=== PATIENT | female | born 1955 | race Caucasian/White ===

== ENCOUNTER 2016-11-21 07:07 | Day surgery (SDC) | payer BC ==
--- NOTE | 2016-11-18 23:05 | HP ---
ADMISSION HISTORY AND PHYSICAL: DATE OF ADMISSION: 11/21/16 ATTENDING SURGEON: Dr. Davi Friedman (dictated by BREA Zheng) CHIEF COMPLAINT: Left breast cancer. HISTORY OF PRESENT ILLNESS: This is a 60-year-old female who does not have regular medical care who noticed new lump in her left breast while in the shower around July 2016. She notes that in succeeding months, it has increased in size. It has been associated with some tenderness. She has not had any skin changes or nipple discharge. She has had a preexisting lump in the right breast since she was in her teens that has remained unchanged for the past 40 years or so. Her last mammogram was approximately 7 to 8 years ago. She was sent for mammogram and ultrasound on 10/31/16. These studies confirmed the presence of a lesion in the right breast at the 1 to 3 o'clock position with associated dense calcifications felt to be consistent with a fibroadenoma. On the left side between the 10 and 11 o'clock positions was noted to be a solid mass felt to be consistent with a carcinoma measuring up to 19 mm and located 3 cm from the nipple. The patient has not had any prior breast biopsies. Her family history is positive for breast cancer and a paternal aunt who was diagnosed in her 80s. She was seen in our office by Dr. Friedman on 11/08. Examination at that time revealed a smooth rounded mass at the upper edge of the areola of the right breast measuring just less than a centimeter in size and felt to be consistent with fibroadenoma. In the left breast, there was a visible swelling under the skin between the 10 and 11 o'clock position that was hard and suspicious for neoplasm. He estimated the measurement to be about 2 x 2.5 cm. There is no palpable lymphadenopathy bilaterally and no other dominant masses. There are no skin or nipple changes. He subsequently performed a fine- needle aspiration and core biopsy, which was positive for invasive ductal carcinoma, which was negative for both estrogen and progesterone receptors as well as HER-2 cyn receptor. Her case was presented at tumor board. Dr. Friedman has relayed these findings and recommendations to the patient. She understands the indications for surgery. The risks, benefits, and alternatives, the potential need for additional surgery and the potential need for adjuvant chemo and/or radiation therapy. She would like to proceed as scheduled with wide excision of left breast cancer with central lymph node biopsy; placement of PowerPort. PAST MEDICAL HISTORY: She is an active smoker and would qualify for substance use disorder regarding her alcohol intake (see below). She denies any known history of active cardiovascular disease, respiratory problems, diabetes, or other prior history of cancer. PAST SURGICAL HISTORY: Her previous surgeries include total hysterectomy with bilateral salpingo-oophorectomy in 2002 for benign disease. She is also status post ectopic and appendectomy. No report of surgical or anesthesia problems. CURRENT MEDICATIONS: None (occasional Aleve p.r.n.) DRUG ALLERGIES: PENICILLIN (facial swelling). (She has taken Keflex in the past without any problem.) LATEX (?; she had a local reaction at an IV site from what sounds like Tegaderm). FAMILY HISTORY: Negative for anesthesia problems, bleeding, or clotting disorders. SOCIAL HISTORY: The patient is . 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 She is a 1 pack per day smoker and was encouraged to quit. She drinks between 4 and 6 alcoholic drinks per day and was advised to reduce her alcohol intake. She denies any other substance use. REVIEW OF SYSTEMS: General: No recent constitutional symptoms or acute illnesses. Her weight has been stable. Cardiovascular: No chest pain, palpitations, history of hypertension. She has had a past history of a heart murmur. Respiratory: Smoking history as noted. No shortness of breath or chronic cough. GI: No problems reported. She did undergo colonoscopy twice most recently being 2 to 3 years ago, which she states was a normal report. : No problems reported. CLINIC LPN: See above for breast. She no longer has Pap smears done as she is status post hysterectomy. Endocrine: No diabetes or thyroid dysfunction. PHYSICAL EXAMINATION GENERAL: Well-nourished, well-developed female, in no acute distress. VITAL SIGNS: Height 5 feet 2 inches, weight 137 pounds. Other vital signs per nursing. SKIN: Warm and dry. No suspicious rashes or lesions noted. HEENT: Pupils are equal and round, reactive. EOMs intact. No conjunctival pallor. Oropharynx: Teeth in fair repair. No intraoral lesions. NECK: No lymphadenopathy, thyromegaly, or masses. LUNGS: Clear to auscultation. No wheezes. HEART: Regular rate and rhythm. No murmur appreciated. BREAST: Not reexamined. See above per Dr. Friedman's exam. ABDOMEN: Soft, nontender to palpation. No palpable masses or organomegaly. Well- healed surgical scars. GENITALIA and RECTAL: Not done. BACK: No spinous process or CVA tenderness. EXTREMITIES: No edema. NEUROLOGICAL: Grossly intact. IMPRESSION: Left breast cancer. PLAN: Wide excision, left breast cancer with sentinel lymph node biopsy; PowerPort placement. BREA CHAVEZ CC: [facility] * [id number] #: [id number] MTDD
[~2016-11-21 07:07] MED LIST: Buffered Lidocaine 1% SYR 3ML* 3 ML/SYR SYRINGE INTRADERM ONE; Lidocaine 2.5%/Prilocain 2.5%* 5 GM TUBE ONE; NS 0.9% 1000 ML* 1,000 ML IV SCH; ceFAZolin 2 GM PREMIX (*) 2 GM/50 ML BAG IVPB ONE
--- NOTE | 2016-11-21 09:09 | RAD ---
HISTORY: Breast cancer. Lymphoscintigraphy of the breast for the purposes of sentinel node identification. COMPARISONS: Mammogram dated October 31, 2016 TECHNIQUE: Previous imaging was reviewed. The procedure was explained to the patient who indicated that she understood. Written and verbal informed consent was obtained, with an opportunity to ask and answer questions. The breast was marked. A timeout was performed. The patient was prepped and draped in the usual sterile fashion. Technetium 99m sulfur colloid was administered in a subdermal fashion in 4 divided aliquots in a 180 degree arc along the areolar margin of the left breast, centered on the position of the primary breast lesion. Cine and planar imaging was performed. The first appearing axillary node was identified with the overlying skin marked. DOSE: Technetium 99m sulfur colloid, 0.302 millicuries, injected at 8:33 AM on November 21, 2016 FINDINGS: Uptake is noted within a left axillary lymph node. The site of uptake is marked on the overlying skin. OTHER: None IMPRESSION: TECHNICALLY SUCCESSFUL, UNCOMPLICATED, LYMPHOSCINTIGRAPHY OF THE LEFT BREAST FOR THE PURPOSES OF SENTINEL NODE LOCALIZATION.
[2016-11-21] MEDS ORDERED: Famotidine IV* 10 MG/ML 2 ML (20 mg) ONE (11:33)
[2016-11-21] MEDS ORDERED: Midazolam* 1 MG/ML 2 ML VIAL (2 MG) ONE ×2 (11:33→12:41)
[2016-11-21] MEDS ORDERED: fentaNYL* 50 MCG/ML 2 ML VIAL (100 MCG VIAL) ONE ×2 (11:33→13:01)
[2016-11-21] MEDS ORDERED: Ketorolac INJ* 30 MG/ML 1 ML VIAL ONE (12:41)
[2016-11-21] MEDS ORDERED: Propofol* 10 MG/ML 20 ML BTL IV PUSH ONE ×2 (12:41→13:16)
[2016-11-21] MEDS ORDERED: Lidocaine 2% PF * 5 ML VIAL ONE (12:41)
[2016-11-21] MEDS ORDERED: Ondansetron INJ* 2 MG/ML VIAL ONE (12:41)
[2016-11-21] MEDS ORDERED: Dexamethasone IV* 4 MG/ML 1 ML (4 MG) ONE (12:41)
[2016-11-21] MEDS ORDERED: HYDROmorphone INJ* 1 MG/ML CARPUJECT SYRINGE IV PRN (13:22)
[2016-11-21] MEDS ORDERED: HYDROcodone/ACETAMIN 5-325 MG* 1 TAB PO PRN (13:22)
[2016-11-21] MEDS ORDERED: DiMENhydriNATE IV* 50 MG/ML VIAL IV PUSH PRN (13:22)
[2016-11-21] MEDS ORDERED: fentaNYL* 50 MCG/ML 2 ML VIAL (100 MCG VIAL) IV PRN (13:22)
[2016-11-21] MEDS ORDERED: PROCHLORPERAZINE INJ 5 MG/ML 2 ML VIAL IV PRN (13:22)
[2016-11-21] MEDS ORDERED: Acetaminophen TAB* 325 MG PO PRN (13:22)
[2016-11-21] MEDS ORDERED: Ondansetron INJ* 2 MG/ML VIAL IV PRN (13:22)
[2016-11-21] MEDS ORDERED: HYDROmorphone INJ* 1 MG/ML CARPUJECT SYRINGE ONE (13:26)
--- NOTE | 2016-11-21 13:51 | RAD ---
CPT II Codes: 6045F. Indication: PowerPort insertion. Fluoroscopic services provided for referring physician. 6.9 seconds of fluoroscopy time was used. Single spot image demonstrates placement of a central catheter in the right atrium. IMPRESSION: Fluoroscopic services provided for referring physician for PowerPort placement.
[2016-11-21 15:04] VITALS: BP 125/83
--- NOTE | 2016-11-21 15:07 | RAD ---
HISTORY: Chest port placement COMPARISONS: None relevant VIEWS:1: Single frontal portable view of the chest at 2:49 PM FINDINGS: LINES AND TUBES: A right-sided chest port is noted from a subclavian approach with the tip overlying the superior vena cava CARDIOMEDIASTINAL SILHOUETTE: The cardiomediastinal silhouette is normal for portable technique. PLEURA: The costophrenic angles are sharp. No pleural abnormalities are noted. There is no appreciable pneumothorax. LUNG PARENCHYMA: The lungs are clear. ABDOMEN: The upper abdomen is clear. There is no subphrenic gas. BONES AND SOFT TISSUES: No bone or soft tissue abnormalities are noted. IMPRESSION: LINES AND TUBES ABOVE. NO ACTIVE CARDIOPULMONARY DISEASE.
--- NOTE | 2016-11-22 01:02 | OP ---
DATE OF OPERATION: 11/21/16 [facility] DATE OF : 59 SURGEON: Davi Friedman MD DELIVERY STOCK CLERK: BREA Hinojosa ANESTHESIOLOGIST: Dr. Cruz. ANESTHESIA: General anesthetic, local infiltration. PRE-OP DIAGNOSIS: Left breast cancer. POST-OP DIAGNOSIS: Left breast cancer. OPERATIVE PROCEDURE: Placement of right subclavian PowerPort and wide local excision, left breast cancer with left axillary sentinel node excision. DESCRIPTION OF PROCEDURE: The patient was supine on the operative table. After adequate general anesthetic, compression stockings, Neo Hugger warmer and intravenous antibiotics, the right chest, neck, left chest and axilla were prepped with antiseptic, draped in a sterile fashion. Local anesthetic was administered and the right subclavian port site was marked out, anesthetized. A 3-cm incision was created. Inferior pocket was created. Subclavian venipuncture carried out without difficulty. Guidewire passed under fluoroscopic guidance. Catheter passed through the peel-away introducer, measured and cut at 22 cm and placed into the distal SVC. It was attached to the port, which was sutured to the pocket with 2-0 Prolene. Pocket was closed with 3-0 and 5-0 Polysorb followed by Steri-Strips. The port has good blood return and flushed with saline and heparinized solution. Attention was then turned to the left side, where wide excision was carried out of the left upper inner quadrant mass. An elliptical incision approximately 4 x 8 cm was created and this tissue was carried down to the subfascial plane and a piece of tissue approximately 5 x 10 x 4 cm was removed, marked with the usual marking sutures and sent fresh to pathology. The adipose was mobilized somewhat and closure accomplished using 3-0 and 5-0 Polysorb followed by Steri- Strips. In the left axilla, local anesthetic was administered and approximately 3 cm incision was created and a solitary sentinel node with a count of 257 was identified and dissected out. Afterwards, the basin count was about 2 and no additional sentinel nodes could be identified. Closure was accomplished with 3-0 and 5-0 Polysorb followed by Steri-Strips. She tolerated the procedure well and was brought to recovery in good condition. There are no complications. No drains. Pathologic specimens as above. Sponge and instrument counts correct. Estimated blood loss 30 mL. CC: [facility] * [id number]/CPS #: [id number] MTDD
== END 2016-11-21 15:05 | disposition home or self-care (01) ==
LOC: OR 07:07
PROVIDERS: ATTEND Surgery
DX: C50.212 Malignant neoplasm of upper-inner quadrant of left female breast (principal); Z88.0 Allergy status to penicillin; F17.210 Nicotine dependence, cigarettes, uncomplicated; F19.10 Other psychoactive substance abuse, uncomplicated; Z72.89 Other problems related to lifestyle
CPT/HCPCS: 71010; 78195; 88307; 88341; 88342; A9270-GY; A9541; C1788; J0690; J1100; J1170; J1642; J1885; J2250; J2405; J2704; J3010

== ENCOUNTER 2019-02-25 05:30 | Inpatient (IN) | payer BC ==
[~2019-02-25 05:30] MED LIST changes: -Buffered Lidocaine 1% SYR 3ML* 3 ML/SYR SYRINGE INTRADERM ONE; +Buffered Lidocaine 1% SYRIN* 1 ML/SYRINGE INTRADERM ONE; -Lidocaine 2.5%/Prilocain 2.5%* 5 GM TUBE ONE; -NS 0.9% 1000 ML* 1,000 ML IV SCH; +NS 0.9% IVPB SCH; +VANCOMYCIN IVPB SCH; +Vancomycin(*) 1,000 MG in NS 0.9% 250 ML* 250 ML IVPB SCH; -ceFAZolin 2 GM PREMIX (*) 2 GM/50 ML BAG IVPB ONE
--- OUTSIDE RECORDS SUMMARY | 2019-02-25 05:34 | XMS REPORT | Continuity of Care Document ---
:1955 External Reference #:[id number] Author Name Smiley Richmond Care Team Providers Name Role Phone Patient's Choice Primary Care Physician Unavailable Payers Date Identification Numbers Payment Provider Subscriber Policy Number: [id number] BS Facets Maggy Erazo PayID: [id number] [address] [address] [place] [address] Family History Date Family Member(s) Observation Comments Father Prostate Cancer Father due to Prostate Cancer () Mother due to childbirth () difficulties Siblings 4 two brothers and two sisters Social History Type Date Description Comments Sex Unknown Marital Status Lives With 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 Max 1 smoker, smokes every ppd. Began age 16 day Recreational Drug Use Never Used Drugs Smoking Status Reviewed: 02/23/19 Patient is a current 3/4 ppd now. Max 1 smoker, smokes every ppd. Began age 16 day Exercise Type/Frequency Does not exercise Allergies, Adverse Reactions, Alerts Active Allergies Reaction Severity Comments Date Penicillin 11/05/2016 Latex Rash 02/19/2019 Medications Active Medications SIG Qnty Indications Ordering Provider Date Dexamethasone 3 tabs by mouth Unknown 4mg Tablets daily History Medications No Active Medications Unknown 11/29/2016 - 11/29/2016 Hydrocodone-Acetamino 1 or 2 tablets by 20tabs Mary Jo Grewal, 2016 - phen mouth every 4-6 MD Unknown 5-325mg Tablets hours as needed for moderately severe pain No Active Medications Davi Friedman, 11/05/2016 - Reji 11/18/2016 Aleve as needed Unknown - 220mg Tablets 02/18/2019 Vital Signs Date Vital Result Comment 02/23/2019 9:16am Height 62 inches 5'2" Weight 137.00 lb Heart Rate 88 /min BP Systolic Sitting 135 mmHg BP Diastolic Sitting 81 mmHg O2 % BldC Oximetry 95 % BMI (Body Mass Index) 25.1 kg/m2 02/19/2019 2:24pm Height 62 inches 5'2" Weight 136.00 lb BP Systolic 141 mmHg BP Diastolic 71 mmHg Respiratory Rate 16 /min Body Temperature 98.3 F Pain Level 10 BMI (Body Mass Index) 24.9 kg/m2 12/31/2017 8:29am Heart Rate 76 /min BP Systolic 126 mmHg BP Diastolic 80 mmHg Respiratory Rate 16 /min Body Temperature 98.5 F 11/29/2016 11:32am Heart Rate 88 /min Respiratory Rate 16 /min Body Temperature 98.9 F 11/18/2016 12:59pm Height 62 inches 5'2" Weight 137.00 lb Heart Rate 84 /min BP Systolic 148 mmHg BP Diastolic 64 mmHg Respiratory Rate 18 /min Body Temperature 98.8 F BMI (Body Mass Index) 25.1 kg/m2 11/08/2016 9:14am Height 62 inches 5'2" Weight 137.00 lb Heart Rate 72 /min BP Systolic 134 mmHg BP Diastolic 74 mmHg Respiratory Rate 16 /min Body Temperature 98.1 F BMI (Body Mass Index) 25.1 kg/m2 Results Test Date Facility Test Result H/L Range Note CBC Auto Diff 02/23/2019 [facility] White Blood 14.5 10^3/uL High 3.5-10.[address] [place] [address] [phone] Red Blood Count 4.52 10^6/uL N 3.70-4.87 Hemoglobin 13.9 g/dL N 12.0-16.0 Hematocrit 41 % N 35-47 Mean Corpuscular Volume 91 fL N 80-97 Mean Corpuscular Hemoglobin 31 pg N 27-31 Mean Corpuscular HGB Conc 34 g/dL N 31-36 Red Cell Distribution Width 13 % N 10-15 Platelet Count 352 10^3/uL N 150-450 Mean Platelet Volume 7.7 fL N 7.4-10.4 Abs Neutrophils 12.5 10^3/uL High 1.5-7.7 Abs Lymphocytes 1.1 10^3/uL N 1.0-4.8 Abs Monocytes 0.9 10^3/uL High 0-0.8 Abs Eosinophils 0.0 10^3/uL N 0-0.6 Abs Basophils 0.0 10^3/uL N 0-0.2 Abs Nucleated RBC 0.0 10^3/uL Granulocyte % 86.2 % Lymphocyte % 7.5 % Monocyte % 6.0 % Eosinophil % 0.0 % Basophil % 0.3 % Nucleated Red Blood Cells % 0.0 Comp Metabolic Panel 02/23/2019 [facility] Sodium 136 mmol/L N 135-[address] [place] [address] [phone] Potassium 4.5 mmol/L N 3.5-5.0 Chloride 101 mmol/L N 101-111 Co2 Carbon Dioxide 27 mmol/L N 22-32 Anion Gap 8 mmol/L N 2-11 Glucose 95 mg/dL N 70-100 Blood Urea Nitrogen 31 mg/dL High 6-24 Creatinine 0.88 mg/dL N 0.51-0.95 BUN/Creatinine Ratio 35.2 High 8-20 Calcium 10.2 mg/dL N 8.6-10.3 Total Protein 7.1 g/dL N 6.4-8.9 Albumin 4.2 g/dL N 3.2-5.2 Globulin 2.9 g/dL N 2-4 Albumin/Globulin Ratio 1.4 N 1-3 Total Bilirubin 0.50 mg/dL N 0.2-1.0 Alkaline Phosphatase 57 U/L N 34-104 Alt 31 U/L N 7-52 Ast 27 U/L N 13-39 Egfr Non- 65.3 >60 Egfr 79.0 >60 1 Urinalysis Profile 02/23/2019 [facility] Urine Color Yellow [address] [place] [address] [phone] Urine Appearance Cloudy Urine Specific [place] 1.020 N 1.010-1.030 Urine pH 5.0 N 5-9 Urine Urobilinogen Negative Negative Urine Ketones Negative Negative Urine Protein Negative Negative Urine Leukocytes Negative Negative Urine Blood Negative Negative Urine Nitrite Negative Negative Urine Bilirubin Negative Negative Urine Glucose Negative Negative Inr/Protime 02/23/2019 [facility] Inr 0.85 N 0.82-1.[address] [place] [address] [phone] Laboratory test 02/23/2019 [facility] Partial 25.6 Low 26.0- 38.[address] [place] [address] PTT [phone] Laboratory test 11/21/2016 [facility] Surgical SEE RESULT [address] Pathology BELOW [place], [place] [id number] [phone] Laboratory test 11/08/2016 [facility] Surgical SEE RESULT [address] Pathology BELOW [place], [place] [id number] [phone] Cytology Non-Packing And Wrapping Supervisor SEE RESULT BELOW 5 1 Because ethnic data is not always readily available, this report includes an eGFR for both -Americans and non- Americans. The National Kidney Disease Education Program (NKDEP) does not endorse the use of the MDRD equation for patients that are not between the ages of 18 and 70, are , have extremes of body size, muscle mass, or nutritional status, or are non- or non-. According to the National Kidney Foundation, irrespective of diagnosis, the stage of the disease is based on the level of kidney function: Stage Description GFR(mL/min/1.73 m(2)) 1 Kidney damage with normal or decreased GFR 90 2 Kidney damage with mild decrease in GFR 60-89 3 Moderate decrease in GFR 30-59 4 Severe decrease in GFR 15-29 5 Kidney failure <15 (or dialysis) 2 Standard intensity warfarin therapeutic range: 2.0-3.0 High intensity warfarin therapeutic range: 2.5-3.5 3 SEE RESULT BELOW Name: MAGGY ERAZO : [address]: Davi Friedman MD Acct: [id number] Unit: [id number] AGE: 60 Location: OR Re11/21/16 SEX: F Status: [facility] SPEC: [id number] JOANNA: 11/21/[address]: Davi Friedman MD REQ: [id number] RECD: 11/21/16 STATUS: SOUT _ ORDERED: KERATIN STAIN, LEVEL V/2, KSS-ADD FINAL DIAGNOSIS 1. Breast, left, lumpectomy: -- Invasive ductal adenocarcinoma of breast, with: Size: 23 mm. Overall Candi grade: 3 of 3. Tubule formation: 3. Nuclear grade: 3. Mitotic count: 3. Margins: All margins are negative by greater than 6 mm. Lymphovascular invasion: Not identified. Skin: Not involved. Chest-wall / pectoralis involvement: Not applicable. Ductal carcinoma in situ (DCIS): Present. Size: 6 mm. Extent and distribution: Adjacent to invasive carcinoma. Architectural pattern: Solid and clinging types. Nuclear grade: High. Necrosis: Focally present. Margins: Negative by greater than 6 mm. ER, SC, Her2/antoinette by immunohistochemistry with appropriate controls: ER: Per , negative (0%). SC: Per , negative (0%). Her2/antoinette: Per , negative (1+). Microcalcifications: Not identified. Other findings: None. pTNM histopathologic stage: pT2 N0 M N/A. 2. [place] lymph node #1, excision: -- One lymph node negative for metastatic carcinoma (0/1). COMMENT: Per [place] lymph node protocol, pankeratin immunostains were CONTINUED ON NEXT PAGE * ML=Testing performed at Main Lab DEPARTMENT OF PATHOLOGY, [address] [place] [address] Luis Gipson M.D. Director [facility] # [id number] RUN DATE: 11/22/16 [facility] LAB LIVE PAGE 2 Patient: MAGGY ERAZO [id number] (Continued) SPECIMEN COMMENTS (Continued) performed on sections cut from blocks 2A and 2B and are negative, supporting the diagnosis. Dr. Gipson reviewed this case in intradepartmental consultation and agrees with the diagnosis. PRE-OPERATIVE DIAGNOSIS Left breast cancer; suture gutierrez: long lateral, medium medial, short superior GROSS DESCRIPTION 1. The specimen is received fresh in one properly labeled container with the patient's name and accession number designated "Left Breast Excision" and consists of an oriented 8.5 x 7.0 x 4.0 cm of breast tissue with attached 4.5 x 1.8 cm ellipse of caro- white skin. Three orienting sutures are present including a long stitch designating lateral, a short stitch designating superior, and a medium stitch designating medial. The specimen is inked as follows: Superior anterior equals blue, inferior anterior equals green, and posterior (deep) equals black. The specimen is serially sectioned from lateral to medial to reveal a 2.3 x 2.1 x 2.0 cm well-circumscribed caro-white mass in the central portion of the specimen located 0.6 cm from the deep margin, 1.1 cm from the anterior superior margin , and 1.5 cm from the anterior inferior margin. Stitchdown Thread Laster sections as follows: A- skin, B-adjacent uninvolved, A-S-pwqdbvflpzuogw mass. 2. The specimen is received in formalin labeled, [place] Node #1 Count 257 , and consists of a 2.2 x 1.8 x 0.7 cm aggregate of yellow lobulated adipose tissue with a central 1.2 x 0.8 x 0.5 cm caro-pink rubbery tissue fragment, which is serially sectioned and entirely submitted in two cassettes. Signed (signature on file) Ester Costa MD 1627 END OF REPORT * ML=Testing performed at Main Lab DEPARTMENT OF PATHOLOGY, [address] [place] [address] Luis Gipson M.D. Director [facility] # [id number] 4 SEE RESULT BELOW Name: GWYNALYSSA TAYLORIE : [address]: Davi Friedman MD Acct: [id number] Unit: [id number] AGE: 60 Location: [facility] Re11/08/16 SEX: F Status: REG REF SPEC: [id number] JOANNA: 11/08/16-0954 [facility] DR: Davi Friedman MD REQ: [id number] RECD: 11/08/16 STATUS: BERE CABALLREO DR: Maine Horn MD _ ORDERED: ESTRO REC ST, LEVEL IV, [id number], PRAS-ADD COMMENTS: No tracking Addendum: The following immunohistochemical stains were performed with appropriate controls. ER negative SC negative HER-2 negative (1+) Addendum Signed (signature on file) Luis Gipson MD 0935 FINAL DIAGNOSIS Breast, left, core biopsy: -- Invasive ductal adenocarcinoma of breast, with: Size: 4 mm maximal span. Tumor extent and distribution: 1 single tumor focus noted.. Estimated Candi grade: Estimated tubule formation: 2. Estimated nuclear grade: 2. Estimated mitotic count: 2. Combined [place] histologic grade: 2/3. (6/9 points). Lymphovascular invasion: Not seen. Ductal Carcinoma in situ (DCIS): Not present. ER, SC, and Her2/Antoinette by immunohistochemistry with appropriate controls: ER: Pending; results will be reported in an addendum. SC: Pending; results will be reported in an addendum. Her2/Antoinette: Pending; results will be reported in an addendum. Microcalcifications: Not seen. Other findings: None. Predicted pTNM histopathologic stage: at least pT 1A. CONTINUED ON NEXT PAGE * ML=Testing performed at Main Lab DEPARTMENT OF PATHOLOGY, [address] [place] [address] Luis Gipson M.D. Director [facility] # [id number] RUN DATE: 11/13/16 [facility] LAB LIVE PAGE 2 Patient: MAGGY ERAZO [id number] (Continued) FINAL DIAGNOSIS (Continued) Comment: Dr. Costa has reviewed this case and concurs. PRE-OPERATIVE DIAGNOSIS Left breast lump GROSS DESCRIPTION The specimen is received in formalin labeled, Left Breast Lump Core Biopsy, and consists of two yellow-white irregular fibrofatty soft tissue cores measuring 1.5 x 0.2 cm and 2.0 x 0.2 cm, which are submitted entirely in one cassette. Signed (signature on file) Luis Gipson MD 1141 END OF REPORT * ML=Testing performed at Main Lab DEPARTMENT OF PATHOLOGY, [address] [place] [address] Luis Gipson M.D. Director [facility] # [id number] 5 SEE RESULT BELOW Name: MAGGY ERAZO : [address]: Davi Friedman MD Acct: [id number] Unit: [id number] AGE: 60 Location: [facility] Re11/08/16 SEX: F Status: REG REF SPEC: [id number] JOANNA: 11/08/16-0954 [facility] DR: Davi Friedman MD REQ: [id number] RECD: 11/08/16 STATUS: BERE CABALLERO DR: [facility] _ ORDERED: FN ASP SUPERFIC COMMENTS: NO TRACKING FINAL DIAGNOSIS Breast, left, fine needle aspiration: --Malignant- well to moderately differentiated ductal carcinoma. See comment. Comment: Specimen demonstrates cohesive and discohesive epithelial fragments demonstrating mild to moderate nuclear pleomorphism, architectural disorder, mild nuclear contour irregularities and visible nucleoli. Some fragments demonstrates associated bare bipolar nuclei while others do not. Numerous strips epithelial nuclei are seen in the background as are bare bipolar nuclei. This aspirate definitively demonstrates a neoplastic process. The abundance of bare bipolar nuclei and associated myoepithelial elements with some groups suggests a significant in situ component. Radiographic correlation and additional studies may be considered as clinically warranted. BREAST LEFT - LEFT BREAST FINE NEEDLE ASPIRATION CLINICAL HISTORY Left breast lump. GROSS DESCRIPTION 4 Alcohol fixed slide(s) received from clinician. Signed (signature on file) Luis Gipson MD 1439 END OF REPORT * ML=Testing performed at Main Lab DEPARTMENT OF PATHOLOGY, [address] [place] [address] Luis Gipson M.D. Director [facility] # [id number] Procedures Date Code Description Status 12/31/2017 72051 Removal Tunneled Central Venous Access Dev W/Sub Completed Port/Pump 12/30/2016 93790 ECHO Transthoracic, Real-Time 2D With Doppler And Color Completed Flow 11/21/2016 76346 Fluoroscopic Guidance For Cent Completed 11/21/2016 97176 Biopsy/Excision Deep Axillary Node(S) Completed 11/21/2016 70348 Insertion Tunneled Cent Venous Cathr W Subcut Port 5 Completed Yrs Or Oldr 11/21/2016 96078 Insertion Tunneled Cent Venous Cathr W Subcut Port 5 Completed Yrs Or Oldr 11/21/2016 15512 Mastectomy Partial Completed 11/21/2016 14580 Mastectomy Partial Completed 11/08/2016 63826 Biopsy Breast Needle Core Completed 10/31/2016 [id number] Mammogram Completed Encounters Type Date Location Provider Dx Diagnosis Office Visit [facility] Davi Friedman, N63 Unspecified lump in 9:15a Of Felicia Mendoza breast Plan of Treatment Future Appointment(s):05/28/2019 10:00 am - Jonathan Cardenas MD at [facility]03/29/2019 1:00 pm - Jonathan Cardenas MD at [facility]03/05/2019 9:00 am - Jonathan Cardenas MD at [facility]02/25/2019 7:30 am - BREA Buenrostro at [facility]02/25/2019 7:30 am - Jonathan Cardenas MD at [facility]02/23/2019 - Skyler San M.D.Z01.810 Encounter for preprocedural cardiovascular examinationNew Orders:EKG, Ordered: 02/23/19Comments:No past cardiovascular problems or sx. (+) smoker with daily smoker's cough, but no other resp sx.CT scan of chest and abd done yesterday; will review results when available. (+) hx excessive dailyalcohol intake, stable at 6 beer per day per pt. Pre-op abs ordered. EKG okD43.0 Neoplasm of uncertain behavior of brain, supratentorialComments:New R frontal brain lesion; surgical Rx pending. ? new primary cancer vs metastatic breast cancer.Pt on steroid Rx with some heartburn sx noted. Daily OTC Pepcid suggested with her prn xxubvekkH42.3 Personal history of malignant neoplasm of breastComments: Follows with heme/onc. Mammograms have been stable so farF17.210 Nicotine dependence, cigarettes, uncomplicatedComments:Chronic daily smoker with daily cough sx. No other resp sx. Pt advised to reduce smoking as much as she can in anticipation of the ushfvblX41.10 Alcohol abuse, uncomplicatedComments:Pt advised to reduce intake to no more than 2-3 today and none tomorrow
--- OUTSIDE RECORDS SUMMARY | 2019-02-25 05:34 | XMS REPORT | Continuity of Care Document ---
:1955 External Reference #:[id number] Author Name Kerrie Davis Care Team Providers Name Role Phone Patient's Choice Primary Care Physician Unavailable Payers Date Identification Numbers Payment Provider Subscriber Policy Number: [id number] BS Facets Maggy Erazo PayID: [id number] [address] [address] [place] [address] Family History Date Family Member(s) Observation Comments Father Prostate Cancer Father due to Prostate Cancer () Mother due to childbirth () difficulties Siblings 4 two brothers and two sisters Social History Type Date Description Comments Sex Unknown Marital Status Lives With 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 ETOH Use Drinks 6 Alcoholic Beverages Per Day Tobacco Use Start: Unknown Patient is a current smoker, smokes every day Recreational Drug Use Never Used Drugs Smoking Status Reviewed: 02/19/19 Patient is a current smoker, smokes every day Exercise Type/Frequency Does not exercise Allergies, Adverse Reactions, Alerts Active Allergies Reaction Severity Comments Date Penicillin 11/05/2016 Latex Rash 02/19/2019 Medications Active Medications SIG Qnty Indications Ordering Provider Date Dexamethasone 1 tab by mouth Unknown 4mg Tablets daily for 5 days History Medications No Active Medications Unknown 11/29/2016 - 11/29/2016 Hydrocodone-Acetamino 1 or 2 tablets by 20tabs Mary Jo Grewal, 2016 - phen mouth every 4-6 MD Unknown 5-325mg Tablets hours as needed for moderately severe pain No Active Medications Davi Friedman, 11/05/2016 - M.Caryn 11/18/2016 Aleve as needed Unknown - 220mg Tablets 02/18/2019 Vital Signs Date Vital Result Comment 02/19/2019 2:24pm Height 62 inches 5'2" Weight [...] Date Facility Test Result H/L Range Note Laboratory test 11/21/2016 [facility] Surgical SEE RESULT [address] [place] [address] [phone] Laboratory test 11/08/2016 [facility] Surgical SEE RESULT [address] [place] [address] [phone] Cytology Non-Dance Hall Hostess SEE RESULT BELOW 3 1 SEE RESULT BELOW Name: MAGGY ERAZO : [address]: Davi Friedman MD Acct: [id number] Unit: [id number] AGE: 60 Location: OR Re11/21/16 SEX: F Status: [place] [facility] [place] SPEC: [id number] JOANNA: 11/21/[address]: Davi Friedman MD REQ: [id number] RECD: 11/21/16 STATUS: SOUT _ ORDERED: KERATIN [...] histopathologic stage: pT2 N0 M N/A. 2. [place] lymph node #1, excision: -- One lymph node negative for metastatic carcinoma (0/1). COMMENT: Per [place] lymph node protocol, pankeratin immunostains were CONTINUED ON NEXT PAGE * ML=Testing performed at Main Lab DEPARTMENT OF PATHOLOGY, [address] [place] [address] Luis Gipson M.D. Director [facility] # [id number] RUN DATE: 11/22/16 [facility] LAB LIVE PAGE 2 Patient: MAGGY ERAZO [id number] (Continued) SPECIMEN COMMENTS (Continued) performed on sections [...] 1.5 cm from the anterior inferior margin. Second Rigger sections as follows: A- skin, B-adjacent uninvolved, F-P-wepvrlclnswmcq mass. 2. The specimen is received in formalin labeled, [place] Node #1 Count 257 , and consists [...] performed at Main Lab DEPARTMENT OF PATHOLOGY, [address] [place] [address] Luis Gipson M.D. Director [facility] # [id number] 2 SEE RESULT BELOW Name: MAGGY ERAZO : [address]: Davi Friedman MD Acct: [id number] Unit: [id number] AGE: 60 Location: [facility] Re11/08/16 SEX: F Status: REG REF SPEC: [id number] JOANNA: 11/08/16-095[address] [facility] [address]: Davi Friedman MD REQ: [id number] RECD: 11/08/16 STATUS: BERE CABALLERO DR: Maine Horn MD _ ORDERED: ESTRO REC ST, LEVEL IV, [id number], PRAS-ADD COMMENTS: No tracking Addendum: The following [...] grade: 2. Estimated mitotic count: 2. Combined Cand[place] histologic grade: 2/3. (6/9 points). Lymphovascular invasion: [...] performed at Main Lab DEPARTMENT OF PATHOLOGY, [address] [place] [address] Luis Gipson M.D. Director [facility] # [id number] RUN DATE: 11/13/16 [facility] LAB LIVE PAGE 2 Patient: MAGGY ERAZO [id number] (Continued) FINAL DIAGNOSIS (Continued) Comment: Dr. Costa [...] performed at Main Lab DEPARTMENT OF PATHOLOGY, [address] [place] [address] Luis Gipson M.D. Director [facility] # [id number] 3 SEE RESULT BELOW Name: MAGGY ERAZO : [address]: Davi Friedman MD Acct: [id number] Unit: [id number] AGE: 60 Location: [facility] Re11/08/16 SEX: F Status: REG REF SPEC: [id number] JOANNA: 11/08/[address] [facility] [address]: Davi Friedman MD REQ: [id number] RECD: 11/08/166 STATUS: BERE CABALLERO DR: [facility] _ [...] performed at Main Lab DEPARTMENT OF PATHOLOGY, [address] [place] [address] Luis Gipson M.D. Director [facility] # [id number] Procedures Date Code Description Status 12/31/2017 64341 Removal Tunneled Central Venous Access Dev W/Sub Completed Port/Pump 12/30/2016 02808 ECHO Transthoracic, Real-Time 2D With Doppler And Color Completed Flow 11/21/2016 38932 Fluoroscopic Guidance For Cent Completed 11/21/2016 37549 Biopsy/Excision Deep Axillary Node(S) Completed 11/21/2016 29724 Insertion Tunneled Cent Venous Cathr W Subcut Port 5 Completed Yrs Or Oldr 11/21/2016 83887 Insertion Tunneled Cent Venous Cathr W Subcut Port 5 Completed Yrs Or Oldr 11/21/2016 57077 Mastectomy Partial Completed 11/21/2016 59173 Mastectomy Partial Completed 11/08/2016 51696 Biopsy Breast Needle Core Completed 10/31/2016 [id number] Mammogram Completed Encounters Type Date Location Provider Dx Diagnosis Office Visit 11/[facility]/2016 [facility] Davi Friedman, N63 Unspecified lump in 9:15a Of Felicia Mendoza breast
[2019-02-25] MEDS ORDERED: Lactated Ringers 1000 ML Bag* 1,000 ML IV SCH (06:00)
[2019-02-25] MEDS ORDERED: Famotidine IV* 10 MG/ML 2 ML (20 mg) IV ONE (06:00)
[2019-02-25] MEDS ORDERED: Famotidine IV* 10 MG/ML 2 ML (20 mg) ONE (06:06)
[2019-02-25] MEDS ORDERED: Buffered Lidocaine 1% SYRIN* 1 ML/SYRINGE INTRADERM ONE (06:06)
[2019-02-25] MEDS ORDERED: Lidocaine 1% MPF wEPI 200,000* 30 ML SDV ONE (06:28)
[2019-02-25] MEDS ORDERED: Thrombin 5,000 UNITS* 1 APPLIC KIT - topical use - TOPICAL ONE (06:29)
[2019-02-25] MEDS ORDERED: Bacitracin INJECTION* 50,000 UNITS ONE ×2 (06:29→10:08)
[2019-02-25] MEDS ORDERED: Bacitracin OINTMENT* 0.5% 0.5 oz TUBE ONE (06:29)
[2019-02-25] MEDS ORDERED: Artificial Tear OPHTH.OINT* 3.5 GM ONE (06:56)
[2019-02-25] MEDS ORDERED: Mannitol 25% (12.5 GM) 50 ML* 12.5 GM/50 ML VIAL ONE (06:59)
[2019-02-25] MEDS ORDERED: Cisatracurium* 2 MG/ML MDV 5 ML ONE (07:16)
[2019-02-25] MEDS ORDERED: Propofol* 10 MG/ML 20 ML BTL ONE (07:16)
[2019-02-25] MEDS ORDERED: Phenylephrine 10 MG/ML VIAL* 1 ML VIAL ONE (07:16)
[2019-02-25] MEDS ORDERED: Ondansetron INJ* 2 MG/ML VIAL ONE (07:16)
[2019-02-25] MEDS ORDERED: EPHEDrine (Pressors)* 50 MG/ML VIAL ONE (07:16)
[2019-02-25] MEDS ORDERED: Midazolam* 1 MG/ML 10 ML VIAL (10 MG) ONE ×2 (07:16→10:16)
[2019-02-25] MEDS ORDERED: Dexamethasone IV* 4 MG/ML 1 ML (4 MG) ONE ×2 (07:16→09:01)
[2019-02-25] MEDS ORDERED: Lidocaine 2% PF * 5 ML VIAL ONE ×2 (07:16→07:17)
[2019-02-25] MEDS ORDERED: Remifentanil* 2 MG VIAL ONE ×4 (07:16→12:15)
[2019-02-25] MEDS ORDERED: Propofol* 500 MG/50 ML BTL ONE ×2 (07:16→07:17)
[2019-02-25] MEDS ORDERED: fentaNYL* 50 MCG/ML 2 ML VIAL (100 MCG VIAL) ONE ×4 (07:16→14:14)
[2019-02-25] MEDS ORDERED: Sodium Chloride 0.9%* 10 ML ONE ×2 (07:17→12:16)
[2019-02-25] MEDS ORDERED: levETIRAcetam IV* 500 MG/5 ML VIAL ONE (07:40)
[2019-02-25] MEDS ORDERED: Propofol* 1,000 MG/100 ML BTL ONE (09:12)
[2019-02-25] MEDS ORDERED: Acetaminophen IV 1GM/100ML * 100 ML ONE (11:39)
[2019-02-25] MEDS ORDERED: Labetalol IV* 5 MG/ML 20 ML VIAL ONE ×2 (12:01→14:20)
[2019-02-25] MEDS ORDERED: Ondansetron INJ* 2 MG/ML VIAL IV PRN (12:04)
[2019-02-25] MEDS ORDERED: Levalbuterol 0.63MG/3ML NEB* UNIT OF USE INH PRN (12:04)
[2019-02-25] MEDS ORDERED: Naloxone* 0.4 MG/ML 1 ML VIAL IV PRN (12:04)
[2019-02-25] MEDS: fentaNYL* 50 MCG/ML 2 ML VIAL (100 MCG VIAL) IV PRN ×2 (14:15→14:27)
[2019-02-25] MEDS ORDERED: Magnesium Hydroxide LIQ* 30 ML UDC PO PRN (14:18)
[2019-02-25] MEDS: Lactated Ringers 1000 ML Bag* 1,000 ML IV SCH (15:54)
[2019-02-25] MEDS: HYDROcodone/ACETAMIN 5-325 MG* 1 TAB PO PRN ×2 (16:07→21:59)
[2019-02-25] MEDS: Acetaminophen TAB* 325 MG PO PRN (16:53)
[2019-02-25] MEDS ORDERED: niCARdipine 0.1MG/ML IVPREMIX* 20 MG/200 ML BAG IV SCH ×2 (17:00)
[2019-02-25] MEDS: levETIRAcetam 500 MG IVPREMIX* 500 MG/100 ML BAG IV SCH (18:03)
[2019-02-25] MEDS: Dexamethasone TAB* 4 MG PO SCH ×2 (18:03→23:39)
--- NOTE | 2019-02-25 18:16 | CONS ---
CONSULTATION REPORT: DATE OF CONSULT: 02/25/19 PRIMARY CARE PROVIDER: Dr. Skyler San. ONCOLOGIST: Dr. Mitul Doty. NEUROSURGEON: Dr. Jonathan Cardenas. REQUESTING PHYSICIAN IN CONSULTATION: Dr. Jonathan Cardenas. ATTENDING PHYSICIAN: Dr. Ton Sanchez (dictated by BREA Mondragon). REASON FOR CONSULTATION: Co-medical management. HISTORY OF PRESENT ILLNESS/HOSPITAL COURSE: I refer you to Dr. Cardenas' operative note for complete details, but in short, Ms. Erazo is a 63-year-old female with a past medical history of breast cancer who presented to the hospital today for a craniotomy, right frontal lobe tumor removal. She is seen in the ICU postoperatively. She notes she is having a headache over the right eye. She also notes that she is hungry. She denies headache elsewhere. She denies chest pain, shortness of breath, fever, chills, or cough. She denies abdominal pain. She denies nausea or vomiting. She denies pain or weakness in the extremities. PAST MEDICAL HISTORY: 1. Breast cancer. 2. Right frontal lobe tumor. 3. Alcohol use. 4. Tobacco abuse. PAST SURGICAL HISTORY: In October 2016, lumpectomy. Appendectomy. Total hysterectomy. Tubal. HOME MEDICATIONS: Dexamethasone 4 mg p.o. t.i.d. ALLERGIES: PENICILLIN, swelling; LATEX, rash. FAMILY HISTORY: Positive for prostate cancer, breast cancer. Negative for CVA , diabetes mellitus, or heart disease. SOCIAL HISTORY: The patient has smoked 1 pack per day for approximately 40 years. She currently smokes approximately 3 quarters of pack per day now. She uses alcohol daily, drinking 5 to 6 beers per day. She uses no other recreational drugs. 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 She lives at home with her . In the event that she is unable to make her own medical decision, she has appointed her , Davi Chery to be her surrogate decision maker. REVIEW OF SYSTEMS: A 10-point review of systems was performed, all the pertinent positives and negatives are in the HPI. All other systems are negative. PHYSICAL EXAM: General: Ms. Erazo is a well-developed, well-nourished, middle - aged white woman, who is of normal weight. She is cooperative, appropriate. She is sitting up in bed. Vital Signs: Temperature 96.9 temporal, heart rate 60, respiratory rate 17, oxygen saturation 100% on 4 L, blood pressure 136/53. HEENT: PERRL. EOMI. Nonicteric sclerae. Hearing grossly intact. Oral mucous membranes are moist. There are no lesions. Head is normocephalic. Hair is shaved. The patient has a ROBERT drain in place on the right frontal area of the head. Clean, dry, and intact dressing is in place over the drain. Neck: Trachea midline. Cardiovascular: Regular rate and rhythm. S1, S2 present. No murmurs, rubs, or gallops. There is no JVD. Respiratory: Symmetrical chest expansion. No use of accessory muscles. Lungs: Clear to auscultation anteriorly. No rhonchi, wheezes, or rubs. Abdomen: Bowel sounds noted in all quadrants. The abdomen is flat. There is no tenderness to palpation. Extremities: Skin is warm and smooth bilaterally without clubbing, cyanosis, or edema. Radial and pedal pulses are palpable. Neuro: The patient is awake. She is alert and oriented x3. Her cranial nerves are grossly intact. She is able to move all of her extremities with a motor strength of 5/5 in bilateral upper and lower extremities. ASSESSMENT AND PLAN: Ms. Erazo is a 63-year-old female with a past medical history of breast cancer, who presents to [facility] today for a right frontal lobe craniotomy and was admitted to the ICU. The patient is admitted for: 1. Right frontal lobe craniotomy. Management per Neurosurgery. Continue Keppra, Decadron. Keep blood pressure less than 140 systolic. 2. Hypertension. The patient has no past medical history of hypertension. Neurosurgery would like to keep blood pressure less than 140 systolic postoperatively. Currently, the patient is in the 130s without medication. We will continue to monitor blood pressure if this elevates. Antihypertensive agent such as nicardipine will be added if blood pressure increases. 3. History of alcohol abuse. The patient admits to 5 to 6 beers per day. Last drink was last night. She is in the ICU which negates the need for a WAM protocol. She will be started on multivitamin, thiamine and folic acid. We will monitor the need for benzodiazepine during her stay. 4. Code status. Full code. 5. DVT prophylaxis. Per Neurosurgery, the patient is placed on SCDs. TIME SPENT: Approximately 35 minutes were spent on this consultation, greater than half of that time was spent with the patient obtaining history, performing physical, and reviewing the plan of care. The case has been reviewed with Dr. Sanchez, who is in agreement with the plan of care. BREA OLIVARES [id number]/[facility] #: [id number] SYLVIA
[2019-02-25] MEDS ORDERED: Calcium Carbonate CHEW TAB* 500 MG (TUMS) PO PRN (20:30)
--- NOTE | 2019-02-25 21:09 | OP ---
DATE OF OPERATION: 02/25/19 - ROOM #ICU-10 DATE OF : 59 SURGEON: Jonathan Cardenas MD CO-SURGEON: Dr. Gary Becker HELICOPTER REPAIRER: Alfredo Lehman PA-C. The case was done with the assistance of a second attending and surgical PA because of the complexity of the case. ANESTHESIA: General. PRE-OP DIAGNOSIS: Right posterior frontal lobe tumor. POST-OP DIAGNOSIS: Right posterior frontal lobe tumor. OPERATIVE PROCEDURE: The patient underwent right frontal temporal parietal craniotomy for resection of right posterior frontal tumor with intraoperative navigation and intraoperative monitoring with subcortical stimulation. ESTIMATED BLOOD LOSS: 50 cc. COMPLICATIONS: None. SUMMARY: The patient is a very pleasant 63-year-old female with history of breast cancer who presented with headaches and difficulty with her train of thoughts. She had an MRI of the brain revealing a large right frontal enhancing lesion. She underwent metastatic workup by Dr. Doty and after reviewing imaging, the patient was offered the option of surgical resection. We discussed with the patient and her regarding indications, contraindications, expectations, limitations, possible complications of the procedure, with the complications including, but not limited to bleeding, infection, risk of injury to adjacent structures, paralysis, , need for additional procedures, anesthesia risks, stroke, blindness, cancer, spinal fluid leak, loss of function, paralysis, loss of function of the limbs, seizures , pulmonary embolism, deep venous thrombosis, need for prolonged ICU stay, prolonged hospitalization, need for additional procedures, inability to resect the tumor, recurrence of the tumor, inability to obtain diagnosis. The patient was agreeable to proceed with surgery and informed consent was obtained. The patient understood that her condition may not improve and in fact may get worse after surgery and that she may need to have additional procedures in the future. She also understood that she may require additional resection in the future and she may undergo additional treatment. She was also offered the option of a second opinion as well as a referral to a tertiary center. The patient elected to proceed with surgical intervention in [facility]. The patient understood that the operative plan may be modified according to intraoperative findings and conditions and that the procedure may be abandoned or done in more than one stage. DESCRIPTION OF PROCEDURE: The patient was brought to the operating room and was placed under general anesthesia by the anesthesia team. She was carefully positioned supine and the right shoulder was elevated, all bony prominences were meticulously padded. Her head was secured in a 3-point Plummer fixation system and the patient's hair was removed with surgical clipper. The patient head was registered with the Slyce navigation system and the projection of the tumor was marked on the skin. Reverse question zachary incision was marked on the skin and the skin was prepped and draped in a standard fashion. After appropriate surgical pause and patient identification, the skin incision site was infiltrated with local anesthetic and #10 surgical blade was used to incise the skin to confirm hemostasis. Temporalis muscle was gently divided with monopolar cautery and the musculocutaneous flap was gently elevated anteriorly and secured with Doswell hooks after being rolled gently over a wet sponge. Again, the navigation probe was brought to the field and the position of the tumor was then again marked and several luzma holes were fashioned with a high-speed drill and side craniotomy cutter was used to connect the luzma holes to create a craniotomy. The cranial flap was gently elevated with use of Hassell #3 and periosteal elevators. High-speed drill was used to perform dural tack suture holes and 4-0 Nurolon suture were used to tack the dura in the periphery of the craniotomy. Meticulous hemostasis was confirmed and the dura was incised in a semi-curvilinear fashion with the use of #15 surgical blade and Metzenbaum scissors. The dural flap was then reflected anteriorly and secured in place. The Sylvian fissure was then readily visible as well as the anterior pole of temporal lobe and superior temporal gyrus as well as the right frontal operculum, which was distorted as expected by the tumor. The tumor was found to be coming to the surface as expected from preoperative MRI. Then cortical mapping was performed with paddle electrode to achieve phase reversal. Motor cortex was then confirmed with monopolar stimulation and the paddle electrode was positioned at the area of the motor cortex in order to achieve subcortical stimulation monitoring while tumor was resected. The gale was then gently divided with bipolar cautery and # 15 surgical blade at the base of the tumor and the margins between the tumor and the normal brain are gently developed with the use of gentle retraction, bipolar cautery in circumferential fashion. Gradually, the separation was deepened and the tumor was gradually from the periphery with the use of bipolar cautery. Attention was placed not to perform any traction into the normal brain. After achieving circumferential dissection of the tumor, the tumor was removed in its entirety. All visible tumor was removed and during the dissection, subcortical stimulation was used, which provided confirmation that the resection was anteriorly off the cortical spinal tract as expected from the preoperative MRI. The tumor bed was then carefully inspected and after copious irrigation, meticulous hemostasis and meticulous inspection, the tumor bed was then covered with a thin layer of Surgicel. Valsalva maneuver confirmed excellent hemostasis and then the dura was approximated with multiple 4-0 Nurolon sutures, while the small dural defects were covered with DuraGen. A central tack-up suture was placed and suture holes were made with high-speed drill in the center of the bone flap. The bone flap was then repositioned and was secured in place with titanium cranial plate and titanium screws. The wound was then closed by layers with 2-0 interrupted Vicryl sutures to approximate the temporalis muscle and fascia while a Aung drain was placed under temporalis fascia and tunneled through a separate stab wound incision. A 2-0 inverted interrupted Vicryl suture was used to approximate the subcutaneous tissue while the skin was covered with Steri sponges and sterile dressings. At the end of the procedure, all counts were reported to be correct. The patient remained hemodynamically stable throughout the case while the electrophysiological monitoring was excellent. It did not reveal any signs of irritation throughout the case. The patient was then extubated, was transferred to Recovery in excellent condition. Neurologically intact. The case was done with the assistance of a second surgeon and surgical PA because of the complexity of the case. [id number]/[facility] #: [id number] SYLVIA
[2019-02-26] MEDS: Lactated Ringers 1000 ML Bag* 1,000 ML IV SCH (02:17)
[2019-02-26] MEDS: HYDROcodone/ACETAMIN 5-325 MG* 1 TAB PO PRN ×3 (03:20→19:35)
[2019-02-26] MEDS: levETIRAcetam 500 MG IVPREMIX* 500 MG/100 ML BAG IV SCH ×2 (04:57→17:30)
[2019-02-26] MEDS: Dexamethasone TAB* 4 MG PO SCH ×3 (04:57→17:40)
[2019-02-26] MEDS: Acetaminophen TAB* 325 MG PO PRN ×2 (07:43→20:27)
[2019-02-26] MEDS: Nicotine PATCH 21 MG/24 HR* PATCH TRANSDERM SCH (07:43)
[2019-02-26 08:52] LABS: ABS Lymphocytes 0.5 10^3/ul (1.0-4.8); ABS Monocytes 0.6 10^3/ul (0-0.8); ABS Neutrophils 15.3 10^3/ul (1.5-7.7); Hematocrit 34 % (35-47); Hemoglobin 11.3 g/dL (12.0-16.0); Mean Corpuscular HGB Conc 33 g/dL (31-36); Mean Corpuscular Hemoglobin 30 pg (27-31); Mean Corpuscular Volume 91 fL (80-97); Mean Platelet Volume 7.5 fL (7.4-10.4); Platelet Count 267 10^3/uL (150-450); Red Blood Count 3.74 10^6 /uL (3.70-4.87); Red Cell Distribution Width 13 % (10-15); White Blood Count 16.4 10^3/uL (3.5-10.8)
--- NOTE | 2019-02-26 09:30 | PN ---
Hospitalist Progress Note Date of Service: 02/26/19 No acute events overnight, afebile Nicardipine gtt repeat CTH with tiny SAH, 3mm left midline shift no ativan for WAM
--- NOTE | 2019-02-26 09:35 | PN ---
Subjective Date of Service: 02/26/19 Interval History: No acute events overnight, afebile Nicardipine gtt off at 8pm repeat CTH with tiny SAH, 3mm left midline shift no ativan for ZAKIYA Ladd out, Patel out 9:30am today. tolerating clear liquid, hungry. No regular diet slight SÁNCHEZ above right eye. slight dizzy getting out of bed. Objective Active Medications: Acetaminophen (Tylenol Tab*) 650 mg PO Q6H PRN PRN Reason: HEADACHE Last Admin: 02/26/19 07:43 Dose: 650 mg Hydrocodone Bitart/Acetaminophen (Burgess 5-325 Tab*) 1 tab PO Q4H PRN PRN Reason: PAIN Last Admin: 02/26/19 03:20 Dose: 1 tab Calcium Carbonate (Tums*) 500 mg PO Q4H PRN PRN Reason: HEARTBURN Last Admin: 02/25/19 21:57 Dose: 500 mg Dexamethasone (Decadron Tab*) 4 mg PO Q6HR WILY Last Admin: 02/26/19 04:57 Dose: 4 mg Folic Acid (Folvite Tab*) 1 mg PO DAILY [facility] Lactated Ringer's (Lactated Ringers 1000 Ml Bag*) 1,000 mls @ 75 mls/hr IV .per rate [facility] Last Admin: 02/26/19 02:17 Dose: 75 mls/hr Levetiracetam (Keppra Iv Premix*) 500 mg in 100 mls @ 400 mls/hr IV Q12H [facility] Stop: 03/04/19 17:00 Last Admin: 02/26/19 04:57 Dose: 400 mls/hr Nicardipine/Sodium Chloride (Cardene 0.1mg/Ml Ivpremix*) 20 mg in 200 mls @ 50 mls/hr IV PER RATE [facility]; Protocol Last Admin: 02/25/19 18:03 Dose: 50 mls/hr Magnesium Hydroxide (Milk Of Magnesia Liq*) 30 ml PO DAILY PRN PRN Reason: CONSTIPATION Multivitamins/Minerals (Theragran/Minerals Tab*) 1 tab PO DAILY [facility] Nicotine (Nicotine Patch 21 Mg/24 Hr*) 1 patch TRANSDERM DAILY@0800 [facility] Last Admin: 02/26/19 07:43 Dose: 1 patch Pharmacy Profile Note (Nicotine Patch Removal Note*) 1 note PATCH OFF 2100 [facility] Thiamine HCl (Vitamin B-1 Tab*) 100 mg PO DAILY [facility] Vital Signs - 8 hr 02/26/19 02/26/19 02/26/19 01:52 01:58 02:00 Temperature Pulse Rate 59 60 Respiratory 9 16 16 Rate Blood Pressure 142/92 173/78 (mmHg) O2 Sat by Pulse 99 99 Oximetry 02/26/19 02/26/19 02/26/19 02:11 02:30 02:48 Temperature Pulse Rate 60 59 Respiratory 15 15 15 Rate Blood Pressure 161/74 (mmHg) O2 Sat by Pulse 99 99 Oximetry 02/26/19 02/26/19 02/26/19 03:00 03:17 03:30 Temperature 97.9 F Pulse Rate 54 58 Respiratory 16 10 Rate Blood Pressure (mmHg) O2 Sat by Pulse 100 99 Oximetry 02/26/19 02/26/19 02/26/19 03:51 04:00 04:30 Temperature Pulse Rate 58 56 Respiratory 12 6 15 Rate Blood Pressure (mmHg) O2 Sat by Pulse 98 99 Oximetry 02/26/19 02/26/19 02/26/19 05:00 05:30 05:41 Temperature Pulse Rate 73 63 Respiratory 18 17 14 Rate Blood Pressure (mmHg) O2 Sat by Pulse 99 98 Oximetry 02/26/19 02/26/19 02/26/19 06:00 06:31 07:00 Temperature Pulse Rate 59 65 58 Respiratory 13 16 15 Rate Blood Pressure (mmHg) O2 Sat by Pulse 99 99 99 Oximetry 02/26/19 02/26/19 07:30 08:00 Temperature 97.5 F Pulse Rate 58 68 Respiratory 15 18 Rate Blood Pressure (mmHg) O2 Sat by Pulse 100 100 Oximetry Oxygen Devices in Use Now: Nasal Cannula Appearance: NAD Eyes: No Scleral Icterus Ears/Nose/Mouth/Throat: NL Teeth, Lips, Gums Neck: NL Appearance and Movements; NL JVP Respiratory: Symmetrical Chest Expansion and Respiratory Effort, Clear to Auscultation Cardiovascular: NL Sounds; No Murmurs; No JVD, RRR Abdominal: NL Sounds; No Tenderness; No Distention, No Hepatosplenomegaly Extremities: No Edema Skin: No Rash or Ulcers, - - ROBERT drain Neurological: Alert and Oriented x 3, NL Muscle Strength and Tone, - - CN intact Lines/Tubes/Other Access: Clean, Dry and Intact Other Access - ROBERT drain Nutrition: Taking PO's Result Diagrams: 02/26/19 08:32 Additional Lab and Data: Laboratory Results - last 24 hr 02/26/19 08:32 WBC 16.4 H RBC 3.74 Hgb 11.3 L Hct 34 L MCV 91 MCH 30 MCHC 33 RDW 13 Plt Count 267 MPV 7.5 Neut % (Auto) 92.9 Lymph % (Auto) 3.0 Sawyer % (Auto) 3.9 Eos % (Auto) 0.0 Baso % (Auto) 0.2 Absolute Neuts (auto) 15.3 H Absolute Lymphs (auto) 0.5 L Absolute Monos (auto) 0.6 Absolute Eos (auto) 0.0 Absolute Basos (auto) 0.0 Absolute Nucleated RBC 0.0 Nucleated RBC % 0.0 Microbiology and Other Data: Microbiology 02/25/19 16:54 Nasal Screen MRSA (PCR) - Final Nasal Mrsa Not Detected Assess/Plan/Problems-Billing Assessment: 63 yo female PMH breast cancer s/p lumpectomy, radiation, chemotherapy 2016 p/w 3.3cm right frontal brain mass s/p resection 02/[address] Naqvi. Smoker, daily 6 beer drinker on WAM (not scoring). - Patient Problems (1) Brain mass Current Visit: Yes Status: Acute Code(s): G93.9 - DISORDER OF BRAIN, UNSPECIFIED SNOMED Code(s): 796748684 Comment: s/p resection CTH with Tiny SAH bp control (goal SBP <140) s/p nicardipine gtt. will add hydralazine prn. f/u pathology repeat MRI Brain this AM managment per Neurosurgery - on keppra and dexamethasone. - diet now advanced. (2) Smoker Current Visit: Yes Status: Acute Code(s): F17.200 - NICOTINE DEPENDENCE, UNSPECIFIED, UNCOMPLICATED SNOMED Code(s): 98708466 Comment: nicotine patch (3) Heavy drinker of alcohol Current Visit: Yes Status: Acute Code(s): Z78.9 - OTHER SPECIFIED HEALTH STATUS SNOMED Code(s): 73872047 Comment: [facility] protocol, not scoring could contribute to HTN if starts to withdraw. folic acid, thiamine, multivitamin. (4) Breast cancer, left breast Current Visit: No Status: Acute Code(s): C50.912 - MALIGNANT NEOPLASM OF UNSPECIFIED SITE OF LEFT FEMALE BREAST SNOMED Code(s): 665789171 Comment: appreciate heme/onc recs. Status and Disposition: Neurosurgery primary. medicine consulted.
[2019-02-26] MEDS ORDERED: hydrALAZINE IV* 20 MG/ML VIAL IV SLOW PU PRN (09:47)
--- NOTE | 2019-02-26 10:45 | PN ---
Progress Note - Progress Note Date of Service: 02/26/19 SOAP: Subjective: 63 y/o female post resection of right frontal lobe tumor POD # 1. No acute changes over night, patient reports mild headaches improved with Dexamethasone. She nausea or vomiting, she has been on bed rest overnight and has been on NPO until completing head CT. Patient is very hungry and would like to eat. Her ROBERT drain put out 100 over night, Her vitals have been stable and blood pressure well controlled. Objective: General: Patient laying in bed on side comfortable, NAD. Neuro: GCS 15 A&O x 4, CN II - XII grossly intact, negative Romberg, UPE Motor strenght 5/5 bilaterally, LE motor strength 5/5 bilaterally. Derm:wound intact, no drainage observed, C/D/I Assessment: 63 y/o female post right frontal lobe tumor resection POD # 1, recovering well after surgery, post OP CT scan completed, no signs of bleeding or mass effect. Plan: Resume regular diet D/C fried D/C Arterial line Up out of bed to chair Continue monitoring drain out If possible keep patient in ICU while drain is in Pain management as indicated. Walk with PT/OT
[2019-02-26] MEDS ORDERED: Gadoteridol* (CONTRAST) 279.3 MG/ML 10 ML IV ONE (11:14)
[2019-02-26] MEDS: Thiamine TAB* 100 MG TAB PO SCH (12:00)
[2019-02-26] MEDS: Multivitamins/Minerals TAB PO SCH (12:00)
[2019-02-26] MEDS: Folic Acid TAB* 1 MG PO SCH (12:00)
[2019-02-26] MEDS ORDERED: Nicotine Patch Removal NOTE PATCH OFF SCH (21:00)
[2019-02-27] MEDS: Acetaminophen TAB* 325 MG PO PRN ×3 (00:26→13:21)
[2019-02-27] MEDS: Dexamethasone TAB* 4 MG PO SCH ×3 (00:26→13:22)
[2019-02-27] MEDS: levETIRAcetam 500 MG IVPREMIX* 500 MG/100 ML BAG IV SCH (05:02)
[2019-02-27 07:01] LABS: Calcium 8.4 mg/dL (8.6-10.3); EGFR African American 167.1 (>60); EGFR Non-African American 138.1 (>60); Potassium 3.8 mmol/L (3.5-5.0)
[2019-02-27] MEDS: Folic Acid TAB* 1 MG PO SCH (08:42)
[2019-02-27] MEDS: Multivitamins/Minerals TAB PO SCH (08:43)
[2019-02-27] MEDS: Thiamine TAB* 100 MG TAB PO SCH (08:43)
[2019-02-27] MEDS: Nicotine PATCH 21 MG/24 HR* PATCH TRANSDERM SCH (08:44)
--- NOTE | 2019-02-27 10:03 | PN ---
Progress Note - Progress Note Date of Service: 02/27/19 SOAP: Subjective: 63 y/o female post right frontal lobe tumor resection POD # 2, was transferred from ICU to [facility] last night. There were no acute changes over night, patient is doing well. Still has ROBERT drain that put out 20 ml overnight. She reports some mild headache pain quickly relieved with medication, denies nausea or vomiting. She has been ambulating with assistance, eating and drinking with out issue. Patient feels she is ready to go home. Objective: Vital Signs - 12 hr Temp Pulse Resp BP Pulse Ox 02/27/19 08:00 97.8 F 73 16 126/65 100 02/27/19 03:40 98.7 F 69 16 114/52 95 02/26/19 23:52 98.3 F 57 18 114/47 97 02/26/19 22:33 98.0 F 71 16 116/58 98 General: patient sitting at the edge bed, comfortable waiting for breakfast Neuro: GCS 15 A&O x 3 CN II - XII grossly intact. UPE motor strength 5/5 bilaterally, LE 5/5 bilaterally, sensation intact. Derm: scalp wound C/D/I, sutures and drain intact Assessment: 63 y/o female s/p resection of right frontal lobe tumor POD#2, she has completed post op CT and MRI, which have been reviewed with Dr. Cardenas, at this time patient will possible be discharged home. Plan: D/C drain Discuss with medicine discharge planning.
--- NOTE | 2019-02-27 10:14 | PN ---
Subjective Date of Service: 02/27/19 Interval History: No acute events overnight. Afebrile. SBP 120s. 20 cc in ROBERT drain overnight. No vision changes, slight SÁNCHEZ quickly resolved. got tylenol 0845. eating well, no abdominal pain, n,v,d,c. eager for going home to sleep in her own bed. Objective Active Medications: Acetaminophen (Tylenol Tab*) 650 mg PO Q4H PRN PRN Reason: HEADACHE Last Admin: 02/27/19 08:43 Dose: 650 mg Hydrocodone Bitart/Acetaminophen ([place] 5-325 Tab*) 1 tab PO Q4H PRN PRN Reason: PAIN Last Admin: 02/26/19 19:35 Dose: 1 tab Calcium Carbonate (Tums*) 500 mg PO Q4H PRN PRN Reason: HEARTBURN Last Admin: 02/25/19 21:57 Dose: 500 mg Dexamethasone (Decadron Tab*) 4 mg PO Q6HR [facility] Last Admin: 02/27/19 05:03 Dose: 4 mg Folic Acid (Folvite Tab*) 1 mg PO DAILY [facility] Last Admin: 02/27/19 08:42 Dose: 1 mg Hydralazine HCl (Apresoline Iv*) 10 mg IV SLOW PU Q2H PRN PRN Reason: SYSTOLIC BP GREATER THAN: Last Admin: 02/26/19 12:00 Dose: 10 mg Levetiracetam (Keppra Iv Premix*) 500 mg in 100 mls @ 400 mls/hr IV Q12H [facility] Stop: 03/04/19 17:00 Last Admin: 02/27/19 05:02 Dose: 400 mls/hr Magnesium Hydroxide (Milk Of Magnesia Liq*) 30 ml PO DAILY PRN PRN Reason: CONSTIPATION Multivitamins/Minerals (Theragran/Minerals Tab*) 1 tab PO DAILY [facility] Last Admin: 02/27/19 08:43 Dose: 1 tab Nicotine (Nicotine Patch 21 Mg/24 Hr*) 1 patch TRANSDERM DAILY@0800 [facility] Last Admin: 02/27/19 08:44 Dose: 1 patch Pharmacy Profile Note (Nicotine Patch Removal Note*) 1 note PATCH OFF 2100 [facility] Last Admin: 02/26/19 20:25 Dose: 1 note Thiamine HCl (Vitamin B-1 Tab*) 100 mg PO DAILY [facility] Last Admin: 02/27/19 08:43 Dose: 100 mg Vital Signs - 8 hr 02/27/19 02/27/19 03:40 08:00 Temperature 98.7 F 97.8 F Pulse Rate 69 73 Respiratory 16 16 Rate Blood Pressure 114/52 126/65 (mmHg) O2 Sat by Pulse 95 100 Oximetry Oxygen Devices in Use Now: None Appearance: NAD Eyes: No Scleral Icterus Ears/Nose/Mouth/Throat: NL Teeth, Lips, Gums Neck: NL Appearance and Movements; NL JVP, Trachea Midline Respiratory: Symmetrical Chest Expansion and Respiratory Effort, Clear to Auscultation Cardiovascular: NL Sounds; No Murmurs; No JVD, RRR Abdominal: NL Sounds; No Tenderness; No Distention, No Hepatosplenomegaly Extremities: No Edema Skin: No Rash or Ulcers Neurological: Alert and Oriented x 3, NL Sensation, NL Muscle Strength and Tone Lines/Tubes/Other Access: Clean, Dry and Intact Other Access - ROBERT drain Nutrition: Taking PO's Result Diagrams: 02/26/19 08:32 02/27/19 06:28 Additional Lab and Data: Laboratory Results - last 24 hr 02/27/19 06:28 Sodium 137 Potassium 3.8 Chloride 105 Carbon Dioxide 28 Anion Gap 4 BUN 17 Creatinine 0.46 L Est GFR ( Amer) 167.1 Est GFR (Non-Af Amer) 138.1 BUN/Creatinine Ratio 37.0 H Glucose 127 H Calcium 8.4 L Magnesium 2.0 Microbiology and Other Data: Microbiology 02/25/19 16:54 Nasal Nasal Screen MRSA (PCR) - Final Mrsa Not Detected Assess/Plan/Problems-Billing Assessment: 63 yo female H breast cancer s/p lumpectomy, radiation, chemotherapy 2016 p/w 3.3cm right frontal brain mass s/p resection 02/[address] Naqvi. Smoker, daily 6 beer drinker on WAM (not scoring). - Patient Problems (1) Brain mass Current Visit: Yes Status: Acute Code(s): G93.9 - DISORDER OF BRAIN, UNSPECIFIED SNOMED Code(s): 445190436 Comment: s/p resection CTH with Tiny SAH bp control (goal SBP <140) s/p nicardipine gtt (briefly in ICU). not neading hydralazine prn. pathology consistent with metastatic carcinoma. repeat MRI Brain this AM managment per Neurosurgery - on keppra and dexamethasone. - regular diet tolerating - still has ROBERT drain currently with 20 cc out overnight. (2) Smoker Current Visit: Yes Status: Acute Code(s): F17.200 - NICOTINE DEPENDENCE, UNSPECIFIED, UNCOMPLICATED SNOMED Code(s): 74069542 Comment: nicotine patch (3) Heavy drinker of alcohol Current Visit: Yes Status: Acute Code(s): Z78.9 - OTHER SPECIFIED HEALTH STATUS SNOMED Code(s): 11563231 Comment: WAM protocol, not scoring could contribute to HTN if starts to withdraw. folic acid, thiamine, multivitamin. (4) Breast cancer, left breast Current Visit: No Status: Acute Code(s): C50.912 - MALIGNANT NEOPLASM OF UNSPECIFIED SITE OF LEFT FEMALE BREAST SNOMED Code(s): 140353915 Comment: appreciate heme/onc recs. Status and Disposition: Neurosurgery primary. medicine consulted.
[2019-02-27 11:40] VITALS: BP 110/50
--- NOTE | 2019-03-01 12:14 | DS ---
DISCHARGE SUMMARY: DATE OF ADMISSION: 02/25/19 DATE OF DISCHARGE: 02/27/19 ATTENDING PROVIDER: Dr. Cardenas * (DICTATED BY BREA MEDLEY) DIAGNOSIS ON DISCHARGE: Right posterior frontal lobe tumor. DISPOSITION ON DISCHARGE: Good. PLACE OF DISCHARGE: Home. HOSPITAL COURSE: This is a very pleasant 63-year-old female with history of breast cancer who presented with headaches and difficulty with her train of thoughts. She had an MRI of the brain revealing a large right frontal enhancing lesion. She underwent metastatic workup by Dr. Doty and after reviewing imaging, the patient was offered the option of surgical resection. We discussed with the patient and her regarding indications, contraindications, expectations, limitations, possible complications of the procedure including, but not limited to bleeding, infection, risk of injury to adjacent structure, paralysis, , and need for additional procedures, anesthesia risk, stroke, blindness, cancer, spinal fluid leak, loss of function , loss of limbs or seizures, and pulmonary embolism. After understanding the risks and complications of the procedure, the patient was consented for resection of the right frontal tumor. She tolerated the procedure very well, was transferred to ICU for observation, had drain in place for excessive fluid collection. The patient had repeat imaging the next day, which did not show any other more enhancing lesions or bleeding. The next day, the patient was transferred to stepdown unit to short stay unit. At that time, the patient had drain removed. She was doing very well. She was able to ambulate, tolerate fluids and liquids orally with no issues. The patient was ambulating, voiding also with no issue, and stated that she felt stable enough to go home. The patient was discussed with Medicine to see if there were any restrictions or possibly anything that would prohibit her from being discharged. The patient did well and was discharged on 02/27/19 with the following instructions of no lifting or bending, no driving. The patient is to follow up with primary care in 1 week, also follow up with hematology and follow up with neurosurgery clinic in 1 week. The patient was given pain medications as needed to manage her headache symptoms. It has been a pleasure taking care of this patient. BREA MEDLEY [id number]/[facility] #: [id number] SYLVIA
== END 2019-02-27 13:48 | disposition home or self-care (01) | DRG 21 ==
LOC: AA 05:30 → ICU 15:51 → SSU 02-26 22:47
PROVIDERS: ADMIT Neurological Surgery; ATTEND Neurological Surgery
PROC: 4A1004G Monitoring of Central Nervous Electrical Activity, Intraoperative, Open Approach (ICD-10-PCS; 2019-02-25)
PROC: 8E09XBZ Computer Assisted Procedure of Head and Neck Region (ICD-10-PCS; 2019-02-25)
PROC: 00B70ZZ Excision of Cerebral Hemisphere, Open Approach (ICD-10-PCS; principal; 2019-02-25 07:30)
DX: C79.31 Secondary malignant neoplasm of brain (principal); I60.9 Nontraumatic subarachnoid hemorrhage, unspecified; G62.9 Polyneuropathy, unspecified; R12 Heartburn; R26.9 Unspecified abnormalities of gait and mobility; F17.210 Nicotine dependence, cigarettes, uncomplicated; C50.912 Malignant neoplasm of unspecified site of left female breast; F10.10 Alcohol abuse, uncomplicated; Z92.21 Personal history of antineoplastic chemotherapy; Z92.3 Personal history of irradiation; Z90.710 Acquired absence of both cervix and uterus; Z88.0 Allergy status to penicillin; Z91.040 Latex allergy status; Z80.3 Family history of malignant neoplasm of breast
CPT/HCPCS: 36415; 70450; 70553; 80048; 82803; 83735; 85025; 87641; 88307; 88341; 88342; A9270-GY; A9579; C1713; C1776; J0360; J1100; J2001; J2150; J2250; J2405; J2704; J3010; J3370; J8540

== ENCOUNTER 2019-04-12 08:02 | Day surgery (SDC) | payer BC ==
[~2019-04-12 08:02] MED LIST changes: +Lactated Ringers 1000 ML Bag* 1,000 ML IV SCH; -NS 0.9% IVPB SCH; -VANCOMYCIN IVPB SCH; -Vancomycin(*) 1,000 MG in NS 0.9% 250 ML* 250 ML IVPB SCH
[2019-04-12] MEDS ORDERED: fentaNYL* 50 MCG/ML 2 ML VIAL (100 MCG VIAL) ONE (09:16)
[2019-04-12] MEDS ORDERED: Midazolam* 1 MG/ML 2 ML VIAL (2 MG) ONE (09:17)
[2019-04-12] MEDS ORDERED: Bupivacaine 0.25% SDV PF* 10 ML VIAL INJ ONE (09:53)
[2019-04-12] MEDS ORDERED: Famotidine IV* 10 MG/ML 2 ML (20 mg) ONE (10:01)
[2019-04-12] MEDS ORDERED: Levalbuterol 0.63MG/3ML NEB* UNIT OF USE INH PRN (10:08)
[2019-04-12] MEDS ORDERED: Naloxone* 0.4 MG/ML 1 ML VIAL IV PRN (10:08)
[2019-04-12] MEDS ORDERED: HYDROcodone/ACETAMIN 5-325 MG* 1 TAB PO PRN ×2 (10:08)
[2019-04-12] MEDS ORDERED: Ondansetron INJ* 2 MG/ML VIAL IV PRN (10:08)
[2019-04-12] MEDS ORDERED: DiMENhydriNATE IV* 50 MG/ML VIAL IV PUSH PRN (10:08)
[2019-04-12] MEDS ORDERED: Propofol* 10 MG/ML 20 ML BTL ONE (10:16)
[2019-04-12] MEDS ORDERED: Lidocaine 2% PF * 5 ML VIAL ONE (10:16)
[2019-04-12] MEDS ORDERED: Dexamethasone IV* 4 MG/ML 1 ML (4 MG) ONE (10:16)
[2019-04-12] MEDS ORDERED: ceFAZolin 2 GM in NS PREMIX(*) 2 GM/100 ML BAG IVPB ONE (10:34)
[2019-04-12 11:23] VITALS: BP 148/83
--- NOTE | 2019-04-12 13:23 | OP ---
DATE OF OPERATION: 04/12/19 - [facility] DATE OF : 59 SURGEON: Tam Gambino MD PRE-OP DIAGNOSIS: Breast cancer. POST-OP DIAGNOSIS: Breast cancer. OPERATIVE PROCEDURE: Placement of left subclavian approach PowerPort. INDICATION FOR PROCEDURE: Requiring PowerPort for treatment of breast cancer. Risks included but not limited to bleeding, infection, pneumothorax explained to the patient, who seemed to understand and agreed to the procedure and all questions were answered. DESCRIPTION OF PROCEDURE: The patient was taken to the operating room and placed supine. Preoperative antibiotics were given. After the induction of sedation, the upper chest was prepped and draped in sterile fashion. Time-out was performed, correct patient, correct procedure. The patient was placed in the slight Trendelenburg position. A needle was placed in the left subclavian vein after the skin was anesthetized, and using Seldinger technique, a wire was passed through the needle towards the vena cava and identified on fluoroscopy. The needle was removed. The tract was dilated. The split sheath was placed over the wire and the wire was removed. The catheter was advanced through the split sheath and the split sheath was removed. The placement of the catheter was identified on fluoroscopy. The catheter was then tunneled under to the skin to a subcutaneous pocket just below the entry site and connected to the port, which was aspirated easily of blood and flushed with heparinized saline. The pocket was closed in layers using Monocryl and glue on top of the skin. She tolerated the procedure well. She was taken to recovery where chest x-ray was ordered. [id number]/[facility] #: [id number] MTDD
== END 2019-04-12 11:54 | disposition home or self-care (01) ==
LOC: OR 08:02
PROVIDERS: ATTEND Surgery
DX: C50.912 Malignant neoplasm of unspecified site of left female breast (principal); Z88.0 Allergy status to penicillin; F17.210 Nicotine dependence, cigarettes, uncomplicated
CPT/HCPCS: 71045; 76000; J0690; J1100; J1642; J2250; J2704; J3010; J3490

== ENCOUNTER 2019-06-30 14:46 | Emergency (ER) | payer BC ==
--- OUTSIDE RECORDS SUMMARY | 2019-06-30 15:11 | XMS REPORT | Continuity of Care Document ---
:1955 External Reference #:[id number] Author Name Jonathan Cardenas MD (transmitted by agent of provider Kerrie Davis ) Address [address] [place] [address] Care Team Providers Name Role Phone Patient's Choice Care Team Information Hall Porter Unavailable Problems Description No Information Available Social History Type Date Description Comments Sex Unknown ETOH Use Drinks 6 Alcoholic to 20 Beverages Per Day Tobacco Use Start: Unknown Patient is a current 3/4 ppd now. Max 1 smoker, smokes every ppd. Began age 16 day Recreational Drug Use Never Used Drugs Smoking Status Reviewed: 06/30/19 Patient is a current 3/4 ppd now. Max 1 smoker, smokes every ppd. Began age 16 day Exercise Type/Frequency Does not exercise Allergies, Adverse Reactions, Alerts Active Allergies Reaction Severity Comments Date Penicillin swelling 11/05/2016 Latex Rash 02/19/2019 Medications Active Medications SIG Qnty Indications Ordering Provider Date Aleve 1 tab twice a day Jonathan 06/29/2019 220mg Tablets as needed MD Ronald Chantix Starting Take as Directed Unknown Month Pedro 0.5mg X 11 & 1 mg X 42 Tablets Tylenol 2 tablets every 4 Unknown 325mg Capsules hours as needed for pain Immunizations Description No Information Available Vital Signs Date Vital Result Comment 06/30/2019 1:15pm Height 62 inches 5'2" Weight 141.00 lb Heart Rate 84 /min BP Systolic Sitting 122 mmHg BP Diastolic Sitting 70 mmHg Pain Level 4 BMI (Body Mass Index) 25.8 kg/m2 04/19/2019 12:40pm Height 62 inches 5'2" Weight 135.00 lb Heart Rate 90 /min BP Systolic 140 mmHg BP Diastolic 80 mmHg Body Temperature 96.3 F O2 % BldC Oximetry 97 % BMI (Body Mass Index) 24.7 kg/m2 Results Test Acquired Date Facility Test Result H/L Range Note CBC Auto 04/01/2019 [facility] White Blood 8.6 10^3/uL Normal 3.5-10.[address] [place] [address] [phone] Red Blood Count 3.60 10^6/uL Low 3.70-4.87 Hemoglobin 11.4 g/dL Low 12.0-16.0 Hematocrit 34 % Low 35-47 Mean Corpuscular Volume 94 fL Normal 80-97 Mean Corpuscular Hemoglobin 32 pg High 27-31 Mean Corpuscular HGB Conc 34 g/dL Normal 31-36 Red Cell Distribution Width 16 % High 10-15 Platelet Count 211 10^3/uL Normal 150-450 Mean Platelet Volume 6.8 fL Low 7.4-10.4 Abs Neutrophils 7.4 10^3/uL Normal 1.5-7.7 Abs Lymphocytes 0.7 10^3/uL Low 1.0-4.8 Abs Monocytes 0.5 10^3/uL Normal 0-0.8 Abs Eosinophils 0.0 10^3/uL Normal 0-0.6 Abs Basophils 0.1 10^3/uL Normal 0-0.2 Abs Nucleated RBC 0.0 10^3/uL Granulocyte % 85.9 % Lymphocyte % 7.8 % Monocyte % 5.3 % Eosinophil % 0.3 % Basophil % 0.7 % Nucleated Red Blood Cells % 0.0 Comp Metabolic 04/01/2019 [facility] Sodium 137 mmol/L Normal 135-[address] [place] [address] [phone] Potassium 4.3 mmol/L Normal 3.5-5.0 Chloride 104 mmol/L Normal 101-111 Co2 Carbon Dioxide 24 mmol/L Normal 22-32 Anion Gap 9 mmol/L Normal 2-11 Calcium 9.0 mg/dL Normal 8.6-10.3 Albumin 3.7 g/dL Normal 3.2-5.2 Total Bilirubin 0.60 mg/dL Normal 0.2-1.0 Glucose 103 mg/dL High 70-100 Blood Urea Nitrogen 17 mg/dL Normal 6-24 Creatinine 0.63 mg/dL Normal 0.51-0.95 BUN/Creatinine Ratio 27.0 High 8-20 Total Protein 6.1 g/dL Low 6.4-8.9 Globulin 2.4 g/dL Normal 2-4 Albumin/Globulin Ratio 1.5 Normal 1-3 Alkaline Phosphatase 45 U/L Normal 34-104 Alt 40 U/L Normal 7-52 Ast 29 U/L Normal 13-39 Egfr Non- 96.1 >60 Egfr 116.2 >60 1 Laboratory test 03/17/2019 [facility] Point of 88 mg/dL Normal 70-100 [address] [place] [address] [phone] CBC Auto Diff 02/23/2019 [facility] White Blood 14.5 High 3.5- 10.[address] Count 10^3/[place] [address] [phone] Red Blood Count 4.52 10^6/uL Normal 3.70-4.87 Hemoglobin 13.9 g/dL Normal 12.0-16.0 Hematocrit 41 % Normal 35-47 Mean Corpuscular Volume 91 fL Normal 80-97 Mean Corpuscular Hemoglobin 31 pg Normal 27-31 Mean Corpuscular HGB Conc 34 g/dL Normal 31-36 Red Cell Distribution Width 13 % Normal 10-15 Platelet Count 352 10^3/uL Normal 150-450 Mean Platelet Volume 7.7 fL Normal 7.4-10.4 Abs Neutrophils 12.5 10^3/uL High 1.5-7.7 Abs Lymphocytes 1.1 10^3/uL Normal 1.0-4.8 Abs Monocytes 0.9 10^3/uL High 0-0.8 Abs Eosinophils 0.0 10^3/uL Normal 0-0.6 Abs Basophils 0.0 10^3/uL Normal 0-0.2 Abs Nucleated RBC 0.0 10^3/uL Granulocyte % 86.2 % Lymphocyte % 7.5 % Monocyte % 6.0 % Eosinophil % 0.0 % Basophil % 0.3 % Nucleated Red Blood Cells % 0.0 Comp Metabolic 02/23/2019 [facility] Sodium 136 mmol/L Normal 135-[address] [place] [address] [phone] Potassium 4.5 mmol/L Normal 3.5-5.0 Chloride 101 mmol/L Normal 101-111 Co2 Carbon Dioxide 27 mmol/L Normal 22-32 Anion Gap 8 mmol/L Normal 2-11 Glucose 95 mg/dL Normal 70-100 Blood Urea Nitrogen 31 mg/dL High 6-24 Creatinine 0.88 mg/dL Normal 0.51-0.95 BUN/Creatinine Ratio 35.2 High 8-20 Calcium 10.2 mg/dL Normal 8.6-10.3 Total Protein 7.1 g/dL Normal 6.4-8.9 Albumin 4.2 g/dL Normal 3.2-5.2 Globulin 2.9 g/dL Normal 2-4 Albumin/Globulin Ratio 1.4 Normal 1-3 Total Bilirubin 0.50 mg/dL Normal 0.2-1.0 Alkaline Phosphatase 57 U/L Normal 34-104 Alt 31 U/L Normal 7-52 Ast 27 U/L Normal 13-39 Egfr Non- 65.3 >60 Egfr 79.0 >60 3 Urinalysis Profile 02/23/2019 [facility] Urine Color Yellow [address] [place] [address] [phone] Urine Appearance Cloudy Urine Specific [place] 1.020 Normal 1.010-1.030 Urine pH 5.0 Normal 5-9 Urine Urobilinogen Negative Negative Urine Ketones Negative Negative Urine Protein Negative Negative Urine Leukocytes Negative Negative Urine Blood Negative Negative Urine Nitrite Negative Negative Urine Bilirubin Negative Negative Urine Glucose Negative Negative Inr/Protime 02/23/2019 [facility] Inr 0.85 Normal 0.82-1.[address] [place] [address] [phone] Laboratory test 02/23/2019 [facility] Partial 25.6 Low 26.0- 38.[address] [place] [address] Time PTT [phone] Type & Screen 02/23/2019 [facility] Patient A Positive [address] [place] [address] [phone] Antibody Screen NEGATIVE 1 Because ethnic data is not always [...] 5 Kidney failure <15 (or dialysis) 2 Supervisor [employer] Processing: [id number] 3 Because ethnic data is not always readily [...] 15-29 5 Kidney failure <15 (or dialysis) 4 Standard intensity warfarin therapeutic range: 2.0-3.0 High intensity warfarin therapeutic range: 2.5-3.5 Procedures Date Code Description Status 04/12/2019 82969 Fluoroscopic Guidance For Cent Completed 04/12/2019 60806 Insertion Tunneled Cent Venous Cathr W Subcut Port 5 Completed Yrs Or Oldr 02/25/2019 85604 Stereotactic CAD Proc Cranial,Intradural Add On Code Completed 02/25/2019 12275 Craniectomy Trephination, Bone Flap For Exc Brain Tumor Completed 02/25/2019 32963 Craniectomy Trephination, Bone Flap For Exc Brain Tumor Completed 10/31/2016 [id number] Mammogram Completed Medical Devices Description No Information Available Encounters Type Date Location Provider Dx Diagnosis Office Visit 06/03/2019 [facility] Srikanth Garcia, B35.3 Tinea pedis 2:30p Office Visit 04/08/2019 [facility]. 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 C50.912 Malignant neoplasm of unspecified site of left female breast F17.200 Nicotine dependence, unspecified, uncomplicated F10.10 Alcohol abuse, uncomplicated Office Visit 02/26/2019 10:05a [facility] Mukesh Nayak, G93.9 Disorder of brain, Assdamian hansen MD unspecified Hospitalists F17.200 Nicotine dependence, unspecified, uncomplicated F10.10 Alcohol abuse, uncomplicated C50.912 Malignant neoplasm of unspecified site of left female breast Office Visit 02/25/2019 [facility] D43.0 Neoplasm of 10:04a damian Solano PA uncertain behavior Hospitalists of brain, supratentorial I10 Essential (primary) hypertension F10.21 Alcohol dependence, in remission Office Visit 02/23/2019 9:20a [facility] Internal Skyler Valencia Z01.818 Encounter for other Medicine - Reji San preprocedural Ccmob examination D43.0 Neoplasm of uncertain behavior of brain, supratentorial Z85.3 Personal history of malignant neoplasm of breast F17.210 Nicotine dependence, cigarettes, uncomplicated F10.10 Alcohol abuse, uncomplicated Office Visit 02/19/2019 [facility] Z85.3 Personal 2:00p Services Of Felicia Cardenas MD history of malignant neoplasm of breast D49.6 Neoplasm of unspecified behavior of brain Assessments Date Code Description Provider 06/30/2019 D49.6 Neoplasm of unspecified behavior of brain Jonathan Cardenas MD 06/03/2019 B35.3 Rafy Garcia MD 04/19/2019 Z48.3 Aftercare following surgery for neoplasm BREA Buenrostro 04/12/2019 C50.912 Malignant neoplasm of unspecified site of Tam Gambino MD left female breast 04/08/2019 C50.912 Malignant neoplasm of unspecified site of Tam Gambino MD left female breast 03/29/2019 Z48.3 Aftercare following surgery for neoplasm Jonathan Cardenas MD 03/29/2019 D49.6 Neoplasm of unspecified behavior of brain Jonathan Cardenas MD 03/16/2019 Z48.3 Aftercare following surgery for neoplasm BREA Buenrostro 03/16/2019 C79.31 Secondary malignant neoplasm of brain BREA Buenrostro 03/05/2019 Z48.3 Aftercare following surgery for neoplasm Jonathan Cardenas, 03/05/2019 C79.31 Secondary malignant neoplasm of brain Jonathan Cardenas MD 02/27/2019 Z48.3 Aftercare following surgery for neoplasm Jonathan Cardenas, 02/27/2019 C79.31 Secondary malignant neoplasm of brain Mukesh Nayak MD 02/27/2019 C79.31 Secondary malignant neoplasm of brain Jonathan Cardenas MD 02/27/2019 C50.912 Malignant neoplasm of unspecified site of Mukesh Nayak MD left female breast 02/27/2019 F17.200 Nicotine dependence, unspecified, Mukesh Nayak MD uncomplicated 02/27/2019 F10.10 Alcohol abuse, uncomplicated Mukesh Nayak MD 02/26/2019 G93.9 Disorder of brain, unspecified Mukesh Nayak MD 02/26/2019 F17.200 Nicotine dependence, unspecified, Mukesh Nayak MD uncomplicated 02/26/2019 F10.10 Alcohol abuse, uncomplicated Mukesh Nayak MD 02/26/2019 C50.912 Malignant neoplasm of unspecified site of Mukesh Nayak MD left female breast 02/25/2019 C79.31 Secondary malignant neoplasm of brain BREA Buenrostro 02/25/2019 C79.31 Secondary malignant neoplasm of brain Jonathan Cardenas MD 02/25/2019 D43.0 Neoplasm of uncertain behavior of brain, BREA Mondragon supratentorial 02/25/2019 I10 Essential (primary) hypertension BREA Mondragon 02/25/2019 F10.21 Alcohol dependence, in remission BREA Mondragon 02/23/2019 Z01.818 Encounter for other preprocedural Skyler San M.D. examination 02/23/2019 D43.0 Neoplasm of uncertain behavior of brain, Skyler San M.D. supratentorial 02/23/2019 Z85.3 Personal history of malignant neoplasm of Skyler San M.D. breast 02/23/2019 F17.210 Nicotine dependence, cigarettes, Skyler San M.D. uncomplicated 02/23/2019 F10.10 Alcohol abuse, uncomplicated Skyler San M.D. 02/22/2019 Z85.3 Personal history of malignant neoplasm of Jonathan Cardenas MD breast 02/22/2019 D43.0 Neoplasm of uncertain behavior of brain, Jonathan Cardenas MD supratentorial 02/19/2019 Z85.3 Personal history of malignant neoplasm of Jonathan Cardenas MD breast 02/19/2019 D49.6 Neoplasm of unspecified behavior of brain Jonathan Cardenas MD Plan of Treatment Future Appointment(s):10/01/2019 9:00 am - Jonathan Cardenas MD at [facility]06/30/2019 - Jonathan Cardenas, MDD49.6 Neoplasm of unspecified behavior of brainNew Xrays:MRI Brain W/Wo, Ordered: Follow up:RV in 3 months for MRI brain. RV in 1 week for wound check. Functional Status Description No Information Available Mental Status Description No Information Available Referrals Description No Information Available
[2019-06-30 18:16] LABS: ABS Basophils 0.1 10^3/ul (0-0.2); ABS Eosinophils 0.3 10^3/ul (0-0.6); ABS Lymphocytes 1.7 10^3/ul (1.0-4.8); ABS Monocytes 0.5 10^3/ul (0-0.8); ABS Neutrophils 2.4 10^3/ul (1.5-7.7); Eosinophil % 6.7 %; Hematocrit 37 % (35-47); Hemoglobin 12.4 g/dL (12.0-16.0); Lymphocyte % 33.9 %; Mean Corpuscular HGB Conc 33 g/dL (31-36); Mean Corpuscular Hemoglobin 32 pg (27-31); Mean Corpuscular Volume 95 fL (80-97); Mean Platelet Volume 7.3 fL (7.4-10.4); Platelet Count 279 10^3/uL (150-450); Red Blood Count 3.93 10^6 /uL (3.70-4.87); Red Cell Distribution Width 14 % (10-15); White Blood Count 5.1 10^3/uL (3.5-10.8)
[2019-06-30 18:32] LABS: Albumin 3.8 g/dL (3.2-5.2); Albumin/Globulin Ratio 1.4 (1-3); BUN/Creatinine Ratio 16.9 (8-20); Calcium 9.4 mg/dL (8.6-10.3); EGFR African American 112.1 (>60); EGFR Non-African American 92.7 (>60); Globulin 2.7 g/dL (2-4); Potassium 3.6 mmol/L (3.5-5.0); Total Bilirubin 0.4 mg/dL (0.2-1.0); Total Protein 6.5 g/dL (6.4-8.9)
--- NOTE | 2019-06-30 19:21 | ED ---
Skin Complaint - HPI Summary HPI Summary: Pt is a 63 y/o F with a history of metastatic breast cancer status post craniotomy in March presenting to the ED with a chief skin complaint. After, she noticed some discharge from the wound (approx. 4 months ago as of today), she was briefly placed on Keflex. Patient noticed mild continued drainage, called Dr. Lara who advised come to ED for further workup. Patient denies fevers. Pt is still in chemotherapy once a month and last had a chemo tx 3wks ago. She denies any new symptoms, and reports chronic headaches. - History of Current Complaint Chief Complaint: EDGeneral Time Seen by Provider: 06/30/19 17:20 Stated Complaint: POSS INFECTION TO SURGICAL SITE PER PT Hx Obtained From: Patient Onset/Duration: Started Weeks Ago, Still Present Skin Exposure Onset/Duration: Weeks Ago Timing: Constant, Lasting Weeks Onset Severity: Mild Current Severity: Mild Pain Intensity: 2 Pain Scale Used: 0-10 Numeric Skin Location: Other: - head Aggravating Symptom(s): Nothing Alleviating Symptom(s): Nothing Associated Signs & Symptoms: Drainage - Additional Pertinent History Primary Care Physician: VIVIANA - Allergy/Home Medications Allergies/Adverse Reactions: Allergies Allergy/AdvReac Type Severity Reaction Status Date / Time Penicillins Allergy Severe See Comment Verified 05/10/19 13:04 Home Medications: Home Medications Varenicline (NF) [Chantix 1 MG TAB (NF)] 1 mg PO BID 06/30/19 [History Confirmed 06/30/19] traZODone TAB* [Desyrel TAB*] 50 - 100 mg PO BEDTIME PRN 06/30/19 [History Confirmed 06/30/19] PMH/Surg Hx/FS Hx/Imm Hx Previously Healthy: Yes Endocrine/Hematology History: Denies: Hx Diabetes Cardiovascular History: Denies: Hx Hypertension, Hx Pacemaker/ICD History: Denies: Hx Renal Disease Musculoskeletal History: Reports: Hx Arthritis - HANDS, Other Musculoskeletal History - AGE RELATED ACHES AND PAINS PER PATIENT Sensory History: Reports: Hx Contacts or Glasses Denies: Hx Hearing Aid Opthamlomology History: Reports: Hx Contacts or Glasses Neurological History: Reports: Hx Headaches - DUE TO TUMOR, 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 BRAIN METS Hx Chemotherapy: Yes Hx Radiation Therapy: Yes - left breast 2017 - Surgical History Surgery Procedure, Year, and Place: 1979-APPENDECTOMY. 2001-ECTOPIC . 2002-HYSTERECTOMY. 10/2016 LEFT BREAST LUMPECTOMY. right frontal temporal parietal crani 02/25/19 [facility] [place]. powerport placement and removal Hx Anesthesia Reactions: No Infectious Disease History: No Infectious Disease History: Denies: Hx Clostridium Difficile, Hx Hepatitis, Hx Human Immunodeficiency Virus (HIV), Hx of Known/Suspected MRSA, Hx Shingles, Hx Tuberculosis, History Other Infectious Disease, Traveled Outside the US in Last 30 Days - Family History Known Family History: Negative: Diabetes - Social History Alcohol Use: Daily Alcohol Amount: 5-6 drinks per day Hx Substance Use: No Substance Use Type: Reports: None Hx Tobacco Use: Yes Smoking Status (MU): Heavy Every Day Tobacco Smoker Type: Cigarettes Amount Used/How Often: 1ppd- using chantix Have You Smoked in the Last Year: Yes Review of Systems Negative: Fever Positive: Other - discharge from scar on head Positive: Headache All Other Systems Reviewed And Are Negative: Yes Physical Exam - Summary Physical Exam Summary: Constitutional: Well-developed, Well-nourished, Alert. (-) Distressed Skin: Warm, Dry HENT: Atraumatic. S/P R craniotomy. 2cm area of the parietal scalp w/ scabbing. No surrounding erythema, scant drainage expressed. Eyes: Conjunctiva normal Neck: Musculoskeletal ROM normal neck. (-) JVD, (-) Stridor, (-) Nuchal rigidity Cardio: Rhythm regular, rate normal, Heart sounds normal; Intact distal pulses; Radial pulses are 2+ and symmetric. (-) Murmur Pulmonary/Chest wall: Chest port. Effort normal. (-) Respiratory distress, (-) Wheezes, (-) Rales Abd: Soft, (-) tenderness, (-) Distension, (-) Guarding, (-) Rebound Musculoskeletal: (-) Edema Lymph: (-) Cervical adenopathy Neuro: Alert, Oriented x3 Psych: Mood and affect Normal Triage Information Reviewed: Yes Vital Signs On Initial Exam: Initial Vitals Temp Pulse Resp BP Pulse Ox 98.5 F 73 16 154/77 100 06/30/19 14:56 06/30/19 14:56 06/30/19 14:56 06/30/19 14:56 06/30/19 14:56 Vital Signs Reviewed: Yes Procedures - Sedation Patient Received Moderate/Deep Sedation with Procedure: No Diagnostics - Vital Signs Vital Signs Temp Pulse Resp BP Pulse Ox 06/30/19 14:56 98.5 F 73 16 154/77 100 - Laboratory Lab Results: Lab Results 06/30/19 06/30/19 Range/Units 17:54 17:54 WBC 5.1 (3.5-10.8) 10^3/uL RBC 3.93 (3.70-4.87) 10^6 /uL Hgb 12.4 (12.0-16.0) g/dL Hct 37 (35-47) % MCV 95 (80-97) fL MCH 32 H (27-31) pg MCHC 33 (31-36) g/dL RDW 14 (10-15) % Plt Count 279 (150-450) 10^3/uL MPV 7.3 L (7.4-10.4) fL Neut % (Auto) 47.0 % Lymph % (Auto) 33.9 % Marin % (Auto) 10.5 % Eos % (Auto) 6.7 % Baso % (Auto) 1.9 % Absolute Neuts (auto) 2.4 (1.5-7.7) 10^3/ul Absolute Lymphs (auto) 1.7 (1.0-4.8) 10^3/ul Absolute Monos (auto) 0.5 (0-0.8) 10^3/ul Absolute Eos (auto) 0.3 (0-0.6) 10^3/ul Absolute Basos (auto) 0.1 (0-0.2) 10^3/ul Absolute Nucleated RBC 0.0 10^3/ul Nucleated RBC % 0.0 Sodium 139 (135-145) mmol/L Potassium 3.6 (3.5-5.0) mmol/L Chloride 106 (101-111) mmol/L Carbon Dioxide 26 (22-32) mmol/L Anion Gap 7 (2-11) mmol/L BUN 11 (6-24) mg/dL Creatinine 0.65 (0.51-0.95) mg/dL Est GFR ( Amer) 112.1 (>60) Est GFR (Non-Af Amer) 92.7 (>60) BUN/Creatinine Ratio 16.9 (8-20) Glucose 93 (70-100) mg/dL Calcium 9.4 (8.6-10.3) mg/dL Total Bilirubin 0.40 (0.2-1.0) mg/dL AST 22 (13-39) U/L ALT 16 (7-52) U/L Alkaline Phosphatase 57 (34-104) U/L Total Protein 6.5 (6.4-8.9) g/dL Albumin 3.8 (3.2-5.2) g/dL Globulin 2.7 (2-4) g/dL Albumin/Globulin Ratio 1.4 (1-3) Result Diagrams: 06/30/19 17:54 06/30/19 17:54 Lab Statement: Any lab studies that have been ordered have been reviewed, and results considered in the medical decision making process. - CT Brain CT CT Interpretation Completed By: Radiologist Summary of CT Findings: 1. Patient is status post resection of a neoplasm located in the right frontal lobe. Current CT study shows a resection cavity with some surrounding white matter gliosis. The amount of vasogenic edema seen on the prior CT study of. 02/26/2019 has decreased. No mass or mass effect is seen. No new lesion is observed. 2. Patient is status post right frontal temporal craniotomy with a small subdural fluid collection underneath the craniotomy flap. No significant mass effect. ED physician has reviewed this report. Re-Evaluation - Re-Evaluation First Eval Re-Evaluation Time: 20:40 Change: Improved - CT neg. Labs w/o leukocytosis. Given bactrim to cover MRSA. Course/Dx - Course Course Of Treatment: 63 y/o F w hx of metastatic breast cancer, craniotomy in March p/w drainage from the wound. - scant drainage noted, well appearing. Hx of keflex use in past. Will check labs, CT at request of Dr. Naqvi. - Diagnoses Provider Diagnoses: Postoperative wound infection, Cellulitis Discharge ED - Sign-Out/Discharge Documenting (check all that apply): Patient Departure - Discharge Plan Condition: Stable Disposition: HOME Prescriptions: Sulfamethox/Trimethoprim DS* [Bactrim DS 800/160 TAB*] 1 tab PO BID 7 Days #13 tab Patient Education Materials: Cellulitis (ED) Referrals: [facility] [Outside] Additional Instructions: You were seen in the emergency department for a wound on her head. Your brain CT did not show any new abnormalities. Labs were unremarkable. Please take Bactrim twice a day If any studies were not completed at the time of discharge you will be called with the relevant results. Please follow up with your primary care doctor in next 2-3 days and return to emergency department for worsening or concerning symptoms. It was a pleasure taking care of you today. - Billing Disposition and Condition Condition: STABLE Disposition: Home - Attestation Statements Document Initiated by Felisa: Yes Documenting Scribe: Perla Lopez Provider For Whom Felisa is Documenting (Include Credential): Maday Villafuerte MD. Scribe Attestation: IPerla, scribed for Maday Villafuerte MD. on 06/30/19 at 2048. Scribe Documentation Reviewed: Yes Provider Attestation: The documentation as recorded by the evelinaibPerla fernandez accurately reflects the service I personally performed and the decisions made by me, Maday Villafuerte MD. Status of Scribe Document: Viewed
[2019-06-30] MEDS ORDERED: Sulfamethox/Trimethoprim DS 800/160* TAB PO ONE (20:41)
[2019-06-30 21:04] VITALS: BP 109/60
--- NOTE | 2019-06-30 21:47 | PN ---
Progress Note - Progress Note Date of Service: 06/30/19 Note: Patient was discharged from ED this pm by Dr Villafuerte earlier. WBC WNL, CT head showed decreased edema. No abscess. Discussed with Dr Villafuerte in ED. Patient had no signs of infection in wound, No drainage. Patient was prescribed Baktrim because of report of drainage, chemotherapy, malignancy. Called patient to discuss results. Patient feels fine. No drainage from wound. No fever. No SÁNCHEZ. No other symptoms. Discussed the possibility of delayed wound infection and need for surgical intervention. Patient understands that wound exploration may be the only way to have a definitive answer and was offered the option of surgical intervention for wound exploration. Patient feels very well and would like to wait for now, understanding the risks associated with possible infection. She knows to call our office or come to the ED if she has any symptoms or changes. Patient will call our office for follow up the next few days and arrange for repeat MRI. Appreciate Dr Villafuerte's care. Annelise Cardenas MD
== END 2019-06-30 21:08 | disposition home or self-care (01) ==
LOC: ED 14:46
DX: T81.42XA Infection following a procedure, deep incisional surgical site, initial encounter (principal); L03.811 Cellulitis of head [any part, except face]; C50.912 Malignant neoplasm of unspecified site of left female breast; C79.31 Secondary malignant neoplasm of brain; F17.210 Nicotine dependence, cigarettes, uncomplicated; Z90.710 Acquired absence of both cervix and uterus; Z79.899 Other long term (current) drug therapy; Z88.0 Allergy status to penicillin
CPT/HCPCS: 36415; 70450; 80053; 85025; 96374; 99283; A9270-GY; J1642

== ENCOUNTER 2019-07-14 16:33 | Inpatient (IN) | payer BC ==
--- OUTSIDE RECORDS SUMMARY | 2019-07-14 17:09 | XMS REPORT | Continuity of Care Document ---
:1955 External Reference #:[id number] Author Name Jonathan Cardenas MD (transmitted by agent of provider Kerrie Davis ) Address [address] [place] [address] Care Team Providers Name Role Phone Patient's Choice Care Team Information Front Attendant Unavailable Problems Description No Information Available Social [...] 06/29/2019 220mg Tablets as needed MD Ronald Trazodone HCL 2 tabs by mouth At Unknown 05/02/2019 50mg hs For Sleep Tablets Chantix Starting Take as Directed Unknown Month [...] Result H/L Range Note CBC Auto 04/01/2019 [facility] White Blood 8.6 10^3/uL Normal 3.5-10.[address] [place] [address] [phone] Red Blood Count 3.60 10^6/uL Low 3.70-4.87 [...] Blood Cells % 0.0 Comp Metabolic 04/01/2019 [facility] Sodium 137 mmol/L Normal 135-[address] [place] [address] [phone] Potassium 4.3 mmol/L Normal 3.5-5.0 Chloride 104 [...] Egfr 116.2 >60 1 Laboratory test 03/17/2019 [facility] Point of 88 mg/dL Normal 70-100 [address] [address] [phone] CBC Auto Diff 02/23/2019 [facility] White Blood 14.5 High 3.5- 10.[address] Count 10^3/[place] [address] [phone] Red Blood Count 4.52 10^6/uL Normal 3.70-4.87 [...] Blood Cells % 0.0 Comp Metabolic 02/23/2019 [facility] Sodium 136 mmol/L Normal 135-[address] [place] [address] [phone] Potassium 4.5 mmol/L Normal 3.5-5.0 Chloride 101 [...] Egfr 79.0 >60 3 Urinalysis Profile 02/23/2019 [facility] Urine Color Yellow [address] [place] [address] [phone] Urine Appearance Cloudy Urine Specific Underwood 1.020 Normal 1.010-1.030 Urine pH 5.0 Normal 5-9 Urine Urobilinogen Negative Negative Urine Ketones Negative Negative Urine Protein Negative Negative Urine Leukocytes Negative Negative Urine Blood Negative Negative Urine Nitrite Negative Negative Urine Bilirubin Negative Negative Urine Glucose Negative Negative Inr/Protime 02/23/2019 [facility] Inr 0.85 Normal 0.82-1.[address] [place] [address] [phone] Laboratory test 02/23/2019 [facility] Partial 25.6 Low 26.0- 38.[address] [place] [address] Time PTT [phone] Type & Screen 02/23/2019 [facility] Patient A Positive [address] [place] [address] [phone] Antibody Screen NEGATIVE 1 Because ethnic data [...] 5 Kidney failure <15 (or dialysis) 2 Fern Picker: [id number] 3 Because ethnic data is not always [...] 2.5-3.5 Procedures Date Code Description Status 04/12/2019 40014 Fluoroscopic Guidance For Cent Completed 04/12/2019 24679 Insertion Tunneled Cent Venous Cathr W Subcut Port 5 Completed Yrs Or Oldr 02/25/2019 48744 Stereotactic CAD Proc Cranial,Intradural Add On Code Completed 02/25/2019 64343 Craniectomy Trephination, Bone Flap For Exc Brain Tumor Completed 02/25/2019 81274 Craniectomy Trephination, Bone Flap For Exc Brain Tumor Completed 10/31/2016 91365325 Mammogram Completed Medical Devices Description No Information Available Encounters Type Date Location Provider Dx Diagnosis Office Visit 06/03/2019 [facility] Srikanth Garcia, B35.3 Tinea pedis 2:30p MD Office Visit 04/08/2019 [facility] Tam Lacy C50.912 Malignant neoplasm 1:30p Of Felicia Gambino MD of unspecified site of left female breast Office Visit 02/27/2019 [facility] Mukesh Nayak MD 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,pc malignant neoplasm Hospitalists of brain C50.912 Malignant neoplasm of unspecified site of left female breast F17.200 Nicotine dependence, unspecified, uncomplicated F10.10 Alcohol abuse, uncomplicated Office Visit 02/26/2019 10:05a [facility] Mukseh Nayak, G93.9 Disorder of brain, Assoc unspecified Hospitalists F17.200 Nicotine dependence, unspecified, uncomplicated F10.10 Alcohol abuse, uncomplicated C50.912 Malignant neoplasm of unspecified site of left female breast Office Visit 02/25/2019 [facility] Arlene D43.0 Neoplasm of 10:04a Assoc, BREA Smith uncertain behavior Hospitalists of brain, supratentorial I10 Essential (primary) hypertension F10.21 Alcohol dependence, in remission Office Visit 02/23/2019 9:20a [facility] Internal Skyler Valencia Z01.818 Encounter for other [...] of brain Assessments Date Code Description Provider 07/07/2019 D49.6 Neoplasm of unspecified behavior of brain Jonathan Cardenas MD 06/30/2019 D49.6 Neoplasm of unspecified behavior of brain Jonathan Cardenas MD 06/03/2019 B35.3 Rafy Garcia MD 04/19/2019 Z48.3 Aftercare following surgery for neoplasm BREA Buenrostro 04/12/2019 C50.912 Malignant neoplasm of unspecified site of Tam Gambino MD left female breast 04/08/2019 C50.912 Malignant neoplasm of unspecified site of Tam Gambino MD left female breast 03/29/2019 Z48.3 Aftercare following surgery for neoplasm Jonathan Cardenas, 03/29/2019 D49.6 Neoplasm of unspecified behavior of brain Jonathan Cardenas MD 03/16/2019 Z48.3 Aftercare following surgery for neoplasm BREA Buenrostro 03/16/2019 C79.31 Secondary malignant neoplasm of brain BREA Buenrostro 03/05/2019 Z48.3 Aftercare following surgery for neoplasm Vassilios Ronald, 03/05/2019 C79.31 Secondary malignant neoplasm of brain Jonathan Cardenas , 02/27/2019 Z48.3 Aftercare following surgery for neoplasm [...] 02/23/2019 Z01.818 Encounter for other preprocedural Skyler E. Mena, M.D. examination 02/23/2019 D43.0 Neoplasm of uncertain [...] Jonathan Cardenas MD at [facility]07/07/2019 - Jonathan Cardenas MDD49.6 Neoplasm of unspecified behavior of brainFollow up:RV after imaging Functional Status Description No Information Available Mental Status Description No Information Available Referrals Description No Information Available
--- NOTE | 2019-07-14 17:57 | ED ---
Skin Complaint - HPI Summary HPI Summary: 63 year old F presenting to [facility] from Dr. Cardenas's office complains of discharge draining from surgical wound from craniotomy 5 months ago. The patient rates the pain 0/10 in severity. Symptoms aggravated by nothing. Symptoms alleviated by nothing. Patient is s/p craniotomy 5 months ago for malignancy after which she subsequently followed up with radiation oncology. Patient initially tolerated radiation therapy but eventually started developing discharge from her surgical wound. Patient had multiple images and blood work done which were fine, and she started improving. Today 07/14 though, patient was seen in the clinic where they noticed a small area of discharge from the surgical wound. Dr. Cardenas referred patient to the ED for debridement to see if there is an abscess. He has already contacted Dr. Simon. He requested basic labs and screening, coagulation, and admission to hospitalist. Patient is complaining about headache. - History of Current Complaint Chief Complaint: EDGeneral Time Seen by Provider: 07/14/19 17:37 Stated Complaint: POSS INFECTION IN BRAIN PER PT Hx Obtained From: Patient, Other: - Dr. Cardenas Onset/Duration: Started Hours Ago, Still Present Timing: Constant Aggravating Symptom(s): Nothing Alleviating Symptom(s): Nothing - Additional Pertinent History Primary Care Physician: [id number] - Allergy/Home Medications Allergies/Adverse Reactions: Allergies Allergy/AdvReac Type Severity Reaction Status Date / Time Penicillins Allergy Severe See Comment Verified 05/10/19 13:04 PMH/Surg Hx/FS Hx/Imm Hx Endocrine/Hematology History: Denies: Hx Diabetes Cardiovascular History: Denies: Hx Hypertension, Hx Pacemaker/ICD History: Denies: Hx Renal Disease Musculoskeletal History: Reports: Hx Arthritis - HANDS, Other Musculoskeletal History - AGE RELATED ACHES AND PAINS PER PATIENT Sensory History: Reports: Hx Contacts or Glasses Denies: Hx Hearing Aid Opthamlomology History: Reports: Hx Contacts or Glasses Neurological History: Reports: Hx Headaches - DUE TO TUMOR, 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 BRAIN METS Hx Chemotherapy: Yes Hx Radiation Therapy: Yes - left breast 2017 - Surgical History Surgery Procedure, Year, and Place: 1979-APPENDECTOMY. 2001-ECTOPIC . 2002-HYSTERECTOMY. 10/2016 LEFT BREAST LUMPECTOMY. right frontal temporal parietal crani 02/25/19 [facility]. powerport placement and removal Hx Anesthesia Reactions: No Infectious Disease History: No Infectious Disease History: Denies: Hx Clostridium Difficile, Hx Hepatitis, Hx Human Immunodeficiency Virus (HIV), Hx of Known/Suspected MRSA, Hx Shingles, Hx Tuberculosis, History Other Infectious Disease, Traveled Outside the [place] in Last 30 Days - Family History Known Family History: Negative: Diabetes - Social History Alcohol Use: Daily Alcohol Amount: 5-6 drinks per day Hx Substance Use: No Substance Use Type: Reports: None Hx Tobacco Use: Yes Smoking Status (MU): Heavy Every Day Tobacco Smoker Type: Cigarettes Amount Used/How Often: 1ppd- using chantix Have You Smoked in the Last Year: Yes Review of Systems Positive: Other - discharge draining from craniotomy surgical wound Positive: Headache All Other Systems Reviewed And Are Negative: Yes Physical Exam - Summary Physical Exam Summary: Constitutional: Well-developed, Well-nourished, Alert. (-) Distressed Skin: Warm, Dry HENT: Normocephalic; Atraumatic; There is an incision over the scalp on the frontal parietal cortex on the right with no current discharge Eyes: Conjunctiva normal Neck: Musculoskeletal ROM normal neck. (-) JVD, (-) Stridor, (-) Tracheal deviation Cardio: Rhythm regular, rate normal, Heart sounds normal; Intact distal pulses; The pedal pulses are 2+ and symmetric. Radial pulses are 2+ and symmetric. (-) Murmur Pulmonary/Chest wall: Effort normal. (-) Respiratory distress, (-) Wheezes, (-) Rales Abd: Soft, (-) tenderness, (-) Distension, (-) Guarding, (-) Rebound Musculoskeletal: (-) Edema Lymph: (-) Cervical adenopathy Neuro: Alert, Oriented x3 Psych: Mood and affect Normal Triage Information Reviewed: Yes Vital Signs On Initial Exam: Initial Vitals Temp Pulse Resp BP Pulse Ox 99.5 F 105 19 133/81 100 07/14/19 16:35 07/14/19 16:35 07/14/19 16:35 07/14/19 16:35 07/14/19 16:35 Vital Signs Reviewed: Yes Procedures - Sedation Patient Received Moderate/Deep Sedation with Procedure: No Diagnostics - Vital Signs Vital Signs Temp Pulse Resp BP Pulse Ox 07/14/19 16:35 99.5 F 105 19 133/81 100 - Laboratory Result Diagrams: 07/14/19 20:05 07/14/19 20:05 Lab Statement: Any lab studies that have been ordered have been reviewed, and results considered in the medical decision making process. Course/Dx - Course Course Of Treatment: 63 [address] F [address] Dr[address] Cardenas's office complains of discharge draining from surgical wound from craniotomy 5 months ago. Hx radiation therapy which has caused discharge to come out of her surgical wound. Today, patient was seen by Dr. Cardenas who referred patient to ED for admission. Physical exam findings: There is an incision over the scalp on the frontal parietal cortex on the right with no current discharge. Bloodwork without any significant abnormalities except for MCH 32, MPV 7.1, absolute monos 0.9, APTT 45.7, BUN/creatinine 22.2, glucose 126. Spoke with Dr. Davila, hospitalist, who agrees to admit patient. The patient will be admitted. - Diagnoses Provider Diagnoses: Wound infection - Physician Notifications Discussed Care Of Patient With: Jacinta Davila Time Discussed With Above Provider: 19:00 Instructed by Provider To: Other - Dr. Davila, hospitalist, agrees to admit patient. Discharge ED - Sign-Out/Discharge Documenting (check all that apply): Patient Departure - Admit - Discharge Plan Condition: Stable Disposition: ADMITTED TO [facility] - Billing Disposition and Condition Condition: STABLE Disposition: Admitted to [facility] - Attestation Statements Document Initiated by Scribe: Yes Documenting Scribe: Nika Miranad Provider For Whom Felisa is Documenting (Include Credential): Marissa Espinosa MD Scribe Attestation: I, Nika Miranda, scribed for Marissa Reeves MD on 07/14/19 at 2213. Scribe Documentation Reviewed: Yes Provider Attestation: The documentation as recorded by the scribe, Nika Miranda accurately reflects the service I personally performed and the decisions made by me, Marissa Reeves MD Status of Scribe Document: Viewed
[2019-07-14 20:21] LABS: ABS Eosinophils 0.2 10^3/ul (0-0.6); ABS Lymphocytes 1.9 10^3/ul (1.0-4.8); ABS Monocytes 0.9 10^3/ul (0-0.8); ABS Neutrophils 5.6 10^3/ul (1.5-7.7); Eosinophil % 1.9 %; Hematocrit 37 % (35-47); Hemoglobin 12.5 g/dL (12.0-16.0); Lymphocyte % 22.5 %; Mean Corpuscular HGB Conc 34 g/dL (31-36); Mean Corpuscular Hemoglobin 32 pg (27-31); Mean Corpuscular Volume 93 fL (80-97); Mean Platelet Volume 7.1 fL (7.4-10.4); Platelet Count 335 10^3/uL (150-450); Red Blood Count 3.91 10^6 /uL (3.70-4.87); Red Cell Distribution Width 13 % (10-15); White Blood Count 8.5 10^3/uL (3.5-10.8)
[2019-07-14 20:39] LABS: Activated Partial Thrombo Time 45.7 seconds (26.0-38.0); INR 0.96 (0.82-1.09)
[2019-07-14 20:40] LABS: Albumin/Globulin Ratio 1.4 (1-3); BUN/Creatinine Ratio 22.2 (8-20); Calcium 9.5 mg/dL (8.6-10.3); EGFR African American 116.2 (>60); EGFR Non-African American 96.1 (>60); Globulin 2.8 g/dL (2-4); Potassium 3.5 mmol/L (3.5-5.0); Total Bilirubin 0.3 mg/dL (0.2-1.0); Total Protein 6.8 g/dL (6.4-8.9)
[2019-07-14] MEDS ORDERED: NS 0.9% 1000 ML** 1,000 ML IV ONE (20:46)
[2019-07-14] MEDS ORDERED: Ondansetron INJ* 2 MG/ML VIAL IV PRN (20:47)
[2019-07-14] MEDS ORDERED: traZODone TAB* 50 MG TAB PO PRN (20:54)
[2019-07-14] MEDS ORDERED: Acetaminophen TAB* 325 MG PO ONE (20:54)
[2019-07-14] MEDS ORDERED: Nicotine Lozenge* mini 2 MG LOZNG.MINI MT PRN (20:55)
[2019-07-14] MEDS ORDERED: LORazepam TAB(*) 1 MG PO SCH (21:00)
[2019-07-14] MEDS ORDERED: Heparin VIAL(*) 5000 UNITS/ML VIAL (FIVE THOUSAND) SUBCUT SCH (22:00)
--- NOTE | 2019-07-14 23:15 | HP ---
ADMISSION HISTORY AND PHYSICAL: DATE OF ADMISSION: 07/14/19 PRIMARY CARE PHYSICIAN: None. PROVIDER: Cammy Galindo NP. ATTENDING PHYSICIAN: Dr. Berg.* (DICTATED BY CAMMY GALINDO NP) OTHER PROVIDER: Dr. Cardenas. CHIEF COMPLAINT: Drainage to the right craniotomy surgical site. HISTORY OF PRESENT ILLNESS: This is a 63-year-old female with a past medical history of breast CA with mets to the brain, who came to the emergency room on 07/14/19 after having been seen by Dr. Cardenas in office for drainage from her previous craniotomy site. Originally, the patient underwent a right temporoparietal craniotomy on 04/12/19 for removal of her brain tumor. Recovery initially went well. About 2 months ago, while the patient was getting chemo, it was noted that she had a collection of pus underneath her incision that was assessed and treated by Maggie Manzo who put the patient on a course of Keflex, which temporarily resolved the minor oozing that had happened and then the patient came to the emergency room on 06/30/[address] Cardenas aware at that point and at that time, he had offered a washout and the patient declined opting to try oral antibiotics again. At that time, she was placed on Bactrim b.i.d. for 7 days, which she completed despite it making her nauseated though drainage has not resolved since then. She was seen in office today by Dr. Cardenas and was able to express a small amount of yellow drainage and so therefore the patient at that day accepted a wound washout and came to the emergency room to be admitted. She is concerned she was supposed to have started her next round of chemo on , 07/08/19. She states that she is to get it once a month for life and is concerned that all the imaging and the infection has been putting it off. Gets headaches daily and has been ever since her surgery though managed well with Tylenol. Currently, the patient reports a 6/10 headache, was sitting up in bed, mentating well, denied any chest pain, shortness of breath, fever, chills, nausea, vomiting. In the ED, the patient had her port to her left upper chest wall accessed with labs drawn and was given Tylenol for her headache. PAST MEDICAL HISTORY: 1. Left breast cancer with mets to the brain. 2. Headaches. 3. Arthritis. 4. 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 5. Ectopic . PAST SURGICAL HISTORY: 1. Temporoparietal craniotomy. 2. Appendectomy. 3. Total hysterectomy. 4. Left lumpectomy. 5. Port placement x2. ALLERGIES: To PENICILLIN and LATEX. FAMILY HISTORY: Father with prostate cancer. Mother due to child difficulties. SOCIAL HISTORY: He has been a pack a day smoker for 14 years though has been trying to quit on Chantix is down to 2 cigarettes a day, drinks 5 to 6 beers every day, denies any recreational substance use. 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 He is , has no children. REVIEW OF SYSTEMS: An 11-point system review was performed, which was positive for right facial edema, dry cough, slight generalized weakness, unsteady gait, headaches, but no chest pain, palpitations or shortness of breath. PHYSICAL EXAMINATION GENERAL: This is a well-developed female seen resting in bed, in no acute distress noted. VITAL SIGNS: Temperature 100.6, pulse 91, respirations 16, 100% oxygen on room air, and blood pressure 154/87. HEENT: Eyes: Conjunctivae pink and moist. PERRLA. EOMs intact. ENT: Mucous membranes are slightly dry. Oropharynx clear. NECK: Supple. RESPIRATORY: Lung sounds clear throughout bilaterally on room air. No accessory muscle use noted. CARDIAC: S1, S2 present. Heart rate regular. No murmurs, gallops, or rubs appreciated. No lower extremity edema. ABDOMEN: Soft, nontender, nondistended, with positive bowel sounds x4. MUSCULOSKELETAL: No clubbing or cyanosis noted. Soles of feet are bright pink , but blanching. Full range of motion of all extremities. SKIN: Scab to right scalp. No other rashes appreciated. NEUROLOGIC: Smile symmetrical. Tongue midline. Strength equal to all extremities. No focal deficits appreciated. PSYCH: Alert and oriented x4. Slightly anxious in appearance. DIAGNOSTIC STUDIES/LAB DATA: MCH 32, MPV 7.1, APTT 45.7, BUN/creatinine ratio 22.2, glucose 136, lactic acid 0.8. Brain CT on 06/30/19, it showed decreased amount of vasogenic edema as compared to a study on 02/26/19 and no mass or mass effect is seen. No new lesions observed. The patient is status post right frontotemporal craniotomy with a small subdural collection of fluid underneath craniotomy flap. No significant mass effect and then MRI on 07/08/19, it showed stable exam with no new worrisome features, continued attention on short-term followup. Imaging is recommended. No new nodular enhancement or organized fluid collection is identified. ASSESSMENT AND PLAN: My impression is that this is a 63-year-old female with a past medical history significant for breast cancer with brain mets, who was admitted on 07/14/19 for an infected right craniotomy flap due to go to surgery for a washout with Dr. Cardenas at some point tomorrow. 1. Craniotomy flap infection. Per Dr. Cardenas who has spoken with Dr. Simon, we are not to give any antibiotics prior to surgery and intraop wound culture. We will keep the patient hydrated until then a liter of fluid ordered for the ER who may continue on normal saline at 75 mL an hour with neuro checks q.4 hours. RCRI score of 0, METs are 4. Will obtain EKG in AM. The patient is optimized for surgery. Post surgery, recommend PT eval due to possible deconditioning and reports of unsteady gait. 2. Alcohol abuse. Due to the patient drinking 6 alcohol drinks a day, we will place the patient on WAM protocol with p.o. Ativan as needed. The patient has been seizure free during previous hospital stays though recommend putting the patient on precautionary seizure precautions. 3. Tobacco dependence. Continue the Chantix and offered nicotine lozenges. 4. DVT prophylaxis. Heparin tonight. We will hold for surgery in the a.m. and SCDs. 5. Code status is full code. CONDITION: Fair. DISPOSITION: Admit inpatient to short stay surgical. Case reviewed by my attending and they agree with the plan of care. CAMMY GALINDO, CONTINUITY DIRECTOR [id number]/CPS #: [id number] SYLVIA
[2019-07-14] MEDS: NS 0.9% 1000 ML** 1,000 ML IV SCH (23:20)
[2019-07-14] MEDS: CMCS:Varenicline (NF) 1 MG TAB PO SCH (23:29)
--- NOTE | 2019-07-15 00:29 | CONS ---
CONSULTATION REPORT: DATE OF CONSULT: 07/14/19 HISTORY OF PRESENT ILLNESS: The patient is a very pleasant 63-year-old female who is status post right frontal craniotomy for resection of right frontal metastases. The patient did extremely well postoperatively, had gross total resection of the lesion and she underwent radiation therapy and chemotherapy. The patient was reported to develop drainage in the wound a few months ago and treated postoperatively with antibiotics. She also developed infection of her toe and she received also antibiotics. The patient returned to our office a few weeks ago and because of history of drainage from the wound, she was directed to the emergency room, where she had CT scan of the brain, which was unremarkable as well as labs with negative inflammatory markers. The patient was given another course of p.o. antibiotics from the emergency room because of her history of drainage and she returned to our office to get an MRI of the brain with and without contrast, which was also unremarkable and stable in terms of her surgical site. This morning, she returned to our office for a followup and she was noted to have a small discharge from the wound. For this reason, she was offered the option of wound revision and possible removal of the bone flap. The patient reports that she had done excellent, she has no fevers. She has no recent drainage from the wound other than this morning to expression. She denies any weakness, numbness, or tingling of her extremities. She was able to ambulate without difficulty. She denies any seizure. She denies any new dizziness or speech difficulties. PAST MEDICAL HISTORY: The patient has a history of arthritis. The patient has history of breast CA with brain metastases. PAST SURGICAL HISTORY: Appendectomy, ectopic , hysterectomy, left breast lumpectomy, right frontotemporoparietal craniotomy on 02/25/19, PowerPort placement and removal. MEDICATIONS: The patient is off antibiotics and off steroids as of now. ALLERGIES: PENICILLIN. FAMILY HISTORY: Noncontributory. SOCIAL HISTORY: Tobacco, negative. Alcohol, daily 5 or 6 drinks per day. Recreational drug use, negative. PHYSICAL EXAMINATION: The patient is not in acute distress. Her wound is soft , clean, and dry. There is a small eschar in the frontal edge of the wound without obvious discharge. At this point, the patient has some very mild erythema around the frontal edge of the wound. The patient is awake, alert, and oriented x3. Her pupils are equal and reactive. Cranial nerves II through XII are grossly intact. Motor 4/5 in all extremities. No pronator drift. Sensory: Grossly intact to light touch. Deep tendon reflexes +1 bilaterally. No clonus. No Babinski. Alcala's negative. Straight leg test negative in sitting position, also negative in the supine position. DIAGNOSTIC STUDIES/LAB DATA: The patient had a recent MRI of the brain that reveals postoperative changes without change in the surgical tumor bed compared with the last MRI. There is no evidence of empyema or intracranial abscess. ASSESSMENT: This is a pleasant 63-year-old female who is status post craniotomy for resection of breast cancer metastasis with suspicion for a wound infection. PLAN: The patient at this point has been currently admitted by hospitalist team. We will recommend preoperative clearance and n.p.o. after midnight for surgical intervention for wound irrigation debridement, craniotomy revision and possible removal of the bone flap. We discussed with the patient in extent regarding risks and benefits of the procedure as well as alternative treatment options, expectations, limitations and possible complications of the procedure with complications including but not limited to bleeding, infection, injury to adjacent structures, coma, paralysis, , need for additional procedures, stroke, blindness, spinal fluid leak, deep venous thrombosis, pulmonary embolism , anesthesia risks. The patient understands that the operative plan may be modified according to intraoperative findings and conditions and that her condition may not improve and in fact may get worse after the surgery and that may require additional procedure in the future. We discussed about the possibility of cranioplasty after her infection has been cleared. We discussed with Dr. Simon earlier today who kindly recommended to hold off antibiotics for now and obtain several cultures during surgery and then tailor antibiotic coverage after the results of the cultures. We will be happy to use preoperative antibiotics as recommended by Dr. Simon and proceed with surgical intervention as above. The patient is in agreement to proceed with surgical intervention, same were discussed with her earlier in our office. Thank you for allowing us to participate in the care of this patient. Please do not hesitate to contact our office in case you have any further questions or concerns regarding the care of this patient. [id number]/CPS #: [id number] SYLVIA
[2019-07-15 05:56] LABS: ABS Basophils 0.1 10^3/ul (0-0.2); ABS Eosinophils 0.2 10^3/ul (0-0.6); ABS Lymphocytes 1.3 10^3/ul (1.0-4.8); ABS Monocytes 0.6 10^3/ul (0-0.8); ABS Neutrophils 2.7 10^3/ul (1.5-7.7); Eosinophil % 3.2 %; Hematocrit 34 % (35-47); Hemoglobin 11.5 g/dL (12.0-16.0); Lymphocyte % 26.8 %; Mean Corpuscular HGB Conc 34 g/dL (31-36); Mean Corpuscular Hemoglobin 32 pg (27-31); Mean Corpuscular Volume 93 fL (80-97); Mean Platelet Volume 6.9 fL (7.4-10.4); Nucleated Red Blood Cells % 0.1; Platelet Count 313 10^3/uL (150-450); Red Blood Count 3.59 10^6 /uL (3.70-4.87); Red Cell Distribution Width 13 % (10-15); White Blood Count 4.9 10^3/uL (3.5-10.8)
[2019-07-15 06:04] LABS: Activated Partial Thrombo Time 34.1 seconds (26.0-38.0); INR 0.93 (0.82-1.09)
[2019-07-15 06:12] LABS: BUN/Creatinine Ratio 20.4 (8-20); Calcium 8.7 mg/dL (8.6-10.3); EGFR African American 138.9 (>60); EGFR Non-African American 114.8 (>60); Potassium 3.4 mmol/L (3.5-5.0)
[2019-07-15 07:35] LABS: Magnesium 1.6 mg/dL (1.9-2.7)
[2019-07-15] MEDS ORDERED: Magnesium Sulfate 2 GM IV* 2 GM/50 ML BAG IVPB ONE (08:31)
[2019-07-15] MEDS ORDERED: Acetaminophen SUPP* 650 MG SUPP PR ONE (08:45)
--- NOTE | 2019-07-15 08:51 | PN ---
Subjective Date of Service: 07/15/19 Interval History: Patient seen resting in bed. Stated she woke up with a headaches, which is her usual. She felt that the swelling to her right confucianism/forehead is worse than yesterday, is tender now whereas it was not in the emergency room yesterday. Denies any fevers, chills, changes in vision, chest pain, shortness of breath, abdominal pain, nausea or vomiting. Family History: Unchanged from Admission Social History: Unchanged from Admission Past Medical History: Unchanged from Admission Objective Active Medications: Acetaminophen (Tylenol Tab*) 650 mg PO Q4H PRN PRN Reason: HEADACHE Acetaminophen (Tylenol Supp*) 650 mg SC ONCE ONE Stop: 07/15/19 08:46 Folic Acid (Folvite Tab*) 1 mg PO DAILY [facility] Sodium Chloride (Ns 0.9% 1000 Ml) 1,000 mls @ 75 mls/hr IV PER RATE [facility] Last Admin: 07/14/19 23:20 Dose: 75 mls/hr Magnesium Sulfate (Magnesium Sulfate 2 Gm Iv*) 2 gm in 50 mls @ 50 mls/hr IVPB ONCE ONE Stop: 07/15/19 09:30 Potassium Chloride (Potassium Chloride 20 Meq/100 Ml Ivpremix*) 20 meq in 100 mls @ 50 mls/hr IV Q2H [facility]ILY Stop: 07/15/19 12:59 Lorazepam (Ativan Tab(*)) 0 - 6 mg PO .PER [facility] PROTOCOL [facility]; Protocol Multivitamins/Minerals (Theragran/Minerals Tab*) 1 tab PO DAILY [facility] Nicotine Polacrilex (Nicotine Lozenge Mini) 2 mg MT Q2H PRN PRN Reason: CRAVING Last Admin: 07/14/19 23:30 Dose: 2 mg Ondansetron HCl (Zofran Inj*) 4 mg IV Q4H PRN PRN Reason: NAUSEA/VOMITING Thiamine HCl (Vitamin B-1 Tab*) 100 mg PO DAILY [facility] Trazodone HCl (Desyrel Tab*) 50 mg PO BEDTIME PRN PRN Reason: SLEEP Varenicline (Chantix (Nf)) 1 mg PO BID [facility]; Protocol Last Admin: 07/14/19 23:29 Dose: 1 mg Vital Signs - 8 hr 07/15/19 07/15/19 07/15/19 01:12 03:15 05:06 Temperature 97.9 F 98.1 F 98.1 F Pulse Rate 78 76 79 Respiratory 20 20 20 Rate Blood Pressure 135/56 132/57 133/63 (mmHg) O2 Sat by Pulse 97 99 100 Oximetry 07/15/19 07/15/19 07:38 07:46 Temperature 98.9 F Pulse Rate 84 Respiratory 17 17 Rate Blood Pressure 139/72 (mmHg) O2 Sat by Pulse 99 Oximetry Oxygen Devices in Use Now: None Appearance: Well developed woman seen resting in bed, no acute distress. Eyes: No Scleral Icterus, PERRLA Ears/Nose/Mouth/Throat: NL Teeth, Lips, Gums, Clear Oropharnyx, Mucous Membranes Moist Neck: NL Appearance and Movements; NL JVP, Trachea Midline Respiratory: Symmetrical Chest Expansion and Respiratory Effort, Clear to Auscultation Cardiovascular: NL Sounds; No Murmurs; No JVD, RRR, No Edema Abdominal: NL Sounds; No Tenderness; No Distention Lymphatic: No Cervical Adenopathy Extremities: No Edema, No Clubbing, Cyanosis Skin: No Nodules or Sclerosis, - - Scab to right anterior scalp Neurological: Alert and Oriented x 3 Lines/Tubes/Other Access: Clean, Dry and Intact Peripheral IV Result Diagrams: 07/15/19 05:20 07/15/19 05:20 Assess/Plan/Problems-Billing Assessment: This is a 63 year old female with a PMH of breast CA with mets to the brain with craniotomy 04/21/19 who was admitted 07/14/19 for infected craniotomy flap with washout planned later today. - Patient Problems (1) Infected craniotomy plate Current Visit: Yes Status: Acute Code(s): T84.7XXA - INFECT/INFLM REACT DUE TO OTH INT ORTH PROSTH DEV/GRFT, INIT; Z96.7 - PRESENCE OF OTHER BONE AND TENDON IMPLANTS SNOMED Code(s): 803338223 Comment: -Been treated twice for draiange since her surgery. First with keflex, then with bactrim with no resolution. -Dr. Ham will perform a wash out later today. RCRI score of 0, METS=4 -Q4H neurochecks. NPO for surgery with NS @ 75ml/hr. -Order PT eval due to gait instability. (2) Nicotine dependence Current Visit: Yes Status: Acute Code(s): F17.200 - NICOTINE DEPENDENCE, UNSPECIFIED, UNCOMPLICATED SNOMED Code(s): 29859118 Comment: -Down to 2 cigarettes a day from one PPD. Continue chantix. May have nicotine lozenge if needed. (3) Heavy drinker of alcohol Current Visit: No Status: Acute Code(s): Z78.9 - OTHER SPECIFIED HEALTH STATUS SNOMED Code(s): 88495266 Comment: -Drinks about 6 beers a day. Placed on WAM protocol with PO lorazepam. Ordered folic acid, thiamine and MVI. (4) Electrolyte abnormality Current Visit: Yes Status: Acute Code(s): E87.8 - OTH DISORDERS OF ELECTROLYTE AND FLUID BALANCE, NEC SNOMED Code(s): 963995369 Comment: -Potassium and magnesium levels low. Ordered 2gm IV magnesium nd 2 runs of IV potassium 20mEq. (5) DVT prophylaxis Current Visit: Yes Status: Acute Code(s): Z29.9 - ENCOUNTER FOR PROPHYLACTIC MEASURES, UNSPECIFIED SNOMED Code(s): 909071063 Comment: -SCD's. Received one dose of heparin last night. Held this AM due to surgery later. (6) Full code status Current Visit: Yes Status: Acute Code(s): Z78.9 - OTHER SPECIFIED HEALTH STATUS SNOMED Code(s): 658612939 Status and Disposition: Disposition: Inpatient, awaiting craniotomy wash out later today. Condition: Guarded Counseling and/or Coordination of Care Minutes: 40 Attending: Luann Porter
[2019-07-15] MEDS: Thiamine TAB* 100 MG TAB PO SCH (08:58)
[2019-07-15] MEDS: Acetaminophen TAB* 325 MG PO PRN ×3 (08:58→23:18)
[2019-07-15] MEDS: Folic Acid TAB* 1 MG PO SCH (08:58)
[2019-07-15] MEDS: CMCS:Varenicline (NF) 1 MG TAB PO SCH ×2 (09:00→19:32)
[2019-07-15] MEDS: Multivitamins/Minerals TAB PO SCH (09:00)
[2019-07-15] MEDS: KCL 20 MEQ/100 ML IVPREMIX* 20 MEQ/100 ML BAG IV SCH ×2 (09:57→12:29)
[2019-07-15] MEDS: NS 0.9% 1000 ML** 1,000 ML IV SCH (12:29)
--- NOTE | 2019-07-15 21:44 | PN ---
Progress Note - Progress Note Date of Service: 07/15/19 SOAP: Subjective: []Patient was seen earlier. No events ON. NPO Objective: [] VS afebrile Wound s,c,d AAOx3 HUI, CN II-XII grossly intact Motor 5/5 all extremities Sensory grossly intact to light touch. Patient reported new swelling and tenderness in craniotomy area. No obvious edema or redness on exam. Assessment: []63 yof sp remote craniotomy for metastasis resection, possible wound infection Plan: []Case was postponed today due to OR schedule Will plan for OR in am NPO after midnight Discussed in extend with patient and her . Appreciate IM care. Annelise Cardenas MD
[2019-07-16] MEDS ORDERED: NS 0.9% 1000 ML** 1,000 ML IV SCH
[2019-07-16] MEDS ORDERED: Buffered Lidocaine 1% SYRIN* 1 ML/SYRINGE INTRADERM ONE (06:00)
[2019-07-16] MEDS ORDERED: Acetaminophen TAB* 325 MG PO ONE (06:00)
[2019-07-16] MEDS ORDERED: Lactated Ringers 1000 ML Bag* 1,000 ML IV SCH ×2 (06:00→19:00)
[2019-07-16] MEDS: CMCS:Varenicline (NF) 1 MG TAB PO SCH ×2 (07:27→21:39)
[2019-07-16] MEDS: Thiamine TAB* 100 MG TAB PO SCH (07:27)
[2019-07-16] MEDS: Multivitamins/Minerals TAB PO SCH (07:27)
[2019-07-16] MEDS: Folic Acid TAB* 1 MG PO SCH (07:27)
--- NOTE | 2019-07-16 09:09 | PN ---
Subjective Date of Service: 07/16/19 Interval History: Sitting up in chair, no acute distress. Reports her usual headache that she typically wakes up with but is responding to tylenol. States she feels hungry but otherwise well. Denies fever, chills, chest pain, palpitations, lightheadedness, dizziness, shortness of breath, abdominal pain, nausea, vomiting, issues with bowel or bladder. Family History: Unchanged from Admission Social History: Unchanged from Admission Past Medical History: Unchanged from Admission Objective Active Medications: Acetaminophen (Tylenol Tab*) 650 mg PO Q4H PRN PRN Reason: HEADACHE Last Admin: 07/15/19 23:18 Dose: 650 mg Folic Acid (Folvite Tab*) 1 mg PO DAILY [facility] Last Admin: 07/16/19 07:27 Dose: Not Given Heparin Sodium (Porcine) (Heparin Flush Port (Ivad)) 5 ml FLUSH DAILY [facility]; Protocol Last Admin: 07/16/19 07:26 Dose: Not Given Lactated Ringer's (Lactated Ringers 1000 Ml Bag*) 1,000 mls @ 125 mls/hr IV PER RATE [facility] Last Admin: 07/16/19 07:42 Dose: 125 mls/hr Sodium Chloride (Ns 0.9% 1000 Ml) 1,000 mls @ 75 mls/hr IV PER RATE [facility] Last Admin: 07/16/19 00:07 Dose: 75 mls/hr Lorazepam (Ativan Tab(*)) 0 - 6 mg PO .PER [facility] PROTOCOL [facility]; Protocol Multivitamins/Minerals (Theragran/Minerals Tab*) 1 tab PO DAILY [facility] Last Admin: 07/16/19 07:27 Dose: Not Given Nicotine Polacrilex (Nicotine Lozenge Mini) 2 mg MT Q2H PRN PRN Reason: CRAVING Last Admin: 07/14/19 23:30 Dose: 2 mg Ondansetron HCl (Zofran Inj*) 4 mg IV Q4H PRN PRN Reason: NAUSEA/VOMITING Thiamine HCl (Vitamin B-1 Tab*) 100 mg PO DAILY [facility] Last Admin: 07/16/19 07:27 Dose: Not Given Trazodone HCl (Desyrel Tab*) 50 mg PO BEDTIME PRN PRN Reason: SLEEP Varenicline (Chantix (Nf)) 1 mg PO BID [facility]; Protocol Last Admin: 07/16/19 07:27 Dose: Not Given Vital Signs - 8 hr 07/16/19 07/16/19 07/16/19 01:34 03:34 03:35 Temperature 98.1 F 98.3 F Pulse Rate 84 70 Respiratory 16 17 17 Rate Blood Pressure 112/60 139/62 (mmHg) O2 Sat by Pulse 98 98 Oximetry 07/16/19 07/16/19 05:09 07:25 Temperature 98.3 F 98.4 F Pulse Rate 74 79 Respiratory 17 16 Rate Blood Pressure 143/73 145/56 (mmHg) O2 Sat by Pulse 99 98 Oximetry Oxygen Devices in Use Now: None Appearance: Well developed woman seen sitting up in chair, no acute distress. Eyes: No Scleral Icterus, PERRLA Ears/Nose/Mouth/Throat: NL Teeth, Lips, Gums, Clear Oropharnyx, Mucous Membranes Moist Neck: NL Appearance and Movements; NL JVP, Trachea Midline Respiratory: Symmetrical Chest Expansion and Respiratory Effort, Clear to Auscultation Cardiovascular: NL Sounds; No Murmurs; No JVD, RRR, No Edema Abdominal: NL Sounds; No Tenderness; No Distention Lymphatic: No Cervical Adenopathy Extremities: No Edema, No Clubbing, Cyanosis Skin: No Rash or Ulcers, No Nodules or Sclerosis Neurological: Alert and Oriented x 3 Lines/Tubes/Other Access: Clean, Dry and Intact Peripheral IV Result Diagrams: 07/15/19 05:20 07/15/19 05:20 Microbiology and Other Data: Microbiology 07/14/19 22:43 Aerobic Blood Culture - Preliminary Blood Venous No Growth Day 1 Anaerobic Blood Culture - Preliminary No Growth Day 1 07/14/19 20:05 Aerobic Blood Culture - Preliminary Blood Venous No Growth Day 1 Anaerobic Blood Culture - Preliminary No Growth Day 1 Assess/Plan/Problems-Billing Assessment: This is a 63 year old female with a PMH of breast CA with mets to the brain with craniotomy 04/21/19 who was admitted 07/14/19 for infected craniotomy flap with washout planned later today. - Patient Problems (1) Infected craniotomy plate Current Visit: Yes Status: Acute Code(s): T84.7XXA - INFECT/INFLM REACT DUE TO OTH INT ORTH PROSTH DEV/GRFT, INIT; Z96.7 - PRESENCE OF OTHER BONE AND TENDON IMPLANTS SNOMED Code(s): 965518287 Comment: -Been treated twice for drainage since her surgery. First with keflex, then with bactrim with no resolution. -Dr. Ham did not perform surgery yesterday, will perform a wash out today at noon. RCRI score of 0, METS=4 -Q4H neurochecks. NPO for surgery with NS @ 75ml/hr. (2) Nicotine dependence Current Visit: Yes Status: Acute Code(s): F17.200 - NICOTINE DEPENDENCE, UNSPECIFIED, UNCOMPLICATED SNOMED Code(s): 40827437 Comment: -Down to 2 cigarettes a day from one PPD. Continue chantix. May have nicotine lozenge if needed. (3) Heavy drinker of alcohol Current Visit: No Status: Acute Code(s): Z78.9 - OTHER SPECIFIED HEALTH STATUS SNOMED Code(s): 50415709 Comment: -Drinks about 6 beers a day. Placed on WAM protocol with PO lorazepam. Ordered folic acid, thiamine and MVI. -Has not been scoring. (4) Electrolyte abnormality Current Visit: Yes Status: Acute Code(s): E87.8 - OTH DISORDERS OF ELECTROLYTE AND FLUID BALANCE, NEC SNOMED Code(s): 662208940 Comment: -Corrected with IV potassium and mag. (5) DVT prophylaxis Current Visit: Yes Status: Acute Code(s): Z29.9 - ENCOUNTER FOR PROPHYLACTIC MEASURES, UNSPECIFIED SNOMED Code(s): 133634666 Comment: -SCD's. Heparin held for surgery, continue post op. (6) Full code status Current Visit: Yes Status: Acute Code(s): Z78.9 - OTHER SPECIFIED HEALTH STATUS SNOMED Code(s): 109129190 Status and Disposition: Disposition: Inpatient, awaiting craniotomy wash out later today. Condition: Guarded Attending: Luann Porter
[2019-07-16 11:05] LABS: BUN/Creatinine Ratio 12.5 (8-20); Calcium 9.2 mg/dL (8.6-10.3); EGFR African American 133.2 (>60); EGFR Non-African American 110.1 (>60); Potassium 3.9 mmol/L (3.5-5.0)
[2019-07-16] MEDS ORDERED: Midazolam* 1 MG/ML 2 ML VIAL (2 MG) ONE (11:30)
[2019-07-16] MEDS ORDERED: Lidocaine 2% PF* 10 ML AMP ONE (11:31)
[2019-07-16] MEDS ORDERED: fentaNYL* 50 MCG/ML 5 ML VIAL (250 MCG VIAL) ONE (11:31)
[2019-07-16] MEDS ORDERED: Propofol* 10 MG/ML 20 ML BTL ONE (11:31)
[2019-07-16] MEDS ORDERED: Rocuronium* 10 MG/ML VIAL ONE (11:32)
[2019-07-16] MEDS ORDERED: HYDROmorphone INJ1* 1 MG/ML SYRINGE ONE ×2 (11:56→17:39)
[2019-07-16] MEDS ORDERED: Bacitracin INJECTION* 50,000 UNITS ONE ×2 (12:24→15:40)
[2019-07-16] MEDS ORDERED: Thrombin 5,000 UNITS* 1 APPLIC KIT - topical use - TOPICAL ONE (12:24)
[2019-07-16] MEDS ORDERED: Bupivacaine 0.25% EPI 200,000* 30 ML SDV ONE (12:24)
[2019-07-16] MEDS ORDERED: ceFAZolin 2 GM in NS PREMIX(*) 2 GM/100 ML BAG IVPB ONE (13:03)
[2019-07-16] MEDS ORDERED: Ondansetron INJ* 2 MG/ML VIAL IV PRN (15:37)
[2019-07-16] MEDS ORDERED: oxyCODONE TAB* 5 MG TAB PO PRN (15:37)
[2019-07-16] MEDS ORDERED: PROCHLORPERAZINE INJ 5 MG/ML 2 ML VIAL IV PRN (15:37)
[2019-07-16] MEDS ORDERED: Naloxone* 0.4 MG/ML 1 ML VIAL IV PRN (15:37)
[2019-07-16] MEDS ORDERED: diPHENhydraMINE IV* 50 MG/ML 1 ml VIAL (BENADRYL) IV PRN (15:37)
[2019-07-16] MEDS ORDERED: Acetaminophen TAB* 325 MG PO PRN (15:37)
--- NOTE | 2019-07-16 17:10 | CONS ---
CONSULTATION REPORT: DATE OF CONSULT: 07/16/19 PRIMARY CARE PROVIDER: None. PROVIDER REQUESTING CONSULTATION: Dr. Jonathan Cardenas. CONSULTING SERVICE: Infectious Disease. PROVIDER: Martín Canales NP ATTENDING PROVIDER: Dr. Chi Simon * (Dictated by MARTÍN CANALES NP). REASON FOR CONSULT: Infected wound status post remote craniotomy. IMPRESSION: 1. Drainage from previous craniotomy site on the right frontotemporal region. There is currently no drainage. She had a culture in mid May that grew Staph aureus. She has been on a course of Keflex and a course of Bactrim. She is afebrile with no leukocytosis. There is no erythema at the site. She has been off antibiotics while in the hospital to attempt to get good cultures. She is going to undergo exploration of the area with possible removal of the bone flap with Dr. Cardenas today. 2. PENICILLIN allergy with history of facial swelling. The patient has tolerated Ancef and Keflex in the past without any difficulty. 3. Breast cancer with brain metastases. Has been receiving chemotherapy and radiation. RECOMMENDATIONS/PLAN: Recommend giving the patient Ancef preoperatively and then postoperatively. She has tolerated Ancef in the past in the setting of her PENICILLIN allergy. This should be continued for a couple days while we await her culture results. Further recommendations will be based on the surgical findings and if there is sinus tracking and a deeper infection versus a superficial infection and culture results. This will determined if the patient is transitioned to oral antibiotics or continued on a longer course of IV antibiotics. HISTORY OF PRESENT ILLNESS: Ms. Erazo is a 63-year-old female with past medical history significant for left breast cancer, status post lumpectomy, with brain mets; headaches; arthritis; neuropathy secondary to chemotherapy, who initially underwent left breast lumpectomy with chemotherapy for breast cancer in 2017. She was later found to have a right frontal lobe metastasis. She underwent a right temporoparietal craniotomy on 02/25/19 with resection of the right posterior frontal tumor. The patient did well at the time of her procedure, incision healed well and she was having no issues. She reports approximately 2 months ago she had noted some drainage from the wound. This was cultured and the culture grew Staph aureus. She was placed on a 1-week course of Keflex at that time. The patient followed up in Dr. Cardenas' office because of drainage from the wound and went to the emergency room for a CT scan which was unremarkable and her labs showed no elevation in inflammatory markers. She was placed on a course of Bactrim. She again returned to Dr. Cardenas' office to get an MRI of her brain, which was unremarkable and stable. She returned to Dr. Cardenas' office on 07/14/19 for a followup and was noted to have a small amount of drainage from her wound. Due to the continued drainage, she was offered the option of a wound revision and possible removal of the bone flap in the setting of a possible infected craniotomy site. The patient reports that she has been feeling well. Denies any fevers; chills ; nausea; vomiting; urinary symptoms, urgency, frequency, dysuria; rash. Other than a trip last month to [facility], she has not had any travel. She reports chronic discomfort in her shoulders, hips and back that is often worse in the morning and improves throughout the day once she has been up and moving. Other than this drainage which has stopped since she has been in the hospital, she is feeling well. It is to note that she has been getting monthly chemo, that she was last due to have on 07/08/19, but due to the wound in the possible setting of an infection, this has been put off. She gets daily headaches, but this has been going on since her craniotomy and is managed with Tylenol. While in the emergency room, she had labs that were mostly unremarkable and was referred to the hospitalist service for admission. While in the hospital, her labs have remained relatively unremarkable. She has no leukocytosis. She has been afebrile with the exception of 1 low-grade fever while in the emergency room which was 100.6. She has had no drainage from her wound. Dr. Cardenas plans to take her to the operating room today for surgery with possible revision. PAST MEDICAL HISTORY: 1. Left breast cancer, status post radiation and chemotherapy. 2. Headaches. 3. Arthritis. 4. Peripheral neuropathy secondary to chemotherapy. 5. Brain metastases, currently receiving chemotherapy and radiation. PAST SURGICAL HISTORY: 1. Status post right temporoparietal craniotomy with tumor resection on . 2. Status post appendectomy. 3. Status post hysterectomy. 4. Status post left breast lumpectomy. 5. Status post placement of a PowerPort, then removal and then replacement of the PowerPort. 6. Status post salpingectomy. MEDICATIONS: Home medications: 1. Trazodone 50 to 100 mg by mouth at bedtime daily as needed for sleep. 2. Chantix 1 mg by mouth twice daily. 3. Bactrim DS 800/160 one tablet by mouth twice daily. 4. Acetaminophen 650 mg by mouth every 6 hours. Hospital medications: 1. Acetaminophen 650 mg by mouth every 4 hours as needed for headache. 2. Folic acid 1 mg by mouth daily. 3. Heparin sodium 5 mL flush daily. 4. Lactated Ringer 125 mL an hour intravenously. 5. Lorazepam 0 to 6 mg by mouth per [facility] protocol. 6. Multivitamin 1 tablet by mouth daily. 7. Nicotine lozenge 2 mg by mouth every 2 hours as needed. 8. Zofran 4 mg IV every 4 hours as needed for nausea. 9. Sodium chloride 75 mL an hour intravenously. 10. Thiamine 100 mg by mouth daily. 11. Trazodone 50 mg by mouth at bedtime daily as needed for sleep. 12. Chantix 1 mg by mouth twice daily. ALLERGIES: PENICILLIN caused facial swelling. FAMILY HISTORY: The patient denies any family history of recurrent or resistant infections. Mother passed at a young age due to complications secondary to childbirth. No family history of coronary artery disease or diabetes. Father with a history of prostate cancer and an aunt with history of breast cancer. SOCIAL HISTORY: She currently drinks 5 to 6 alcoholic beverages daily. She is a current smoker with a 14-year 1 pack a day smoking history and she has been working on smoking cessation and has currently been smoking 2 cigarettes daily. She is not ready to fully quit smoking at this time. Recreational drugs, denies. REVIEW OF SYSTEMS: I performed a 14-point review of systems. All the pertinent positives and negatives are mentioned in the history of present illness. The remaining review of systems are negative. PHYSICAL EXAM: Vital Signs: Temperature 98.4, heart rate 79, respiratory rate 16, O2 sat 98% on room air, blood pressure 145/56. General Appearance: The patient is alert, appears to be in no acute distress, lying in bed. Head: Normocephalic, atraumatic. EENT: Extraocular movements are intact. The patient is noted to have some swelling at the right eyebrow and underneath her right eye. No subconjunctival hemorrhage. Moist mucous membranes. Neck: Supple. Neurological: Alert and oriented x4. Cranial nerves II through XII are grossly intact. She moves all extremities. Cardiovascular: Regular rate and rhythm. S1, S2 present. No murmurs, rubs, or gallops heard. Respiratory: The lungs are clear to auscultation bilaterally. There is no accessory muscle use. Abdomen: Bowel sounds present. Abdomen is soft, large, nontender, nondistended. Extremities: No lower extremity edema. DP and PT pulses are 2+ and symmetric. Musculoskeletal: No clubbing or cyanosis noted. Exhibits good strength in all extremities. Psychological: Calm and cooperative. Skin: She has no rashes or abnormalities seen. She has a mostly healed incision to the right frontal area of her scalp. There is some dry crusting noted in the incision line, but no active drainage, erythema. She is noted to have a small area of fluctuance in the right methodist area. DIAGNOSTIC STUDIES/LAB DATA: Sodium 140, potassium 3.4, chloride 110, CO2 of 24 , BUN 11, creatinine 0.4, glucose 94. White blood cell count 4.9, hemoglobin 11.5, hematocrit 34, platelet count 313. Blood cultures negative. Please see impression and recommendations outlined above. Recommendations have been discussed with Dr. Cardenas. Thank you for asking us to see Ms. Erazo in consultation. The case has been reviewed with the attending, Dr. Chi Simon, who agrees with the plan of care. Reviewed by ISABELLE KING 07/17/19 1832 [id number]/[facility] #: [id number] SYLVIA
[2019-07-16] MEDS ORDERED: Acetaminophen TAB* 325 MG ONE ×2 (17:21→17:22)
[2019-07-16] MEDS: HYDROmorphone INJ1* 1 MG/ML SYRINGE IV PRN ×4 (17:40→18:09)
[2019-07-16] MEDS ORDERED: Magnesium Hydroxide LIQ* 30 ML UDC PO PRN (18:05)
[2019-07-16] MEDS: oxyCODONE TAB* 5 MG TAB PO PRN (19:14)
[2019-07-16] MEDS: ceFAZolin VIAL(*) 2 GM in NS 0.9% 100 ML* 100 ML IVPB SCH (19:33)
[2019-07-17] MEDS: oxyCODONE TAB* 5 MG TAB PO PRN ×4 (00:28→16:23)
--- NOTE | 2019-07-17 02:41 | OP ---
OPERATIVE REPORT: DATE OF OPERATION: 07/16/19 DATE OF : 59 SURGEON: Dr. Jonathan Cardenas. CO-SURGEON: Dr. Davi Valenzuela, plastic surgeon. CREW DISPATCHER: LISA Alarcon. ANESTHESIA: General. PRE-OP DIAGNOSIS: Right frontotemporoparietal wound infection. POST-OP DIAGNOSIS: Right frontotemporoparietal wound infection. OPERATIVE PROCEDURE: The patient underwent a right frontotemporoparietal craniotomy revision with irrigation and debridement, resection of infected skin , and advancing of scalp flaps. ESTIMATED BLOOD LOSS: 100 cc. COMPLICATIONS: None. SUMMARY: The patient is a very pleasant 63-year-old female with history of breast CA who had undergone craniotomy for resection of right frontal metastases several months ago. The patient developed a small Eschar in her frontal part of the incision and initially was treated with radiation course with antibiotics. Because of persistent drainage, the patient had extensive workup and inflammatory markers were negative. While MRI and CT scan did not show any signs of infection, because of the presence of purulent discharge from the Eschar area, the patient was offered the option of revision of craniotomy, irrigation and debridement and possible removal of the bone flap. Because of the complexity of the case, I requested a consultation by Dr. Valenzuela, who kindly agreed to perform the surgery together. After explaining the expectations , limitations, possible complications of the procedure to the patient and her with complication included, but not limited to bleeding, infection, risk of injury to adjacent structures, coma, paralysis, , need for additional procedures, anesthesia risks, stroke, blindness, cancer, spinal fluid leak, need for additional procedures, anesthesia risks, need for prolonged ICU stay, need for tracheostomy and gastrostomy, need for cranioplasty in the future. The patient was agreeable to proceed with surgery. Informed consent was obtained. The patient understood that her condition may not improve and in fact may get worse after surgery and that she may need to have additional procedures in the future. The patient understood that the procedure may be abandoned or done in more than 1 stages and that she may require prolonged ICU stay or prolonged treatment with antibiotics. Dr. Simon was also consulted, who kindly recommended to start the patient on treatment with Ancef and follow the cultures. DESCRIPTION OF PROCEDURE: The patient was brought to the operating room and was placed under general anesthesia by the anesthesia team. She was positioned supine on the operating table and all bony prominences were meticulously padded. Her right shoulder was elevated and the head was placed on a donut head end desizing machine operator. The hair was removed with surgical clippers and the previous incision towards the right frontotemporoparietal flap was identified. The area of the frontal part of the incision had small area of dehiscence and granulation tissue, while there was an eschar which after removal minimal amount of purulent discharge was noted. The skin was prepped and draped in the standard fashion and the previous incision was marked on the skin as well as an area of ellipsoid skin resection at the area of dehiscence as well as the eschar in the frontal area and a small area of granulation tissue and eschar in the postauricular area. After surgical pause and patient identification, the skin was infiltrated with local anesthetic, and a #10 surgical blade was used to incise the skin in the premarked area. Of note, the incision was extended towards the hairline in the anterior end of the incision, in order to help with the advancement of the flaps. Incision was carried down to periosteum with Bovie cautery. Santi clips were used to secure hemostasis and the craniotomy flap was elevated in subperiosteal fashion. Significant undermining of the skin under the galea was performed in all directions, which allowed for mobilization of the skin as the patient had history of radiation. The excised skin with eschar and the granulation tissue was sent for pathology and cultures. Also, the cultures were obtained from all aspects of the wound. No obvious infection was identified and the wound was copiously irrigated and then the craniotomy plates were removed after removing the titanium screws. The flap was found to be healthy and very well healed without evidence of infection. A small area of granulation tissue on the right frontal area was identified at the craniotomy site and cultures and stat Gram stain were sent from that area all the way down to the epidural space. A high-speed drill was used to perform a luzma hole in that area and expose the dura. No evidence of infection or epidural collection was identified. After copious irrigation with meticulous hemostasis , Gram stain from the epidural space was negative and it was elected to leave the bone flap in place. A luzma hole cover was used to cover the luzma hole and 3 small plates were repositioned at the edges of the craniotomy. After copious irrigation, the wound was closed in layers over 2 Aung drains which were tunneled through separate stab wound incisions in the postauricular area. Advancement of the flaps was performed appropriately in order to approximate all the skin edges without tension. The skin was approximated with series of 2- 0 and 0 Vicryl sutures in inverted interrupted fashion while retention sutures with 0 Prolene were placed in the right postauricular area. The skin was approximated with damaso and 3-0 nylon sutures for the frontal area. At the end of procedures, all counts were reported to be correct. The patient remained hemodynamically stable. She was able to be extubated and was transferred to recovery in excellent condition. The case was done in conjunction with Dr. Valenzuela from Plastic Surgery because of the complexity of the case and with the assistance of an ACTIVATED SLUDGE OPERATOR because of the complexity of the case. [id number]/[facility] #: [id number] SYLVIA
[2019-07-17] MEDS: ceFAZolin VIAL(*) 2 GM in NS 0.9% 100 ML* 100 ML IVPB SCH ×3 (04:09→20:32)
[2019-07-17] MEDS: Acetaminophen TAB* 325 MG PO PRN ×4 (07:01→23:13)
[2019-07-17] MEDS: Folic Acid TAB* 1 MG PO SCH (08:35)
[2019-07-17] MEDS: CMCS:Varenicline (NF) 1 MG TAB PO SCH ×2 (08:35→20:32)
[2019-07-17] MEDS: Multivitamins/Minerals TAB PO SCH (08:35)
[2019-07-17] MEDS: Thiamine TAB* 100 MG TAB PO SCH (08:35)
--- NOTE | 2019-07-17 10:51 | PN ---
Progress Note - Progress Note SOAP: Patient seen and examined. Agree with above. Ambulates, Tolerates PO well, Voids. Wound s,c,d. Neuro intact. CT no hematomas. Continue Abx per ID, Follow cultures. Appreciate IM, ID care. Annelise Cardenas MD [] <Jonathan Cardenas - Last Filed: 07/17/19 15:05> - Progress Note Date of Service: 07/17/19 SOAP: Subjective: [] 63 y/o female post revision of right frontal craniotomy with irrigation POD#1. Patient is doing well has right orbital headache, but denies nausea, vomiting or visual changes. She has been stable overnight, has been ambulating to rest room. Her has 2 ROBERT drains in, #1 put out 20 ml overnight and #2 15ml overnight. She feels that the Tylenol has worked better for her headaches than oxycodone. Overall she is doing and did not have any acute issues over night. Objective: [] Vital Signs: Temp Pulse Resp BP Pulse Ox 100 F 86 18 141/79 95 07/17/19 08:37 07/17/19 09:00 07/17/19 09:00 07/17/19 09:00 07/17/19 09:00 General: patient sitting at the edge of the bed eating breakfast. NAD Neuro: A&O x3 CN II - XII grossly intact, EOM intact, no visual field deficits, no pronator drift Motor strength 5/5 through out Sensation intact through out Derm: drains intact dressings clean Assessment: [] 63 y/o female post right frontal craniotomy revision and irrigation neurological intact, doing well. Plan: [] 1) pain control as needed 2) possible transfer to regular floor 3) D/C drain 4) review CT scan <Alfredo Lehman - Last Filed: 07/18/19 09:30>
[2019-07-17 10:53] LABS: C Reactive Protein 19.1 mg/L (<8.01)
--- NOTE | 2019-07-17 13:25 | OP ---
CC: Dr. Cardenas * DATE OF OPERATION: 07/16/19 - ROOM #334 DATE OF : 59 SURGEON: Davi Valenzuela MD. CO-SURGEON: Jonathan Cardenas MD [employer]IONAL FLATBED TRUCK DRIVER: LISA Alarcon. ANESTHESIA: General. PRE-OP DIAGNOSIS: Nonhealing wound, right frontal scalp. POST-OP DIAGNOSIS: Nonhealing wound, right frontal scalp. OPERATIVE PROCEDURE: Excision of nonhealing wound, right frontal scalp and reconstruction with bilateral rotation advancement scalp flaps. Total area 20 x 17 cm. ESTIMATED BLOOD LOSS: 100 cc. SPECIMENS: Tissue and swab cultures. INDICATION FOR OPERATION: The patient is a 63-year-old female with a history of metastatic breast cancer, who underwent craniotomy for resection of right frontal metastasis several months ago. The patient developed nonhealing wound and intermittent purulent discharge on the right frontal scalp area. I was consulted by Dr. Cardenas to assist in evaluation as well as excision and flap closure of the nonhealing scalp wound. Other pertinent history is that the patient has received previous radiation and is a cigarette smoker. She has been trying to quit smoking, but was smoking approximately 2 cigarettes a day at the time of admission to the hospital. I discussed the treatment alternatives, possible benefits and material risks in detail with the patient and her and they agreed to proceed. DESCRIPTION OF PROCEDURE: The patient was brought to the operating room, and placed in the supine position. General anesthesia was induced by the anesthesia staff. The scalp hair was clipped and the area was prepped and draped sterilely. Together with Dr. Cardenas, the planned incision line to excise the nonhealing wound of the right frontal scalp and to re-elevate the right frontotemporal scalp flap was marked. In addition, a central and left frontal scalp rotation flap was marked by extending the incision across the central and left side of the frontal scalp hair line to recruit further scalp tissue to be able to close the defect under low tension. The incision was made and the nonhealing wound was excised and the scalp flaps were raised at the subperiosteal level and adequately mobilized to allow closure of the defect with low tension. The underlying bone flap appeared viable and vascularized with punctate bleeding noted from the surface. Multiple cultures were taken during the case including sending the excised wound for culture as well as multiple swab cultures. Once the scalp flaps have been adequately mobilized, the case was completed by Dr. Cardenas and wound closure achieved. [id number]/[facility] #: [id number] [facility]
--- NOTE | 2019-07-17 15:48 | PN ---
Subjective Date of Service: 07/17/19 Interval History: Patient seen and examined. No acute overnight events. Chart and labs reviewed in detail. Patient states she has 3/10 headache, no chills, no fever, no blurred vision. Does complain of some edema round the eyes Family History: Unchanged from Admission Social History: Unchanged from Admission Past Medical History: Unchanged from Admission Objective Active Medications: Acetaminophen (Tylenol Tab*) 650 mg PO Q4H PRN PRN Reason: HEADACHE Last Admin: 07/17/19 11:45 Dose: 650 mg Folic Acid (Folvite Tab*) 1 mg PO DAILY [facility] Last Admin: 07/17/19 08:35 Dose: 1 mg Heparin Sodium (Porcine) (Heparin Flush Port (Ivad)) 5 ml FLUSH DAILY [facility]; Protocol Last Admin: 07/17/19 07:09 Dose: Not Given Cefazolin Sodium 2 gm/ Sodium (Chloride) 100 mls @ 200 mls/hr IVPB Q8H [facility] Last Admin: 07/17/19 11:45 Dose: 200 mls/hr Lorazepam (Ativan Tab(*)) 0 - 6 mg PO .PER [place] PROTOCOL [facility]; Protocol Magnesium Hydroxide (Milk Of Magnesia Liq*) 30 ml PO DAILY PRN PRN Reason: CONSTIPATION Multivitamins/Minerals (Theragran/Minerals Tab*) 1 tab PO DAILY [facility] Last Admin: 07/17/19 08:35 Dose: 1 tab Nicotine Polacrilex (Nicotine Lozenge Mini) 2 mg MT Q2H PRN PRN Reason: CRAVING Last Admin: 07/14/19 23:30 Dose: 2 mg Ondansetron HCl (Zofran Inj*) 4 mg IV Q4H PRN PRN Reason: NAUSEA/VOMITING Oxycodone HCl (Roxycodone Tab*) 5 mg PO Q4H PRN PRN Reason: moderate pain Last Admin: 07/17/19 00:28 Dose: 5 mg Oxycodone HCl (Roxycodone Tab*) 10 mg PO Q4H PRN PRN Reason: PAIN - SEVERE Last Admin: 07/17/19 08:35 Dose: 10 mg Thiamine HCl (Vitamin B-1 Tab*) 100 mg PO DAILY [facility] Last Admin: 07/17/19 08:35 Dose: 100 mg Trazodone HCl (Desyrel Tab*) 50 mg PO BEDTIME PRN PRN Reason: SLEEP Varenicline (Chantix (Nf)) 1 mg PO BID [facility]; Protocol Last Admin: 07/17/19 08:35 Dose: 1 mg Vital Signs - 8 hr 07/17/19 07/17/19 07/17/19 07:56 08:00 08:37 Temperature 100 F Pulse Rate 93 Respiratory 20 18 Rate Blood Pressure 153/81 (mmHg) O2 Sat by Pulse 96 Oximetry 07/17/19 07/17/19 07/17/19 09:00 10:00 10:51 Temperature Pulse Rate 86 109 Respiratory 18 19 19 Rate Blood Pressure 141/79 127/70 (mmHg) O2 Sat by Pulse 95 98 Oximetry 07/17/19 07/17/19 07/17/19 11:00 12:00 13:00 Temperature 101.1 F Pulse Rate 107 103 91 Respiratory 20 25 22 Rate Blood Pressure 121/68 127/71 136/70 (mmHg) O2 Sat by Pulse 94 95 93 Oximetry 07/17/19 14:00 Temperature Pulse Rate 107 Respiratory 22 Rate Blood Pressure 122/77 (mmHg) O2 Sat by Pulse 91 Oximetry Oxygen Devices in Use Now: None Appearance: alert, NAD Eyes: No Scleral Icterus, PERRLA Ears/Nose/Mouth/Throat: NL Teeth, Lips, Gums, Mucous Membranes Moist Neck: NL Appearance and Movements; NL JVP Respiratory: Symmetrical Chest Expansion and Respiratory Effort, Clear to Auscultation Cardiovascular: NL Sounds; No Murmurs; No JVD, - - mild tachycardia, rate 106 Lymphatic: No Cervical Adenopathy Extremities: No Edema, No Clubbing, Cyanosis Skin: No Rash or Ulcers Neurological: Alert and Oriented x 3, NL Sensation, NL Gait, NL Muscle Strength and Tone Nutrition: Taking PO's Result Diagrams: 07/15/19 05:20 07/16/19 10:36 Microbiology and Other Data: Microbiology 07/14/19 22:43 Aerobic Blood Culture - Preliminary Blood Venous No Growth Day 1 Anaerobic Blood Culture - Preliminary No Growth Day 1 07/14/19 20:05 Aerobic Blood Culture - Preliminary Blood Venous No Growth Day 1 Anaerobic Blood Culture - Preliminary No Growth Day 1 Diagnostic Imaging: Patient Name: MATHIEU OSBORNE Medical Record#: [id number] Ordering Physician: Jonathan Cardenas MD Acct.#: [id number] : 1955 Age: 63 Sex: F [facility] Exam Date: 07/17/19 0700 ADM Status: ADM IN Order Information: CT BRAIN WO Accession Number: [id number] CPT: 94932 INDICATION: Craniotomy for tumor removal. COMPARISON: Most recent comparison CT of the brain is dated June 30, 2019 TECHNIQUE: Contiguous axial sections of the brain were obtained from the skull base to the vertex without contrast. FINDINGS: Unless otherwise specified comparisons below reference the CT of the brain dated June 30, 2019. At the right frontal lobe there is mostly subcortical hypoattenuation that extends to the cortex at the lateral frontal lobe. There is no large extra axial fluid collection or evidence of severe mass effect. The ventricles, cisterns and sulci is are normal in size and morphology and unchanged since the prior CT the brain. There is a stable 6 mm hypoattenuating focus at the right posterior limb of the internal capsule unchanged from the prior CT the brain. Surgical material related to a right frontal craniectomy includes superficial surgical clips as well as calvarial tacking devices. The visualized portion of the paranasal sinuses appear clear. The mastoid air cells are well aerated bilaterally. IMPRESSION: Postoperative changes involving the right frontal lobe and right frontal bone as described above. There has not been development of a large extra-axial collection or mass effect when compared to June 30, 2019 CT examination. 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 - Patient Problems (1) Infected craniotomy plate Code(s): T84.7XXA - INFECT/INFLM REACT DUE TO OTH INT ORTH PROSTH DEV/GRFT, INIT ; Z96.7 - PRESENCE OF OTHER BONE AND TENDON IMPLANTS SNOMED Code(s): 744935315 Comment: - Previously treated twice for drainage since her surgery. First with keflex, then with bactrim with no resolution. - POD1 washout and flap with Dimopoulos and Monacelli - POC per NS and plastics - Drains pulled today - Downgraded from ICU to surgical floor - Cultures +staph, continue ancef 2gm Q8h until tomorrow and discharge on keflex 500TID for 2 weeks (2) Brain mass Code(s): G93.9 - DISORDER OF BRAIN, UNSPECIFIED SNOMED Code(s): 510002133 Comment: - Resection last January for metastatic carcinoma (3) Breast cancer, left breast Code(s): C50.912 - MALIGNANT NEOPLASM OF UNSPECIFIED SITE OF LEFT FEMALE BREAST SNOMED Code(s): 414764400 Comment: - Stable, follow up outpatient with oncology (4) Heavy drinker of alcohol Code(s): Z78.9 - OTHER SPECIFIED HEALTH STATUS SNOMED Code(s): 98295144 Comment: - Drinks about 6 beers a day, last drink Friday - Continue WAM protocol with PO lorazepam, folic acid, thiamine and MVI. - Has not been scoring (5) Nicotine dependence Code(s): F17.200 - NICOTINE DEPENDENCE, UNSPECIFIED, UNCOMPLICATED SNOMED Code (s): 94633182 Comment: - Down to 2 cigarettes a day from one PPD. Continue chantix - May have nicotine lozenge if needed. (6) DVT prophylaxis Code(s): Z29.9 - ENCOUNTER FOR PROPHYLACTIC MEASURES, UNSPECIFIED SNOMED Code( s): 572383679 Comment: - SCDs and ambulate, restart HSQ when ok with surgery (7) Full code status Code(s): Z78.9 - OTHER SPECIFIED HEALTH STATUS SNOMED Code(s): 352763604 Status and Disposition: Inpatient, progressing. Anticipate DC home tomorrow if clear by NS.
[2019-07-18] MEDS: Acetaminophen TAB* 325 MG PO PRN ×2 (03:27→08:27)
[2019-07-18] MEDS: ceFAZolin VIAL(*) 2 GM in NS 0.9% 100 ML* 100 ML IVPB SCH ×2 (03:27→12:02)
[2019-07-18] MEDS: oxyCODONE TAB* 5 MG TAB PO PRN (04:19)
[2019-07-18 07:10] VITALS: BP 139/70
[2019-07-18 08:09] LABS: Hematocrit 34 % (35-47); Hemoglobin 11.7 g/dL (12.0-16.0); Mean Corpuscular HGB Conc 35 g/dL (31-36); Mean Corpuscular Hemoglobin 32 pg (27-31); Mean Corpuscular Volume 92 fL (80-97); Mean Platelet Volume 6.8 fL (7.4-10.4); Platelet Count 306 10^3/uL (150-450); Red Blood Count 3.65 10^6 /uL (3.70-4.87); Red Cell Distribution Width 13 % (10-15); White Blood Count 10.5 10^3/uL (3.5-10.8)
[2019-07-18 08:22] LABS: BUN/Creatinine Ratio 10.9 (8-20); Calcium 8.7 mg/dL (8.6-10.3); EGFR Non-African American 112.4 (>60); Potassium 3.4 mmol/L (3.5-5.0)
[2019-07-18] MEDS: Multivitamins/Minerals TAB PO SCH (08:26)
[2019-07-18] MEDS: Thiamine TAB* 100 MG TAB PO SCH (08:26)
[2019-07-18] MEDS: Folic Acid TAB* 1 MG PO SCH (08:27)
[2019-07-18] MEDS ORDERED: Potassium Chlor TAB* 20 MEQ TAB.ER PO ONE (08:32)
[2019-07-18] MEDS: CMCS:Varenicline (NF) 1 MG TAB PO SCH (09:46)
--- NOTE | 2019-07-18 10:51 | PN ---
Subjective Date of Service: 07/18/19 Interval History: Patient seen and examined, no acute overnight events. Patient is ambulatory, tolerating PO, pain well controlled, headaches rated 3/10 and being controlled with tylenol. Complaints of periorbital edema on the right, no fevers or chills. Family History: Unchanged from Admission Social History: Unchanged from Admission Past Medical History: Unchanged from Admission Objective Active Medications: Acetaminophen (Tylenol Tab*) 650 mg PO Q4H PRN PRN Reason: HEADACHE Last Admin: 07/18/19 08:27 Dose: 650 mg Folic Acid (Folvite Tab*) 1 mg PO DAILY [facility] Last Admin: 07/18/19 08:27 Dose: 1 mg Heparin Sodium (Porcine) (Heparin Flush Port (Ivad)) 5 ml FLUSH DAILY [facility]; Protocol Last Admin: 07/18/19 08:31 Dose: Not Given Cefazolin Sodium 2 gm/ Sodium (Chloride) 100 mls @ 200 mls/hr IVPB Q8H [facility] Last Admin: 07/18/19 03:27 Dose: 200 mls/hr Lorazepam (Ativan Tab(*)) 0 - 6 mg PO .PER [facility] PROTOCOL [facility]; Protocol Magnesium Hydroxide (Milk Of Magnesia Liq*) 30 ml PO DAILY PRN PRN Reason: CONSTIPATION Multivitamins/Minerals (Theragran/Minerals Tab*) 1 tab PO DAILY [facility] Last Admin: 07/18/19 08:26 Dose: 1 tab Nicotine Polacrilex (Nicotine Lozenge Mini) 2 mg MT Q2H PRN PRN Reason: CRAVING Last Admin: 07/14/19 23:30 Dose: 2 mg Ondansetron HCl (Zofran Inj*) 4 mg IV Q4H PRN PRN Reason: NAUSEA/VOMITING Oxycodone HCl (Roxycodone Tab*) 5 mg PO Q4H PRN PRN Reason: moderate pain Last Admin: 07/18/19 04:19 Dose: 5 mg Oxycodone HCl (Roxycodone Tab*) 10 mg PO Q4H PRN PRN Reason: PAIN - SEVERE Last Admin: 07/17/19 16:23 Dose: 10 mg Thiamine HCl (Vitamin B-1 Tab*) 100 mg PO DAILY [facility] Last Admin: 07/18/19 08:26 Dose: 100 mg Trazodone HCl (Desyrel Tab*) 50 mg PO BEDTIME PRN PRN Reason: SLEEP Varenicline (Chantix (Nf)) 1 mg PO BID [facility]; Protocol Last Admin: 07/18/19 09:46 Dose: 1 mg Vital Signs - 8 hr 07/18/19 07/18/19 07/18/19 04:19 04:22 06:26 Temperature 98.4 F Pulse Rate 92 Respiratory 17 17 16 Rate Blood Pressure 136/64 (mmHg) O2 Sat by Pulse 98 Oximetry 07/18/19 07/18/19 07:09 08:00 Temperature 98.7 F Pulse Rate 85 Respiratory 18 18 Rate Blood Pressure 139/70 (mmHg) O2 Sat by Pulse 94 94 Oximetry Oxygen Devices in Use Now: None Appearance: alert, NAD Eyes: - - right side facial and periorbital edema, non-tender, no erythema Ears/Nose/Mouth/Throat: Mucous Membranes Moist Neck: NL Appearance and Movements; NL JVP, Trachea Midline Respiratory: Symmetrical Chest Expansion and Respiratory Effort, Clear to Auscultation Cardiovascular: NL Sounds; No Murmurs; No JVD, RRR - mild tachycardia at times Abdominal: NL Sounds; No Tenderness; No Distention Extremities: No Edema, No Clubbing, Cyanosis Skin: No Rash or Ulcers, - - staple line approximated, no drainage or erythema noted, no fluctuance Neurological: Alert and Oriented x 3, NL Sensation, NL Gait Nutrition: Taking PO's Result Diagrams: 07/18/19 07:55 07/18/19 07:55 Microbiology and Other Data: Microbiology 07/14/19 22:43 Aerobic Blood Culture - Preliminary Blood Venous No Growth Day 1 Anaerobic Blood Culture - Preliminary No Growth Day 1 07/14/19 20:05 Aerobic Blood Culture - Preliminary Blood Venous No Growth Day 1 Anaerobic Blood Culture - Preliminary No Growth Day 1 Diagnostic Imaging: Patient Name: MATHIEU OSBORNE Medical Record#: [id number] Ordering Physician: Jonathan Cardenas MD Acct.#: [id number] : 1955 Age: 63 Sex: F Location: [facility] Exam Date: 07/17/19 07 ADM Status: ADM IN Order Information: CT BRAIN WO Accession Number: [id number] CPT: 08536 INDICATION: Craniotomy for tumor removal. COMPARISON: Most recent comparison CT of the brain is dated June 30, 2019 TECHNIQUE: Contiguous axial sections of the brain were obtained from the skull base to the vertex without contrast. FINDINGS: Unless otherwise specified comparisons below reference the CT of the brain dated June 30, 2019. At the right frontal lobe there is mostly subcortical hypoattenuation that extends to the cortex at the lateral frontal lobe. There is no large extra axial fluid collection or evidence of severe mass effect. The ventricles, cisterns and sulci is are normal in size and morphology and unchanged since the prior CT the brain. There is a stable 6 mm hypoattenuating focus at the right posterior limb of the internal capsule unchanged from the prior CT the brain. Surgical material related to a right frontal craniectomy includes superficial surgical clips as well as calvarial tacking devices. The visualized portion of the paranasal sinuses appear clear. The mastoid air cells are well aerated bilaterally. IMPRESSION: Postoperative changes involving the right frontal lobe and right frontal bone as described above. There has not been development of a large extra-axial collection or mass effect when compared to June 30, 2019 CT examination. 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 - Patient Problems (1) Infected craniotomy plate Code(s): T84.7XXA - INFECT/INFLM REACT DUE TO OTH INT ORTH PROSTH DEV/GRFT, INIT ; Z96.7 - PRESENCE OF OTHER BONE AND TENDON IMPLANTS SNOMED Code(s): 811771423 Comment: - Previously treated twice for drainage since her surgery. First with keflex, then with bactrim with no resolution. - POD2 washout and flap with Dimopoulos and Monacelli - POC per NS and plastics - Drains pulled today - Cultures +staph, continue ancef 2gm Q8h - Discharge on keflex today 500TID for 12 days as per ID recommendations (2) Brain mass Code(s): G93.9 - DISORDER OF BRAIN, UNSPECIFIED SNOMED Code(s): 471460706 Comment: - Resection last January for metastatic carcinoma (3) Breast cancer, left breast Code(s): C50.912 - MALIGNANT NEOPLASM OF UNSPECIFIED SITE OF LEFT FEMALE BREAST SNOMED Code(s): 864925876 Comment: - Stable, follow up outpatient with oncology (4) Heavy drinker of alcohol Code(s): Z78.9 - OTHER SPECIFIED HEALTH STATUS SNOMED Code(s): 67332216 Comment: - Drinks about 6 beers a day, last drink Friday - Continue WAM protocol with PO lorazepam, folic acid, thiamine and MVI. - Has not been scoring (5) Nicotine dependence Code(s): F17.200 - NICOTINE DEPENDENCE, UNSPECIFIED, UNCOMPLICATED SNOMED Code (s): 60258758 Comment: - Down to 2 cigarettes a day from one PPD. Continue chantix - May have nicotine lozenge if needed - Highly recommend complete cessation of smoking at discharge in light of recent infection and poor wound healing (6) DVT prophylaxis Code(s): Z29.9 - ENCOUNTER FOR PROPHYLACTIC MEASURES, UNSPECIFIED SNOMED Code( s): 712526959 Comment: - SCDs and ambulate, restart HSQ when ok with surgery (7) Full code status Code(s): Z78.9 - OTHER SPECIFIED HEALTH STATUS SNOMED Code(s): 573517924 Status and Disposition: Inpatient, improved. Cleared by neurosurgery for discharge to home today. Status : stable.
--- NOTE | 2019-07-18 11:12 | PN ---
Progress Note - Progress Note Date of Service: 07/18/19 SOAP: Subjective: [] 63 y/o female post right frontal craniotomy revision and irrigation POD # 2. Patient had ROBERT drains discontinued yesterday and was transferred to [facility]. She did well over night had one episode of low grade fever, but otherwise was stable overnight. Her headaches have improved since yesterday with Tylenol. Currently she complains of mild swelling around the right eye, but denies having any blurred or double vision. Final cultures came back and are positive for staph aureus. Patient is feeling well and would like to go home today. Objective: [] Initial Vitals Temp Pulse Resp BP Pulse Ox 99.5 F 105 19 133/81 100 07/14/19 16:35 07/14/19 16:35 07/14/19 16:35 07/14/19 16:35 07/14/19 16:35 General: patient sitting at the edge of the bed eating breakfast. NAD mild swelling noted around the right eye. Neuro: A&O x3 CN II - XII grossly intact, EOM intact, no visual field deficits, no pronator drift Motor strength 5/5 through out Sensation intact through out Derm: wound C/D/I damaso and retention sutures intact Assessment: [] 63 y/o female post right frontal craniotomy revision and irrigation POD # 2 wound cultures positive forstaph aureus. She has mild swelling around right eye , but does not have visual impairment, headaches are better controlled, patient has been stable over night Plan: [] 1)Patient needs to follow up with ID in on week, per ID will be discharged on Keflex 500 mg T.I.D x 14 days. 2) follow up with NSX in week for wound check 3) discharge pending medical clearance.
== END 2019-07-18 13:15 | disposition home or self-care (01) | DRG 711 ==
LOC: ED 16:33 → SSU 20:47 → ICU 07-16 16:20 → SSU 07-17 16:15
PROVIDERS: ADMIT Student in an Organized Health Care Education/Training Program; ATTEND Internal Medicine
PROC: 0NU Head and Facial Bones, Supplement (ICD-10-PCS; 2019-07-16)
PROC: 0NW Head and Facial Bones, Revision (ICD-10-PCS; principal; 2019-07-16 11:45)
DX: T85.79XA Infection and inflammatory reaction due to other internal prosthetic devices, implants and grafts, initial encounter (principal); C79.31 Secondary malignant neoplasm of brain; C50.919 Malignant neoplasm of unspecified site of unspecified female breast; F17.210 Nicotine dependence, cigarettes, uncomplicated; R51 Headache; G62.0 Drug-induced polyneuropathy; T45.1X5A Adverse effect of antineoplastic and immunosuppressive drugs, initial encounter; F10.10 Alcohol abuse, uncomplicated; M19.042 Primary osteoarthritis, left hand; M19.041 Primary osteoarthritis, right hand; B95.61 Methicillin susceptible Staphylococcus aureus infection as the cause of diseases classified elsewhere; Z90.710 Acquired absence of both cervix and uterus; Z88.0 Allergy status to penicillin; Z92.21 Personal history of antineoplastic chemotherapy; Z92.3 Personal history of irradiation; Z85.3 Personal history of malignant neoplasm of breast; Y92.9 Unspecified place or not applicable; Z91.040 Latex allergy status
CPT/HCPCS: 36415; 70450; 80048; 80053; 83605; 83735; 85025; 85027; 85610; 85730; 86140; 86850; 86900; 86901; 87040; 87070; 87073; 87076; 87077; 87186; 87205; 87640; 87641; 88300; 88305; 93005; 99284; A9270-GY; C1713; C1776; G8978-GP-CH; G8979-GP-CH; G8980-GP-CH; J0690; J0780; J1170; J1642; J1644; J2001; J2250; J2704; J3010; J3475; J3480

== ENCOUNTER 2019-07-21 21:06 | Inpatient (IN) | payer BC ==
[2019-07-21] MEDS ORDERED: NS 0.9% 1000 ML** 1,000 ML IV ONE (21:34)
[2019-07-21] MEDS ORDERED: LORazepam INJ* 2 MG/ML 1 ML VIAL IV PUSH ONE (21:35)
[2019-07-21] MEDS ORDERED: Lorazepam PYXIS KEY PRN (21:35)
[2019-07-21] MEDS ORDERED: levETIRAcetam 1000MG IVPREMIX* 1,000 MG/100 ML BAG IVPB ONE (21:35)
--- NOTE | 2019-07-21 21:38 | ED ---
Neurological HPI - HPI Summary HPI Summary: 63 year old F brought in by EMS [place] [facility] accompanied by and sister-in- law complains of witnessed seizures, each lasting about 3 minutes, starting at 20:00 today. states patient was fine all day today 07/21. states he left around 19:00 today to help family member, came back home, saw convulsing in bed, called EMS. Patient had stopped convulsing and was confused prior to EMS then started convulsing again. When EMS arrived, patient was no longer convulsing. EMS states patient had another seizure en route and was given Versed 5 mg. No hx seizures. Hx breast cancer with metastasis to the brain , s/p craniotomy. Was admitted here recently for infection in her head, was d/c Wednesday 07/18. The patient rates the pain 5/10 in severity. Symptoms aggravated by nothing. Symptoms alleviated by nothing. - History of Current Complaint Chief Complaint: EDSeizure Stated Complaint: SEIZURE PER EMS Time Seen by Provider: 07/21/19 21:25 Hx Obtained From: Patient, Family/Disaster Recovery Coordinator - , EMS Onset/Duration: Started hours ago, Resolved Timing: Intermittent Episodes Lasting: - 3 minutes Current Severity: Moderate - 5/10 Number of Seizures: 3 Pain Intensity: 5 Pain Scale Used: 0-10 Numeric Aggravating: Nothing Alleviating: Nothing - Additional Pertinent History Primary Care Physician: [id number] - Allergy/Home Medications Allergies/Adverse Reactions: Allergies Allergy/AdvReac Type Severity Reaction Status Date / Time Penicillins Allergy Severe See Comment Verified 05/10/19 13:04 PMH/Surg Hx/FS Hx/Imm Hx Endocrine/Hematology History: Denies: Hx Diabetes Cardiovascular History: Denies: Hx Hypertension, Hx Pacemaker/ICD Respiratory History: Reports: Hx Lung Cancer - Breast CA with Mets GI History: Reports: Hx Gastroesophageal Reflux Disease - Takes Zantac as needed History: Denies: Hx Renal Disease Musculoskeletal History: Reports: Hx Arthritis - HANDS, Other Musculoskeletal History - AGE RELATED ACHES AND PAINS PER PATIENT Sensory History: Reports: Hx Contacts or Glasses Denies: Hx Hearing Aid Opthamlomology History: Reports: Hx Contacts or Glasses Neurological History: Reports: Hx Headaches - DUE TO TUMOR, Hx Nerve 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 BRAIN METS Hx Chemotherapy: Yes - June 2019 Hx Radiation Therapy: Yes - left breast 2017 - Surgical History Surgery Procedure, Year, and Place: 1979-APPENDECTOMY. 2001-ECTOPIC . 2002-HYSTERECTOMY. 10/2016 LEFT BREAST LUMPECTOMY. right frontal temporal parietal crani 02/25/19 [facility] [place]. craniotomy 07/16/19. powerport placement and removal Hx Anesthesia Reactions: No Infectious Disease History: Unable to Obtain/Confirm Infectious Disease History: Denies: Hx Clostridium Difficile, Hx Hepatitis, Hx Human Immunodeficiency Virus (HIV), Hx of Known/Suspected MRSA, Hx Shingles, Hx Tuberculosis, History Other Infectious Disease, Traveled Outside the [place] in Last 30 Days - Family History Known Family History: Negative: Diabetes - Social History Alcohol Use: Daily Alcohol Amount: 5-6 drinks per day Hx Substance Use: No Substance Use Type: Reports: None Hx Tobacco Use: Yes Smoking Status (MU): Light Every Day Tobacco Smoker Type: Cigarettes Amount Used/How Often: 2 cigarettes a day Have You Smoked in the Last Year: Yes Review of Systems Negative: Fever Neurological: Other - seizures All Other Systems Reviewed And Are Negative: Yes Physical Exam - Summary Physical Exam Summary: Appearance: Somewhat restless female lying in bed comfortably in no acute distress. She has dressing on right side of scalp which is clean and dry Skin: Warm, dry, no obvious rash Eyes: sclera anicteric, no conjunctival pallor ENT: mucous membranes moist, pharynx appears normal Neck: Supple, nontender Respiratory: Clear to auscultation, no signs of respiratory distress Cardiovascular: Normal S1, S2. No murmurs. Normal distal pulses in tibial and radial bilaterally. Abdomen: Soft, nontender, normal active bowel sounds present Musculoskeletal: Normal, Strength/ROM Intact Neurological: A&Ox3, awake and alert, mentation is normal, speech is fluent and appropriate Psychiatric: affect is normal, does not appear anxious or depressed GCS: 15 Triage Information Reviewed: Yes Vital Signs On Initial Exam: Initial Vitals Temp Pulse Resp BP Pulse Ox 98.6 F 143 18 123/85 96 07/21/19 21:08 07/21/19 21:08 07/21/19 21:08 07/21/19 21:08 07/21/19 21:08 Vital Signs Reviewed: Yes Procedures - Sedation Patient Received Moderate/Deep Sedation with Procedure: No Diagnostics - Vital Signs Vital Signs Temp Pulse Resp BP Pulse Ox 07/21/19 21:08 98.6 F 143 18 123/85 96 - Laboratory Result Diagrams: 07/25/19 05:46 07/25/19 11:36 Lab Statement: Any lab studies that have been ordered have been reviewed, and results considered in the medical decision making process. - CT Brain CT Interpretation Completed By: Radiologist Summary of CT Findings: No acute intracranial abnormality. Post operative changes in the right frontal lobe. ED physician has reviewed this report. - EKG 2152 Cardiac Rate: Tachycardia - 114 BPM EKG Rhythm: Sinus Tachycardia Summary of EKG Findings: Sinus tachycardia at 114 BPM, P waves, QRS complex, and T waves are within normal limits, T waves and intervals are normal, no ischemic changes. This is a normal EKG. Re-Evaluation - Re-Evaluation First Eval Re-Evaluation Time: 22:45 Change: Improved - hasn't had any seizure activity while in ED Course/Dx - Course Course Of Treatment: 63 year old F brought in by EMS complains of 3 witnessed seizures, each lasting about 3 minutes, starting at 20:00 today. Patient received Versed 5 mg from EMS. No hx seizures. Hx breast cancer with metastasis to the brain, s/p craniotomy. Was admitted here recently for infection in her head, was d/c Wednesday 07/18. Upon exam, the patient is a somewhat restless female lying in bed comfortably in no acute distress. She has dressing on right side of scalp which is clean and dry. Bloodwork results with no significant abnormalities except for WBC 12.3, RBC 3.55, Hgb 11.1, Hct 33, MPV 6.7, absolute neuts 10.2, absolute lymphs 0.8, potassium 3.4, CO2 18, anion gap 14, gluocse 128. Urinalysis results with no significant abnormalities except for protein 1+, blood 2+, squamous epithelial cells, hyaline casts. Toxicology results with no significant abnormalities. An EKG shows sinus tachycardia at 114 BPM, P waves, QRS complex, and T waves are within normal limits, T waves and intervals are normal, no ischemic changes. This is an otherwise normal EKG. CT Brain shows, per radiologist: No acute intracranial abnormality. Post operative changes in the right frontal lobe. In the ED course, the patient was given normal saline fluids 1 L IV, Ativan 1 mg IV, and Keppra. Patient has not had any seizure activity in the ED. Her seizure sx this evening are new. No hx seizures. Spoke with Dr. Berg, hospitalist, who agrees to admit patient. - Diagnoses Provider Diagnoses: New onset seizure - Physician Notifications Discussed Care Of Patient With: Jaida Berg Time Discussed With Above Provider: 22:55 Instructed by Provider To: Admit As Inpatient Discharge ED - Sign-Out/Discharge Documenting (check all that apply): Patient Departure - Admit - Discharge Plan Condition: Stable Disposition: ADMITTED TO [facility] - Billing Disposition and Condition Condition: STABLE Disposition: Admitted to [facility] - Attestation Statements Document Initiated by Felisa: Yes Documenting Scribe: Nika Miranda Provider For Whom Felisa is Documenting (Include Credential): Robin Krueger MD Scribe Attestation: Nika Zhong, scribed for Robin Krueger MD on 07/25/19 at 2342. Scribe Documentation Reviewed: Yes Provider Attestation: The documentation as recorded by the Nika perales accurately reflects the service I personally performed and the decisions made by me, Robin Krueger MD Status of Scribe Document: Viewed
[2019-07-21] MEDS ORDERED: Lorazepam PYXIS KEY ONE (21:40)
[2019-07-21 21:58] LABS: ABS Basophils 0.1 10^3/ul (0-0.2); ABS Eosinophils 0.4 10^3/ul (0-0.6); ABS Lymphocytes 0.8 10^3/ul (1.0-4.8); ABS Monocytes 0.7 10^3/ul (0-0.8); ABS Neutrophils 10.2 10^3/ul (1.5-7.7); Eosinophil % 3.2 %; Hematocrit 33 % (35-47); Hemoglobin 11.1 g/dL (12.0-16.0); Lymphocyte % 6.8 %; Mean Corpuscular HGB Conc 34 g/dL (31-36); Mean Corpuscular Hemoglobin 31 pg (27-31); Mean Corpuscular Volume 93 fL (80-97); Mean Platelet Volume 6.7 fL (7.4-10.4); Platelet Count 440 10^3/uL (150-450); Red Blood Count 3.55 10^6 /uL (3.70-4.87); Red Cell Distribution Width 14 % (10-15); White Blood Count 12.3 10^3/uL (3.5-10.8)
[2019-07-21 22:13] LABS: ALT 22 U/L (7-52); AST 22 U/L (13-39); Albumin 3.7 g/dL (3.2-5.2); Albumin/Globulin Ratio 1.1 (1-3); Alkaline Phosphatase 75 U/L (34-104); Anion Gap 14 mmol/L (2-11); BUN/Creatinine Ratio 10.6 (8-20); Blood Urea Nitrogen 7 mg/dL (6-24); CO2 Carbon Dioxide 18 mmol/L (22-32); Calcium 9.5 mg/dL (8.6-10.3); Chloride 103 mmol/L (101-111); EGFR African American 110.2 (>60); Globulin 3.3 g/dL (2-4); Glucose 128 mg/dL (70-100); Potassium 3.4 mmol/L (3.5-5.0); Sodium 135 mmol/L (135-145)
[2019-07-21 22:25] LABS: Alcohol < 10 mg/dL (<10)
[2019-07-21 23:02] LABS: Urine Appearance Cloudy; Urine Bilirubin Negative (Negative); Urine Blood 2+ (Negative); Urine Color Yellow; Urine Glucose Negative (Negative); Urine Ketones Negative (Negative); Urine Nitrite Negative (Negative); Urine Protein 1+(30 mg/dL) (Negative); Urine Specific Gravity 1.014 (1.010-1.030); Urine Urobilinogen Negative (Negative)
[2019-07-21 23:12] LABS: Urine Bacteria Absent (Absent); Urine Red Blood Cell Trace(0-2/hpf) (Absent); Urine Squamous Epithelial Cell Present (Absent); Urine White Blood Cell Trace(0-5/hpf) (Absent)
[2019-07-21] MEDS ORDERED: oxyCODONE TAB* 5 MG TAB PO PRN (23:15)
[2019-07-21] MEDS ORDERED: Docusate CAP* 100 MG PO PRN (23:15)
[2019-07-21] MEDS ORDERED: traZODone TAB* 50 MG TAB PO PRN (23:15)
[2019-07-21] MEDS: Acetaminophen TAB* 325 MG PO PRN (23:51)
[2019-07-21] MEDS: Cephalexin CAP* 500 MG PO SCH (23:51)
--- NOTE | 2019-07-22 00:12 | HP ---
History of Present Illness - History of Present Illness Reason for Visit: seizures History of Present Illness: 63 yo female here with new onset seizures. She has a past medical hx of breast cancer with mets to brain s/p resection in january 2019, recently admitted for revision of right frontal/parietal craniotomy flap infection last week. Procedure was uncomplicated and she was discharged on Keflex. Prior to the wound revision last week, she had MRI of the brain on 07/08 that showed post- operative changes related to her craniotomy from january, but no lesions. She presents tonight with new onset seizures. Her first 1 was unwitnessed, she remembered feeling off with her eye twitching and decided to lay in bed. The other 3 seizures were witnessed, they were tonic clonic. Last one was in the ambulance. She got to the ER and received Ativan and 1G of Keppra. Post-seizure , she feels drowsy but she is alert and oriented and neurologically intact. No fevers. Her initial lab values are benign. I spoke with oncology, neurosurgery and neurology. Patient will be admitted to oncology service and neurology and neurosurg will follow in the morning. - Past Medical History Heme/Onc: Cancer Review of Systems - Measurements Intake and Output: Intake and Output Last 24 Hours 07/19/19 07/20/19 07/21/19 07/22/19 06:59 06:59 06:59 06:59 Intake Total 400 Balance 400 Weight 135 lb Intake: IV Fluids 400 - Review of Systems Constitutional Symptoms: Negative: Weight Gain, Weight Loss, Weakness, Fatigue, Fever, Night Sweats, Unexplained Falls, Other Dermatology: Negative: Normal, Rash, Skin Lesions, Cancer, Skin Lumps, Other HEENT: Negative: Normal, Change in Hearing, Vertigo, Dental Problems, Tinnitus, Sinus Problem, Other Eyes: Negative: Normal, Change in Vision, Double Vision, Eye Pain, Glaucoma, Cataract, Contacts or Glasses, Other Thyroid: Negative: Normal, Goiter, Thyroid Nodule, Cold Intolerance, Heat Intolerance , Sweatiness, Tremor, Frequent Defecation, Constipation, Palpitations, Primary Hypothyroidism, Primary Hyperthyroidism, Weight Loss, Weight Gain, Change in Skin/Hair, Change in Menstruation, Radiation Exposure, Other Pulmonary: Negative: Normal, Cough, Sputum, Hemoptysis, Wheezing, Respiratory Distress, Shortness of Breath, COPD, Asthma, Exercise Intolerance, Home Oxygen, Other Cardiology: Negative: Normal, Chest Pain, Shortness of Breath, Palpitations, Swelling of Ankles, Peripheral Vascular Dis, Edema, Faintness, Syncope, Claudication, Proximal NocturnalDyspnea, Orthopnoea, Other Gastroenterology: Negative: Normal, Abdominal Pain, Nausea, Vomiting, Anorexia, Indigestion, Difficulty Swallowing, Heartburn, Constipation, Diarrhea, Blood in Stools, Change in Bowel Habits, Haematemesis, Melena, Other Musculoskeletal: Positive: Low Back Pain Negative: Joint Pain, Joint Stiffness, Arthritis, Osteoporosis, Sciatica, Joint Deformities, Kyphoscoliosis, Other Hematologic/Lymphatic: Negative: Anemia, Easy Bruising, Hx Leukemia, Hx Lymphoma, Use of Anticoagulant, Use of Antiplatelet Drugs, Other Neurology: Positive: Headache, Migraines Psychiatry: Negative: Normal, Depression, Anxiety, Depressed Mood, Anhedonia, Sexual Dysfunction, Weight Change, Guilt Feelings, Tearfulness, Unusual Fatigue, Unusual Anxiety, Suicidal Ideation, Hypomania, Eating Disorders, Other Objective Active Medications: Acetaminophen (Tylenol Tab*) 650 mg PO Q6H PRN PRN Reason: HEADACHE Last Admin: 07/21/19 23:51 Dose: 650 mg Cephalexin HCl (Keflex Cap*) 500 mg PO TID WILY Last Admin: 07/21/19 23:51 Dose: 500 mg Docusate Sodium (Colace Cap*) 100 mg PO BID PRN PRN Reason: CONSTIPATION Heparin Sodium (Porcine) (Heparin Vial(*)) 5,000 units SUBCUT Q8HR [facility] Sodium Chloride (Ns 0.9% 1000 Ml) 1,000 mls @ 125 mls/hr IV Q8H [facility] Levetiracetam (Keppra Iv Premix*) 500 mg in 100 mls @ 400 mls/hr IV Q12H [facility] Miscellaneous (Ativan Pyxis Sutton) 1 ea N/A .ATIVAN IV SUTTON PRN PRN Reason: PYXIS S[place]TON Oxycodone HCl (Roxycodone Tab*) 5 mg PO Q4H PRN PRN Reason: PAIN - MODERATE Thiamine HCl (Vitamin B-1 Tab*) 100 mg PO DAILY [facility] Trazodone HCl (Desyrel Tab*) 50 mg PO BEDTIME PRN PRN Reason: SLEEP Vital Signs - 8 hr 07/21/19 07/21/19 21:08 21:50 Temperature 98.6 F Pulse Rate 143 Respiratory 18 18 Rate Blood Pressure 123/85 (mmHg) O2 Sat by Pulse 96 Oximetry Oxygen Devices in Use Now: None Appearance: drowsy, answers questions appropriately Eyes: No Scleral Icterus, PERRLA Ears/Nose/Mouth/Throat: Clear Oropharnyx, Mucous Membranes Moist Neck: NL Appearance and Movements; NL JVP, Trachea Midline Respiratory: Symmetrical Chest Expansion and Respiratory Effort, Clear to Auscultation, Clear to Percussion Cardiovascular: NL Sounds; No Murmurs; No JVD, No Edema Abdominal: NL Sounds; No Tenderness; No Distention Skin: No Rash or Ulcers, No Nodules or Sclerosis Neurological: Alert and Oriented x 3, NL Sensation, NL Muscle Strength and Tone Result Diagrams: 07/21/19 21:48 07/21/19 21:48 Assess/Plan/Problems-Billing Assessment: - Patient Problems (1) New onset seizure Current Visit: Yes Status: Acute Code(s): R56.9 - UNSPECIFIED CONVULSIONS SNOMED Code(s): 06337063 Comment: new onset seizures, etiology unknown. Spoke with oncology, neurology and neurosurgery. she was loaded iwth keppra in the ED, cont keppra 500 BID. sed rate, mag levels Oncology considering an LP given recent surgery neurosurgery would like an MRI to be reviewed in the morning Patient is neurologically intact at this time, a bit drowsy. (2) Infected craniotomy plate Current Visit: No Status: Acute Code(s): T84.7XXA - INFECT/INFLM REACT DUE TO OTH INT ORTH PROSTH DEV/GRFT, INIT; Z96.7 - PRESENCE OF OTHER BONE AND TENDON IMPLANTS SNOMED Code(s): 744667998 Comment: - Previously treated twice for drainage since her surgery. First with keflex, then with bactrim with no resolution. Had a washout with Dimopoulos and Monacelli last week and discharged on keflex Cultures had grown staph (3) Breast cancer, left breast Current Visit: No Status: Acute Code(s): C50.912 - MALIGNANT NEOPLASM OF UNSPECIFIED SITE OF LEFT FEMALE BREAST SNOMED Code(s): 804127962 Comment: - Stable, follow up outpatient with oncology (4) DVT prophylaxis Current Visit: No Status: Acute Code(s): Z29.9 - ENCOUNTER FOR PROPHYLACTIC MEASURES, UNSPECIFIED SNOMED Code(s): 442502898 Comment: heparin scc (5) Full code status Current Visit: No Status: Acute Code(s): Z78.9 - OTHER SPECIFIED HEALTH STATUS SNOMED Code(s): 946453503
[2019-07-22 00:18] LABS: Magnesium 1.6 mg/dL (1.9-2.7)
[2019-07-22 01:15] LABS: Erythrocyte Sed Rate 88 mm/Hr (0-29)
[2019-07-22] MEDS: NS 0.9% 1000 ML** 1,000 ML IV SCH ×2 (01:47→13:30)
[2019-07-22] MEDS ORDERED: Heparin VIAL(*) 5000 UNITS/ML VIAL (FIVE THOUSAND) SUBCUT SCH (06:00)
[2019-07-22 06:39] LABS: Albumin 3.1 g/dL (3.2-5.2); CO2 Carbon Dioxide 19 mmol/L (22-32); Calcium 8.9 mg/dL (8.6-10.3); Chloride 109 mmol/L (101-111); Sodium 137 mmol/L (135-145)
[2019-07-22 06:45] LABS: ALT 16 U/L (7-52); Alkaline Phosphatase 74 U/L (34-104); BUN/Creatinine Ratio 13.7 (8-20); Blood Urea Nitrogen 7 mg/dL (6-24); C Reactive Protein 39.31 mg/L (<8.01); EGFR African American 148.3 (>60); EGFR Non-African American 122.6 (>60); Globulin 3.1 g/dL (2-4); Glucose 89 mg/dL (70-100); Total Protein 6.2 g/dL (6.4-8.9)
[2019-07-22 06:46] LABS: Anion Gap 9 mmol/L (2-11)
[2019-07-22] MEDS: Thiamine TAB* 100 MG TAB PO SCH (08:08)
[2019-07-22] MEDS: Cephalexin CAP* 500 MG PO SCH (08:08)
[2019-07-22] MEDS: Acetaminophen TAB* 325 MG PO PRN ×2 (08:11→18:59)
--- NOTE | 2019-07-22 11:12 | PN ---
Progress Note - Progress Note Date of Service: 07/22/19 SOAP: Subjective: [Admitted overnight with new onset seizure. She was loaded with Keppra and has had no additional seizure activity overnight. This morning denies SÁNCHEZ, light sensitivity, weakness, numbness or severe lethargy. She reports that she discharged following her flap revision Sun 07/18 and has been taking Keflex as directed. She reports she has been feeling well since discharge. Mild SÁNCHEZ, that has been controlled with APAP, and taking oxycodone at night to ensure she gets adequate sleep. Denies fevers, chills, neck stiffness. ] Objective: [ Vital Signs: Temp Pulse Resp BP Pulse Ox 98 F 95 16 136/55 99 07/22/19 07:50 07/22/19 07:50 07/22/19 07:50 07/22/19 07:50 07/22/19 07:50 Acetaminophen (Tylenol Tab*) 650 mg PO Q6H PRN PRN Reason: HEADACHE Last Admin: 07/22/19 08:11 Dose: 650 mg Cephalexin HCl (Keflex Cap*) 500 mg PO TID [facility] Last Admin: 07/22/19 08:08 Dose: 500 mg Docusate Sodium (Colace Cap*) 100 mg PO BID PRN PRN Reason: CONSTIPATION Heparin Sodium (Porcine) (Heparin Vial(*)) 5,000 units SUBCUT Q8HR [facility] Sodium Chloride (Ns 0.9% 1000 Ml) 1,000 mls @ 125 mls/hr IV Q8H [facility] Last Admin: 07/22/19 01:47 Dose: 125 mls/hr Levetiracetam (Keppra Iv Premix*) 500 mg in 100 mls @ 400 mls/hr IV Q12H [facility] Miscellaneous (Ativan Pyxis Muir) 1 ea N/A .ATIVAN IV MUIR PRN PRN Reason: PYXIS MUIR Oxycodone HCl (Roxycodone Tab*) 5 mg PO Q4H PRN PRN Reason: PAIN - MODERATE Thiamine HCl (Vitamin B-1 Tab*) 100 mg PO DAILY [facility] Last Admin: 07/22/19 08:08 Dose: 100 mg Trazodone HCl (Desyrel Tab*) 50 mg PO BEDTIME PRN PRN Reason: SLEEP Laboratory Results - last 24 hr 11/07/21/19 07/21/19 21:48 21:48 22:55 WBC 12.3 H RBC 3.55 L Hgb 11.1 L Hct 33 L MCV 93 MCH 31 MCHC 34 RDW 14 Plt Count 440 MPV 6.7 L Neut % (Auto) 83.3 Lymph % (Auto) 6.8 [place] % (Auto) 5.6 Eos % (Auto) 3.2 Baso % (Auto) 1.1 Absolute Neuts (auto) 10.2 H Absolute Lymphs (auto) 0.8 L Absolute Monos (auto) 0.7 Absolute Eos (auto) 0.4 Absolute Basos (auto) 0.1 Absolute Nucleated RBC 0.0 Nucleated RBC % 0.0 ESR 88 H Sodium 135 Potassium 3.4 L Chloride 103 Carbon Dioxide 18 L Anion Gap 14 H BUN 7 Creatinine 0.66 Est GFR ( Amer) 110.2 Est GFR (Non-Af Amer) 91.0 BUN/Creatinine Ratio 10.6 Glucose 128 H Calcium 9.5 Magnesium 1.6 L Total Bilirubin 0.20 AST 22 ALT 22 Alkaline Phosphatase 75 C-Reactive Protein Total Protein 7.0 Albumin 3.7 Globulin 3.3 Albumin/Globulin Ratio 1.1 Urine Color Yellow Urine Appearance Cloudy Urine pH 5.0 Ur Specific [place] 1.014 Urine Protein 1+(30 mg/dl) A Urine Ketones Negative Urine Blood 2+ A Urine Nitrate Negative Urine Bilirubin Negative Urine Urobilinogen Negative Ur Leukocyte Esterase Negative Urine WBC (Auto) Trace(0-5/hpf) Urine RBC (Auto) Trace(0-2/hpf) Ur Squamous Epith Cells Present A Urine Bacteria Absent Hyaline Casts Present A Urine Glucose Negative Serum Alcohol < 10 07/22/19 06:03 WBC RBC Hgb Hct MCV MCH MCHC RDW Plt Count MPV Neut % (Auto) Lymph % (Auto) [place] % (Auto) Eos % (Auto) Baso % (Auto) Absolute Neuts (auto) Absolute Lymphs (auto) Absolute Monos (auto) Absolute Eos (auto) Absolute Basos (auto) Absolute Nucleated RBC Nucleated RBC % ESR Sodium 137 Potassium TNP Chloride 109 Carbon Dioxide 19 L Anion Gap 9 BUN 7 Creatinine 0.51 Est GFR ( Amer) 148.3 Est GFR (Non-Af Amer) 122.6 BUN/Creatinine Ratio 13.7 Glucose 89 Calcium 8.9 Magnesium Total Bilirubin 0.30 AST TNP ALT 16 Alkaline Phosphatase 74 C-Reactive Protein 39.31 H Total Protein 6.2 L Albumin 3.1 L Globulin 3.1 Albumin/Globulin Ratio 1.0 Urine Color Urine Appearance Urine pH Ur Specific [place] Urine Protein Urine Ketones Urine Blood Urine Nitrate Urine Bilirubin Urine Urobilinogen Ur Leukocyte Esterase Urine WBC (Auto) Urine RBC (Auto) Ur Squamous Epith Cells Urine Bacteria Hyaline Casts Urine Glucose Serum Alcohol Exam: Gen: Relatively well appearing 63 yo female in NAD Head: partially shaved, large dressing in place which is clean and intact HEENT: MMM, obvious trauma of the anterior tongue with scant blood and edema CV: RRR, no m/r/g Resp: CTA, no w/c/r Abd: soft, nonTTP Ext: no edema] Assessment: [This is a 63 yo with recurrent, now metastatic breast CA with known [employer] metastases s/p craniotomy and resection 01/[address] Mcnamara c/b a non- healing cranial skin flap now s/p revision and washout ~1 week ago who presented with new onset seizure. She had an MRI 07/08/19 which was negative for new metastatic disease or obvious osteomyelitis of the calvarium.] Plan: [1. Seizure - ddx. [employer] metastatic disease including leptomeningeal carcinomatosis, encephalitis, meningitis - requested consult from neurology, pedro Tee for now - repeat MRI brain with and without contrast to eval for new [employer] disease including leptomeningeal carcinomatosis or obvious osteomyelitis - both of these options are less likely given recently normal imaging - LP is needed for cytology and cell count with gram stain and infection - Dr Cardenas is aware of her admission and saw the patient this morning, message has been left with him to directly communicate whether he believes the recent procedure is related to this recent seizure - hold on empiric high dose dexamethasone with a nl head CT as this may interfere with healing of her recent skin flap - Dr Evans has recommended an EEG, but this will technically be difficult due to recent cranial skin flap and dressing in place, will clarify with Dr Cardenas as to whether the dressing can be removed for an EEG 2. Metastatic breast cancer - treated by Dr Doty, receiving doxil, last infusion 06/10 (C3D1) - hold on additional chemotherapy until skin flap healing is well established] 3. Infected R cranial skin flap - s/p revision and wash out - cont Keflex 4. FULL CODE 5. DVT prophylaxis - hold heparin until after LP Dispo: cont inpatient stay pending further evaluation
[2019-07-22] MEDS ORDERED: Gadoteridol* (CONTRAST) 279.3 MG/ML 10 ML IV ONE (11:22)
[2019-07-22] MEDS: levETIRAcetam 500 MG IVPREMIX* 500 MG/100 ML BAG IV SCH (12:23)
[2019-07-22 12:38] LABS: Activated Partial Thrombo Time 28.5 seconds (26.0-38.0); INR 1.03 (0.82-1.09)
[2019-07-22] MEDS ORDERED: Vancomycin(*) 1,000 MG in NS 0.9% 250 ML* 250 ML IVPB ONE (12:41)
[2019-07-22] MEDS ORDERED: Vancomycin per Pharmacy* NOTE FOLLOW UP SCH (13:00)
[2019-07-22 13:47] LABS: Potassium Redraw 4.1 mmol/L (3.5-5.0)
[2019-07-22 14:15] LABS: Body Fluid Source Cerebral Spinal
[2019-07-22 14:26] LABS: ABS Basophils 0.1 10^3/ul (0-0.2); ABS Eosinophils 0.4 10^3/ul (0-0.6); ABS Lymphocytes 1.2 10^3/ul (1.0-4.8); ABS Monocytes 0.8 10^3/ul (0-0.8); ABS Neutrophils 5.3 10^3/ul (1.5-7.7); Eosinophil % 5.2 %; Hematocrit 32 % (35-47); Hemoglobin 10.8 g/dL (12.0-16.0); Lymphocyte % 15.8 %; Mean Corpuscular HGB Conc 34 g/dL (31-36); Mean Corpuscular Hemoglobin 32 pg (27-31); Mean Corpuscular Volume 93 fL (80-97); Mean Platelet Volume 7.4 fL (7.4-10.4); Platelet Count 433 10^3/uL (150-450); Red Cell Distribution Width 14 % (10-15); White Blood Count 7.8 10^3/uL (3.5-10.8)
[2019-07-22 14:30] LABS: CSF Glucose 57 mg/dL (40-70)
[2019-07-22 15:17] LABS: Body Fluid Mono 40 %
--- NOTE | 2019-07-22 17:19 | CONS ---
CONSULTATION REPORT: DATE OF CONSULT: 07/22/19 PATIENT OF: BREA Roland and Dr. Cardenas. HISTORY OF PRESENT ILLNESS: This is a 63-year-old woman who I am asked to evaluate for new onset of seizures. Of note, she has had metastatic breast cancer to the brain resected in January of 2019 and was recently admitted for revision of right frontoparietal flap infection last week and was discharged on Keflex. She had Staph aureus grow from cultures of that area. She has had no prior staring spells, unusual smells or other aura and yesterday has had 4 seizures. The first she remembers is the sensation of feeling off and her left eye twitching. The other 3 involved abnormal posturing. I spoke to the who witnessed 2. Her left arm and right arm were held in tonic positions, but not in the symmetric way and each of the 2 that he witnessed lasted a couple of minutes. The last one was in the ambulance. She received Ativan and Keppra and has had no further seizures since last night. There is no family history for seizures. There is a history of migraines in the chart, but she says that she has not had recent migraines or headaches. PAST MEDICAL HISTORY: Significant for left breast cancer, status post radiation and chemotherapy; past history of headaches; arthritis; peripheral neuropathy secondary to chemotherapy; and brain mets, receiving chemotherapy and radiation therapy. PAST SURGICAL HISTORY: She has had her right temporoparietal craniotomy with tumor resection in January 2019, status post appendectomy, status post hysterectomy , status post left breast lumpectomy, status post salpingectomy. MEDICATIONS AT HOME: Have included: 1. Keflex. 2. Trazodone 50 to 100 as needed for sleep. 3. Lorazepam 0 to 6 mg by mouth per [facility] protocol. ALLERGIES: She has facial swelling with PENICILLIN. It is her only allergy. FAMILY HISTORY: There is no family history for seizures. SOCIAL HISTORY: She drinks 5 to 6 alcoholic beverages daily and is a smoker with a [id number] history. REVIEW OF SYSTEMS: Negative in all 14 spheres other than mild history of past depression. PHYSICAL EXAM: Temperature 98.7, pulse 102, respirations 18, blood pressure 95/ 54. She is alert and oriented with normal speech and comprehension. Cranial nerves II through XII were normal. Discs were sharp. Motor exam revealed normal tone, strength, although she did have a left pronator drift. Sensation intact to light touch. Reflexes were 1 and equal. Toes were downgoing. Chest : Clear. Cardiovascular: Regular rate and rhythm. Abdomen was soft with positive bowel sounds. DIAGNOSTIC STUDIES/LAB DATA: I reviewed her MRI scans and there is a right frontal area of encephalomalacia. At the old tumor site, there is some slight enhancement around the rim of this, but this has improved from prior study presurgical. The amount of edema has decreased there and the radiologist noted that this could be a post treatment effect, but it is possible that this could be related to cerebritis and I would agree with this. There is also an epidural collection of fluid in the area of the subgaleal collection and purulent component was not excluded by this MRI scan. Labs include a white count of 7.8, hematocrit of 32, platelets of 433. Normal INR and PTT. Chemistries were normal. Of note, C-reactive protein was 39. UA was negative. CSF was tapped. Total protein was 73 and total cell count is pending at this point. IMPRESSION AND PLAN: Maggy has had new onset of seizures, presumably focal. I discussed with her that although it is possible that she could have new seizures at the site of a prior brain surgery including her tumor, the concern here is that there may be an active inflammatory component from a wound infection that has triggered these seizures. However, even once this infection is deemed to be cleared, it is possible that the seizures could continue without medicine and I discussed anticonvulsants would help control seizures, but there is no guarantee that we will achieve full control even with anticonvulsants. We will have to adjust meds as needed. I discussed warning signs of further seizures and what to do in the event of seizures. I also discussed the side effects of Keppra including depression. For now, Keppra would be a reasonable medicine for her. It can be given both by mouth and by IV and it does not have major other side effects. It is possible that something like Vimpat would be useful which she will also be given IV and p.o. if she gets more depressed even though it would be hard to know whether the increase in depression would be from the Keppra or from her overall situation. Dr. Cardenas is planning on taking her back to surgery tonight with concern that her skull is infected. This is hard to be sure in this case if an infection extracranially in this area could cause a parameningeal inflammation, but obviously the infection could be epidural even causing a localized cerebritis and I defer to the neurosurgeon about the best neurosurgical management and treatment of this infection. In terms of her seizures, she will need levels in 3 weeks or so and I will see her back in the office following that. Please call if there are issues or concerns sooner. By the way, she cannot get an EEG given her wraps on her head at this point and I do not think it would be likely to change her care in a major way. Thank you for sharing her case. [id number]/[facility] #: [id number] SYLVIA
[2019-07-22] MEDS ORDERED: Buffered Lidocaine 1% SYRIN* 1 ML/SYRINGE INTRADERM ONE (17:39)
[2019-07-22] MEDS: cefTRIAXone(*) 2 GM in NS 0.9% 100 ML* 100 ML IVPB SCH (17:57)
[2019-07-22] MEDS ORDERED: Lactated Ringers 1000 ML Bag* 1,000 ML IV SCH (18:00)
[2019-07-22] MEDS ORDERED: DiMENhydriNATE IV* 50 MG/ML VIAL IV PUSH PRN (21:14)
[2019-07-22] MEDS ORDERED: Naloxone* 0.4 MG/ML 1 ML VIAL IV PRN (21:14)
--- NOTE | 2019-07-22 21:23 | PN ---
Progress Note - Progress Note Date of Service: 07/22/19 Note: Patient seen and examined. Please see dictation for consultation. Discussed MRI results with Dr Galindo. Possible epidural/ subdural infection. Discussed in extend with patient and her . Will plan for craniotomy revision, possible craniectomy and exploration of epidural, subdural space. Expectations, limitations and possible complications were discussed in extend with patient and her . Patient and her understand and are agreeable with plan. IC obtained. patient understands that operative plan may be modified according to intraoperative findings and conditions and that her condition may not improve, and in fact may get worse after surgery. Appreciate IM, Oncology, Neurology, ID care. Annelise Cardenas MD
[2019-07-22 22:21] LABS: Albumin/Globulin Ratio 1.2 (1-3); BUN/Creatinine Ratio 16.1 (8-20); Calcium 8.3 mg/dL (8.6-10.3); EGFR African American 133.2 (>60); EGFR Non-African American 110.1 (>60); Globulin 2.6 g/dL (2-4); Magnesium 1.5 mg/dL (1.9-2.7); Potassium 3.4 mmol/L (3.5-5.0); Total Bilirubin 0.2 mg/dL (0.2-1.0); Total Protein 5.6 g/dL (6.4-8.9)
[2019-07-22] MEDS ORDERED: Bacitracin INJECTION* 50,000 UNITS ONE ×2 (22:38→23:10)
--- NOTE | 2019-07-22 22:55 | CONS ---
CONSULTATION REPORT: DATE OF CONSULT: 07/22/19 HISTORY OF PRESENT ILLNESS: The patient is a very pleasant 63-year-old female who has a history of breast cancer and metastatic disease to the brain, status post resection of right frontal metastasis in January 2019. The patient had complete resection and received radiation and chemotherapy. She did very well. She developed drainage from her wound and was given Keflex for a short course by Radiation Oncology. The patient had persistent drainage and after extensive workup she was offered the option of wound revision. The patient underwent revision of her wound and resection of area of superficial abscess with the assistance of Dr. Valenzuela last week. The patient tolerated the procedure well and she did extremely well and was discharged home on Keflex after the recommendations of Dr. Simon. The patient returned with episodes of seizures. The patient denies any injury. Denies any neck pain, any back pain. Denies any weakness, numbness, or tingling of lower extremities. She denies any drainage from the wound. She denies any fevers. Ambulates without difficulty. patient denies urinary or GI incontinence. The patient was kindly admitted by the Oncology service and was placed on vancomycin. This morning, she underwent an MRI of her brain and a spinal tap. PAST MEDICAL HISTORY: Breast cancer, GERD, arthritis. PAST SURGICAL HISTORY: Appendectomy, ectopic , hysterectomy, left breast lumpectomy, right fronto-temporoparietal craniotomy on 02/25/19, and revision of craniotomy on 07/16/19, PowerPort placement and removal. MEDICATIONS: The patient was on Keflex at home. ALLERGIES: PENICILLIN. FAMILY HISTORY: Noncontributory. SOCIAL HISTORY: Tobacco: Positive. Smoking cessation counseling was provided to the patient. Alcohol: 5 or 6 drinks per day. Recreational drug use: Negative. PHYSICAL EXAM: The patient is not in acute distress. Her wound is soft, clean , and dry, healing very well. She is awake, alert, and oriented x3. Her pupils are equal and reactive. Cranial nerve II through XII are grossly intact. Motor 4-5/5 in all extremities. No pronator drift. Sensory: Grossly intact to light touch. Deep tendon reflexes +1 bilaterally. No clonus. No Babinski. Trupti's negative. Straight leg test negative in the sitting position. Patient has no tenderness to palpation of cervical, thoracic or lumbar spine. Free ROM cervical spine. No neck rigidity. DIAGNOSTIC STUDIES/LAB DATA: The patient had a CT scan of brain revealing postoperative changes. The patient had an MRI of the brain revealing postoperative changes with suspicion for subgaleal and epidural abscess and stable intracranial findings, although the presence of intracranial abscess cannot be excluded. We reviewed the imaging in detail with Dr. Galindo. WBC 12.3, ESR 88, CRP 39.51. CSF gram-stain negative for organism, negative for neutrophils. The patient had previous cultures positive for staph and parvimonas from the previous surgical specimens. ASSESSMENT: This is a very pleasant 63-year-old female with history of breast carcinoma and metastatic disease of the brain, status post craniotomy for resection of right frontal metastasis and wound revision for superficial abscess , now presented with seizures. PLAN: The patient at this point appears to be doing extremely well. Has tolerated the previous surgeries very well. Because of the presence of seizures as well as the MRI findings suspicious for subgaleal, epidural and possible intradural abscess, the patient was offered the option of surgical intervention in the form of revision craniotomy, possible craniectomy and possible exploration of the subdural space with evacuation of possible abscess or resection/biopsy of possible tumor. Discussed in extent with the patient and her regarding the expectations, limitations and possible complications of the procedure with complications including but not limited to bleeding, infection, risk of injury to adjacent structures, coma, paralysis, , need for additional procedures, anesthesia risks, stroke, blindness, cancer, spinal fluid leak, DVT, pulmonary embolism, need for tracheostomy or gastrostomy, need for additional procedures in the future, and need for cranioplasty. The patient understood that her condition may not improve and in fact may get worse after the surgery and that she may need further additional procedure in the future. She understood that the procedure may be abandoned or done in more than 1 stages and that she may require prolonged ICU stay, prolonged rehabilitation, prolonged hospitalization, prolonged course of antibiotics. The patient was cleared medically from internal medicine team. Discussed with Yolanda Canales regarding further recommendations for antibiotic treatment. The patient was placed on vancomycin at admission and it was recommended by Dr. Simon to add Rocephin until the culture results. The patient was kindly evaluated by Dr. Evans for the new onset of seizures and the patient was placed on Keppra. We also discussed with Dr. Valenzuela regarding the surgical intervention and he will kindly be available if needed during the surgical intervention. Thank you for allowing us to participate in the care of this patient. Please do not hesitate to contact our office in case you have any further questions or concerns regarding the care of this patient. [id number]/[facility] #: [id number] SYLVIA
[2019-07-22] MEDS ORDERED: Magnesium Sulfate 2 GM IV (Premix) IVPB ONE (23:00)
[2019-07-23] MEDS ORDERED: fentaNYL* 50 MCG/ML 2 ML VIAL (100 MCG VIAL) ONE (02:06)
[2019-07-23] MEDS: fentaNYL* 50 MCG/ML 2 ML VIAL (100 MCG VIAL) IV PRN ×4 (02:10→02:36)
[2019-07-23] MEDS ORDERED: Ondansetron INJ* 2 MG/ML VIAL IV PRN (02:23)
[2019-07-23] MEDS ORDERED: HYDROcodone/ACETAMIN 5-325 MG* 1 TAB PO PRN (02:23)
[2019-07-23] MEDS ORDERED: Morphine INJ* 2 MG/ML 1 ML SYRINGE (TWO MG - NEW SYRINGE VERSION) IV PRN (02:31)
[2019-07-23] MEDS ORDERED: oxyCODONE TAB* 5 MG TAB ONE (02:40)
[2019-07-23] MEDS: oxyCODONE TAB* 5 MG TAB PO PRN ×2 (02:43→02:47)
[2019-07-23] MEDS ORDERED: Lactated Ringers 1000 ML Bag* 1,000 ML IV SCH (03:00)
[2019-07-23] MEDS: levETIRAcetam 500 MG IVPREMIX* 500 MG/100 ML BAG IV SCH ×3 (04:06→23:10)
[2019-07-23] MEDS: Vancomycin(*) 1,000 MG in NS 0.9% 250 ML* 250 ML IV SCH ×3 (04:06→13:36)
[2019-07-23] MEDS: NS 0.9% 1000 ML** 1,000 ML IV SCH (04:07)
[2019-07-23] MEDS: cefTRIAXone(*) 2 GM in NS 0.9% 100 ML* 100 ML IVPB SCH ×2 (06:09→17:50)
[2019-07-23] MEDS ORDERED: Heparin VIAL(*) 5000 UNITS/ML VIAL (FIVE THOUSAND) SUBCUT SCH (09:00)
[2019-07-23] MEDS ORDERED: Magnesium Sulfate IV* 3 GM in NS 0.9% 100 ML* 100 ML IVPB ONE (09:23)
[2019-07-23] MEDS: Acetaminophen TAB* 325 MG PO PRN ×2 (11:18→17:50)
[2019-07-23] MEDS: Thiamine TAB* 100 MG TAB PO SCH (11:18)
--- NOTE | 2019-07-23 12:03 | PN ---
Progress Note - Progress Note Date of Service: 07/23/19 SOAP: Subjective: []Patient seen in ICU. No events ON. Tolerated procedure well yesterday. Patel. NPO. Patient feels hungry, would like to eat. Objective: [] VSS, Afebrile. Wound s,c,d Drains output noted. AAOx3. HUI, CN II-XII grossly intact. Motor 5/5 all extremities. No pronator drift. Sensory grossly intact to light touch. Assessment: []63 yof POD#1 revision of Rt FTP craniotomy with I and D, craniectomy and excisional biopsy of Rt frontal lesion. Plan: [] Monitor VS, Neurochecks. CT head reveals postop changes. No hematoma. Small amount of increased signal in tumor cavity bed, possibly related to surgicel. Advance diet as tolerated. OOB in a chair with assistance. Fall precautions. SZ precautions. Monitor drains output. Follow cultures. Abx per Dr Esquivel's recommendations. Follow pathology results. MRI of brain for postop evaluation. May need dental care due to poor dentition. Appreciate Oncology, Neurology, ICU care. Annelise Cardenas MD
[2019-07-23] MEDS ORDERED: Vancomycin Trough Check NOTE FOLLOW UP ONE (12:30)
[2019-07-23 12:41] LABS: ABS Lymphocytes 1.1 10^3/ul (1.0-4.8); ABS Monocytes 0.6 10^3/ul (0-0.8); ABS Neutrophils 7.4 10^3/ul (1.5-7.7); Eosinophil % 0.1 %; Hematocrit 31 % (35-47); Hemoglobin 10.6 g/dL (12.0-16.0); Lymphocyte % 12.5 %; Mean Corpuscular HGB Conc 34 g/dL (31-36); Mean Corpuscular Hemoglobin 32 pg (27-31); Mean Corpuscular Volume 93 fL (80-97); Mean Platelet Volume 6.9 fL (7.4-10.4); Platelet Count 479 10^3/uL (150-450); Red Blood Count 3.38 10^6 /uL (3.70-4.87); Red Cell Distribution Width 14 % (10-15); White Blood Count 9.1 10^3/uL (3.5-10.8)
--- NOTE | 2019-07-23 12:47 | OP ---
OPERATIVE REPORT: DATE OF OPERATION: 07/23/19 DATE OF : 59 SURGEON: Dr. Jonathan Cardenas. 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 ANESTHESIA: General. PRE-OP DIAGNOSES: Right frontal subgaleal empyema, epidural empyema, and subdural empyema, possible abscess. POST-OP DIAGNOSES: Right frontal subgaleal empyema, epidural empyema, and subdural empyema, possible abscess. OPERATIVE PROCEDURE: The patient underwent a revision of right frontotemporoparietal craniotomy with craniectomy, evacuation of subgaleal empyema, epidural empyema, and subdural empyema with excisional biopsy of right frontal lesion. ESTIMATED BLOOD LOSS: 200 cc. COMPLICATIONS: None. SUMMARY: The patient is a very pleasant 63-year-old female with history of breast CA with right frontal metastatic disease. The patient underwent right frontal craniotomy for resection of the tumor. The patient developed superficial wound infection and she underwent a revision of her wound with irrigation and debridement, and advancement of cranial flaps approximately 1 week prior to her presentation to the emergency room with seizures. The patient had MRI finding consistent with possible subgaleal empyema, epidural empyema, and possible subdural empyema with suspicion of brain abscess. She was offered the option of surgical intervention. After explaining the expectations, limitations, and possible complications of the procedure to the patient and her with complications including, but not limited to bleeding, infection, risk of injury to adjacent structures, coma, paralysis, , need for additional procedures, anesthesia risks, stroke, blindness, cancer, need for prolonged ICU stay, prolonged hospitalization, prolonged rehabilitation, need for tracheostomy and gastrostomy, deep venous thrombosis, pulmonary embolism, the patient was agreeable to proceed with surgery. The patient understood that her condition may not improve and in fact may get worse after surgery. She understood that operative plan may be modified according to intraoperative findings and conditions and the patient understood that the procedure may be abandoned or done in more than 1 stages and that she may require additional procedure in the future. DESCRIPTION OF PROCEDURE: The patient was brought to the operating room and was placed under general anesthesia by the anesthesia team. She was carefully positioned supine on the operating table and all bony prominences were meticulously padded. Her right shoulder was elevated with a shoulder roll and the patient's head was gently placed on donut gel inspector and adjuster golf club head. Hair was removed with surgical clippers and sutures and damaso from the previous surgical intervention were gently removed after cleansing the wound very carefully with local antiseptic. The skin was prepped and draped in the standard fashion and after appropriate surgical pause and patient identification, the previous craniotomy incision was opened with the use of Metzenbaum scissors. The skin flap was gently elevated and significant amount of purulent material was identified. Cultures were sent and after meticulous irrigation, it was elected to proceed with removal of the bone flap and exploration of epidural space. A high-speed drill was used to perform luzma holes and side cutting drill was used to connect them with occasional use of the previous craniotomy edges. The bone flap was then gently elevated and epidural phlegmon with purulent material was also identified. This was also cultured and after copious irrigation and evacuation of the phlegmon, the bony edges of the previous craniotomy were removed and the complete craniectomy was fashioned. It was elected to perform a craniectomy because of the presence of the purulent material and bone fragments from the bone flap were sent for cultures and microbiological examination. Small openings of the dura were identified giving the suspicion of extension of the infection into subdural space. The dura was then gently opened with #11 surgical blade and Metzenbaum scissors across the line of the previous durotomy. A small amount of purulent material was identified and after meticulous irrigation, the previous tumor resection cavity was identified. A thick granulomatous material was identified at the tumor resection cavity with some necrotic material in the center, suspicious for an abscess. After gentle coagulation of the pial margins, the plance between the normal appearing brain and the granulomatous tissue was developed and an excisional biopsy was performed. These were sent for pathology examination and as expected from preoperative MRI,a second small cavity at the superior edge of the dissection cavity was identified. Under the microscope pathological tissue appearance as identified. This was also biopsied and all grossly abnormal tissue was gently removed. After confirmation of meticulous hemostasis and copious irrigation, the prior tumor resection cavity was lined with Surgicel and a Aung drain was positioned into the subdural space and tunneled through separate stab wound incision. The dura was then gently approximated with 4-0 nylon suture. A small piece of DuraGen was used to reinforce the durotomy site. A second Aung drain was then placed in the epidural space while a third Aung drain was placed on the subgaleal space at the superior edge of the craniotomy flap and tunneled through separate stab wound incisions. The musculocutaneous flap was then gently positioned and the wound was closed in layers with interrupted 2-0 Vicryl sutures to approximate the galea and subcutaneous tissue while the skin was approximated with damaso and running 3-0 nylon for the anterior part of incision. The skin was covered with sterile dressings. At the end of the procedure, all counts were reported to be correct prior to time of the closure. The patient was then extubated and was transferred to Recovery in excellent condition. The patient remained hemodynamically stable throughout the case. [id number]/[facility] #: [id number] SYLVIA
[2019-07-23 13:07] LABS: BUN/Creatinine Ratio 11.3 (8-20); Calcium 8.6 mg/dL (8.6-10.3); EGFR African American 141.9 (>60); EGFR Non-African American 117.3 (>60)
[2019-07-23] MEDS ORDERED: Vancomycin(*) 750 MG in NS 0.9% 250 ML* 250 ML IV SCH ×2 (14:36→21:00)
[2019-07-23] MEDS ORDERED: Gadoteridol* (CONTRAST) 279.3 MG/ML 10 ML IV ONE (16:39)
--- NOTE | 2019-07-23 17:57 | PN ---
Progress Note - Progress Note Date of Service: 07/23/19 SOAP: Subjective: []Feels well this am. No additional seizures. Has SÁNCHEZ, no new focal neurological symptoms. No fevers or chills. Not in pain. She is eating Seen notes from NSG and neurology for recent events. Intra operatively found to have puss in subgaleal fluid collection, dural opening. In epidural space there was thick fluid, granulation tissue and areas of necrosis, no overt infection. Flap removed and drains placed. Acetaminophen (Tylenol Tab*) 650 mg PO Q6H PRN PRN Reason: HEADACHE Last Admin: 07/23/19 17:50 Dose: 650 mg Hydrocodone Bitart/Acetaminophen (Gonzales 5-325 Tab*) 1 tab PO Q4H PRN PRN Reason: moderate pain Hydrocodone Bitart/Acetaminophen (Gonzales 5-325 Tab*) 2 tab PO Q4H PRN PRN Reason: PAIN - SEVERE Docusate Sodium (Colace Cap*) 100 mg PO BID PRN PRN Reason: CONSTIPATION Levetiracetam (Keppra Iv Premix*) 500 mg in 100 mls @ 400 mls/hr IV Q12H [facility] Last Admin: 07/23/19 10:23 Dose: 400 mls/hr Ceftriaxone Sodium 2 gm/ (Sodium Chloride) 100 mls @ 200 mls/hr IVPB Q12H [facility] Last Admin: 07/23/19 17:50 Dose: 200 mls/hr Lactated Ringer's (Lactated Ringers 1000 Ml Bag*) 1,000 mls @ 50 mls/hr IV .per rate [facility] Vancomycin HCl 750 mg/ Sodium (Chloride) 250 mls @ 166.667 mls/hr IVPB Q8H [facility] Miscellaneous (Ativan Pyxis Sutton) 1 ea N/A .ATIVAN IV SUTTON PRN PRN Reason: PYXIS SUTTON Morphine Sulfate (Morphine Inj (Syringe))*) 2 mg IV Q2H PRN PRN Reason: PAIN - SEVERE Ondansetron HCl (Zofran Inj*) 4 mg IV Q6H PRN PRN Reason: NAUSEA/VOMITING Pharmacy Consult (Vancomycin Per Pharmacy*) 1 note FOLLOW UP .VANC PER PHARMACY WILY; Protocol Pharmacy Profile Note (Vancomycin Trough Check) 1 note FOLLOW UP 0600 ONE Stop: 07/25/19 06:01 Thiamine HCl (Vitamin B-1 Tab*) 100 mg PO DAILY WILY Last Admin: 07/23/19 11:18 Dose: 100 mg Trazodone HCl (Desyrel Tab*) 50 mg PO BEDTIME PRN PRN Reason: SLEEP Objective: [] Vital Signs Temp Pulse Resp BP Pulse Ox 97.3 F 91 24 108/68 97 07/23/19 16:00 07/23/19 17:12 07/23/19 17:12 07/23/19 17:12 07/23/19 17:12 HEENT: drains in place, incision bandaged OM moist CTA RRR S1S2 +BS NT ND Ext tr edema Neuro AAOx3, grossly NF but did not do full exam. Assessment: []63 year old s/p seizure and infection of recent craniotomy and flap reconstruction. Plan: []1. Will continue Ceftriaxone and Vancomycin. 2. Regular diet toda 3. ICU to floor per NSG 4. Breast cancer therapy on hold 5. Replete Mg
[2019-07-23] MEDS: HYDROcodone/ACETAMIN 5-325 MG* 1 TAB PO PRN (21:00)
--- NOTE | 2019-07-23 21:29 | CONS ---
CONSULTATION REPORT: DATE OF CONSULT: 07/23/19 PRIMARY CARE PROVIDER: None. PROVIDER REQUESTING CONSULTATION: Jonathan Cardenas MD CONSULTING SERVICE: Infectious Disease. PROVIDER: Martín Canales NP ATTENDING PROVIDER: Chi Simon MD * (DICTATED BY MARTÍN CANALES, AIR CARRIER INSPECTOR-C) REASON FOR CONSULTATION: Infected craniotomy site with possible deeper infection. IMPRESSION: 1. Infected right frontotemporoparietal craniotomy. S/P evacuation of subgaleal empyema, epidural empyema, subdural empyema with excisional biopsy of a right frontal lesion. Previous cultures with staph aureus, staph lugdenensis , and Parvimonas micra. Cultures obtained in the OR with initial culture with tissue culture showing PCR positive for Staph aureus, MRSA negative. She has been afebrile. Had leukocytosis upon presentation with a white blood cell count of 12.3, elevated ESR 88, CRP elevated at 39.31. The patient is currently on IV antibiotics. 2. Penicillin allergy with history of facial swelling. The patient has tolerated Ancef and Keflex in the past without difficulty. 3. Breast cancer with brain metastasis. Has recently been receiving chemotherapy and radiation. RECOMMENDATIONS/PLAN: Recommend continuing vancomycin and ceftriaxone, while we await final cultures. Due to the depth involved in this infection, the patient will likely need a few weeks of IV antibiotics. We will continue to follow along and further recommendations will be based on the patient's clinical course and culture results. HISTORY OF PRESENT ILLNESS: Ms. Erazo is a 63-year-old female with past medical history significant for left breast cancer status post lumpectomy with brain metastasis, currently receiving chemo and radiation; headaches; arthritis ; and neuropathy secondary to chemotherapy. She initially underwent a left breast lumpectomy with chemotherapy for breast cancer in 2017 and was later found to have a right frontal lobe metastasis. She underwent a right temporoparietal craniotomy on 02/25/19 with resection of a right posterior frontal tumor. She did well at the time of procedure with no complications. Approximately 2 months ago, she had noticed some drainage from her healed incision site. This was cultured by her Oncologist's office. At that time, she was placed on a 1-week course of Keflex. She followed up with Dr. Cardenas due to the drainage from the wound and he referred her to the emergency room for a CT scan that was unremarkable and her labs showed no elevation in inflammatory markers. She was then placed on a course of Bactrim. She continued to follow with Dr. Cardenas outpatient having an MRI. It was unremarkable and stable. On 07/14/19, at a followup with Dr. Cardenas, she was noted to have a small amount of drainage from her wound and she was offered revision of the craniotomy flap. She presented to the hospital that same day for surgery and underwent excision of a nonhealing wound of the right frontal scalp and reconstruction of bilateral rotation advancement scalp flap with Dr. Valenzuela and a right temporoparietal craniotomy revision with irrigation and debridement with Dr. Cardenas. She received IV antibiotics and had drains placed over the course of a weekend. She was on Ancef due to the cultures showing Staph aureus. She was doing well and there were no concerns for deeper infection at that time, so the patient was discharged home on a course of Keflex. Final cultures from the OR with staph aureus, staph lugdenensis, and Parvimonas micra. She reports that she was doing well when she had new onset of seizures on 07/21/19. She states that in total, she had 4 seizures; the first one was unwitnessed and the other 3 were witnessed tonic-clonic seizures with the last one occurring in the ambulance on her way to the emergency room. While in the emergency room, she received Ativan and Keppra. Otherwise, was feeling well. Denied any fevers, chills, nausea, vomiting, diarrhea. She reports headache, but this is baseline for her. She is admitted to the hospital. She had a brain MRI showing a recent scalp flap reconstruction of the right frontal craniotomy site with a new subgaleal collection approximately 0.7 cm thick and an epidural collection 0.3 thick. She was taken back to the operating room overnight with Dr. Cardenas and underwent a revision of the right frontotemporoparietal craniotomy with craniectomy, evacuation of a subgaleal empyema, epidural empyema, subdural empyema with excisional biopsy of a right frontal lesion. She had multiple cultures and biopsy obtained during the procedure including bone and soft tissue. Preliminary cultures are still pending, gram stain and the tissue culture is PCR positive for Staph aureus, MRSA negative. She has been on vanco and ceftriaxone. She states she is feeling well other than a headache and feeling drowsy. She denies fevers, chills, nausea, vomiting, diarrhea. She is thirsty and requesting water at this time. PAST MEDICAL HISTORY: 1. Left breast cancer status post radiation and chemotherapy. 2. Headache. 3. Arthritis. 4. Peripheral neuropathy secondary to chemotherapy. 5. Brain metastasis, currently receiving chemotherapy radiation. PAST SURGICAL HISTORY: 1. Status post right temporoparietal craniotomy with tumor resection on . 2. Status post appendectomy. 3. Status post hysterectomy. 4. Status post left breast lumpectomy. 5. Status post placement of PowerPort removal and then replacement of PowerPort. 6. Status post salpingectomy. 7. Status post right frontotemporoparietal craniotomy revision with irrigation , debridement, resection of infected skin. 8. Excision of nonhealing wound, right frontal scalp and reconstruction with bilateral rotation advancement skin flaps with Dr. Valenzuela and Dr. Cardenas on 07/16/19. MEDICATIONS: Home medications: 1. Trazodone 50 to 100 mg by mouth daily at bedtime as needed. 2. Chantix 1 mg by mouth twice daily. 3. Vitamin B1 100 mg by mouth daily. 4. Oxycodone 5 mg by mouth every 4 hours as needed for pain. 5. Multivitamin 1 tablet by mouth daily. 6. Folic acid 1 mg by mouth daily. 7. Colace 100 mg by mouth twice daily as needed for constipation. 8. Keflex 500 mg by mouth 3 times daily. 9. Acetaminophen 650 mg by mouth every 6 hours as needed for pain. Hospital Medications: 1. Acetaminophen 650 mg by mouth every 6 hours as needed for headache. 2. Ceftriaxone 2 g IV every 12 hours. 3. Colace 100 mg by mouth twice daily as needed for constipation. 4. [place] 5/325 one to two tablets by mouth every 4 hours as needed for pain. 5. Lactated Ringer's 50 mL/h intravenously. 6. Keppra 500 mg IV every 12 hours. 7. Morphine sulfate 2 mg IV every 2 hours as needed for pain. 8. Zofran 4 mg IV every 6 hours as needed for nausea. 9. Thiamine 100 mg by mouth daily. 10. Trazodone 50 mg by mouth daily at bedtime as needed for sleep. 11. Vancomycin 750 mg IV every 8 hours. ALLERGIES: PENICILLIN caused facial swelling. FAMILY HISTORY: Denies any family history of recurrent or resistant infection. Mother passed at a young age due to complications secondary to childbirth. No family history of coronary artery disease, diabetes. Father with a history of prostate cancer and an aunt with a history of breast cancer. SOCIAL HISTORY: She currently had been drinking 5 to 6 alcoholic beverages daily and a current smoker with a 14-year 1 pack a day smoking history and she has been working on smoking, recently been down to 2 cigarettes daily and the patient states she is not ready to quit smoking at this time. Denies any recreational drug use. REVIEW OF SYSTEMS: I performed a 10-point review of systems. All the pertinent positives and negatives are mentioned in the history of present illness. The remaining review of systems are negative. PHYSICAL EXAMINATION: Vital Signs: Temperature 97.9, heart rate 85, respiratory rate 18, O2 sat 100% on 2 L via nasal cannula, blood pressure 98/ 59. General Appearance: The patient is alert, appears to be in no acute distress, lying in bed. Head is normocephalic and atraumatic. She does have surgical bandages on her head. EENT: Extraocular movements are intact. No subconjunctival hemorrhage. Moist mucous membranes. Neck: Supple. Neurological: She is alert and oriented x4. Cranial nerves II through XII are grossly intact. She moves all extremities. Cardiovascular: Regular rate and rhythm. S1, S2 present. No murmurs, rubs, or gallops heard. Respiratory: No accessory muscle use. Lungs are clear to auscultation, bilateral. Abdomen: Bowel sounds present. Abdomen large, soft, nontender, nondistended. Extremities: No lower extremity edema. DP and PT pulses are 2+ and symmetric. Musculoskeletal: No clubbing or cyanosis noted. She exhibits good strength in all extremities. Psychological: Calm and cooperative. Skin: No rashes or abnormalities seen. She has a surgical dressing to her right frontal and parietal scalp with drains draining serosanguineous drainage. DIAGNOSTIC STUDIES/LABORATORY DATA: Sodium 140, potassium 3.4, chloride 110, CO2 23, BUN 9, creatinine 0.56, glucose 95. White blood cell count 7.8, hemoglobin 10.8, hematocrit 32, platelet count 433. CRP on admission 39.31. Please see impression and recommendations outlined above. Recommendations will be discussed with Dr. Cardenas and BREA Roland. Thank you for asking us to see Ms. Erazo in consultation. The case has been reviewed with the attending, Dr. Simon, who agrees with the plan of care. Reviewed by ISABELLE KING 07/26/19 1806 [id number]/[facility] #: [id number] MTDD
[2019-07-23] MEDS: Vancomycin(*) 750 MG in NS 0.9% 250 ML* 250 ML IVPB SCH (23:10)
[2019-07-24] MEDS: Acetaminophen TAB* 325 MG PO PRN ×4 (04:16→22:15)
[2019-07-24 04:48] LABS: EGFR African American 125.4 (>60); EGFR Non-African American 103.6 (>60)
[2019-07-24 05:10] LABS: Vancomycin Trough 21.7 mcg/mL
[2019-07-24] MEDS: Vancomycin(*) 750 MG in NS 0.9% 250 ML* 250 ML IVPB SCH ×2 (05:45→12:30)
[2019-07-24] MEDS: cefTRIAXone(*) 2 GM in NS 0.9% 100 ML* 100 ML IVPB SCH ×2 (06:09→17:30)
--- NOTE | 2019-07-24 09:18 | PN ---
Progress Note - Progress Note Date of Service: 07/24/19 SOAP: Subjective: []She is doing well today. No additional seizures. She is not in pain. Eating well. Still has drains but told they would come out today. Has had ID consultation, no change in antibiotics today. Acetaminophen (Tylenol Tab*) 650 mg PO Q6H PRN PRN Reason: HEADACHE Last Admin: 07/24/19 04:16 Dose: 650 mg Hydrocodone Bitart/Acetaminophen ([place] 5-325 Tab*) 1 tab PO Q4H PRN PRN Reason: moderate pain Last Admin: 07/23/19 21:00 Dose: 1 tab Hydrocodone Bitart/Acetaminophen ([place] 5-325 Tab*) 2 tab PO Q4H PRN PRN Reason: PAIN - SEVERE Docusate Sodium (Colace Cap*) 100 mg PO BID PRN PRN Reason: CONSTIPATION Levetiracetam (Keppra Iv Premix*) 500 mg in 100 mls @ 400 mls/hr IV Q12H [facility] Last Admin: 07/23/19 23:10 Dose: 400 mls/hr Ceftriaxone Sodium 2 gm/ (Sodium Chloride) 100 mls @ 200 mls/hr IVPB Q12H [facility] Last Admin: 07/24/19 06:09 Dose: 200 mls/hr Lactated Ringer's (Lactated Ringers 1000 Ml Bag*) 1,000 mls @ 50 mls/hr IV .per rate [facility] Vancomycin HCl 750 mg/ Sodium (Chloride) 250 mls @ 166.667 mls/hr IVPB Q8H [facility] Last Admin: 07/24/19 05:45 Dose: Not Given Miscellaneous (Ativan Pyxis [place]) 1 ea N/A .ATIVAN IV SUTTON PRN PRN Reason: PYXIS SUTTON Morphine Sulfate (Morphine Inj (Syringe))*) 2 mg IV Q2H PRN PRN Reason: PAIN - SEVERE Ondansetron HCl (Zofran Inj*) 4 mg IV Q6H PRN PRN Reason: NAUSEA/VOMITING Pharmacy Consult (Vancomycin Per Pharmacy*) 1 note FOLLOW UP .VANC PER PHARMACY [facility]; Protocol Pharmacy Profile Note (Vancomycin Trough Check) 1 note FOLLOW UP 0600 ONE Stop: 07/25/19 06:01 Thiamine HCl (Vitamin B-1 Tab*) 100 mg PO DAILY [facility] Last Admin: 07/23/19 11:18 Dose: 100 mg Trazodone HCl (Desyrel Tab*) 50 mg PO BEDTIME PRN PRN Reason: SLEEP Objective: [] Vital Signs Temp Pulse Resp BP Pulse Ox 99.9 F 73 20 95/52 94 07/24/19 08:05 07/24/19 08:00 07/24/19 08:00 07/24/19 08:00 07/24/19 08:00 HEENT: drains in place, incision bandaged OM moist CTA RRR S1S2 +BS NT ND Ext tr edema Neuro AAOx3, conversational, grossly NF but did not do full exam. Assessment: []63 year old with history of MBC with solitary CHIEF LOCK TENDER OPERATOR lesion and pulmonary nodule. She has had resection of CHIEF LOCK TENDER OPERATOR disease followed by gamma knife and has been on Doxil chemotherapy for systemic disease (4 cycles). She has been responding systemically but course complicated by infection of skull flap after cranial resection. Presented with seizure, CHIEF LOCK TENDER OPERATOR imaging with fluid collection under flap and epidural enhancement. Area of puss evacuated surgically and epidural biopsy performed, no nohemy epidural infection. Plan: []1. ID input appreciated. Will continue Ceftriaxone and Vancomycin for extended period. Will narrow coverage based on final sensitivities. 2. Possible trains out today and transfer to floor tomorrow.= 3. Electrolytes stable today 4. Blood counts stable and > 20 days from last chemotherapy. 5. Breast cancer in good control. Ok to pause chemotherapy. 6. No additional seizures, change keppra to 500 mg po bid. 7. Medical coverage tomorrow am through intensive care medicine, then to Oncology service when transfers to floor.
[2019-07-24] MEDS: Thiamine TAB* 100 MG TAB PO SCH (09:25)
--- NOTE | 2019-07-24 12:56 | PN ---
Date of Service: 07/24/19 Critical Care Services: No events overnight. no complaints. Vital Signs: Temp Pulse Resp BP SpO2 FiO2 37.2 C 89 21 101/60 99 07/24/19 11:11 07/24/19 12:00 07/24/19 12:00 07/24/19 11:08 07/24/19 12:00 Physical Exam: Gen: NAD. Appears non-toxic, quite jovial in great spirits. HEENT: right head dressed, [address], defect concave. Lungs: clear Cardiac: S1S2 regular Abdomen: benign Extremities: no edema Neuro: grossly non-focal Fluid Balance (Past 24 Hours): I= O= Net Intake & Output 07/22/19 07/23/19 07/24/19 07/25/19 06:59 06:59 06:59 06:59 Intake Total 1676 5411 2371 200 Output Total 1135 2136 1825 Balance 1676 4276 235 -1625 Weight 65.589 kg 65.439 kg 73.6 kg Intake: IV Fluids 1676 5011 900 ABX - VANCOMYCIN 300 LR 2150 500 Magnesium 100 NS (0.9%) 276 721 NS 250ML, Vancomycin 2140 1000MG IVPB 250 511 ABX - VANCOMYCIN 250 285 Keppra 112 Magnesium 114 Oral 0 150 960 200 Output: ROBERT #1 10 9 ROBERT #2 20 10 ROBERT #3 5 17 Urine 600 1200 1825 Patel 500 900 Other: Estimated Void Small # Voids 1 Labs: Laboratory Results - last 24 hr 07/22/19 07/23/19 07/23/19 13:50 12:30 12:30 Sodium 137 Potassium 4.0 Chloride 106 Carbon Dioxide 22 Anion Gap 9 BUN 6 Creatinine 0.53 Est GFR ( Amer) 141.9 Est GFR (Non-Af Amer) 117.3 BUN/Creatinine Ratio 11.3 Glucose 104 H Calcium 8.6 Magnesium 4.0 H Fluid Cell Count Rvw By Vancomycin Trough 16.4 07/24/19 04:15 Sodium Potassium Chloride Carbon Dioxide Anion Gap BUN 6 Creatinine 0.59 Est GFR ( Amer) 125.4 Est GFR (Non-Af Amer) 103.6 BUN/Creatinine Ratio Glucose Calcium Magnesium Fluid Cell Count Rvw By Vancomycin Trough 21.7 Nutrition: Taking PO well Impression: 63 y/o female metastatic breast s/p cranial resection complicated by late flap infection and seizures. Now POD #3, grossly neurologically intact without complaint and sense of humor fully intact. No recurrent seizures since presentation. Plan: Flap infection - s/p craniectomy, all cultures including CSF thus far negative, broad ACADEMIC AFFAIRS SPECIALIST targeted Abx remain on per ID recommendations. She remains afebrile and clinically aseptic with WBC of 9. Continue Abx and follow cultures. Drains per NS management. Seizures - secondary to focal ACADEMIC AFFAIRS SPECIALIST infection, have abated since presentation, remains on Keppra, dose adjusted down. Electrolyte abnormalities - treated and corrected. Will recheck in AM. Metastatic Breast Cancer - Oncologic prescription per primary Oncologist, Dr. Doty. Doing very well overall, D/W pt and family at bedside in detail who voiced understanding and appreciation for the care.
--- NOTE | 2019-07-24 14:08 | PN ---
Progress Note - Progress Note Date of Service: 07/24/19 SOAP: Subjective: []Patient seen in ICU. No events ON. Tolerates PO well. Voids, Ambulates well. Has chronic SÁNCHEZ responding well to Tylenol. Objective: []VSS, Afebrile. Wound s,c,d Drains output noted. Minimal drainage. Subdural and Epidural drains were removed. Catheters appeared to be intact. No complications. Patient tolerated procedure well AAOx3. HUI, CN II-XII grossly intact. Motor 5/5 all extremities. No pronator drift. Sensory grossly intact to light touch. Assessment: []63 yof POD#2 revision of Rt FTP craniotomy with I and D, craniectomy and excisional biopsy of Rt frontal lesion. Plan: []Monitor VS, Neurochecks. MRI head revealed postop changes. No hematoma. No obvious residual enhancing lesion. Overall improved c/w preop. Encourage ambulation. Fall precautions. SZ precautions. ETOH withdrawl protocol. Monitor drain output. Follow cultures. Abx per Dr Esquivel's recommendations. Follow pathology results. Maintain Na >135, Mg> 2 May need dental care due to poor dentition. Consider transfer to floor in am. Appreciate Oncology, Neurology, ICU care. Annelise Cardenas MD
[2019-07-24] MEDS: HYDROcodone/ACETAMIN 5-325 MG* 1 TAB PO PRN (19:54)
[2019-07-24] MEDS: levETIRAcetam TAB* 500 MG PO SCH (21:10)
[2019-07-25] MEDS: Vancomycin(*) 750 MG in NS 0.9% 250 ML* 250 ML IVPB SCH ×3 (00:03→20:14)
[2019-07-25] MEDS: Acetaminophen TAB* 325 MG PO PRN ×2 (04:44→12:49)
[2019-07-25] MEDS: cefTRIAXone(*) 2 GM in NS 0.9% 100 ML* 100 ML IVPB SCH ×2 (05:58→18:12)
[2019-07-25 06:16] LABS: Hematocrit 26 % (35-47); Hemoglobin 9.1 g/dL (12.0-16.0); Mean Corpuscular HGB Conc 35 g/dL (31-36); Mean Corpuscular Hemoglobin 32 pg (27-31); Mean Corpuscular Volume 93 fL (80-97); Platelet Count 471 10^3/uL (150-450); Red Blood Count 2.83 10^6 /uL (3.70-4.87); Red Cell Distribution Width 14 % (10-15); White Blood Count 6.5 10^3/uL (3.5-10.8)
[2019-07-25 06:25] LABS: Calcium 8.4 mg/dL (8.6-10.3); Magnesium 1.5 mg/dL (1.9-2.7); Potassium 3.6 mmol/L (3.5-5.0)
[2019-07-25 06:30] LABS: BUN/Creatinine Ratio 7.7 (8-20); EGFR African American 145.1 (>60); EGFR Non-African American 119.9 (>60); Phosphorus 3.4 mg/dL (2.5-5.0)
[2019-07-25] MEDS: Thiamine TAB* 100 MG TAB PO SCH (08:56)
[2019-07-25] MEDS: levETIRAcetam TAB* 500 MG PO SCH ×2 (08:56→20:13)
[2019-07-25] MEDS ORDERED: Magnesium Sulfate 2 GM IV* 2 GM/50 ML BAG IVPB ONE (09:21)
[2019-07-25] MEDS ORDERED: Vancomycin Trough Check NOTE FOLLOW UP ONE (11:30)
[2019-07-25 12:00] LABS: EGFR African American 148.3 (>60); EGFR Non-African American 122.6 (>60)
[2019-07-25 12:14] LABS: Vancomycin Trough 6.5 mcg/mL
--- NOTE | 2019-07-25 13:08 | PN ---
Date of Service: 07/25/19 Critical Care Services: No new events. 1 drain out yesterday, 2nd one likely today. Vital Signs: Temp Pulse Resp BP SpO2 FiO2 36.8 C 78 17 125/79 99 07/25/19 11:40 07/25/19 12:00 07/25/19 12:00 07/25/19 11:00 07/25/19 12:00 Physical Exam: Gen: NAD, well-appearing HEENT: dressings in place, 1 drain remains, PERRL Lungs: clear Cardiac: S1S2 regular Abdomen: benign Extremities: no edema Neuro: A&O, grossly non-focal, ambulatory for hundreds of feet Fluid Balance (Past 24 Hours): I= O= Net Intake & Output 07/23/19 07/24/19 07/25/19 07/26/19 06:59 06:59 06:59 06:59 Intake Total 5411 2371 2188 360 Output Total 1135 2136 3625 700 Balance 4276 235 -1237 -340 Weight 65.439 kg 73.6 kg 70.6 kg Intake: IV Fluids 5011 900 938 ABX - VANCOMYCIN 300 274 LR 2150 500 369 Magnesium 100 NS (0.9%) 721 295 NS 250ML, Vancomycin 2140 1000MG IVPB 250 511 ABX - VANCOMYCIN 250 285 Keppra 112 Magnesium 114 Oral 332 443 5640 360 Output: ROBERT #1 10 9 ROBERT #2 20 10 ROBERT #3 5 17 Urine 600 1200 3625 700 Patel 500 900 Other: Estimated Void Small Date of Last Bowel 07/25/19 Movement # Bowel Movements 1 Estimated Stool Amount Medium Small # Voids 1 Labs: Laboratory Results - last 24 hr 07/25/19 07/25/19 07/25/19 05:46 05:46 11:36 WBC 6.5 RBC 2.83 L Hgb 9.1 L Hct 26 L MCV 93 MCH 32 H MCHC 35 RDW 14 Plt Count 471 H MPV 7.0 L Sodium 143 Potassium 3.6 Chloride 112 H Carbon Dioxide 27 Anion Gap 4 BUN 4 L 5 L Creatinine 0.52 0.51 Est GFR ( Amer) 145.1 148.3 Est GFR (Non-Af Amer) 119.9 122.6 BUN/Creatinine Ratio 7.7 L Glucose 95 Calcium 8.4 L Phosphorus 3.4 Magnesium 1.5 L Vancomycin Trough 6.5 Nutrition: Eating well. Impression: 63 y/o female metastatic breast CA s/p cranial resection complicated by late flap infection and now craniectomy with MSSA identified on appropriate ABx and doing well. Plan: MSSA craniotomy flap infection - on appropriate ABx, could likely be narrowed now that bug is identified and PCR is MRSA negative. Will defer to ID. Doing well s/p craniectomy and ambulating well. 2nd of 2 drains remains anticipation of removal today and transfer to floor. Seizures - secondary to above. On keppra at low dose. No recurrence since presentation. Metastatic Breat CA - management per Oncology. Hypomagnesemia - repleted. Supportive care - eating well with adequate glycemic control. Ambulating and has SCDs while in bed. Ok for pharmacologic prophylaxis from my perspective if it was needed but ultimately up to NS. Plans D/W pt and family in detail at bedside. Likely to floor today on Oncology service per Dr. Zhou's note from 07/24 if cleared by NS.
--- NOTE | 2019-07-25 13:45 | PN ---
Progress Note - Progress Note Date of Service: 07/25/19 SOAP: Subjective: []Patient seen in ICU. No events ON. Tolerates PO well. Voids, Ambulates well. Objective: []]VSS, Afebrile. Wound s,c,d Drain output reported to be minimal. Subgaleal drain was removed. Catheter appeared to be intact. No complications. Patient tolerated procedure well AAOx3. HUI, CN II-XII grossly intact. Motor 5/5 all extremities. No pronator drift. Sensory grossly intact to light touch. Assessment: []63 yof POD#3 revision of Rt FTP craniotomy with I and D, craniectomy and excisional biopsy of Rt frontal lesion. Plan: [] Monitor VS, Neurochecks. Encourage ambulation. Fall precautions. SZ precautions. ETOH withdrawl protocol.. Follow cultures. So far MSSA. Abx per Dr Esquivel's recommendations. Follow pathology results. Maintain Na >135, Mg> 2 May need dental care due to poor dentition. Consider transfer to floor later today, DC in am. Ok to start sq heparin in am. Full instructions were given to the patient. No lifting, No bending, No driving. Fall precautions, SZ precautions. Avoid activity that may put patient at risk of injury in case of a SZ. Keep incisions dry. May shower. No baths, Pools, hot tubs etc. Avoid any pressure at craniectomy site at the right side of head. SZ prophylaxis per Neurology. Abx per ID recommendations. Appreciate Oncology, Neurology, ICU care. Annelise Cardenas MD
[2019-07-25] MEDS: HYDROcodone/ACETAMIN 5-325 MG* 1 TAB PO PRN (21:08)
[2019-07-26] MEDS: Acetaminophen TAB* 325 MG PO PRN ×3 (01:37→18:19)
[2019-07-26] MEDS: Vancomycin(*) 750 MG in NS 0.9% 250 ML* 250 ML IVPB SCH ×3 (03:52→19:41)
[2019-07-26] MEDS: cefTRIAXone(*) 2 GM in NS 0.9% 100 ML* 100 ML IVPB SCH ×2 (05:44→18:19)
[2019-07-26 06:23] LABS: Calcium 8.5 mg/dL (8.6-10.3); Magnesium 1.7 mg/dL (1.9-2.7); Potassium 3.5 mmol/L (3.5-5.0)
[2019-07-26 06:29] LABS: BUN/Creatinine Ratio 8.6 (8-20); EGFR African American 127.9 (>60); EGFR Non-African American 105.7 (>60); Phosphorus 4.4 mg/dL (2.5-5.0)
[2019-07-26] MEDS: Thiamine TAB* 100 MG TAB PO SCH (08:09)
[2019-07-26] MEDS: levETIRAcetam TAB* 500 MG PO SCH ×2 (08:09→19:42)
--- NOTE | 2019-07-26 09:29 | PN ---
Progress Note - Progress Note Date of Service: 07/26/19 SOAP: Subjective: [Feeling well this morning. No additional seizures. Drains out and transferred from ICU. HAs are well controlled with APAP only. She feels that she is tolerating the Keppra well. Objective: [ Vital Signs: Temp Pulse Resp BP Pulse Ox 98.2 F 75 18 117/64 98 07/26/19 08:00 07/26/19 08:00 07/26/19 08:17 07/26/19 08:00 07/26/19 08:00 Acetaminophen (Tylenol Tab*) 650 mg PO Q6H PRN PRN Reason: HEADACHE Last Admin: 07/26/19 01:37 Dose: 650 mg Hydrocodone Bitart/Acetaminophen (Driscoll 5-325 Tab*) 1 tab PO Q4H PRN PRN Reason: moderate pain Last Admin: 07/25/19 21:08 Dose: 1 tab Hydrocodone Bitart/Acetaminophen (Driscoll 5-325 Tab*) 2 tab PO Q4H PRN PRN Reason: PAIN - SEVERE Docusate Sodium (Colace Cap*) 100 mg PO BID PRN PRN Reason: CONSTIPATION Ceftriaxone Sodium 2 gm/ (Sodium Chloride) 100 mls @ 200 mls/hr IVPB Q12H [facility] Last Admin: 07/26/19 05:44 Dose: 200 mls/hr Vancomycin HCl 750 mg/ Sodium (Chloride) 250 mls @ 166.667 mls/hr IVPB Q8H [facility] Last Admin: 07/26/19 03:52 Dose: 166.667 mls/hr Levetiracetam (Keppra Tab*) 500 mg PO BID [facility] Last Admin: 07/26/19 08:09 Dose: 500 mg Miscellaneous (Ativan Pyxis Sutton) 1 ea N/A .ATIVAN IV SUTTON PRN PRN Reason: PYXIS SUTTON Morphine Sulfate (Morphine Inj (Syringe))*) 2 mg IV Q2H PRN PRN Reason: PAIN - SEVERE Ondansetron HCl (Zofran Inj*) 4 mg IV Q6H PRN PRN Reason: NAUSEA/VOMITING Pharmacy Consult (Vancomycin Per Pharmacy*) 1 note FOLLOW UP .VANC PER PHARMACY [facility]; Protocol Pharmacy Profile Note (Vancomycin Trough Check) 1 note FOLLOW UP ONCE ONE Stop: 07/26/19 11:31 Thiamine HCl (Vitamin B-1 Tab*) 100 mg PO DAILY [facility] Last Admin: 07/26/19 08:09 Dose: 100 mg Trazodone HCl (Desyrel Tab*) 50 mg PO BEDTIME PRN PRN Reason: SLEEP Laboratory Results - last 24 hr 07/25/19 07/26/19 11:36 05:39 Sodium 142 Potassium 3.5 Chloride 111 Carbon Dioxide 25 Anion Gap 6 BUN 5 L 5 L Creatinine 0.51 0.58 Est GFR ( Amer) 148.3 127.9 Est GFR (Non-Af Amer) 122.6 105.7 BUN/Creatinine Ratio 8.6 Glucose 94 Calcium 8.5 L Phosphorus 4.4 Magnesium 1.7 L Vancomycin Trough 6.5 Exam Gen: relatively well appearing 63 yo female in NAD, up reading in bed HEENT: R scalp dressing in place, clean, no drainage or surrounding erythema. 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 She returned to the hospital after sustaining a seizure at home. There was a fluid collection noted on MRI and she was taken back the OR for repeat craniotomy and washout. One culture is now growing MSSA and she has had no further seizures. ] Plan: [1. Craniotomy flap infection - abx per ID, plan for a couple of weeks of IV abx (likely vancomycin) - final recommendations pending - drains out, appears to be doing well postoperatively 2. Seizure - tolerating Keppra well, cont 500 mg bid - recommendations from neurology is to continue antiepileptic therapy indefinitely 3. Metastatic breast CA - s/p 3 cycles of doxil with good systemic control - hold further chemotherapy until completion of abx and flap is well healed Dispo: anticipate dc tomorrow with IV abx, CM involved in dc planning process]
[2019-07-26] MEDS ORDERED: Magnesium Sulfate 2 GM IV* 2 GM/50 ML BAG IVPB ONE (09:38)
[2019-07-26] MEDS ORDERED: Vancomycin Trough Check NOTE FOLLOW UP ONE (11:30)
--- NOTE | 2019-07-26 13:26 | PN ---
Progress Note - Progress Note Date of Service: 07/26/19 SOAP: Subjective: CC: Infected craniotomy site HPI: Ms. Erazo is a 63 yo female with PMH significant for left breast cancer s/p lumpectomy, chemo, and radiation; brain metastasis; headaches; arthritis; and peripheral neuropathy. Presented to the hospital after seizures at home, was taken to the OR for evacuation of subgaleal empyema, epidural empyema, and subdural empyema last week. Denies fever, chills, nausea, vomiting, or diarrhea. Reports continued headaches, but tolerable. Drains were removed yesterday. Objective: Vital Signs - 8 hr 07/26/19 07/26/19 07/26/19 08:00 08:17 11:46 Temperature 98.2 F 97.5 F Pulse Rate 75 80 Respiratory 16 18 16 Rate Blood Pressure 117/64 115/64 (mmHg) O2 Sat by Pulse 98 95 Oximetry Physical Exam: General: NAD, sitting up on the side of the bed Neurological: Alert and Oriented x4 HEENT: Moist MM, no thrush Cardiovascular: Heart rate regular, no murmur Respiratory: Lung sounds clear Abdominal: Bowel sounds present; ABD soft, non tender and non distended Skin: No rash. DSG to right side of scalp clean, dry and intact; no surrounding erythema Laboratory Results - last 24 hr 07/26/19 07/26/19 05:39 11:27 Sodium 142 Potassium 3.5 Chloride 111 Carbon Dioxide 25 Anion Gap 6 BUN 5 L Creatinine 0.58 Est GFR ( Amer) 127.9 Est GFR (Non-Af Amer) 105.7 BUN/Creatinine Ratio 8.6 Glucose 94 Calcium 8.5 L Phosphorus 4.4 Magnesium 1.7 L Vancomycin Trough 15.3 Microbiology 07/22/19 22:40 Gram Stain - Final Misc Source (See Comment) - Other Wound Culture - Preliminary No Growth Day 3 07/22/19 22:40 Gram Stain - Final Misc Source (See Comment) - Other Wound Culture - Preliminary No Growth Day 3 07/22/19 22:40 Gram Stain - Final Misc Source (See Comment) - Other Wound Culture - Preliminary No Growth Day 3 07/22/19 22:40 Gram Stain - Final Misc Source (See Comment) - Other Wound Culture - Preliminary No Growth Day 3 07/22/19 22:40 Anaerobic Culture - Preliminary Misc Source (See Comment) - Other No Growth Day 3 07/22/19 22:40 Anaerobic Culture - Preliminary Misc Source (See Comment) - Other No Growth Day 3 07/22/19 22:40 Anaerobic Culture - Preliminary Misc Source (See Comment) - Other No Growth Day 3 07/22/19 22:40 Anaerobic Culture - Preliminary Misc Source (See Comment) - Other No Growth Day 3 07/22/19 23:55 Wound Gram Stain - Final Tissue - Other Tissue Culture - Preliminary Staphylococcus Auricularis 07/22/19 22:40 Wound Gram Stain - Final Tissue - Other Tissue Culture - Preliminary Staphylococcus Aureus Skin and Soft Tissue MRSA/MSSA (PCR - Final Mrsa Negative S.aureus Positive 07/22/19 23:30 Wound Gram Stain - Final Tissue - Other Tissue Culture - Preliminary No Growth Day 3 07/22/19 13:50 CSF Gram Stain (Tube 3) - Final Cerebral Spinal Fluid CSF Culture - Final No Growth Day 4 07/21/19 22:55 Urine Culture - Final Urine No Growth (<1,000 CFU/mL) Assessment: 1. Infected right frontotemporoparietal craniotomy. S/P excision of nonhealing wound, right frontal scalp and reconstruction with bilateral rotation advancement skin flaps with Dr. Valenzuela and Dr. Cardenas on 07/16/19. Previous cultures with staph aureus, staph lugdenensis, and Parvimonas micra.S/ P evacuation subgaleal empyema, epidural empyema, subdural empyema with excision bx of right frontal lesion, POD #4. ESR and CRP elevated on admission. Cultures with staph aureus and staphylococcis auricularis. Afebrile and leukocytosis has resolved. 2. PCN allergy, caused facial swelling in the past. 3. Breast cancer with metastasis. Plan: Continue vancomycin and ceftriaxone for now. Will ask Dr. Dewayne Carvajal if he can do PCN skin testing while the patient is in the hospital (would like to place her on Oxicillin if she is no longer PCN allergic). Will need an extended course of IV ABX (likely 6 weeks), she already has a power port.
--- NOTE | 2019-07-26 14:28 | PN ---
Subjective Date of Service: 07/26/19 Length of Stay: 5 Days Neurology is following for seizures. I was contacted by Ramon Landaverde to make further recommendations regarding the anti-seizure medications. Interval History: She is sitting comfortably and is feeding herself. She is in no distress. She denied any headaches. She has not had any seizures since the initial clusters the day of her hospitalization. Review of Systems: Denied CP, SOB, or palpitations. Objective Active Medications: Acetaminophen (Tylenol Tab*) 650 mg PO Q6H PRN PRN Reason: HEADACHE Last Admin: 07/26/19 09:54 Dose: 650 mg Hydrocodone Bitart/Acetaminophen (Marion 5-325 Tab*) 1 tab PO Q4H PRN PRN Reason: moderate pain Last Admin: 07/25/19 21:08 Dose: 1 tab Hydrocodone Bitart/Acetaminophen (Marion 5-325 Tab*) 2 tab PO Q4H PRN PRN Reason: PAIN - SEVERE Docusate Sodium (Colace Cap*) 100 mg PO BID PRN PRN Reason: CONSTIPATION Ceftriaxone Sodium 2 gm/ (Sodium Chloride) 100 mls @ 200 mls/hr IVPB Q12H [facility] Last Admin: 07/26/19 05:44 Dose: 200 mls/hr Vancomycin HCl 750 mg/ Sodium (Chloride) 250 mls @ 166.667 mls/hr IVPB Q8H [facility] Last Admin: 07/26/19 13:01 Dose: 166.667 mls/hr Levetiracetam (Keppra Tab*) 500 mg PO BID [facility] Last Admin: 07/26/19 08:09 Dose: 500 mg Miscellaneous (Ativan Pyxis Muir) 1 ea N/A .ATIVAN IV MUIR PRN PRN Reason: PYXIS MUIR Morphine Sulfate (Morphine Inj (Syringe))*) 2 mg IV Q2H PRN PRN Reason: PAIN - SEVERE Ondansetron HCl (Zofran Inj*) 4 mg IV Q6H PRN PRN Reason: NAUSEA/VOMITING Pharmacy Consult (Vancomycin Per Pharmacy*) 1 note FOLLOW UP .VANC PER PHARMACY [facility]; Protocol Thiamine HCl (Vitamin B-1 Tab*) 100 mg PO DAILY [facility] Last Admin: 07/26/19 08:09 Dose: 100 mg Trazodone HCl (Desyrel Tab*) 50 mg PO BEDTIME PRN PRN Reason: SLEEP Vital Signs 07/25/19 07/25/19 07/25/19 15:00 15:34 17:20 Temperature 99.0 F 98.4 F Pulse Rate 80 84 Respiratory 22 16 Rate Blood Pressure 107/64 124/58 (mmHg) O2 Sat by Pulse 94 96 Oximetry 07/25/19 07/25/19 07/25/19 17:35 19:30 19:36 Temperature 97.4 F Pulse Rate 81 Respiratory 18 18 17 Rate Blood Pressure 122/63 (mmHg) O2 Sat by Pulse 99 Oximetry 07/25/19 07/25/19 07/25/19 21:08 23:10 23:57 Temperature 98.1 F Pulse Rate 82 Respiratory 17 16 16 Rate Blood Pressure 117/52 (mmHg) O2 Sat by Pulse 95 Oximetry 07/26/19 07/26/19 07/26/19 00:00 04:00 08:00 Temperature 98.7 F 98 F 98.2 F Pulse Rate 74 81 75 Respiratory 16 16 16 Rate Blood Pressure 112/55 123/63 117/64 (mmHg) O2 Sat by Pulse 95 99 98 Oximetry 07/26/19 07/26/19 08:17 11:46 Temperature 97.5 F Pulse Rate 80 Respiratory 18 16 Rate Blood Pressure 115/64 (mmHg) O2 Sat by Pulse 95 Oximetry Intake and Output Last 24 Hours 07/24/19 07/25/19 07/26/19 07/27/19 06:59 06:59 06:59 06:59 Intake Total 2371 2188 2273 320 Output Total 2136 3625 2700 1100 Balance 873 -2765 -362 -780 Weight 162 lb 4.163 oz 155 lb 10.342 oz Intake: IV Fluids 900 938 130 15 ABX - VANCOMYCIN 300 274 LR 500 369 130 Magnesium 100 NS (0.9%) 295 15 IVPB 511 603 65 ABX - CEFTRIAXONE 100 ABX - VANCOMYCIN 285 442 Keppra 112 Magnesium 114 61 65 Oral 960 1250 1540 240 Output: ROBERT #1 9 ROBERT #2 10 ROBERT #3 17 Urine 1200 3625 2700 1100 Patel 900 Other: Estimated Void Small Medium Date of Last Bowel 07/25/19 Movement # Bowel Movements 1 Estimated Stool Amount Medium Small # Voids 2 Oxygen Devices in Use Now: None Neurology Exam: General: Well nourished, well developed, and in no acute distress HEENT: s/p craniectomy of right frontal lesion Neck: Supple Extremities: No clubbing, cyanosis, or edema Neurological Findings: Awake, alert, and oriented to person, place, and time. Speech: fluent without dysarthria, repetition intact Cranial Nerve: PERRL, EOM intact, VFF, no nystagmus, face symmetric bilaterally , facial sensation intact, hearing intact to finger rub bilaterally, palate elevates symmetrically, tongue midline, SCM and Trapezius s/s. Motor: s/s throughout, proximal and distal extremities x4 tone/bulk normal Sensation: intact to LT/PP bilaterally upper and lower extremities Deep Tendon Reflex: 2+ symmetric in the upper/lower extremities, Babinski - down going Finger to nose, rapid alternating movements intact without tremor, no dysdiadochokinesia Gait: intact with good arm swing and stride Result Diagrams: 07/25/19 05:46 07/26/19 05:39 Microbiology and Other Data: Microbiology 07/22/19 22:40 Gram Stain - Final Misc Source (See Comment) - Other Wound Culture - Preliminary No Growth Day 3 07/22/19 22:40 Gram Stain - Final Misc Source (See Comment) - Other Wound Culture - Preliminary No Growth Day 3 07/22/19 22:40 Gram Stain - Final Misc Source (See Comment) - Other Wound Culture - Preliminary No Growth Day 3 07/22/19 22:40 Gram Stain - Final Misc Source (See Comment) - Other Wound Culture - Preliminary No Growth Day 3 07/22/19 22:40 Anaerobic Culture - Preliminary Misc Source (See Comment) - Other No Growth Day 3 07/22/19 22:40 Anaerobic Culture - Preliminary Misc Source (See Comment) - Other No Growth Day 3 07/22/19 22:40 Anaerobic Culture - Preliminary Misc Source (See Comment) - Other No Growth Day 3 07/22/19 22:40 Anaerobic Culture - Preliminary Misc Source (See Comment) - Other No Growth Day 3 07/22/19 23:55 Wound Gram Stain - Final Tissue - Other Tissue Culture - Preliminary Staphylococcus Auricularis 07/22/19 22:40 Wound Gram Stain - Final Tissue - Other Tissue Culture - Preliminary Staphylococcus Aureus Skin and Soft Tissue MRSA/MSSA (PCR - Final Mrsa Negative S.aureus Positive 07/22/19 23:30 Wound Gram Stain - Final Tissue - Other Tissue Culture - Preliminary No Growth Day 3 07/22/19 13:50 CSF Gram Stain (Tube 3) - Final Cerebral Spinal Fluid CSF Culture - Final No Growth Day 4 07/21/19 22:55 Urine Culture - Final Urine No Growth (<1,000 CFU/mL) Assessment/Plan Ms. Erazo is a 63-year-old female who is status post revision of right frontal temporal craniotomy with I and D, craneictomy and excisional biopsy of right frontal lesion who had developed recurrent seizures on 07/21/2019. The seizures were prior to the revision surgery. She has not had any seizures. 1. 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 Evans's consultation and recommendations from 07/22/2019. - Continue levetiracetam, for which she is tolerating very well, 500 mg by mouth twice daily. Re-evaluate the need for levetiracetam as an outpatient. Since she now has had multiple seizures and has a focus in the brain that can be triggering them, she may require long-term anti seizure medication. - Discussed seizure precautions. Follow-up with Dr. Evans in 3-4 weeks. We will arrange a follow-up appointment.
--- NOTE | 2019-07-26 20:50 | PN ---
Progress Note - Progress Note Date of Service: 07/26/19 SOAP: Subjective: []On regular Floor. No events ON. Tolerates PO well. Voids, Ambulates well. Objective: [] VSS, Afebrile. Wound s,c,d AAOx3. HUI, CN II-XII grossly intact. Motor 5/5 all extremities. No pronator drift. Sensory grossly intact to light touch. Assessment: []63 yof POD#4 revision of Rt FTP craniotomy with I and D, craniectomy and excisional biopsy of Rt frontal lesion. Plan: [] Monitor VS, Neurochecks. Encourage ambulation. Fall precautions. SZ precautions. ETOH withdrawl protocol. Follow cultures. MSSA. Abx per Dr Esquivel's recommendations. PCN allergy test pending for final choice of ABX Follow pathology results. Maintain Na >135, Mg> 2 May need dental care due to poor dentition. Full instructions were given again to the patient. No lifting, No bending, No driving. Fall precautions, SZ precautions. Avoid activity that may put patient at risk of injury in case of a SZ. Keep incisions dry. May shower. No baths, Pools, hot tubs etc. Avoid any pressure at craniectomy site at the right side of head. SZ prophylaxis per Neurology, Appreciate Dr Ott's recommendations. Abx per ID recommendations. Appreciate Oncology, Neurology, ICU care. Annelise Cardenas MD
[2019-07-26 22:52] LABS: C Reactive Protein 13.61 mg/L (<8.01)
[2019-07-27] MEDS: Vancomycin(*) 750 MG in NS 0.9% 250 ML* 250 ML IVPB SCH ×3 (03:57→19:47)
[2019-07-27] MEDS: Acetaminophen TAB* 325 MG PO PRN ×2 (04:43→15:13)
[2019-07-27] MEDS: cefTRIAXone(*) 2 GM in NS 0.9% 100 ML* 100 ML IVPB SCH (05:42)
[2019-07-27] MEDS: levETIRAcetam TAB* 500 MG PO SCH ×2 (08:05→19:55)
[2019-07-27] MEDS: Thiamine TAB* 100 MG TAB PO SCH (08:05)
--- NOTE | 2019-07-27 09:47 | PN ---
Progress Note - Progress Note Date of Service: 07/27/19 SOAP: Subjective: CC: Infected craniotomy site HPI: Ms. Erazo is a 63 yo female with PMH significant for left breast cancer s/p lumpectomy, chemo, and radiation; brain metastasis; headaches; arthritis; and peripheral neuropathy. Presented to the hospital after seizures at home, was taken to the OR for evacuation of subgaleal empyema, epidural empyema, and subdural empyema last week. Denies fever, chills, nausea, vomiting, or diarrhea. Reports continued headaches, but tolerable. Objective: Vital Signs - 8 hr 07/27/19 07/27/19 07/27/19 03:45 07:34 08:08 Temperature 98.9 F 98.6 F Pulse Rate 81 78 Respiratory 16 16 16 Rate Blood Pressure 114/61 119/57 (mmHg) O2 Sat by Pulse 94 97 Oximetry Physical Exam: General: NAD, sitting up on the side of the bed Neurological: Alert and Oriented x4 HEENT: Moist MM, no thrush Cardiovascular: Heart rate regular Respiratory: Lung sounds clear Abdominal: Bowel sounds present; ABD soft, non tender and non distended Skin: No rash. DSG to right frontal and parietal scalp clean, dry and intact Laboratory Results - last 24 hr 07/26/19 07/26/19 05:39 11:27 Sodium 142 Potassium 3.5 Chloride 111 Carbon Dioxide 25 Anion Gap 6 BUN 5 L Creatinine 0.58 Est GFR ( Amer) 127.9 Est GFR (Non-Af Amer) 105.7 BUN/Creatinine Ratio 8.6 Glucose 94 Calcium 8.5 L Phosphorus 4.4 Magnesium 1.7 L C-Reactive Protein 13.61 H Vancomycin Trough 15.3 Microbiology 07/22/19 22:40 Gram Stain - Final Misc Source (See Comment) - Other Wound Culture - Final No Growth Day 4 07/22/19 22:40 Gram Stain - Final Misc Source (See Comment) - Other Wound Culture - Final No Growth Day 4 07/22/19 22:40 Gram Stain - Final Misc Source (See Comment) - Other Wound Culture - Final No Growth Day 4 07/22/19 22:40 Gram Stain - Final Misc Source (See Comment) - Other Wound Culture - Final No Growth Day 4 07/22/19 22:40 Anaerobic Culture - Final Misc Source (See Comment) - Other No Growth Day 4 07/22/19 22:40 Anaerobic Culture - Final Misc Source (See Comment) - Other No Growth Day 4 07/22/19 22:40 Anaerobic Culture - Final Misc Source (See Comment) - Other No Growth Day 4 07/22/19 22:40 Anaerobic Culture - Final Misc Source (See Comment) - Other No Growth Day 4 07/22/19 23:55 Wound Gram Stain - Final Tissue - Other Tissue Culture - Final Staphylococcus Auricularis 07/22/19 22:40 Wound Gram Stain - Final Tissue - Other Tissue Culture - Final Staphylococcus Aureus Skin and Soft Tissue MRSA/MSSA (PCR - Final Mrsa Negative S.aureus Positive 07/22/19 23:30 Wound Gram Stain - Final Tissue - Other Tissue Culture - Final No Growth Day 4 07/22/19 13:50 CSF Gram Stain (Tube 3) - Final Cerebral Spinal Fluid CSF Culture - Final No Growth Day 4 07/21/19 22:55 Urine Culture - Final Urine No Growth (<1,000 CFU/mL) Assessment: 1. Infected right frontotemporoparietal craniotomy. S/P excision of nonhealing wound, right frontal scalp and reconstruction with bilateral rotation advancement skin flaps with Dr. Valenzuela and Dr. Cardenas on 07/16/19. Previous cultures with staph aureus, staph lugdenensis, and Parvimonas micra.S/ P evacuation subgaleal empyema, epidural empyema, subdural empyema with excision bx of right frontal lesion, POD #5. ESR and CRP elevated on admission, CRP remains slightly elevated but trending down. Cultures with staph aureus ( flap) and staphylococcis auricularis (second tumor cavity). Afebrile and leukocytosis has resolved. Due to staph aureus and CoNS will opt for Vancomycin for ABX choice. 2. PCN allergy, caused facial swelling in the past. Can consider outpatient PCN testing in the future. 3. Breast cancer with brain metastasis. Plan: Discontinue ceftriaxone. Continue vancomycin, trough goal 15-20. Will need an extended course of IV ABX, day . She already has a power port. Will need to have a vanco trough on Friday AM prior to dose of ABX. Followup in the ID office in 1-2 weeks. Weekly labs while on IV ABX: CBC, CMP. CRP and vanco trough. Floor time: Total time spent 35 minutes > 50% with patient, brother, and ; discussing extended course of IV ABX, need for close follow up, possible PCN skin testing in the future, when to call the office. She will call the office for fever, diarrhea, or rash.
--- NOTE | 2019-07-27 14:53 | PN ---
Progress Note - Progress Note Date of Service: 07/27/19 SOAP: Subjective: []No events ON. Tolerates PO well. Voids, Ambulates well. Walked around the hospital today. Wants to go home. Objective: []VSS, Afebrile. Wound s,c,d AAOx3. Face symmetric.EOM WNLs Motor 5/5 all extremities. Assessment: []63 yof POD#4 revision of Rt FTP craniotomy with I and D, craniectomy and excisional biopsy of Rt frontal lesion. Plan: []Monitor VS, Neurochecks. Encourage ambulation. Fall precautions. SZ precautions. ETOH withdrawl protocol. Follow cultures. MSSA. Abx per Dr Esquivel's recommendations. Follow pathology results. Maintain Na >135, Mg> 2 May need dental care due to poor dentition. SZ prophylaxis per Neurology, Appreciate Dr Ott's recommendations. Abx per ID recommendations. DC today. Patient will call our office for follow up appointment for wound check. Appreciate Oncology, Neurology, ICU care. Annelise Cardenas MD
[2019-07-27] MEDS ORDERED: Vancomycin(*) 1,500 MG in NS 0.9% 250 ML* 250 ML IVPB SCH (20:00)
[2019-07-27 23:38] VITALS: BP 109/55
== END 2019-07-27 22:00 | disposition home or self-care (01) | DRG 950 ==
LOC: ED 21:06 → MEDTELE 23:08 → ICU 07-23 03:18 → SSU 07-25 17:47
PROVIDERS: ADMIT Student in an Organized Health Care Education/Training Program; ATTEND Internal Medicine Hematology & Oncology
PROC: 00B70ZX Excision of Cerebral Hemisphere, Open Approach, Diagnostic (ICD-10-PCS; 2019-07-22)
PROC: 0NB10ZZ Excision of Frontal Bone, Open Approach (ICD-10-PCS; 2019-07-22)
PROC: 0NB50ZZ Excision of Right Temporal Bone, Open Approach (ICD-10-PCS; 2019-07-22)
PROC: 0NB Head and Facial Bones, Excision (ICD-10-PCS; 2019-07-22)
PROC: 009U3ZX Drainage of Spinal Canal, Percutaneous Approach, Diagnostic (ICD-10-PCS; 2019-07-22)
PROC: 00900ZZ Drainage of Brain, Open Approach (ICD-10-PCS; principal; 2019-07-22 15:00)
DX: T84.69XA Infection and inflammatory reaction due to internal fixation device of other site, initial encounter (principal); G06.0 Intracranial abscess and granuloma; C79.31 Secondary malignant neoplasm of brain; K21.9 Gastro-esophageal reflux disease without esophagitis; M19.042 Primary osteoarthritis, left hand; M19.041 Primary osteoarthritis, right hand; G62.0 Drug-induced polyneuropathy; T45.1X5A Adverse effect of antineoplastic and immunosuppressive drugs, initial encounter; F17.210 Nicotine dependence, cigarettes, uncomplicated; C50.912 Malignant neoplasm of unspecified site of left female breast; B95.61 Methicillin susceptible Staphylococcus aureus infection as the cause of diseases classified elsewhere; Z85.3 Personal history of malignant neoplasm of breast; Z85.841 Personal history of malignant neoplasm of brain; Z88.0 Allergy status to penicillin; Y92.9 Unspecified place or not applicable; Z92.21 Personal history of antineoplastic chemotherapy; Z92.3 Personal history of irradiation
CPT/HCPCS: 36415; 70450; 70553; 80048; 80053; 80202; 80320; 81003; 81015; 82565; 82945; 83735; 84100; 84157; 84520; 85025; 85027; 85610; 85652; 85730; 86140; 86850; 86900; 86901; 87070; 87073; 87077; 87086; 87186; 87205; 87640; 87641; 89051; 93005; 96365; 96375; 99232; 99233; 99282; A9270-GY; A9579; G0480; J0696; J1642; J1644; J1953; J2060; J3010; J3370; J3475

== ENCOUNTER 2019-10-31 21:48 | Emergency (ER) | payer BC, MEDICAID ==
--- OUTSIDE RECORDS SUMMARY | 2019-10-31 22:02 | XMS REPORT | Continuity of Care Document ---
:1955 External Reference #:[id number] Author Name Davi Evans MD (transmitted by agent of provider Shena Bowden) Address [address] [facility], [address] [place] [address] Problems Description No Information Available Social History Type Date Description Comments Sex Unknown ETOH Use Drinks 6 Alcoholic to 20 Beverages Per Day Recreational Drug Use Never Used Drugs Tobacco Use Start: Unknown End: Patient is a former quit 07/2019 Unknown smoker Smoking Status Reviewed: 09/17/19 Patient is a former quit 07/2019 smoker Exercise Type/Frequency Does not exercise Allergies, Adverse Reactions, Alerts Active Allergies Reaction Severity Comments Date Penicillin swelling 11/05/2016 Medications Active Medications SIG Qnty Indications Ordering Provider Date Keppra 1 by mouth twice 180tabs Vassilios 08/04/2019 500mg Tablets a day MD Ronald Trazodone HCL 2 tabs by mouth Unknown 05/02/2019 50mg At hs For Sleep Tablets Tylenol 2 tablets every Unknown 325mg Capsules 4 hours as needed for pain Thiamine HCL 1 by mouth every Unknown 100mg day Tablets Multivitamin Adult 1 by mouth every Unknown day Tablets Acidophilus 1 by mouth twice Unknown Capsules daily Tylenol Extra 1-2 tabs by Unknown Strength mouth every 6 500mg Tablets hours as needed Tramadol HCL Take One Tablet Unknown 50mg By Mouth Every 6 Tablets Hours as Needed Maximum Daily Dose 4 History Medications Doxycycline Hyclate 1 capsule by 28caps G06.0 Yolanda Rodriguez 09/02/2019 - mouth twice a BRADLY Canales 09/16/2019 100mg Capsules day Fluconazole Take one by 2tabs Yolanda Rodriguez 08/05/2019 - 150mg mouth once, december BRADLY Canales 09/16/2019 Tablets repeat in 3 days if needed Tylenol 8 Hour 1 by mouth 180tabs Vassilios 08/04/2019 - Arthritis Pain twice a day MD Ronald 08/24/2019 650mg Tablets ER Vancomycin HCL 750 mg iv every Unknown 07/22/2019 - 1gm 12 hrs x 6 wks 09/03/2019 Solution Rec at [facility] Aleve 1 tab twice a Vassilios 06/29/2019 - 220mg Tablets day as needed MD Ronald 08/18/2019 Immunizations Description No Information Available Vital Signs Date Vital Result Comment 09/17/2019 9:42am Height 62 inches 5'2" Weight 142.50 lb Heart Rate 80 /min BP Systolic Sitting 122 mmHg BP Diastolic Sitting 80 mmHg Respiratory Rate 16 /min BMI (Body Mass Index) 26.1 kg/m2 09/16/2019 9:04am Height 62 inches 5'2" Weight 140.00 lb Heart Rate 98 /min BP Systolic Sitting 130 mmHg BP Diastolic Sitting 64 mmHg Respiratory Rate 14 /min Body Temperature 97.7 F BMI (Body Mass Index) 25.6 kg/m2 Results Test Acquired Date Facility Test Result H/L Range Note CBC Auto 09/09/2019 [facility] White Blood 5.4 10^3/uL Normal 3.5-10.[address] [place] [address] [phone] Red Blood Count 3.90 10^6/uL Normal 3.70-4.87 Hemoglobin 11.8 g/dL Low 12.0-16.0 Hematocrit 35 % Normal 35-47 Mean Corpuscular Volume 90 fL Normal 80-97 Mean Corpuscular Hemoglobin 30 pg Normal 27-31 Mean Corpuscular HGB Conc 34 g/dL Normal 31-36 Red Cell Distribution Width 13 % Normal 10-15 Platelet Count 342 10^3/uL Normal 150-450 Mean Platelet Volume 7.5 fL Normal 7.4-10.4 Abs Neutrophils 3.3 10^3/uL Normal 1.5-7.7 Abs Lymphocytes 1.4 10^3/uL Normal 1.0-4.8 Abs Monocytes 0.5 10^3/uL Normal 0-0.8 Abs Eosinophils 0.2 10^3/uL Normal 0-0.6 Abs Basophils 0.1 10^3/uL Normal 0-0.2 Abs Nucleated RBC 0.0 10^3/uL Granulocyte % 60.9 % Lymphocyte % 25.6 % Monocyte % 8.4 % Eosinophil % 3.3 % Basophil % 1.8 % Nucleated Red Blood Cells % 0.1 Laboratory test 09/09/2019 [facility] C Reactive 2.39 mg/L Normal <8.[address] [place] [address] [phone] CBC Auto Diff 08/30/2019 [facility] White Blood 7.1 Normal 3.5 -10.[address] Count 10^3/[place] [address] [phone] Red Blood Count 3.56 10^6/uL Low 3.70-4.87 Hemoglobin 10.9 g/dL Low 12.0-16.0 Hematocrit 32 % Low 35-47 Mean Corpuscular Volume 90 fL Normal 80-97 Mean Corpuscular Hemoglobin 31 pg Normal 27-31 Mean Corpuscular HGB Conc 34 g/dL Normal 31-36 Red Cell Distribution Width 14 % Normal 10-15 Platelet Count 318 10^3/uL Normal 150-450 Mean Platelet Volume 7.2 fL Low 7.4-10.4 Abs Neutrophils 4.2 10^3/uL Normal 1.5-7.7 Abs Lymphocytes 1.8 10^3/uL Normal 1.0-4.8 Abs Monocytes 0.7 10^3/uL Normal 0-0.8 Abs Eosinophils 0.3 10^3/uL Normal 0-0.6 Abs Basophils 0.1 10^3/uL Normal 0-0.2 Abs Nucleated RBC 0.0 10^3/uL Granulocyte % 59.2 % Lymphocyte % 25.4 % Monocyte % 9.2 % Eosinophil % 4.4 % Basophil % 1.8 % Nucleated Red Blood Cells % 0.0 Comp Metabolic 08/30/2019 [facility] Sodium 139 mmol/L Normal 135-[address] [place] [address] [phone] Potassium 3.9 mmol/L Normal 3.5-5.0 Chloride 106 mmol/L Normal 101-111 Co2 Carbon Dioxide 26 mmol/L Normal 22-32 Anion Gap 7 mmol/L Normal 2-11 Glucose 95 mg/dL Normal 70-100 Blood Urea Nitrogen 11 mg/dL Normal 6-24 Creatinine 0.85 mg/dL Normal 0.51-0.95 BUN/Creatinine Ratio 12.9 Normal 8-20 Calcium 9.5 mg/dL Normal 8.6-10.3 Total Protein 6.8 g/dL Normal 6.4-8.9 Albumin 4.1 g/dL Normal 3.2-5.2 Globulin 2.7 g/dL Normal 2-4 Albumin/Globulin Ratio 1.5 Normal 1-3 Total Bilirubin 0.40 mg/dL Normal 0.2-1.0 Alkaline Phosphatase 97 U/L Normal 34-104 Alt 31 U/L Normal 7-52 Ast 27 U/L Normal 13-39 Egfr Non- 68.0 >60 Egfr 82.3 >60 1 Laboratory test 08/30/2019 [facility] C Reactive 8.71 mg/L High <8.[address] [place] [address] [phone] Vancomycin Trough 20.7 g/mL 2 CBC Auto 08/23/2019 [facility] White Blood 6.6 10^3/uL Normal 3.5-10.[address] [place] [address] [phone] Red Blood Count 3.69 10^6/uL Low 3.70-4.87 Hemoglobin 11.2 g/dL Low 12.0-16.0 Hematocrit 33 % Low 35-47 Mean Corpuscular Volume 90 fL Normal 80-97 Mean Corpuscular Hemoglobin 30 pg Normal 27-31 Mean Corpuscular HGB Conc 34 g/dL Normal 31-36 Red Cell Distribution Width 14 % Normal 10-15 Platelet Count 302 10^3/uL Normal 150-450 Mean Platelet Volume 7.2 fL Low 7.4-10.4 Abs Neutrophils 4.2 10^3/uL Normal 1.5-7.7 Abs Lymphocytes 1.4 10^3/uL Normal 1.0-4.8 Abs Monocytes 0.5 10^3/uL Normal 0-0.8 Abs Eosinophils 0.3 10^3/uL Normal 0-0.6 Abs Basophils 0.1 10^3/uL Normal 0-0.2 Abs Nucleated RBC 0.0 10^3/uL Granulocyte % 64.1 % Lymphocyte % 21.7 % Monocyte % 8.0 % Eosinophil % 4.8 % Basophil % 1.4 % Nucleated Red Blood Cells % 0.0 Comp Metabolic 08/23/2019 [facility] Sodium 139 mmol/L Normal 135-[address] [place] [address] [phone] Potassium 4.2 mmol/L Normal 3.5-5.0 Chloride 106 mmol/L Normal 101-111 Co2 Carbon Dioxide 26 mmol/L Normal 22-32 Anion Gap 7 mmol/L Normal 2-11 Glucose 89 mg/dL Normal 70-100 Blood Urea Nitrogen 11 mg/dL Normal 6-24 Creatinine 0.84 mg/dL Normal 0.51-0.95 BUN/Creatinine Ratio 13.1 Normal 8-20 Calcium 9.6 mg/dL Normal 8.6-10.3 Total Protein 6.9 g/dL Normal 6.4-8.9 Albumin 4.2 g/dL Normal 3.2-5.2 Globulin 2.7 g/dL Normal 2-4 Albumin/Globulin Ratio 1.6 Normal 1-3 Total Bilirubin 0.40 mg/dL Normal 0.2-1.0 Alkaline Phosphatase 83 U/L Normal 34-104 Alt 30 U/L Normal 7-52 Ast 29 U/L Normal 13-39 Egfr Non- 68.9 >60 Egfr 83.4 >60 3 Laboratory test 08/23/2019 [facility] C Reactive 1.24 mg/L Normal <8.[address] [place] [address] [phone] Vancomycin Trough 19.5 g/mL 4 Laboratory test 08/16/2019 [facility] Potassium 4.0 mmol/L Normal 3.5-5.[address] [place] [address] [phone] Ast Redraw 28 U/L Normal 13-39 CBC Auto 08/16/2019 [facility] White Blood 5.6 10^3/uL Normal 3.5-10.[address] [place] [address] [phone] Red Blood Count 3.60 10^6/uL Low 3.70-4.87 Hemoglobin 11.0 g/dL Low 12.0-16.0 Hematocrit 33 % Low 35-47 Mean Corpuscular Volume 91 fL Normal 80-97 Mean Corpuscular Hemoglobin 30 pg Normal 27-31 Mean Corpuscular HGB Conc 34 g/dL Normal 31-36 Red Cell Distribution Width 14 % Normal 10-15 Platelet Count 252 10^3/uL Normal 150-450 Mean Platelet Volume 7.8 fL Normal 7.4-10.4 Abs Neutrophils 2.7 10^3/uL Normal 1.5-7.7 Abs Lymphocytes 1.6 10^3/uL Normal 1.0-4.8 Abs Monocytes 0.6 10^3/uL Normal 0-0.8 Abs Eosinophils 0.5 10^3/uL Normal 0-0.6 Abs Basophils 0.2 10^3/uL Normal 0-0.2 Abs Nucleated RBC 0.0 10^3/uL Granulocyte % 48.2 % Lymphocyte % 29.2 % Monocyte % 10.5 % Eosinophil % 9.0 % Basophil % 3.1 % Nucleated Red Blood Cells % 0.1 Comp Metabolic 08/16/2019 [facility] Sodium 140 mmol/L Normal 135-[address] [place] [address] [phone] Chloride 107 mmol/L Normal 101-111 Co2 Carbon Dioxide 24 mmol/L Normal 22-32 Glucose 92 mg/dL Normal 70-100 Blood Urea Nitrogen 11 mg/dL Normal 6-24 Creatinine 0.71 mg/dL Normal 0.51-0.95 BUN/Creatinine Ratio 15.5 Normal 8-20 Calcium 9.2 mg/dL Normal 8.6-10.3 Total Protein 6.5 g/dL Normal 6.4-8.9 Albumin 3.9 g/dL Normal 3.2-5.2 Globulin 2.6 g/dL Normal 2-4 Albumin/Globulin Ratio 1.5 Normal 1-3 Total Bilirubin 0.30 mg/dL Normal 0.2-1.0 Alkaline Phosphatase 78 U/L Normal 34-104 Alt 26 U/L Normal 7-52 Egfr Non- 83.7 >60 Egfr 101.3 >60 5 Potassium TNP mmol/L 3.5-5.0 6 Anion Gap 9 mmol/L Normal 2-11 Ast TNP U/L 13-39 7 Laboratory test 08/16/2019 [facility] C Reactive 1.37 mg/L Normal <8.01 [address] [place] [address] [phone] Vancomycin Trough 13.9 g/mL 9 Laboratory test 08/09/2019 [facility] C Reactive 2.45 mg/L Normal <8.[address] [place] [address] [phone] Vancomycin Trough 19.6 g/mL 10 Comp Metabolic 08/09/2019 [facility] Sodium 140 mmol/L Normal 135-[address] [place] [address] [phone] Potassium 3.5 mmol/L Normal 3.5-5.0 Chloride 107 mmol/L Normal 101-111 Co2 Carbon Dioxide 24 mmol/L Normal 22-32 Anion Gap 9 mmol/L Normal 2-11 Glucose 105 mg/dL High 70-100 Blood Urea Nitrogen 10 mg/dL Normal 6-24 Creatinine 0.66 mg/dL Normal 0.51-0.95 BUN/Creatinine Ratio 15.2 Normal 8-20 Calcium 9.5 mg/dL Normal 8.6-10.3 Total Protein 6.3 g/dL Low 6.4-8.9 Albumin 3.8 g/dL Normal 3.2-5.2 Globulin 2.5 g/dL Normal 2-4 Albumin/Globulin Ratio 1.5 Normal 1-3 Total Bilirubin 0.40 mg/dL Normal 0.2-1.0 Alkaline Phosphatase 68 U/L Normal 34-104 Alt 16 U/L Normal 7-52 Ast 20 U/L Normal 13-39 Egfr Non- 91.0 >60 Egfr 110.2 >60 11 CBC Auto 08/09/2019 [facility] White Blood 5.1 10^3/uL Normal 3.5-10.[address] [place] [address] [phone] Red Blood Count 3.52 10^6/uL Low 3.70-4.87 Hemoglobin 10.7 g/dL Low 12.0-16.0 Hematocrit 32 % Low 35-47 Mean Corpuscular Volume 91 fL Normal 80-97 Mean Corpuscular Hemoglobin 30 pg Normal 27-31 Mean Corpuscular HGB Conc 33 g/dL Normal 31-36 Red Cell Distribution Width 14 % Normal 10-15 Platelet Count 293 10^3/uL Normal 150-450 Mean Platelet Volume 7.8 fL Normal 7.4-10.4 Abs Neutrophils 2.5 10^3/uL Normal 1.5-7.7 Abs Lymphocytes 1.6 10^3/uL Normal 1.0-4.8 Abs Monocytes 0.5 10^3/uL Normal 0-0.8 Abs Eosinophils 0.4 10^3/uL Normal 0-0.6 Abs Basophils 0.1 10^3/uL Normal 0-0.2 Abs Nucleated RBC 0.0 10^3/uL Granulocyte % 47.7 % Lymphocyte % 31.7 % Monocyte % 10.0 % Eosinophil % 8.4 % Basophil % 2.2 % Nucleated Red Blood Cells % 0.0 Laboratory test 08/03/2019 [facility] Vancomycin 19.0 g/mL [address] [place] [address] [phone] CBC Auto Diff 08/02/2019 [facility] White Blood 6.3 10^3/uL Normal 3.5- [address] Count 10.8 [place] [address] [phone] Red Blood Count 3.27 10^6/uL Low 3.70-4.87 Hemoglobin 10.0 g/dL Low 12.0-16.0 Hematocrit 30 % Low 35-47 Mean Corpuscular Volume 91 fL Normal 80-97 Mean Corpuscular Hemoglobin 31 pg Normal 27-31 Mean Corpuscular HGB Conc 34 g/dL Normal 31-36 Red Cell Distribution Width 14 % Normal 10-15 Platelet Count 495 10^3/uL High 150-450 Mean Platelet Volume 7.0 fL Low 7.4-10.4 Abs Neutrophils 3.2 10^3/uL Normal 1.5-7.7 Abs Lymphocytes 1.8 10^3/uL Normal 1.0-4.8 Abs Monocytes 0.7 10^3/uL Normal 0-0.8 Abs Eosinophils 0.5 10^3/uL Normal 0-0.6 Abs Basophils 0.1 10^3/uL Normal 0-0.2 Abs Nucleated RBC 0.0 10^3/uL Granulocyte % 50.3 % Lymphocyte % 28.7 % Monocyte % 11.7 % Eosinophil % 7.2 % Basophil % 2.1 % Nucleated Red Blood Cells % 0.1 Comp Metabolic 08/02/2019 [facility] Sodium 141 mmol/L Normal 135-[address] [place] [address] [phone] Potassium 3.4 mmol/L Low 3.5-5.0 Chloride 108 mmol/L Normal 101-111 Co2 Carbon Dioxide 25 mmol/L Normal 22-32 Anion Gap 8 mmol/L Normal 2-11 Glucose 94 mg/dL Normal 70-100 Blood Urea Nitrogen 6 mg/dL Normal 6-24 Creatinine 0.68 mg/dL Normal 0.51-0.95 BUN/Creatinine Ratio 8.8 Normal 8-20 Calcium 9.2 mg/dL Normal 8.6-10.3 Total Protein 6.4 g/dL Normal 6.4-8.9 Albumin 3.6 g/dL Normal 3.2-5.2 Globulin 2.8 g/dL Normal 2-4 Albumin/Globulin Ratio 1.3 Normal 1-3 Total Bilirubin 0.30 mg/dL Normal 0.2-1.0 Alkaline Phosphatase 61 U/L Normal 34-104 Alt 26 U/L Normal 7-52 Ast 22 U/L Normal 13-39 Egfr Non- 88.0 >60 Egfr 106.4 >60 13 Laboratory test 08/02/2019 [facility] C Reactive 3.39 Normal < 8.[address] Protein mg/[place] [address] [phone] Laboratory test 07/30/2019 [facility] Vancomycin 22.1 [address] Trough g/[place] [address] [phone] CBC Auto Diff 04/01/2019 [facility] White Blood 8.6 Normal 3.5 -10.[address] Count 10^3/[place] [address] [phone] Red Blood Count 3.60 10^6/uL Low 3.70-4.87 [...] mmol/L Normal 135-[address] [place] [address] [phone] Potassium 4.3 mmol/L Normal 3.5-5.0 Chloride 104 [...] Egfr Non- 96.1 >60 Egfr 116.2 >60 15 1 Because ethnic data is not always [...] 5 Kidney failure <15 (or dialysis) 2 15-20 for HCAP, VAP, Osteomyelitis, Endocarditis, Meningitis 10-15 for All Other Infections 3 Because ethnic data is not always [...] 5 Kidney failure <15 (or dialysis) 4 15-20 for HCAP, VAP, Osteomyelitis, Endocarditis, Meningitis 10-15 for All Other Infections 5 Because ethnic data is not always readily [...] 15-29 5 Kidney failure <15 (or dialysis) 6 Specimen Hemolyzed. Result may not be valid. Unable to report test result due to hemolysis. 7 Unable to report test result due to hemolysis. 8 Verbal to [id number] K,AST HEMOLYZED, REDRAW ENTERED IN COMPUTER. by [id number] at 0904 on 08/16/19. 9 15-20 for HCAP, VAP, Osteomyelitis, Endocarditis, Meningitis 10-15 for All Other Infections 10 15-20 for HCAP, VAP, Osteomyelitis, Endocarditis, Meningitis 10-15 for All Other Infections 11 Because ethnic data is not always readily [...] 15-29 5 Kidney failure <15 (or dialysis) 12 15-20 for HCAP, VAP, Osteomyelitis, Endocarditis, Meningitis 10-15 for All Other Infections 13 Because ethnic data is not always readily [...] 15-29 5 Kidney failure <15 (or dialysis) 14 15-20 for HCAP, VAP, Osteomyelitis, Endocarditis, Meningitis 10-15 for All Other Infections 15 Because ethnic data is not always readily [...] 15-29 5 Kidney failure <15 (or dialysis) Procedures Date Code Description Status 04/12/2019 13293 Fluoroscopic Guidance For Cent Completed 04/12/2019 11581 Insertion Tunneled Cent Venous Cathr W Subcut Port 5 Completed Yrs Or Oldr 10/31/2016 [id number] Mammogram Completed Medical Devices Description No Information Available Encounters Type Date Location Provider Dx Diagnosis Office Visit 09/02/2019 [facility] Yolanda Rodriguez 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 Ally, [employer] abscess and Diseases granuloma T81.31xD Disruption of external operation (surgical) wound, NEC, subs B95.61 Methicillin suscep staph infct causing dis classd elswhr Z79.2 halfway (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 of antibiotics Office Visit 08/19/2019 [facility] Yolanda Rodriguez T81.31xD Disruption of 11:00a For Infectious Ally [employer] external Diseases operation (surgical) wound, NEC, subs 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 B95.61 Methicillin suscep staph infct causing dis classd elswhr 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.2 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 Office Visit 07/27/2019 [facility] Yolanda Rodriguez T81.42xA Infct fol a 12:33p For Infectious Ally [employer] procedure, deep Diseases incisional surgical site, init C79.31 Secondary malignant neoplasm of brain Office 07/26/2019 [facility] Radha Ott MD R56.9 Unspecified Visit 7:00a Clinic convulsions Office 07/26/2019 [facility] Yolanda T81.42xA Infct fol a Visit 12:29p Infectious Diseases [facility] procedure, deep Ally [employer] incisional surgical site, init C79.31 Secondary malignant neoplasm of brain Office Visit 07/25/2019 [facility] Davi Petersen, T84.7xxA Infect/ inflm react 10:43a M.D. due to oth int orth prosth dev/grft, init R56.9 Unspecified convulsions C50.912 Malignant neoplasm of unspecified site of left female breast E83.42 Hypomagnesemia Office Visit 07/24/2019 [facility] Davi Petersen, T84.7xxA Infect/ inflm react 10:41a M.D. due to oth int orth prosth dev/grft, init R56.9 Unspecified convulsions C50.912 Malignant neoplasm of unspecified site of left female breast Office Visit 07/23/2019 [facility] T81.42xA Infct fol a 12:27p For Infectious BRADLY Canales procedure, deep Diseases incisional surgical site, init C79.31 Secondary malignant neoplasm of brain Office Visit 07/22/2019 [facility] Davi Evans, R56.9 Unspecified 7:00a Clinic MD convulsions Office Visit 07/22/2019 [facility] Luann R56.9 Unspecified 10:41a [facility] T84.7xxA Infect/inflm react due to oth int orth prosth dev/grft, init C50.912 Malignant neoplasm of unspecified site of left female breast Office Visit 07/18/2019 [facility] T84.7xxA Infect/inflm 10:28a Assoc,[facility] react due to ot Hospitalists BRADLY Downing int orth prosth dev/grft, init F10.10 Alcohol abuse, uncomplicated F17.210 Nicotine dependence, cigarettes, uncomplicated Office Visit 07/17/2019 [facility] T84.7xxA Infect/inflm 10:27a Assoc,[facility] react due to ot Hospitalists BRADLY Downing int orth prosth dev/grft, init F10.10 Alcohol abuse, uncomplicated F17.210 Nicotine dependence, cigarettes, uncomplicated Office Visit 07/16/2019 [facility] F17.210 Nicotine 10:27a Assoc,damian Luo, [employer] dependence, Hospitalists cigarettes, uncomplicated F10.10 Alcohol abuse, uncomplicated E87.8 Oth disorders of electrolyte and fluid balance, NEC Office Visit 07/16/2019 [facility] Yolanda Rodriguez T81.40xA Infection 12:22p For Infectious Canales, [employer] following a Diseases procedure, unspecified, init C79.31 Secondary malignant neoplasm of brain Z85.3 Personal history of malignant neoplasm of breast Office Visit 07/15/2019 [facility] F17.210 Nicotine 10:27a Assoc,damian Luo, [employer] dependence, Hospitalists cigarettes, uncomplicated F10.10 Alcohol abuse, uncomplicated E87.8 Oth disorders of electrolyte and fluid balance, NEC Office Visit 07/14/2019 [facility] F10.10 Alcohol abuse, 10:26a Assoc,damian Luo, [employer] ENG[employer] uncomplicated Hospitalists F17.200 Nicotine dependence, unspecified, uncomplicated Z85.841 Personal history of malignant neoplasm of brain Office Visit 07/14/2019 Neurosurgery Vassilios T81.31xA Disruption of 8:00a [facility] Cardenas MD external operation (surgical) wound, NEC, init C79.31 Secondary malignant neoplasm of brain Office Visit 07/07/2019 [facility] Z48.3 Aftercare 12:30p [facility] Cardenas MD following surgery for neoplasm C79.31 Secondary malignant neoplasm of brain T81.31xA Disruption of external operation (surgical) wound, NEC, init Office Visit 06/30/2019 Neuro[facility] Vassilios Z48.3 Aftercare 1:00p [facility] Cardenas MD following surgery for neoplasm C79.31 Secondary malignant neoplasm of brain T81.31xA Disruption of external operation (surgical) wound, NEC, init Office Visit 06/03/2019 [facility] Srikanth Garcia, B35.3 Tinea pedis 2:30p MD Office Visit 04/08/2019 Surgical Tam Lacy C50.912 Malignant 1:30p [facility] MD neoplasm of unspecified site of left female breast Assessments Date Code Description Provider 09/17/2019 R56.9 Unspecified convulsions Davi Evans MD 09/17/2019 G62.9 Polyneuropathy, unspecified Davi Evans MD 09/16/2019 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 Yolanda Canales NP 09/16/2019 T81.31xD Disruption of external operation Yolanda Canales NP (surgical) wound, not elsewhere classified, subsequent encounter 09/16/2019 B95.61 Methicillin susceptible Yolanda Canales NP Staphylococcus aureus infection as the cause of diseases classified elsewhere 09/16/2019 Z79.2 halfway (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 of Yolanda Canales NP antibiotics 09/02/2019 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31xD Disruption of external operation Yolanda Canales NP (surgical) wound, not elsewhere classified, subsequent encounter 08/19/2019 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 Yolanda Canales , BRADLY 08/19/2019 B95.61 Methicillin susceptible Yolanda Canales NP Staphylococcus aureus infection as the cause of diseases classified elsewhere 08/19/2019 Z79.2 reducing 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, [employer] SOFTWARE ENGINEER brain 07/26/2019 R56.9 Unspecified convulsions Radha Ott MD 07/26/2019 T81.42xA Infection following a procedure, Yloanda Canales, [employer] SOFTWARE ENGINEER deep incisional surgical site, initial encounter 07/26/2019 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, EN[employer] SOFTWARE ENGINEER brain 07/25/2019 T84.7xxA Infection and inflammatory reaction Davi Petersen M.D. due to other internal orthopedic prosthetic devices, implants and grafts, initial encounter 07/25/2019 R56.9 Unspecified convulsions Davi Petersen M.D. 07/25/2019 C50.912 Malignant neoplasm of unspecified Davi Petersen M.D. site of left female breast 07/25/2019 E83.42 Hypomagnesemia Davi Petersen M.D. 07/24/2019 T84.7xxA Infection and inflammatory reaction Davi Petersen M.D. due to other internal orthopedic prosthetic devices, implants and grafts, initial encounter 07/24/2019 R56.9 Unspecified convulsions Davi Petersen M.D. 07/24/2019 C50.912 Malignant neoplasm of unspecified Davi Petersen M.D. site of left female breast 07/23/2019 T81.42xA Infection following a procedure, Yolanda Canales, ENTERPRISE SOFTWARE ENGINEER deep incisional surgical site, initial encounter 07/23/2019 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, ENTERPRISE SOFTWARE ENGINEER brain 07/22/2019 R56.9 Unspecified convulsions Davi Evans MD 07/22/2019 R56.9 Unspecified convulsions Luann Porter M.D. 07/22/2019 T84.7xxA Infection and inflammatory reaction Luann Porter M.D. due to other internal orthopedic prosthetic devices, implants and grafts, initial encounter 07/22/2019 C50.912 Malignant neoplasm of unspecified Luann Porter M.D. site of left female breast 07/18/2019 T84.7xxA Infection and inflammatory reaction Yojana Downing, ENTERPRISE SOFTWARE ENGINEER due to other internal orthopedic prosthetic devices, implants and grafts, initial encounter 07/18/2019 F10.10 Alcohol abuse, uncomplicated Yojana Downing, ENTERPRISE SOFTWARE ENGINEER 07/18/2019 F17.210 Nicotine dependence, cigarettes, Yojana Downing, ENTERPRISE SOFTWARE ENGINEER uncomplicated 07/17/2019 T84.7xxA Infection and inflammatory reaction Yojana Downing, ENTERPRISE SOFTWARE ENGINEER due to other internal orthopedic prosthetic devices, implants and grafts, initial encounter 07/17/2019 F10.10 Alcohol abuse, uncomplicated Yojana Downing, ENTERPRISE SOFTWARE ENGINEER 07/17/2019 F17.210 Nicotine dependence, cigarettes, Yojana Downing, ENTERPRISE SOFTWARE ENGINEER uncomplicated 07/16/2019 T81.40xA Infection following a procedure, Yolanda Pinedobethel Canales, BRADLY unspecified, initial encounter 07/16/2019 F17.210 Nicotine dependence, cigarettes, Brenda Luo, ENTERPRISE SOFTWARE ENGINEER uncomplicated 07/16/2019 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, BRADLY brain 07/16/2019 F10.10 Alcohol abuse, uncomplicated Brenda Luo, BRADLY 07/16/2019 Z85.3 Personal history of malignant Yolanda Rodriguez Ally ENTERPRISE SOFTWARE ENGINEER neoplasm of breast 07/16/2019 E87.8 Other disorders of electrolyte and Brenda Luo NP fluid balance, not elsewhere classified 07/15/2019 F17.210 Nicotine dependence, cigarettes, Brenda Luo, ENTERPRISE SOFTWARE ENGINEER uncomplicated 07/15/2019 F10.10 Alcohol abuse, uncomplicated Brenda Luo, ENTERPRISE SOFTWARE ENGINEER 07/15/2019 E87.8 Other disorders of electrolyte and Brenda Luo NP fluid balance, not elsewhere classified 07/14/2019 T81.31xA Disruption of external operation Jonathan Cardenas MD (surgical) wound, not elsewhere classified, initial encounter 07/14/2019 F10.10 Alcohol abuse, uncomplicated Brenda Luo, ENTERPRISE SOFTWARE ENGINEER 07/14/2019 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 07/14/2019 F17.200 Nicotine dependence, unspecified, Brenda Luo, ENTERPRISE SOFTWARE ENGINEER uncomplicated 07/14/2019 Z85.841 Personal history of malignant Brenda Luo, BRADLY neoplasm of brain 07/07/2019 Z48.3 Aftercare following surgery for Jonathan Cardenas MD neoplasm 07/07/2019 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 07/07/2019 T81.31xA Disruption of external operation Jonathan Cardenas MD (surgical) wound, not elsewhere classified, initial encounter 06/30/2019 Z48.3 Aftercare following surgery for Jonathan Cardenas MD neoplasm 06/30/2019 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 06/30/2019 T81.31xA Disruption of external operation Jonathan Cardenas MD (surgical) wound, not elsewhere classified, initial encounter 06/03/2019 B35.3 Rafy Garcia MD 04/19/2019 Z48.3 Aftercare following surgery for BREA Buenrostro neoplasm 04/12/2019 C50.912 Malignant neoplasm of unspecified Tam Gambino MD site of left female breast 04/08/2019 C50.912 Malignant neoplasm of unspecified Tam Gambino MD site of left female breast 03/29/2019 Z48.3 Aftercare following surgery for Jonathan Cardenas MD neoplasm 03/29/2019 D49.6 Neoplasm of unspecified behavior of Jonathan Cardenas MD brain Plan of Treatment Future Appointment(s):11/08/2019 10:15 am - Davi Evans MD at [facility] [id number]/20/2019 1:00 pm - Yolanda Canales NP at [facility] Bctdfrws41/31/2020 9:00 am - Jonathan [facility]as MD at [facility]09/17/2019 - Davi Evans, MDR56.9 Unspecified [id number] Polyneuropathy, unspecifiedComments:Has moodiness and discussed this in part could be due to the keppra but the moodiness is not severe and after discussing pros and c ons of switching she and family firmly want to continue the keppra.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 Will check ncv as a baseline and serologies. 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
--- OUTSIDE RECORDS SUMMARY | 2019-10-31 22:02 | XMS REPORT | Continuity of Care Document ---
:1955 External Reference #:[id number] Author Name Panchito Amado M.D. (transmitted by agent of provider Gail Saez ) Address [address] [facility] [address] [place] [address] Problems Description No Information Available Social History [...] x 6 wks 09/03/2019 [place] [facility] [place] 1 tab twice a Vassilios 06/29/2019 - 220mg Tablets day as needed MD Ronald 08/18/2019 Medications Administered in Office Medication SIG Qnty Indications Ordering Provider Date Records Fee Skyler San M.D. 09/22/2019 Injection Immunizations Description No Information Available Vital Signs [...] Test Result H/L Range Note CBC Auto 09/20/2019 [facility] White Blood 6.6 10^3/uL Normal 3.5-10.[address] [place] [address] [phone] Red Blood Count 3.70 10^6/uL Normal 3.70-4.87 Hemoglobin 11.3 g/dL Low 12.0-16.0 Hematocrit 33 % Low 35-47 Mean Corpuscular Volume 88 fL Normal 80-97 Mean Corpuscular Hemoglobin 31 pg Normal 27-31 Mean Corpuscular HGB Conc 35 g/dL Normal 31-36 Red Cell Distribution Width 14 % Normal 10-15 Platelet Count 303 10^3/uL Normal 150-450 Mean Platelet Volume 7.5 fL Normal 7.4-10.4 Abs Neutrophils 4.0 10^3/uL Normal 1.5-7.7 Abs Lymphocytes 1.8 10^3/uL Normal 1.0-4.8 Abs Monocytes 0.6 10^3/uL Normal 0-0.8 Abs Eosinophils 0.2 10^3/uL Normal 0-0.6 Abs Basophils 0.1 10^3/uL Normal 0-0.2 Abs Nucleated RBC 0.0 10^3/uL Granulocyte % 60.3 % Lymphocyte % 26.7 % Monocyte % 8.6 % Eosinophil % 3.1 % Basophil % 1.3 % Nucleated Red Blood Cells % 0.0 Laboratory test 09/20/2019 [facility] C Reactive 1.15 mg/L Normal <8.[address] [place] [address] [phone] Laboratory test 09/20/2019 [facility] Vitamin B12 140 pg/mL Low 180-[address] [place] [address] [phone] TSH (Thyroid Stim Horm) 2.25 mcIU/mL Normal 0.34-5.60 Laboratory test 09/20/2019 [facility] Hemoglobin A1c 5.5 % Normal 4.0-5.[address] (Glyco HGB) [place] [address] [phone] Folic Acid (Folate) > 20.00 ng/mL >3.99 CBC Auto 09/09/2019 [facility] White Blood 5.4 10^3/uL Normal 3.5-10.[address] [place] [address] [phone] Red Blood Count 3.90 10^6/uL Normal 3.70-4.87 [...] Blood Cells % 0.1 Laboratory test 09/09/2019 [facility] C Reactive 2.39 mg/L Normal <8.[address] [place] [address] [phone] CBC Auto Diff 08/30/2019 [facility] White Blood 7.1 Normal 3.5 -10.[address] Count 10^3/[place] [address] [phone] Red Blood Count 3.56 10^6/uL Low 3.70-4.87 [...] Blood Cells % 0.0 Comp Metabolic 08/30/2019 [facility] Sodium 139 mmol/L Normal 135-[address] [place] [address] [phone] Potassium 3.9 mmol/L Normal 3.5-5.0 Chloride 106 [...] Egfr Non- 68.0 >60 Egfr 82.3 >60 3 Laboratory test 08/30/2019 [facility] C Reactive 8.71 mg/L High <8.[address] [place] [address] [phone] Vancomycin Trough 20.7 g/mL 4 CBC Auto 08/23/2019 [facility] White Blood 6.6 10^3/uL Normal 3.5-10.[address] [place] [address] [phone] Red Blood Count 3.69 10^6/uL Low 3.70-4.87 [...] Blood Cells % 0.0 Comp Metabolic 08/23/2019 [facility] Sodium 139 mmol/L Normal 135-145 Panel [address] [place] [address] [phone] Potassium 4.2 mmol/L Normal 3.5-5.0 Chloride 106 [...] Egfr Non- 68.9 >60 Egfr 83.4 >60 5 Laboratory test 08/23/2019 [facility] C Reactive 1.24 mg/L Normal <8.01 finding [address] [place] [address] [phone] Vancomycin Trough 19.5 g/mL 6 Laboratory test 08/16/2019 [facility] C Reactive 1.37 mg/L Normal <8.01 7 [place] [address] [phone] Vancomycin Trough 13.9 g/mL 8 Comp Metabolic 08/16/2019 [facility] Sodium 140 mmol/L Normal 135-145 Panel [address] [place] [address] [phone] Chloride 107 mmol/L Normal 101-111 Co2 Carbon [...] Egfr Non- 83.7 >60 Egfr 101.3 >60 9 Potassium TNP mmol/L 3.5-5.0 10 Anion Gap 9 mmol/L Normal 2-11 Ast TNP U/L 13-39 11 CBC Auto 08/16/2019 [facility] White Blood 5.6 10^3/uL Normal 3.5-10.[address] [place] [address] [phone] Red Blood Count 3.60 10^6/uL Low 3.70-4.87 [...] Red Blood Cells % 0.1 Laboratory test 08/16/2019 [facility] Potassium 4.0 mmol/L Normal 3.5-5.[address] [place] [address] [phone] Ast Redraw 28 U/L Normal 13-39 CBC Auto 08/09/2019 [facility] White Blood 5.1 10^3/uL Normal 3.5-10.[address] [place] [address] [phone] Red Blood Count 3.52 10^6/uL Low 3.70-4.87 [...] Red Blood Cells % 0.0 Comp Metabolic 08/09/2019 [facility] Sodium 140 mmol/L Normal 135-[address] [place] [address] [phone] Potassium 3.5 mmol/L Normal 3.5-5.0 Chloride 107 [...] Egfr Non- 91.0 >60 Egfr 110.2 >60 12 Laboratory test 08/09/2019 [facility] C Reactive 2.45 mg/L Normal <8.[address] [place] [address] [phone] Vancomycin Trough 19.6 g/mL 13 Laboratory test 08/03/2019 [facility] Vancomycin 19.0 g/mL [address] [place] [address] [phone] CBC Auto Diff 08/02/2019 [facility] White Blood 6.3 10^3/uL Normal 3.5- [address] Count 10.8 [place] [address] [phone] Red Blood Count 3.27 10^6/uL Low 3.70-4.87 [...] Blood Cells % 0.1 Comp Metabolic 08/02/2019 [facility] Sodium 141 mmol/L Normal 135-[address] [place] [address] [phone] Potassium 3.4 mmol/L Low 3.5-5.0 Chloride 108 [...] Egfr Non- 88.0 >60 Egfr 106.4 >60 15 Laboratory test 08/02/2019 [facility] C Reactive 3.39 Normal < 8.[address] Protein mg/[place] [address] [phone] Laboratory test 07/30/2019 [facility] Vancomycin 22.1 [address] Trough g/[place] [address] [phone] CBC Auto Diff 04/01/2019 [facility] White Blood 8.6 Normal 3.5 -10.[address] Count 10^3/[place] [address] [phone] Red Blood Count 3.60 10^6/uL Low 3.70-4.87 [...] Blood Cells % 0.0 Comp Metabolic 04/01/2019 [facility] Sodium 137 mmol/L Normal 135-[address] [place] [address] [phone] Potassium 4.3 mmol/L Normal 3.5-5.0 Chloride 104 [...] Egfr Non- 96.1 >60 Egfr 116.2 >60 17 1 Normal Range 180 to 914 Indeterminate Range 145 to 180 Deficient Range <145 2 Therapeutic target for the treatment of diabetes mellitus patients is <7% HBA1C, and in selective patients <6.0%. Please refer to [place] [employer] diabetic care guidelines for further information. 3 Because ethnic data is not always [...] 5 Kidney failure <15 (or dialysis) 6 15-20 for HCAP, VAP, Osteomyelitis, Endocarditis, Meningitis 10-15 for All Other Infections 7 Verbal to [id number] K,AST HEMOLYZED, REDRAW ENTERED IN COMPUTER. by [id number] at 0904 on 08/16/19. 8 15-20 for HCAP, VAP, Osteomyelitis, Endocarditis, Meningitis 10-15 for All Other Infections 9 Because ethnic data is not always readily [...] 15-29 5 Kidney failure <15 (or dialysis) 10 Specimen Hemolyzed. Result may not be valid. Unable to report test result due to hemolysis. 11 Unable to report test result due to hemolysis. 12 Because ethnic data is not always readily [...] 15-29 5 Kidney failure <15 (or dialysis) 13 15-20 for HCAP, VAP, Osteomyelitis, Endocarditis, Meningitis 10-15 for All Other Infections 14 15-20 for HCAP, VAP, Osteomyelitis, Endocarditis, [...] 15-29 5 Kidney failure <15 (or dialysis) 16 15-20 for HCAP, VAP, Osteomyelitis, Endocarditis, Meningitis 10-15 for All Other Infections 17 Because ethnic data is not always readily [...] dialysis) Procedures Date Code Description Status 04/12/2019 70879 Fluoroscopic Guidance For Cent Completed 04/12/2019 57845 Insertion Tunneled Cent Venous Cathr W Subcut Port 5 Completed Yrs Or Oldr 10/31/2016 [id number] Mammogram Completed Medical Devices Description No Information Available Encounters Type Date Location Provider Dx Diagnosis Office Visit 09/16/2019 [facility] Yolanda Pinedojedeverlaura G06.0 Intracranial 9:00a Infectious Canales, USED EQUIPMENT SALES REPRESENTATIVE abscess and Diseases granuloma T81.31xD Disruption of external operation (surgical) wound, NEC, subs B95.61 Methicillin suscep staph infct causing dis classd elswhr Z79.2 termite control representative (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 of antibiotics Office Visit 09/02/2019 [facility] Yolanda Saraeverdavidapurva G06.0 Intracranial 10:30a For Infectious Canales, USED EQUIPMENT SALES REPRESENTATIVE abscess and Diseases granuloma T81.31xD Disruption of external operation (surgical) wound, NEC, subs B95.61 Methicillin suscep staph infct causing dis classd elswhr Z79.2 penitentiary (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 of antibiotics Office Visit 08/19/2019 [facility] Yolanda Saraeverlaura T81.31xD Disruption of 11:00a For Infectious Canales, USED EQUIPMENT SALES REPRESENTATIVE external Diseases operation (surgical) wound, NEC, subs G06.0 Intracranial abscess and granuloma B95.61 Methicillin suscep staph infct causing dis classd elswhr Z79.2 penitentiary (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 of antibiotics Office Visit 07/27/2019 [facility] Yolanda Aragonnyapurva T81.42xA Infct fol a 12:33p For Infectious Canales, USED EQUIPMENT SALES REPRESENTATIVE procedure, deep Diseases incisional surgical site, init C79.31 Secondary malignant neoplasm of brain Office 07/26/2019 [facility] Radha Ott MD R56.9 Unspecified Visit 7:00a Clinic convulsions Office 07/26/2019 [facility] Yolanda T81.42xA Infct fol a Visit 12:29p [facility] Canales, USED EQUIPMENT SALES REPRESENTATIVE incisional surgical site, init C79.31 Secondary malignant [...] of left female breast Office Visit 07/23/2019 [facility] T81.42xA Infct fol a 12:27p For Infectious Canales, USED EQUIPMENT SALES REPRESENTATIVE procedure, deep Diseases incisional surgical site, init C79.31 Secondary malignant neoplasm of brain Office Visit 07/22/2019 [facility] Davi Evans, R56.9 Unspecified 7:00a Clinic convulsions Office Visit 07/22/2019 [facility] Luann R56.9 Unspecified 10:41a Assoc, Hospitalaneudy Porter M.D. convulsions T84.7xxA Infect/inflm react due to oth int orth prosth dev/grft, init C50.912 Malignant neoplasm of unspecified site of left female breast Office Visit 07/18/2019 [facility] T84.7xxA Infect/inflm 10:28a [facility] react due to oth Hospitalists BRADLY Downing int orth prosth dev/grft, init F10.10 Alcohol abuse, uncomplicated F17.210 Nicotine dependence, cigarettes, uncomplicated Office Visit 07/17/2019 [facility] T84.7xxA Infect/inflm 10:27a AssocdamianWilliam react due to oth Hospitalists BRADLY Downing int orth prosth dev/grft, init F10.10 Alcohol abuse, uncomplicated F17.210 Nicotine dependence, cigarettes, uncomplicated [facility] 10:27a Assocdamian NP dependence, Hospitalists cigarettes, uncomplicated F10.10 Alcohol abuse, uncomplicated E87.8 Oth disorders of electrolyte and fluid balance, NEC Office Visit 07/16/2019 [facility] T81.40xA Infection 12:22p For Infectious BRADLY Canales following a Diseases procedure, unspecified, init C79.31 Secondary malignant neoplasm of brain Z85.3 Personal history of malignant neoplasm of breast [facility] F17.210 Nicotine 10:27a Assocdamian NP dependence, Hospitalists cigarettes, uncomplicated F10.10 Alcohol abuse, uncomplicated E87.8 Oth disorders of electrolyte and fluid balance, NEC [facility] F10.10 Alcohol abuse, 10:26a Assocdamian USED EQUIPMENT SALES REPRESENTATIVE uncomplicated Hospitalists F17.200 Nicotine dependence, unspecified, uncomplicated [...] (surgical) wound, NEC, init Office Visit 06/03/2019 [facility] Srikanth Garcia, B35.3 Tinea pedis 2:30p MD Office Visit 04/08/2019 [facility] Tam KhanPradepe C50.912 Malignant 1:30p [facility] [...] cause of diseases classified elsewhere 09/16/2019 Z79.2 termite control representative (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 of Yolanda Canales NP antibiotics 09/02/2019 G06.0 Intracranial abscess and granuloma Yolanda Canales NP 09/02/2019 T81.31xD Disruption of external operation Yolanda Canales NP (surgical) wound, not elsewhere classified, subsequent encounter 09/02/2019 B95.61 Methicillin susceptible Yolanda Canales NP Staphylococcus aureus infection as the cause of diseases classified elsewhere 09/02/2019 Z79.2 termite control representative (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 of Yolanda Canales NP antibiotics 08/24/2019 T81.31xD Disruption of external operation Jonathan Cardenas MD (surgical) wound, not elsewhere classified, subsequent encounter 08/24/2019 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 08/19/2019 T81.31xD Disruption of external operation Yolanda Canales NP (surgical) wound, not elsewhere classified, subsequent encounter 08/19/2019 G06.0 Intracranial abscess and granuloma Yolanda Canales NP 08/19/2019 B95.61 Methicillin susceptible Yolanda Canales NP Staphylococcus aureus infection as the cause of diseases classified elsewhere 08/19/2019 Z79.2 penitentiary (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 of Yolandatheo Canales NP antibiotics 08/09/2019 D49.6 Neoplasm of unspecified behavior of Jonathan Cardenas MD brain 08/04/2019 D49.6 Neoplasm of unspecified behavior of Jonathan Cardenas MD brain 08/04/2019 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 08/04/2019 T81.31xD Disruption of external operation Jonathan Cardenas MD (surgical) wound, not elsewhere classified, subsequent encounter 07/27/2019 T81.42xA Infection following a procedure, Yolanda Canales NP deep incisional surgical site, initial encounter 07/27/2019 C79.31 Secondary malignant neoplasm of Yolanda Pinedojedkristenapurva Canales NP brain 07/26/2019 R56.9 Unspecified convulsions Radha Ott MD 07/26/2019 T81.42xA Infection following a procedure, Yolanda Canales NP deep incisional surgical site, initial encounter 07/26/2019 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 07/22/2019 T84.7xxA Infection and inflammatory reaction Luann Porter M.D. due to other internal orthopedic prosthetic devices, implants and grafts, initial encounter 07/22/2019 C50.912 Malignant neoplasm of unspecified Luann Porter M.D. site of left female breast 07/18/2019 T84.7xxA Infection and inflammatory reaction Yojana Melofield Downing, USED EQUIPMENT SALES REPRESENTATIVE due to other internal orthopedic prosthetic devices, implants and grafts, initial encounter 07/18/2019 F10.10 Alcohol abuse, uncomplicated Yojana Tohmas Doteusebio, USED EQUIPMENT SALES REPRESENTATIVE 07/18/2019 F17.210 Nicotine dependence, cigarettes, Yojana Ahujaeusebio, USED EQUIPMENT SALES REPRESENTATIVE uncomplicated 07/17/2019 T84.7xxA Infection and inflammatory reaction Yojana Melofield Downing, USED EQUIPMENT SALES REPRESENTATIVE due to other internal orthopedic prosthetic devices, implants and grafts, initial encounter 07/17/2019 F10.10 Alcohol abuse, uncomplicated Yojana Ahujaeusebio, USED EQUIPMENT SALES REPRESENTATIVE 07/17/2019 F17.210 Nicotine dependence, cigarettes, Yojana Ahujaeusebio, USED EQUIPMENT SALES REPRESENTATIVE uncomplicated 07/16/2019 T81.40xA Infection following a procedure, Yolanda Canales, USED EQUIPMENT SALES REPRESENTATIVE unspecified, initial encounter 07/16/2019 F17.210 Nicotine dependence, cigarettes, Brenda Luo, USED EQUIPMENT SALES REPRESENTATIVE uncomplicated 07/16/2019 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, BRADLY brain 07/16/2019 F10.10 Alcohol abuse, uncomplicated Brenda Luo, BRADLY 07/16/2019 Z85.3 Personal history of malignant Yolanda Michael Canales NP neoplasm of breast 07/16/2019 E87.8 Other disorders of electrolyte and Brenda R.Josie, USED EQUIPMENT SALES REPRESENTATIVE fluid balance, not elsewhere classified 07/15/2019 F17.210 Nicotine dependence, cigarettes, Brenda Luo, USED EQUIPMENT SALES REPRESENTATIVE uncomplicated 07/15/2019 F10.10 Alcohol abuse, uncomplicated Brenda Luo, USED EQUIPMENT SALES REPRESENTATIVE 07/15/2019 E87.8 Other disorders of electrolyte and Brenda Luo, BRADLY fluid balance, not elsewhere classified 07/14/2019 T81.31xA Disruption of external operation Jonathan Cardenas MD (surgical) wound, not elsewhere classified, initial encounter 07/14/2019 F10.10 Alcohol abuse, uncomplicated Brenda Luo, USED EQUIPMENT SALES REPRESENTATIVE 07/14/2019 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
--- OUTSIDE RECORDS SUMMARY | 2019-10-31 22:02 | XMS REPORT | Continuity of Care Document ---
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 Problems Description No Information Available Social History Type Date Description Comments Sex Unknown ETOH Use Drinks 6 Alcoholic to 20 Beverages Per Day Recreational Drug Use Never Used Drugs Tobacco Use Start: Unknown End: Patient is a former quit 07/2019 Unknown smoker Smoking Status Reviewed: 10/01/19 Patient is a former quit 07/2019 smoker Exercise Type/Frequency Does not exercise Allergies, Adverse Reactions, Alerts Active Allergies Reaction Severity Comments Date Penicillin swelling 11/05/2016 Medications Active Medications SIG Qnty Indications Ordering Provider Date Keppra 1 by mouth twice 180tabs Jonathan 08/04/2019 500mg Tablets a day MD Ronald [...] x 6 wks 09/03/2019 Solution Rec [place] [facility] [place] 1 tab twice a Vassilios 06/29/2019 - 220mg Tablets day as needed MD Ronald 08/18/2019 Medications Administered in Office Medication SIG Qnty Indications Ordering Provider Date Records Fee Skyler San M.D. 09/22/2019 Injection Immunizations Description No Information Available Vital Signs Date Vital Result Comment 10/01/2019 9:02am Height 62 inches 5'2" Weight 140.00 lb Heart Rate 84 /min BP Systolic 128 mmHg BP Diastolic 68 mmHg Pain Level 2 back of the ribs BMI (Body Mass Index) 25.6 kg/m2 09/17/2019 9:42am Height 62 inches 5'2" Weight 142.50 lb Heart Rate 80 /min BP Systolic Sitting 122 mmHg BP Diastolic Sitting 80 mmHg Respiratory Rate 16 /min BMI (Body Mass Index) 26.1 kg/m2 Results Test Acquired Date Facility Test Result H/L Range Note CBC Auto 09/20/2019 [facility] White Blood 6.6 10^3/uL Normal 3.5-10.[address] [place] [address] [phone] Red Blood Count 3.70 10^6/uL Normal 3.70-4.87 [...] Blood Cells % 0.0 Laboratory test 09/20/2019 [facility] C Reactive 1.15 mg/L Normal <8.[address] [place] [address] [phone] Laboratory test 09/20/2019 [facility] Vitamin B12 140 pg/mL Low 180-914 [address] [place] [address] [phone] TSH (Thyroid Stim Horm) 2.25 mcIU/mL Normal 0.34-5.60 Protein 09/20/2019 [facility] Total 6.4 g/dL 6.3 - Electrophoresis [address] Protein(Pep) 7.9 [place] [address] [phone] Albumin 3.2 g/dL Abnormal 3.4-4.7 Alpha-1 Globulin 0.2 g/dL 0.1-0.3 Alpha-2 Globulin 1.2 g/dL Abnormal 0.6-1.0 Beta Globulin 0.7 g/dL 0.7-1.2 Gamma Globulin 1.1 g/dL 0.6-1.6 Albumin/Globulin Ratio 0.99 Impression See Comment 2 Laboratory test 09/20/2019 [facility] Hemoglobin A1c 5.5 % Normal 4.0-5.[address] (Glyco HGB) [place] [address] [phone] Folic Acid (Folate) > 20.00 ng/mL >3.99 CBC Auto 09/09/2019 [facility] White Blood 5.4 10^3/uL Normal 3.5-10.[address] [place] [address] [phone] Red Blood Count 3.90 10^6/uL Normal 3.70-4.87 [...] Blood Cells % 0.1 Laboratory test 09/09/2019 [facility] C Reactive 2.39 mg/L Normal <8.[address] [place] [address] [phone] CBC Auto Diff 08/30/2019 [facility] White Blood 7.1 Normal 3.5 -10.[address] Count 10^3/[place] [address] [phone] Red Blood Count 3.56 10^6/uL Low 3.70-4.87 [...] Blood Cells % 0.0 Comp Metabolic 08/30/2019 [facility] Sodium 139 mmol/L Normal 135-[address] [place] [address] [phone] Potassium 3.9 mmol/L Normal 3.5-5.0 Chloride 106 [...] Egfr Non- 68.0 >60 Egfr 82.3 >60 4 Laboratory test 08/30/2019 [facility] C Reactive 8.71 mg/L High <8.[address] [place] [address] [phone] Vancomycin Trough 20.7 g/mL 5 CBC Auto 08/23/2019 [facility] White Blood 6.6 10^3/uL Normal 3.5-10.[address] [place] [address] [phone] Red Blood Count 3.69 10^6/uL Low 3.70-4.87 [...] Blood Cells % 0.0 Comp Metabolic 08/23/2019 [facility] Sodium 139 mmol/L Normal 135-[address] [place] [address] [phone] Potassium 4.2 mmol/L Normal 3.5-5.0 Chloride 106 [...] Egfr Non- 68.9 >60 Egfr 83.4 >60 6 Laboratory test 08/23/2019 [facility] C Reactive 1.24 mg/L Normal <8.[address] [place] [address] [phone] Vancomycin Trough 19.5 g/mL 7 Laboratory test 08/16/2019 [facility] C Reactive 1.37 mg/L Normal <8.01 [address] [place] [address] [phone] Vancomycin Trough 13.9 g/mL 9 Comp Metabolic 08/16/2019 [facility] Sodium 140 mmol/L Normal 135-[address] [place] [address] [phone] Chloride 107 mmol/L Normal 101-111 Co2 Carbon [...] Egfr Non- 83.7 >60 Egfr 101.3 >60 10 Potassium TNP mmol/L 3.5-5.0 11 Anion Gap 9 mmol/L Normal 2-11 Ast TNP U/L 13-39 12 CBC Auto 08/16/2019 [facility] White Blood 5.6 10^3/uL Normal 3.5-10.[address] [place] [address] [phone] Red Blood Count 3.60 10^6/uL Low 3.70-4.87 [...] Blood Cells % 0.1 Laboratory test 08/16/2019 [facility] Potassium 4.0 mmol/L Normal 3.5-5.[address] [place] [address] [phone] Ast Redraw 28 U/L Normal 13-39 CBC Auto 08/09/2019 [facility] White Blood 5.1 10^3/uL Normal 3.5-10.[address] [place] [address] [phone] Red Blood Count 3.52 10^6/uL Low 3.70-4.87 [...] Blood Cells % 0.0 Comp Metabolic 08/09/2019 [facility] Sodium 140 mmol/L Normal 135-[address] [place] [address] [phone] Potassium 3.5 mmol/L Normal 3.5-5.0 Chloride 107 [...] Egfr Non- 91.0 >60 Egfr 110.2 >60 13 Laboratory test 08/09/2019 [facility] C Reactive 2.45 mg/L Normal <8.[address] [place] [address] [phone] Vancomycin Trough 19.6 g/mL 14 Laboratory test 08/03/2019 [facility] Vancomycin 19.0 g/mL [address] [place] [address] [phone] CBC Auto Diff 08/02/2019 [facility] White Blood 6.3 10^3/uL Normal 3.5- [address] Count 10.8 [place] [address] [phone] Red Blood Count 3.27 10^6/uL Low 3.70-4.87 [...] Blood Cells % 0.1 Comp Metabolic 08/02/2019 [facility] Sodium 141 mmol/L Normal 135-[address] [place] [address] [phone] Potassium 3.4 mmol/L Low 3.5-5.0 Chloride 108 [...] Egfr Non- 88.0 >60 Egfr 106.4 >60 16 Laboratory test 08/02/2019 [facility] C Reactive 3.39 Normal < 8.[address] Protein mg/[place] [address] [phone] Laboratory test 07/30/2019 [facility] Vancomycin 22.1 [address] Trough g/[place] [address] [phone] CBC Auto Diff 04/01/2019 [facility] White Blood 8.6 Normal 3.5 -10.[address] Count 10^3/[place] [address] [phone] Red Blood Count 3.60 10^6/uL Low 3.70-4.87 [...] Blood Cells % 0.0 Comp Metabolic 04/01/2019 [facility] Sodium 137 mmol/L Normal 135-[address] [place] [address] [phone] Potassium 4.3 mmol/L Normal 3.5-5.0 Chloride 104 [...] Egfr Non- 96.1 >60 Egfr 116.2 >60 18 1 Normal Range 180 to 914 Indeterminate Range 145 to 180 Deficient Range <145 2 RESULT: No apparent monoclonal protein on serum electrophoresis. Test Performed by: [facility] [address] [place] [address] Manager Corporate: Javon Hubbard M.D. Ph.D.; IA# [id number] 3 Therapeutic target for the treatment of diabetes mellitus patients is <7% HBA1C, and in selective patients <6.0%. Please refer to [place] [employer] diabetic care guidelines for further information. 4 Because ethnic data is not always readily [...] 15-29 5 Kidney failure <15 (or dialysis) 5 15-20 for HCAP, VAP, Osteomyelitis, Endocarditis, Meningitis 10-15 for All Other Infections 6 Because ethnic data is not always readily [...] 15-29 5 Kidney failure <15 (or dialysis) 7 15-20 for HCAP, VAP, Osteomyelitis, Endocarditis, Meningitis 10-15 for All Other Infections 8 Verbal to [id number] K,AST HEMOLYZED, REDRAW ENTERED IN COMPUTER. by [id number] at 0904 on 08/16/19. 9 15-20 for HCAP, VAP, Osteomyelitis, Endocarditis, Meningitis 10-15 for All Other Infections 10 Because ethnic data is not always readily [...] 15-29 5 Kidney failure <15 (or dialysis) 11 Specimen Hemolyzed. Result may not be valid. Unable to report test result due to hemolysis. 12 Unable to report test result due to hemolysis. 13 Because ethnic data is not always [...] Meningitis 10-15 for All Other Infections 15 15-20 for HCAP, VAP, Osteomyelitis, Endocarditis, Meningitis 10-15 for All Other Infections 16 Because ethnic data is not always readily [...] 15-29 5 Kidney failure <15 (or dialysis) 17 15-20 for HCAP, VAP, Osteomyelitis, Endocarditis, Meningitis 10-15 for All Other Infections 18 Because ethnic data is not always readily [...] (or dialysis) Procedures Date Code Description Status 09/20/2019 91539 EKG, Interpretation Only Completed 04/12/2019 97931 Fluoroscopic Guidance For Cent Completed 04/12/2019 17492 Insertion Tunneled Cent Venous Cathr W Subcut Port 5 Completed Yrs Or Oldr 10/31/2016 [id number] Mammogram Completed Medical Devices Description No Information Available Encounters Type Date Location Provider Dx Diagnosis Office Visit 09/17/2019 [facility] Davi Evans, R56.9 Unspecified 9:15a MD convulsions G62.9 Polyneuropathy, unspecified Office Visit 09/16/2019 [facility] Yolanda Rodriguez G06.0 Intracranial 9:00a For Infectious Canales, RF TECHNICIAN abscess and Diseases granuloma T81.31xD Disruption of external operation (surgical) wound, NEC, subs B95.61 Methicillin suscep staph infct causing dis classd elswhr 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.2 ad terminal makeup operator (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 of antibiotics Office Visit 09/02/2019 [facility] Yolanda Rodriguez G06.0 Intracranial 10:30a For Infectious Canales, RF TECHNICIAN abscess and Diseases granuloma T81.31xD Disruption of external operation (surgical) wound, NEC, subs B95.61 Methicillin suscep staph infct causing dis classd elswhr Z79.2 ad terminal makeup operator (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 of antibiotics Office Visit 08/19/2019 [facility] Yoladna Rodriguez T81.31xD Disruption of 11:00a For Infectious Canales, RF TECHNICIAN external Diseases operation (surgical) wound, NEC, subs G06.0 Intracranial abscess and granuloma B95.61 Methicillin suscep staph infct causing dis classd elswhr Z79.2 ad terminal makeup operator (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 of antibiotics Office Visit 07/27/2019 [facility] Yolanda Rodriguez T81.42xA Infct fol a 12:33p For Infectious Canales, RF TECHNICIAN procedure, deep Diseases incisional surgical site, init C79.31 Secondary malignant neoplasm of brain Office 07/26/2019 [facility] Radha Ott MD R56.9 Unspecified Visit 7:00a Clinic convulsions Office 07/26/2019 [facility] Katherin Guerrero T81.42xA Infct fol a Visit 12:29p Infectious Diseases Khriskleblack procedure, deep Canales, RF TECHNICIAN incisional surgical site, init C79.31 Secondary malignant neoplasm of brain Office Visit 07/25/2019 [facility] Davi Petersen, T84.7xxA Infect/ inflm react 10:43a M.D. due to oth int orth prosth dev/grft, init R56.9 Unspecified convulsions C50.912 Malignant neoplasm of unspecified site of left female breast E83.42 Hypomagnesemia Office Visit 07/24/2019 [facility] Davi Petersen, T84.7xxA Infect/ inflm react 10:41a KishoreDPradeep due to oth int orth prosth dev/grft, init R56.9 Unspecified convulsions C50.912 Malignant neoplasm of unspecified site of left female breast Office Visit 07/23/2019 [facility] T81.42xA Infct fol a 12:27p For Infectious BRADLY Canales procedure, deep Diseases incisional surgical site, init C79.31 Secondary malignant neoplasm of brain Office Visit 07/22/2019 [facility] Luann Porter, R56.9 Unspecified 10:41a Assdamian hansen M.D. convulsions Hospitalists T84.7xxA Infect/inflm react due to oth int orth prosth dev/grft, init C50.912 Malignant neoplasm of unspecified site of left female breast Office 07/22/2019 [facility] Davi R56.9 Unspecified Visit 7:00a Juan Evans MD convulsions Office 07/18/2019 [facility] T84.7xxA Infect/inflm Visit 10:28a [facility] react due to oth BRADLY Downing int orth prosth dev/grft, init F10.10 Alcohol abuse, uncomplicated F17.210 Nicotine dependence, cigarettes, uncomplicated Office Visit 07/17/2019 [facility] T84.7xxA Infect/inflm 10:27a Assocdamian react due to oth Hospitalists BRADLY Downing int orth prosth dev/grft, init F10.10 Alcohol abuse, uncomplicated F17.210 Nicotine dependence, cigarettes, uncomplicated [facility] T[facility] Infection 12:22p For Infectious BRADLY Canales following a Diseases procedure, unspecified, init C79.31 Secondary malignant neoplasm of brain Z85.3 Personal history of malignant neoplasm of breast Office Visit 07/16/2019 [facility] Brenda F17.210 Nicotine 10:27a Assoc,damian Luo NP dependence, Hospitalists cigarettes, uncomplicated F10.10 Alcohol abuse, uncomplicated E87.8 Oth disorders of electrolyte and fluid balance, NEC [facility] F[facility].210 Nicotine 10:27a Assoc,damian Luo NP dependence, Hospitalists cigarettes, uncomplicated F10.10 Alcohol abuse, uncomplicated E87.8 Oth disorders of electrolyte and fluid balance, NEC [facility] F10.10 Alcohol abuse, 10:26a Assoc,damain Luo NP uncomplicated Hospitalists F17.200 Nicotine dependence, unspecified, uncomplicated [...] (surgical) wound, NEC, init Office Visit 06/03/2019 [facility] Srikanth Valderramazer, B35.3 Tinea pedis 2:30p MD Office Visit [...] cause of diseases classified elsewhere 09/16/2019 Z79.2 ad terminal makeup operator (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 of Yolanda Canales NP antibiotics 09/02/2019 G06.0 Intracranial abscess and granuloma Yolanda Canales NP 09/02/2019 T81.31xD Disruption of external operation Yolanda Canales NP (surgical) wound, not elsewhere classified, subsequent encounter 09/02/2019 B95.61 Methicillin susceptible Yolanda Canales NP Staphylococcus aureus infection as the cause of diseases classified elsewhere 09/02/2019 Z79.2 jail (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 of Yolanda Canales NP antibiotics [...] cause of diseases classified elsewhere 08/19/2019 Z79.2 jail (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 of Yolanda Canales NP antibiotics [...] 07/27/2019 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 NP brain 07/26/2019 R56.9 Unspecified convulsions Fahed Saada, MD 07/26/2019 T81.42xA Infection following a procedure, Yolanda Rodriguez BRADLY Canales deep incisional surgical site, initial encounter 07/26/2019 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, RF TECHNICIAN brain 07/25/2019 T84.7xxA Infection and inflammatory reaction [...] 07/23/2019 T81.42xA Infection following a procedure, Yolanda Aragonlaura Canales NP deep incisional surgical site, initial encounter 07/23/2019 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, RF TECHNICIAN brain 07/22/2019 R56.9 Unspecified convulsions Davi Evans MD 07/22/2019 R56.9 Unspecified convulsions Luann Porter M.D. 07/22/2019 T84.7xxA Infection and inflammatory reaction Luann Porter M.D. due to other internal orthopedic prosthetic devices, implants and grafts, initial encounter 07/22/2019 C50.912 Malignant neoplasm of unspecified Luann Porter M.D. site of left female breast 07/18/2019 T84.7xxA Infection and inflammatory reaction Yojana Downing NP due to other internal orthopedic prosthetic devices, implants and grafts, initial encounter 07/18/2019 F10.10 Alcohol abuse, uncomplicated Yojana Downing NP 07/18/2019 F17.210 Nicotine dependence, cigarettes, Yojana William Doto, RF TECHNICIAN uncomplicated 07/17/2019 T84.7xxA Infection and inflammatory reaction Yojana Downing, RF TECHNICIAN due to other internal orthopedic prosthetic devices, implants and grafts, initial encounter 07/17/2019 F10.10 Alcohol abuse, uncomplicated Yojana Downing, RF TECHNICIAN 07/17/2019 F17.210 Nicotine dependence, cigarettes, Yojana Downing, RF TECHNICIAN uncomplicated 07/16/2019 T81.40xA Infection following a procedure, Yolanda Rodriguez Canales, RF TECHNICIAN unspecified, initial encounter 07/16/2019 F17.210 Nicotine dependence, cigarettes, Brenda Luo, BRADLY uncomplicated 07/16/2019 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, BRADLY brain 07/16/2019 F10.10 Alcohol abuse, uncomplicated Brenda Luo, BRADLY 07/16/2019 Z85.3 Personal history of malignant Yolanda Michael Canales NP neoplasm of breast 07/16/2019 E87.8 Other disorders of electrolyte and Brenda Luo NP fluid balance, not elsewhere classified 07/15/2019 F17.210 Nicotine dependence, cigarettes, Brenda Luo NP uncomplicated 07/15/2019 F10.10 Alcohol abuse, uncomplicated Brenda Luo, RF TECHNICIAN 07/15/2019 E87.8 Other disorders of electrolyte and Brenda Luo NP fluid balance, not elsewhere classified 07/14/2019 T81.31xA Disruption of external operation Jonathan Cardenas MD (surgical) wound, not elsewhere classified, initial encounter 07/14/2019 F10.10 Alcohol abuse, uncomplicated Brenda Luo, RF TECHNICIAN 07/14/2019 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 07/14/2019 F17.200 Nicotine dependence, unspecified, Brenda Luo NP uncomplicated 07/14/2019 Z85.841 Personal history of malignant Brenda Luo NP neoplasm of brain 07/07/2019 Z48.3 Aftercare following [...] Gambino MD site of left female breast Plan of Treatment Future Appointment(s):12/29/2019 2:30 pm - Jonathan Cardenas MD at [facility]11/08/2019 10:15 am - Davi Evans MD at [facility]010/20/2019 1:00 pm - Yolanda Canales NP at [facility] Functional Status Description No Information Available Mental Status Description No Information Available Referrals Description No Information Available
--- OUTSIDE RECORDS SUMMARY | 2019-10-31 22:02 | XMS REPORT | Continuity of Care Document ---
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 Problems Description No Information Available Social History Type Date Description Comments Sex Unknown ETOH Use Drinks 6 Alcoholic to 20 Beverages Per Day Recreational Drug Use Never Used Drugs Tobacco Use Start: Unknown End: Patient is a former quit 07/2019 Unknown smoker Smoking Status Reviewed: 09/02/19 Patient is a former quit 07/2019 smoker Exercise Type/Frequency Does not exercise Allergies, Adverse Reactions, Alerts Active Allergies Reaction Severity Comments Date Penicillin swelling 11/05/2016 Medications Active Medications SIG Qnty Indications Ordering Provider Date Doxycycline Hyclate 1 capsule by 28caps G06.0 Yolanda Rodriguez 09/02/2019 mouth twice a BRADLY Canales 100mg Capsules day Fluconazole Take one by 2tabs Yolanda Rodriguez 08/05/2019 150mg mouth once, december BRADLY Canales Tablets repeat in 3 days if needed Keppra 1 by mouth twice 180tabs Vassilios 08/04/2019 500mg Tablets a day MD Ronald Vancomycin HCL 750 mg iv every Unknown 07/22/2019 1gm 12 hrs x 6 wks Solution Rec at [facility] Trazodone HCL 2 tabs by mouth Unknown 05/02/2019 50mg At hs For Sleep Tablets Chantix Starting Take as Directed Unknown Month Pedro 0.5mg X 11 & 1 mg X 42 Tablets Tylenol 2 tablets every Unknown 325mg 4 hours as Capsules needed for pain Thiamine HCL 1 by mouth every Unknown 100mg day Tablets Multivitamin Adult 1 by mouth every Unknown day Tablets Acidophilus 1 by mouth twice Unknown Capsules daily Tylenol Extra 1-2 tabs by Unknown Strength mouth every 6 500mg hours as needed Tablets History Medications Tylenol 8 Hour 1 by mouth twice 180tabs Jonathan Cardenas, 08/04/2019 - Arthritis Pain a day 08/24/2019 650mg Tablets ER Aleve 1 tab twice a Jonathan Cardenas 06/29/2019 - 220mg Tablets day as needed 08/18/2019 Immunizations Description No Information Available Vital Signs Date Vital Result Comment 09/02/2019 9:41am Height 62 inches 5'2" Weight 140.00 lb Heart Rate 84 /min BP Systolic Sitting 112 mmHg BP Diastolic Sitting 62 mmHg Respiratory Rate 14 /min Body Temperature 98.3 F O2 % BldC Oximetry 99 % BMI (Body Mass Index) 25.6 kg/m2 08/24/2019 11:02am Height 62 inches 5'2" Weight 140.00 lb Heart Rate 88 /min BP Systolic 132 mmHg BP Diastolic 60 mmHg Pain Level 3 back of incision BMI (Body Mass Index) 25.6 kg/m2 Results Test Acquired Date Facility Test Result H/L Range Note CBC Auto 08/30/2019 [facility] White Blood 7.1 10^3/uL Normal 3.5-10.[address] [place] [address] [phone] Red Blood Count 3.56 10^6/uL Low 3.70-4.87 [...] Blood Cells % 0.0 Comp Metabolic 08/30/2019 [facility] Sodium 139 mmol/L Normal 135-[address] [place] [address] [phone] Potassium 3.9 mmol/L Normal 3.5-5.0 Chloride 106 [...] Egfr 82.3 >60 1 Laboratory test 08/30/2019 [facility] C Reactive 8.71 mg/L High <8.[address] [place] [address] [phone] Vancomycin Trough 20.7 g/mL 2 CBC Auto 08/23/2019 [facility] White Blood 6.6 10^3/uL Normal 3.5-10.[address] [place] [address] [phone] Red Blood Count 3.69 10^6/uL Low 3.70-4.87 [...] Blood Cells % 0.0 Comp Metabolic 08/23/2019 [facility] Sodium 139 mmol/L Normal 135-[address] [place] [address] [phone] Potassium 4.2 mmol/L Normal 3.5-5.0 Chloride 106 [...] Egfr 83.4 >60 3 Laboratory test 08/23/2019 [facility] C Reactive 1.24 mg/L Normal <8.[address] [place] [address] [phone] Vancomycin Trough 19.5 g/mL 4 Laboratory test 08/16/2019 [facility] Potassium 4.0 mmol/L Normal 3.5-5.[address] [place] [address] [phone] Ast Redraw 28 U/L Normal 13-39 CBC Auto 08/16/2019 [facility] White Blood 5.6 10^3/uL Normal 3.5-10.[address] [place] [address] [phone] Red Blood Count 3.60 10^6/uL Low 3.70-4.87 [...] Blood Cells % 0.1 Comp Metabolic 08/16/2019 [facility] Sodium 140 mmol/L Normal 135-[address] [place] [address] [phone] Chloride 107 mmol/L Normal 101-111 Co2 Carbon [...] TNP U/L 13-39 7 Laboratory test 08/16/2019 [facility] C Reactive 1.37 mg/L Normal <8.01 8 finding [address] [employer] [place] [address] [phone] Vancomycin Trough 13.9 g/mL 9 Laboratory test 08/09/2019 [facility] C Reactive 2.45 mg/L Normal <8.01 finding [address] [place] [address] [phone] Vancomycin Trough 19.6 g/mL 10 Comp Metabolic 08/09/2019 [facility] Sodium 140 mmol/L Normal 135-145 Panel [address] [place] [address] [phone] Potassium 3.5 mmol/L Normal 3.5-5.0 Chloride 107 [...] Egfr 110.2 >60 11 CBC Auto 08/09/2019 [facility] White Blood 5.1 10^3/uL Normal 3.5-10.[address] [place] [address] [phone] Red Blood Count 3.52 10^6/uL Low 3.70-4.87 [...] Blood Cells % 0.0 Laboratory test 08/03/2019 [facility] Vancomycin 19.0 g/mL [address] [place] [address] [phone] CBC Auto Diff 08/02/2019 [facility] White Blood 6.3 10^3/uL Normal 3.5- [address] Count 10.8 [place] [address] [phone] Red Blood Count 3.27 10^6/uL Low 3.70-4.87 [...] Blood Cells % 0.1 Comp Metabolic 08/02/2019 [facility] Sodium 141 mmol/L Normal 135-[address] [place] [address] [phone] Potassium 3.4 mmol/L Low 3.5-5.0 Chloride 108 [...] Egfr 106.4 >60 13 Laboratory test 08/02/2019 [facility] C Reactive 3.39 Normal < 8.[address] Protein mg/[place] [address] [phone] Laboratory test 07/30/2019 [facility] Vancomycin 22.1 [address] Trough g/[place] [address] [phone] CBC Auto Diff 04/01/2019 [facility] White Blood 8.6 Normal 3.5 -10.[address] Count 10^3/uL [place], [place] [id number] [phone] Red Blood Count 3.60 10^6/uL Low 3.70-4.87 [...] mmol/L Normal 135-[address] [place] [address] [phone] Potassium 4.3 mmol/L Normal 3.5-5.0 Chloride 104 [...] Non- 96.1 >60 Egfr 116.2 >60 15 Laboratory test 03/17/2019 [facility] Point of 88 mg/dL Normal 70-100 [address] [place] [address] [phone] 1 Because ethnic data is not always [...] result due to hemolysis. 8 Verbal to [id number] K,AST HEMOLYZED, REDRAW ENTERED IN COMPUTER. by [id number] at 0904 on 08/16/19. 9 15-20 for [...] 5 Kidney failure <15 (or dialysis) 16 Oncology Physician Assistant: [id number] Procedures Date Code Description Status 04/12/2019 10920 Fluoroscopic Guidance For Cent Completed 04/12/2019 79131 Insertion Tunneled Cent Venous Cathr W Subcut Port 5 Completed Yrs Or Oldr 10/31/2016 [id number] Mammogram Completed Medical Devices Description No Information Available Encounters Type Date Location Provider Dx Diagnosis Office Visit 08/19/2019 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 B95.61 Methicillin suscep staph infct causing dis classd elswhr Z79.2 penitentiary (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 of antibiotics Office Visit 07/27/2019 [facility] Yolanda Rodriguez T81.42xA Infct fol a 12:33p For Infectious Canales, PRINTING SIGN MACHINE OPERATOR procedure, deep Diseases incisional surgical site, init C79.31 Secondary malignant neoplasm of brain Office 07/26/2019 [facility] Radha Ott MD R56.9 Unspecified Visit 7:00a Clinic convulsions Office 07/26/2019 [facility] Yolanda T81.42xA Infct fol a Visit 12:29p [facility]ious [facility], deep Canales, PRINTING SIGN MACHINE OPERATOR incisional surgical site, init C79.31 Secondary malignant [...] of left female breast Office Visit 07/23/2019 [facility] Yolanda Rodriguez T81.42xA Infct fol a 12:27p For Infectious Canales, PRINTING SIGN MACHINE OPERATOR procedure, deep Diseases incisional surgical site, init C79.31 Secondary malignant neoplasm of brain Office Visit 07/22/2019 [facility] Davi Evans, R56.9 Unspecified 7:00a Clinic MD convulsions Office Visit 07/22/2019 [facility] Luann R56.9 Unspecified 10:41a Assoc, Hospitalaneudy Porter M.D. convulsions T84.7xxA Infect/inflm react due to oth int orth prosth dev/grft, init C50.912 Malignant neoplasm of unspecified site of left female breast Office Visit 07/18/2019 [facility] Yojana T84.7xxA Infect/inflm 10:28a Assoc,damian [facility] react due to oth Hospitalists [place] PRINTING SIGN MACHINE OPERATOR int orth prosth dev/grft, init F10.10 Alcohol abuse, uncomplicated F17.210 Nicotine dependence, cigarettes, uncomplicated Office Visit 07/17/2019 [facility] Yojana T84.7xxA Infect/inflm 10:27a Assoc,damian [facility] react due to oth Hospitalists [place] PRINTING SIGN MACHINE OPERATOR int orth prosth dev/grft, init F10.10 Alcohol abuse, uncomplicated F17.210 Nicotine dependence, cigarettes, uncomplicated Office Visit 07/16/2019 [facility] Yolanda Rodriguez T81.40xA Infection 12:22p For Infectious BRADLY Canales following a Diseases procedure, unspecified, init C79.31 Secondary malignant neoplasm of brain Z85.3 Personal history of malignant neoplasm of breast Office Visit 07/16/2019 [facility] F17.210 Nicotine 10:27a Assoc,damian Luo NP dependence, Hospitalists cigarettes, uncomplicated F10.10 Alcohol abuse, uncomplicated E87.8 Oth disorders of electrolyte and fluid balance, NEC [facility] Nic[facility] 10:27a Assocdamian NP dependence, Hospitalists cigarettes, uncomplicated F10.10 Alcohol abuse, uncomplicated E87.8 Oth disorders of electrolyte and fluid balance, NEC Office Visit 07/14/2019 [facility] F10.10 Alcohol abuse, 10:26a Assocdamian, PRINTING SIGN MACHINE OPERATOR uncomplicated Hospitalists F17.200 Nicotine dependence, unspecified, uncomplicated [...] (surgical) wound, NEC, init Office Visit 06/03/2019 [facility] Srikanth Garcia, B35.3 Tinea pedis 2:30p MD Office Visit 04/08/2019 [facility] C50.912 Malignant 1:30p [facility] MD neoplasm of unspecified site of left female breast Assessments Date Code Description Provider 09/02/2019 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 Yolanda Canales NP 09/02/2019 T81.31xD Disruption of external operation Yolanda Canales NP (surgical) wound, not elsewhere classified, subsequent encounter 09/02/2019 B95.61 Methicillin susceptible Yolanda Canales NP Staphylococcus aureus infection as the cause of diseases classified elsewhere 09/02/2019 Z79.2 penitentiary (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 of Yolanda Canales NP antibiotics [...] elsewhere 08/19/2019 Z79.2 penitentiary (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 of Yolanda Canales NP antibiotics 08/09/2019 D49.6 Neoplasm of unspecified behavior of Jonathan Cardenas MD brain 08/04/2019 D49.6 Neoplasm of unspecified behavior of Jonathan Cardenas MD brain 08/04/2019 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 08/04/2019 T81.31xD Disruption of external operation Jonathan Cardenas MD (surgical) wound, not elsewhere classified, subsequent encounter 07/27/2019 T81.42xA Infection following a procedure, Yolanda Canales, PRINTING SIGN MACHINE OPERATOR deep incisional surgical site, initial encounter 07/27/2019 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, PRINTING SIGN MACHINE OPERATOR brain 07/26/2019 R56.9 Unspecified convulsions Radha Ott MD 07/26/2019 T81.42xA Infection following a procedure, Yolanda Canales, PRINTING SIGN MACHINE OPERATOR deep incisional surgical site, initial encounter 07/26/2019 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, PRINTING SIGN MACHINE OPERATOR brain 07/25/2019 T84.7xxA Infection and inflammatory reaction [...] T81.42xA Infection following a procedure, Yolanda Canales, PRINTING SIGN MACHINE OPERATOR deep incisional surgical site, initial encounter 07/23/2019 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, PRINTING SIGN MACHINE OPERATOR brain 07/22/2019 R56.9 Unspecified convulsions Davi Evans MD 07/22/2019 R56.9 Unspecified convulsions Luann Porter M.D. 07/22/2019 T84.7xxA Infection and inflammatory reaction Luann Porter M.D. due to other internal orthopedic prosthetic devices, implants and grafts, initial encounter 07/22/2019 C50.912 Malignant neoplasm of unspecified Luann Charlotte, M.D. site of left female breast 07/18/2019 T84.7xxA Infection and inflammatory reaction Yojana Downing, PRINTING SIGN MACHINE OPERATOR due to other internal orthopedic prosthetic devices, implants and grafts, initial encounter 07/18/2019 F10.10 Alcohol abuse, uncomplicated Yojana Downing, PRINTING SIGN MACHINE OPERATOR 07/18/2019 F17.210 Nicotine dependence, cigarettes, Yojana Downing, PRINTING SIGN MACHINE OPERATOR uncomplicated 07/17/2019 T84.7xxA Infection and inflammatory reaction Yojana Downing, PRINTING SIGN MACHINE OPERATOR due to other internal orthopedic prosthetic devices, implants and grafts, initial encounter 07/17/2019 F10.10 Alcohol abuse, uncomplicated Yojana Downing, PRINTING SIGN MACHINE OPERATOR 07/17/2019 F17.210 Nicotine dependence, cigarettes, Yojana Downing, PRINTING SIGN MACHINE OPERATOR uncomplicated 07/16/2019 T81.40xA Infection following a procedure, Yolanda Pinedobethel Canales, BRADLY unspecified, initial encounter 07/16/2019 F17.210 Nicotine dependence, cigarettes, Brenda Luo, PRINTING SIGN MACHINE OPERATOR uncomplicated 07/16/2019 C79.31 Secondary malignant neoplasm of Yolanda Rodriguez Canales, BRADLY brain 07/16/2019 F10.10 Alcohol abuse, uncomplicated Brenda Luo, PRINTING SIGN MACHINE OPERATOR 07/16/2019 Z85.3 Personal history of malignant Yolanda Rodriguez BRADLY Canales neoplasm of breast 07/16/2019 E87.8 Other disorders of electrolyte and Brenda Luo, PRINTING SIGN MACHINE OPERATOR fluid balance, not elsewhere classified 07/15/2019 F17.210 Nicotine dependence, cigarettes, Brenda Luo, PRINTING SIGN MACHINE OPERATOR uncomplicated 07/15/2019 F10.10 Alcohol abuse, uncomplicated Brenda Luo, PRINTING SIGN MACHINE OPERATOR 07/15/2019 E87.8 Other disorders of electrolyte and Brenda Luo, PRINTING SIGN MACHINE OPERATOR fluid balance, not elsewhere classified 07/14/2019 T81.31xA Disruption of external operation Jonathan Cardenas MD (surgical) wound, not elsewhere classified, initial encounter 07/14/2019 F10.10 Alcohol abuse, uncomplicated Brenda Luo, PRINTING SIGN MACHINE OPERATOR 07/14/2019 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 07/14/2019 F17.200 Nicotine dependence, unspecified, Brenda Luo, PRINTING SIGN MACHINE OPERATOR uncomplicated 07/14/2019 Z85.841 Personal history of malignant Brenda VuongJosie, BRADLY neoplasm of brain 07/07/2019 Z48.3 Aftercare [...] unspecified behavior of Jonathan Cardenas MD brain 03/16/2019 Z48.3 Aftercare following surgery for BREA Buenrostro neoplasm 03/16/2019 C79.31 Secondary malignant neoplasm of BREA Buenrostro brain 03/05/2019 Z48.3 Aftercare following surgery for Jonathan Cardenas MD neoplasm 03/05/2019 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 Plan of Treatment Future Appointment(s):09/16/2019 9:00 am - Yolanda Canales NP at [facility] For Infectious Yrnbocuo26/17/2020 9:15 am - Davi Evans MD at [facility] [id number]/01/2019 9:00 am - Jonathan Cardenas MD at [facility]09/02/2019 - Yolanda Canales, NPG06.0 Intracranial abscess and granulomaNew Medication:Doxycycline Hyclate 100 mg - 1 capsule by mouth twice a dayFollow up:2-3 cqweuZ98.31xD Disruption of external operation (surgical) wound, NEC, subsB95.61 Methicillin suscep staph infct causing dis classd rressfR96.2 penitentiary (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 of antibiotics Functional Status Description No Information Available Mental Status Description No Information Available Referrals Description No Information Available
--- OUTSIDE RECORDS SUMMARY | 2019-10-31 22:02 | XMS REPORT | Continuity of Care Document ---
:1955 External Reference #:[id number] Author Name Yolanda Canales NP (transmitted by agent of provider Tammy Travis) Address [address] [place] [address] Care Team Providers Name Role Phone Patient's Choice Care Team Information Diet Counselor Unavailable Problems Description No Information Available Social History Type Date Description Comments Sex Unknown ETOH Use Drinks 6 Alcoholic to 20 Beverages Per Day Recreational Drug Use Never Used Drugs Tobacco Use Start: Unknown End: Patient is a former quit 07/2019 Unknown smoker Smoking Status Reviewed: 09/16/19 Patient is a former quit 07/2019 smoker [...] every 6 500mg hours as needed Tablets Tramadol HCL Take One Tablet Unknown 50mg By Mouth Every 6 Tablets Hours as Needed Maximum Daily Dose 4 History Medications Tylenol 8 Hour 1 by mouth twice 180tabs Vassilios 08/04/2019 - Arthritis Pain a day MD Ronald 08/24/2019 650mg Tablets ER Vancomycin HCL 750 mg iv every Unknown 07/22/2019 - 1gm 12 hrs x 6 wks 09/03/2019 [place] [facility] [place] 1 tab twice a Vassilios 06/29/2019 - 220mg Tablets day as needed MD Ronald 08/18/2019 Immunizations Description No Information Available Vital Signs Date Vital Result Comment 09/16/2019 9:04am Height 62 inches 5'2" Weight 140.00 lb Heart Rate 98 /min BP Systolic Sitting 130 mmHg BP Diastolic Sitting 64 mmHg Respiratory Rate 14 /min Body Temperature 97.7 F BMI (Body Mass Index) 25.6 kg/m2 09/02/2019 9:41am Height 62 inches 5'2" Weight 140.00 lb Heart Rate 84 /min BP Systolic Sitting 112 mmHg BP Diastolic Sitting 62 mmHg Respiratory Rate 14 /min Body Temperature 98.3 F O2 % BldC Oximetry 99 % BMI (Body Mass Index) 25.6 kg/m2 Results Test Acquired Date Facility Test Result H/L Range Note CBC Auto 09/09/2019 [facility] White Blood 5.4 10^3/uL Normal 3.5-10.[address] [place] [address] [phone] Red Blood Count 3.90 10^6/uL Normal 3.70-4.87 [...] Blood Cells % 0.1 Laboratory test 09/09/2019 [facility] C Reactive 2.39 mg/L Normal <8.[address] [place] [address] [phone] CBC Auto Diff 08/30/2019 [facility] White Blood 7.1 Normal 3.5 -10.[address] Count 10^3/[place] [address] [phone] Red Blood Count 3.56 10^6/uL Low 3.70-4.87 [...] Blood Cells % 0.0 Comp Metabolic 08/30/2019 [facility] Sodium 139 mmol/L Normal 135-[address] [place] [address] [phone] Potassium 3.9 mmol/L Normal 3.5-5.0 Chloride 106 [...] Egfr 82.3 >60 1 Laboratory test 08/30/2019 [facility] C Reactive 8.71 mg/L High <8.[address] [place] [address] [phone] Vancomycin Trough 20.7 g/mL 2 CBC Auto 08/23/2019 [facility] White Blood 6.6 10^3/uL Normal 3.5-10.[address] [place] [address] [phone] Red Blood Count 3.69 10^6/uL Low 3.70-4.87 [...] Blood Cells % 0.0 Comp Metabolic 08/23/2019 [facility] Sodium 139 mmol/L Normal 135-[address] [place] [address] [phone] Potassium 4.2 mmol/L Normal 3.5-5.0 Chloride 106 [...] Egfr 83.4 >60 3 Laboratory test 08/23/2019 [facility] C Reactive 1.24 mg/L Normal <8.[address] [place] [address] [phone] Vancomycin Trough 19.5 g/mL 4 Laboratory test 08/16/2019 [facility] Potassium 4.0 mmol/L Normal 3.5-5.[address] [place] [address] [phone] Ast Redraw 28 U/L Normal 13-39 CBC Auto 08/16/2019 [facility] White Blood 5.6 10^3/uL Normal 3.5-10.[address] [place] [address] [phone] Red Blood Count 3.60 10^6/uL Low 3.70-4.87 [...] Blood Cells % 0.1 Comp Metabolic 08/16/2019 [facility] Sodium 140 mmol/L Normal 135-[address] [place] [id number] [phone] Chloride 107 mmol/L Normal 101-111 Co2 Carbon [...] TNP U/L 13-39 7 Laboratory test 08/16/2019 [facility] C Reactive 1.37 mg/L Normal <8.01 [address] [place] [address] [phone] Vancomycin Trough 13.9 g/mL 9 Laboratory test 08/09/2019 [facility] C Reactive 2.45 mg/L Normal <8.[address] [place] [address] [phone] Vancomycin Trough 19.6 g/mL 10 Comp Metabolic 08/09/2019 [facility] Sodium 140 mmol/L Normal 135-[address] [place] [address] [phone] Potassium 3.5 mmol/L Normal 3.5-5.0 Chloride 107 [...] Egfr 110.2 >60 11 CBC Auto 08/09/2019 [facility] White Blood 5.1 10^3/uL Normal 3.5-10.[address] [place] [address] [phone] Red Blood Count 3.52 10^6/uL Low 3.70-4.87 [...] Blood Cells % 0.0 Laboratory test 08/03/2019 [facility] Vancomycin 19.0 g/mL [address] [place] [address] [phone] CBC Auto Diff 08/02/2019 [facility] White Blood 6.3 10^3/uL Normal 3.5- [address] Count 10.8 [place] [address] [phone] Red Blood Count 3.27 10^6/uL Low 3.70-4.87 [...] Blood Cells % 0.1 Comp Metabolic 08/02/2019 [facility] Sodium 141 mmol/L Normal 135-[address] [place] [address] [phone] Potassium 3.4 mmol/L Low 3.5-5.0 Chloride 108 [...] Egfr 106.4 >60 13 Laboratory test 08/02/2019 [facility] C Reactive 3.39 Normal < 8.[address] Protein mg/[place] [address] [phone] Laboratory test 07/30/2019 [facility] Vancomycin 22.1 [address] Trough g/[place] [address] [phone] CBC Auto Diff 04/01/2019 [facility] White Blood 8.6 Normal 3.5 -10.[address] Count 10^3/[place] [address] [phone] Red Blood Count 3.60 10^6/uL Low 3.70-4.87 [...] Blood Cells % 0.0 Comp Metabolic 04/01/2019 [facility] Sodium 137 mmol/L Normal 135-[address] [place] [address] [phone] Potassium 4.3 mmol/L Normal 3.5-5.0 Chloride 104 [...] Egfr 116.2 >60 15 Laboratory test 03/17/2019 [facility] Point of 88 mg/dL Normal 70-100 [address] [place] [address] [phone] 1 Because ethnic data is not always [...] result due to hemolysis. 8 Verbal to [id number] K,AST HEMOLYZED, REDRAW ENTERED IN COMPUTER. by [id number] at 0904 on 08/16/19. 9 15-20 for [...] 5 Kidney failure <15 (or dialysis) 16 Periodontal Assistant: [id number] Procedures Date Code Description Status 04/12/2019 43406 Fluoroscopic Guidance For Cent Completed 04/12/2019 61788 Insertion Tunneled Cent Venous Cathr W Subcut Port 5 Completed Yrs Or Oldr 10/31/2016 [id number] Mammogram Completed Medical Devices Description No Information Available Encounters Type Date Location Provider Dx Diagnosis Office Visit 09/02/2019 [facility] Yolanda Aragonmoapurva G06.0 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 BRADLY Canales abscess and Diseases granuloma T81.31xD Disruption of external operation (surgical) wound, NEC, subs B95.61 Methicillin suscep staph infct causing dis classd elswhr Z79.2 group home (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 of antibiotics Office Visit 08/19/2019 [facility] Yolanda Rodriguez T81.31xD Disruption of 11:00a For Infectious Ally ATOMIC WELDER external Diseases operation (surgical) wound, NEC, subs G06.0 Intracranial abscess and granuloma B95.61 Methicillin suscep staph infct causing dis classd elswhr 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 Office Visit 07/27/2019 [facility] Yolanda Ruizyale [facility] T81.42xA Infct fol a 12:33p For Infectious Canales, ATOMIC WELDER procedure, deep Diseases incisional surgical site, init C79.31 Secondary malignant neoplasm of brain Office 07/26/2019 [facility] Radha Ott MD R56.9 Unspecified Visit 7:00a Clinic convulsions Office 07/26/2019 [facility] Yolanda T81.42xA Infct fol a Visit 12:29p Infectious Diseases [facility] procedure, deep Canales, ATOMIC WELDER incisional surgical site, init C79.31 Secondary malignant [...] left female breast Office Visit 07/23/2019 [facility] T81.42xA Infct fol a 12:27p For Infectious Ally, ATOMIC WELDER procedure, deep Diseases incisional surgical site, init C79.31 Secondary malignant neoplasm of brain Office Visit 07/22/2019 [facility] Davi Evans, R56.9 Unspecified 7:00a Clinic MD convulsions Office Visit 07/22/2019 [facility] Luann R56.9 Unspecified 10:41a Assoc, Maynor Porter M.D. convulsions T84.7xxA Infect/inflm react due to oth int orth prosth dev/grft, init C50.912 Malignant neoplasm of unspecified site of left female breast Office Visit 07/18/2019 [facility] Yojana T84.7xxA Infect/inflm 10:28a Assoc,damian MeloWilliam react due to oth Hospitalists BRADLY Downing int orth prosth dev/grft, init F10.10 Alcohol abuse, uncomplicated F17.210 Nicotine dependence, cigarettes, uncomplicated Office Visit 07/17/2019 [facility] Yojana T84.7xxA Infect/inflm 10:27a Assocdamian react due to oth Hospitalists BRADLY Downing int orth prosth dev/grft, init F10.10 Alcohol abuse, uncomplicated F17.210 Nicotine dependence, cigarettes, uncomplicated [facility] F[facility].210 Nicotine 10:27a Assoc,damian Luo NP dependence, Hospitalists cigarettes, uncomplicated F10.10 Alcohol abuse, uncomplicated E87.8 Oth disorders of electrolyte and fluid balance, NEC [facility] T81.40xA Infection 12:22p For Infectious BRADLY Canales following a Diseases procedure, unspecified, init C79.31 Secondary malignant neoplasm of brain Z85.3 Personal history of malignant neoplasm of breast [facility] F17.210 Nicotine 10:27a Assoc,damian Luo NP dependence, Hospitalists cigarettes, uncomplicated F10.10 Alcohol abuse, uncomplicated E87.8 Oth disorders of electrolyte and fluid balance, NEC [facility] F10.10 Alcohol abuse, 10:26a Assoc,damian Luo, ATOMIC WELDER uncomplicated Hospitalists F17.200 Nicotine dependence, unspecified, uncomplicated [...] (surgical) wound, NEC, init Office Visit 06/03/2019 [facility] Srikanth Garcia, B35.3 Tinea pedis 2:30p MD Office Visit 04/08/2019 [facility] KhanPradeep C50.912 Malignant 1:30p [facility] MD neoplasm of unspecified site of left female breast Assessments Date Code Description Provider 09/16/2019 G06.0 Intracranial abscess and granuloma Yolanda Canales NP 09/16/2019 T81.31xD Disruption of external operation Yolanda Canales NP (surgical) wound, not elsewhere classified, subsequent encounter 09/16/2019 B95.61 Methicillin susceptible Yolanda Canales NP Staphylococcus aureus infection as the cause of diseases classified elsewhere 09/16/2019 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 Yolanda Canales NP antibiotics 09/02/2019 G06.0 Intracranial abscess and granuloma Yolanda Canales NP 09/02/2019 T81.31xD Disruption of external operation Yolanda Canales NP (surgical) wound, not elsewhere classified, subsequent encounter 09/02/2019 B95.61 Methicillin susceptible Yolanda Canales NP Staphylococcus aureus infection as the cause of diseases classified elsewhere 09/02/2019 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 Yolanda Canales NP [...] cause of diseases classified elsewhere 08/19/2019 Z79.2 group home (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 of Yolanda Canales NP antibiotics 08/09/2019 D49.6 Neoplasm of unspecified behavior of Vassilios Dimopoulos, MD brain 08/04/2019 D49.6 Neoplasm of unspecified behavior of Jonathan Cardenas MD brain 08/04/2019 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 08/04/2019 T81.31xD Disruption of external operation Jonathan Cardenas MD (surgical) wound, not elsewhere classified, subsequent encounter 07/27/2019 T81.42xA Infection following a procedure, Yolandatheo Canales NP deep incisional surgical site, initial encounter 07/27/2019 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, ATOMIC WELDER brain 07/26/2019 R56.9 Unspecified convulsions Radha Ott MD 07/26/2019 T81.42xA Infection following a procedure, Yolanda Pinedobethel Canales ATOMIC WELDER deep incisional surgical site, initial encounter 07/26/2019 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, ATOMIC WELDER brain 07/25/2019 T84.7xxA Infection and inflammatory reaction [...] 07/23/2019 T81.42xA Infection following a procedure, Yolanda Pinedobethel Canales ATOMIC WELDER deep incisional surgical site, initial encounter 07/23/2019 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, ATOMIC WELDER brain 07/22/2019 R56.9 Unspecified convulsions Davi Evans MD 07/22/2019 R56.9 Unspecified convulsions Luann Porter M.D. 07/22/2019 T84.7xxA Infection and inflammatory reaction Luann Porter M.D. due to other internal orthopedic prosthetic devices, implants and grafts, initial encounter 07/22/2019 C50.912 Malignant neoplasm of unspecified Luann Porter M.D. site of left female breast 07/18/2019 T84.7xxA Infection and inflammatory reaction Yojana Ahujaeusebio, ATOMIC WELDER due to other internal orthopedic prosthetic devices, implants and grafts, initial encounter 07/18/2019 F10.10 Alcohol abuse, uncomplicated Yojana Downing, ATOMIC WELDER 07/18/2019 F17.210 Nicotine dependence, cigarettes, Yojana Ahujaeusebio, ATOMIC WELDER uncomplicated 07/17/2019 T84.7xxA Infection and inflammatory reaction Yojana Downing, ATOMIC WELDER due to other internal orthopedic prosthetic devices, implants and grafts, initial encounter 07/17/2019 F10.10 Alcohol abuse, uncomplicated Yojana Ahujaeusebio, ATOMIC WELDER 07/17/2019 F17.210 Nicotine dependence, cigarettes, Yojana Downing, ATOMIC WELDER uncomplicated 07/16/2019 T81.40xA Infection following a procedure, Yolanda Michael Canales, ATOMIC WELDER unspecified, initial encounter 07/16/2019 F17.210 Nicotine dependence, cigarettes, Brenda Luo, BRADLY uncomplicated 07/16/2019 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, ATOMIC WELDER brain 07/16/2019 F10.10 Alcohol abuse, uncomplicated Brenda Luo NP 07/16/2019 Z85.3 Personal history of malignant Yolanda Pinedojedkristenapurva Canales, ATOMIC WELDER neoplasm of breast 07/16/2019 E87.8 Other disorders of electrolyte and Brenda Luo NP fluid balance, not elsewhere classified 07/15/2019 F17.210 Nicotine dependence, cigarettes, Brenda Luo NP uncomplicated 07/15/2019 F10.10 Alcohol abuse, uncomplicated Brenda Luo, BRADLY 07/15/2019 E87.8 Other disorders of electrolyte and Brenda Luo NP fluid balance, not elsewhere classified 07/14/2019 T81.31xA Disruption of external operation Jonathan Cardenas MD (surgical) wound, not elsewhere classified, initial encounter 07/14/2019 F10.10 Alcohol abuse, uncomplicated Brenda Luo, BRADLY 07/14/2019 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 07/14/2019 F17.200 Nicotine dependence, unspecified, Brenda Luo, BRADLY uncomplicated 07/14/2019 Z85.841 Personal history of malignant [...] Cardenas MD brain Plan of Treatment Future Appointment(s):10/20/2019 1:00 pm - Yolanda Canales NP at [facility]87/31/2020 9:00 am - [facility] - Yolanda Canales, BRADLYG06.0 Intracranial abscess and granulomaFollow up:1 sduerU31.31xD Disruption of external operation (surgical) wound, NEC, subsComments:Call the office for any redness, swelling, or drainage at the incision site.B95.61 Methicillin suscep staph infct causing dis classd zwfaxdX50.2 group home (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 of antibiotics Functional Status Description No Information Available Mental Status Description No Information Available Referrals Description No Information Available
--- NOTE | 2019-10-31 22:15 | ED ---
Psychiatric Complaint - HPI Summary HPI Summary: Patient is a 63 y/o F presenting to [facility] with cc of SI with plan for overdose tonight following an argument with her family. She reports that her and brother had been drinking, and her made her leave the home, which resulted in the patient having thoughts of overdosing on pills. She states she is angry and depressed; symptoms rated 3/10 in severity. She is currently suffering from metastatic breast cancer with chemotherapy once a month, due on , followed by Dr. Doty. No medical complaints at this time. She has not been her for psychiatric complaints before. PMHx: GERD, neuropathy, mx craniotomy for R brain mass. Former smoker, occasional EtOH, no substance use. Medications reviewed. Allergies noted. - History Of Current Complaint Chief Complaint: EDSuicidal Time Seen by Provider: 10/31/19 21:58 Hx Obtained From: Patient Onset/Duration: Sudden Onset, Still Present Timing: Constant Severity Initially: Moderate Severity Currently: Moderate Character: Depressed, Angry Aggravating Factor(s): Recent Stress - fight with family Alleviating Factor(s): Nothing Associated Signs And Symptoms: Positive: Negative Has Suicidal: Reports: Thoughts, With A Plan - Allergies/Home Medications Allergies/Adverse Reactions: Allergies Allergy/AdvReac Type Severity Reaction Status Date / Time Penicillins Allergy Severe See Comment Verified 10/31/19 21:55 Home Medications: Home Medications Acetaminophen TAB* [Tylenol TAB*] 650 mg PO Q6H PRN 02/23/19 [History Confirmed 10/31/19] Varenicline (NF) [Chantix 1 MG TAB (NF)] 1 mg PO BID 06/30/19 [History Confirmed 10/31/19] traZODone TAB* [Desyrel TAB*] 50 - 100 mg PO BEDTIME PRN 06/30/19 [History Confirmed 10/31/19] Docusate Sodium [Colace] 100 mg PO BID PRN #30 capsule 07/18/19 [Rx Confirmed ] Folic Acid TAB* [Folvite TAB*] 1 mg PO DAILY tab 07/18/19 [Rx Confirmed ] Multivitamins/Minerals TAB* [Theragran/minerals TAB*] 1 tab PO DAILY tab [Rx Confirmed 10/31/19] Oxycodone HCl 5 mg PO Q4H PRN #30 tablet MDD 6 07/18/19 [Rx Confirmed 10/31/19] Thiamine TAB* [Vitamin B-1 TAB 100 MG*] 100 mg PO DAILY tab 07/18/19 [Rx Confirmed 10/31/19] levETIRAcetam [Roweepra] 500 mg PO BID #60 tablet 07/27/19 [Rx Confirmed ] PMH/Surg Hx/FS Hx/Imm Hx Endocrine/Hematology History: Denies: Hx Diabetes Cardiovascular History: Denies: Hx Hypertension, Hx Pacemaker/ICD, Hx Peripheral Vascular Disease Respiratory History: Reports: Hx Lung Cancer - Breast CA with Mets GI History: Reports: Hx Gastroesophageal Reflux Disease - Takes Zantac as needed History: Denies: Hx Dialysis, Hx Renal Disease Musculoskeletal History: Reports: Hx Arthritis - HANDS, Other Musculoskeletal History - AGE RELATED ACHES AND PAINS PER PATIENT Denies: Hx Osteoporosis Sensory History: Reports: Hx Contacts or Glasses Denies: Hx Cataracts, Hx Glaucoma, Hx Hearing Aid Opthamlomology History: Reports: Hx Contacts or Glasses Denies: Hx Cataracts, Hx Glaucoma Neurological History: Reports: Hx Headaches - DUE TO TUMOR, Hx Nerve Disease - 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 BRAIN METS Hx Chemotherapy: Yes - June 2019 Hx Radiation Therapy: Yes - left breast 2016 - Surgical History Surgical History: Yes Surgery Procedure, Year, and Place: 1979-APPENDECTOMY. 2001-ECTOPIC . 2002-HYSTERECTOMY. 10/2016 LEFT BREAST LUMPECTOMY. right frontal temporal parietal crani 02/25/19 [facility] [place]. craniotomy 07/16/19. powerport placement and removal Hx Anesthesia Reactions: No Infectious Disease History: No Infectious Disease History: Denies: Hx Clostridium Difficile, Hx Hepatitis, Hx Human Immunodeficiency Virus (HIV), Hx of Known/Suspected MRSA, Hx Shingles, Hx Tuberculosis, History Other Infectious Disease, Traveled Outside the [place] in Last 30 Days - Family History Known Family History: Negative: Diabetes - Social History Alcohol Use: Occasionally Hx Substance Use: No Substance Use Type: Reports: None Hx Tobacco Use: Yes Smoking Status (MU): Former Smoker Type: Cigarettes Amount Used/How Often: 2 cigarettes a day Have You Smoked in the Last Year: Yes Review of Systems Negative: Fever Negative: Chest Pain Negative: Abdominal Pain Positive: Depressed, Other - SI with plan, angry All Other Systems Reviewed And Are Negative: Yes Physical Exam - Summary Physical Exam Summary: General: Well appearing, no distress HEENT: PERRL, Status post R-sided craniotomy Cardiovascular: Skin is well perfused Pulmonary: No respiratory distress, no tachypnea Abdomen: Non-distended Skin: Warm, pink, dry MSK: No edema Psych: Tearful, (+) SI Neuro: A&Ox3 Triage Information Reviewed: Yes Vital Signs On Initial Exam: Initial Vitals Temp Pulse Resp BP Pulse Ox 98.8 F 95 15 167/87 99 10/31/19 21:51 10/31/19 21:51 10/31/19 21:51 10/31/19 21:51 10/31/19 21:51 Vital Signs Reviewed: Yes Procedures - Sedation Patient Received Moderate/Deep Sedation with Procedure: No Diagnostics - Vital Signs Vital Signs Temp Pulse Resp BP Pulse Ox 10/31/19 21:51 98.8 F 95 15 167/87 99 - Laboratory Result Diagrams: 10/31/19 22:20 10/31/19 22:20 Lab Statement: Any lab studies that have been ordered have been reviewed, and results considered in the medical decision making process. Re-Evaluation - Re-Evaluation First Eval Re-Evaluation Time: 22:00 Comment: Patient is medically clear for MHE. Second Eval Re-Evaluation Time: 06:30 Comment: pending collateral from for MHU hold, per mental health staff Course/Dx - Differential Dx/Clinical Impression Provider Diagnosis: Depression Discharge ED - Sign-Out/Discharge Documenting (check all that apply): Sign-Out Patient Signing out patient TO: Jennifer Escobar - Patient is a sign-out to Dr. Jennifer Escobar MD, at change of shift at 0700 on 11/01/19, pending MHU hold and disposition. - Discharge Plan Condition: Stable Referrals: No Primary Care Phys,NOPCP [Primary Care Provider] - - Billing Disposition and Condition Condition: STABLE - Attestation Statements Document Initiated by Scribe: Yes Documenting Scribe: Merlene Wing Provider For Whom Scribe is Documenting (Include Credential): Dr. Maday Villafuerte MD Scribe Attestation: I, Merlene Wing, scribed for Dr. Maday Villafuerte MD on 11/01/19 at 0643. Scribe Documentation Reviewed: Yes Provider Attestation: The documentation as recorded by the scribe, Merlene Wing accurately reflects the service I personally performed and the decisions made by me, Dr. Maday Villafuerte MD Status of Scribe Document: Viewed
[2019-10-31] MEDS ORDERED: Acetaminophen / Codeine* #3 (300 MG/30 MG) TAB PO ONE (22:26)
[2019-10-31 22:35] LABS: ABS Basophils 0.1 10^3/ul (0-0.2); ABS Eosinophils 0.2 10^3/ul (0-0.6); ABS Lymphocytes 1.5 10^3/ul (1.0-4.8); ABS Monocytes 0.4 10^3/ul (0-0.8); ABS Neutrophils 2.3 10^3/ul (1.5-7.7); Eosinophil % 5.4 %; Hematocrit 30 % (35-47); Hemoglobin 10.1 g/dL (12.0-16.0); Lymphocyte % 33.1 %; Mean Corpuscular HGB Conc 34 g/dL (31-36); Mean Corpuscular Hemoglobin 30 pg (27-31); Mean Corpuscular Volume 88 fL (80-97); Nucleated Red Blood Cells % 0.1; Platelet Count 257 10^3/uL (150-450); Red Blood Count 3.34 10^6 /uL (3.70-4.87); Red Cell Distribution Width 15 % (10-15); White Blood Count 4.5 10^3/uL (3.5-10.8)
[2019-10-31 22:50] LABS: ALT 20 U/L (7-52); AST 21 U/L (13-39); Albumin 4.1 g/dL (3.2-5.2); Albumin/Globulin Ratio 1.6 (1-3); Alkaline Phosphatase 71 U/L (34-104); Anion Gap 9 mmol/L (2-11); BUN/Creatinine Ratio 18.8 (8-20); Blood Urea Nitrogen 12 mg/dL (6-24); CO2 Carbon Dioxide 23 mmol/L (22-32); Calcium 9.5 mg/dL (8.6-10.3); Chloride 105 mmol/L (101-111); EGFR African American 114.1 (>60); EGFR Non-African American 94.3 (>60); Globulin 2.6 g/dL (2-4); Glucose 94 mg/dL (70-100); Potassium 3.4 mmol/L (3.5-5.0); Sodium 137 mmol/L (135-145); Total Protein 6.7 g/dL (6.4-8.9)
[2019-10-31 23:00] LABS: Urine Appearance Clear; Urine Bilirubin Negative (Negative); Urine Blood Negative (Negative); Urine Color Yellow; Urine Glucose Negative (Negative); Urine Ketones Negative (Negative); Urine Nitrite Negative (Negative); Urine Protein Negative (Negative); Urine Specific Gravity 1.002 (1.010-1.030); Urine Urobilinogen Negative (Negative)
[2019-10-31 23:17] LABS: Acetaminophen < 15 mcg/mL; Alcohol 127 mg/dL (<10); Salicylate < 2.50 mg/dL (<30)
[2019-10-31 23:30] LABS: Urine Benzodiazepine Screen None Detected (None Detect); Urine Opiates Screen Presumptive Positive (None Detect)
[2019-10-31 23:32] LABS: TSH (Thyroid Stimulating Horm) 2.62 mcIU/mL (0.34-5.60)
[2019-10-31 23:51] LABS: Urine Bacteria Absent (Absent); Urine Red Blood Cell Trace(0-2/hpf) (Absent); Urine White Blood Cell Trace(0-5/hpf) (Absent)
--- NOTE | 2019-11-01 07:18 | ED ---
Progress - Progress Note Progress Note: Patient is a sign out at 07:00 on 11/01/[address] Maday Villafuerte MD to Dr. Jennifer Escobar MD at shift change, pending mental health evaluation and disposition. At 09:07, Dr. Chan Ortiz reviewed the patients case and will discharge the patient with a diagnosis of alcohol abuse. Patient will be discharged with a diagnosis of alcohol abuse. Re-Evaluation - Re-Evaluation First Eval Re-Evaluation Time: 22:00 Comment: Patient is medically clear for [facility]. 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 Course/Dx - Diagnoses Provider Diagnoses: Depression, Alcohol abuse - Provider Notifications Discussed Care Of Patient With: Chan Ortiz - At 09:07, Dr. Chan Ortiz reviewed the patients case and will discharge the patient with a diagnosis of alcohol abuse. Time Discussed With Above Provider: 09:07 Instructed by Provider To: Other - Discharge Discharge ED - Sign-Out/Discharge Documenting (check all that apply): Patient Departure - Discharge, Receiving Sign-Out Receiving patient FROM: Maday Villafuerte - Patient is a sign out at 07:00 on 11/01/[address] Maday Villafuerte MD to Dr. Jennifer Escobar MD at shift change, pending mental health evaluation and disposition. - Discharge Plan Condition: Stable Referrals: [facility] [Outside] - Attestation Statements Document Initiated by Scribe: Yes Documenting Scribe: Betty Wiley Provider For Whom Scribe is Documenting (Include Credential): Jennifer Escobar MD Scribe Attestation: Betty Zhong, scribed for Jennifer Escobar MD on 11/01/19 at 0908. Status of Scribe Document: Ready
[2019-11-01] MEDS ORDERED: Acetaminophen TAB* 325 MG PO ONE (07:32)
[2019-11-01 10:11] VITALS: BP 138/63
== END 2019-11-01 10:16 | disposition home or self-care (01) ==
LOC: ED 21:48
DX: F32.9 Major depressive disorder, single episode, unspecified (principal); K21.9 Gastro-esophageal reflux disease without esophagitis; Z88.0 Allergy status to penicillin; Z85.3 Personal history of malignant neoplasm of breast; Z87.891 Personal history of nicotine dependence; Z85.118 Personal history of other malignant neoplasm of bronchus and lung; Z79.899 Other long term (current) drug therapy
CPT/HCPCS: 36415; 80053; 80307; 80320; 80329; 81003; 81015; 84443; 85025; 87077; 87086; 99285; A9270-GY; G0480